=== PATIENT | male | born 1960 | race Caucasian/White ===

== ENCOUNTER 2016-11-10 | Outpatient (CLI) | END 2016-11-10 16:58 | disposition critical access hospital (66) | CPT/HCPCS: A0425; A0429 ==

== ENCOUNTER 2016-11-10 17:19 | Emergency (ER) | payer MEDICAID ==
[2016-11-10] MEDS ORDERED: IPRATROPIUM/ALBUTEROL 3 ML NEB INH STA (19:00)
[2016-11-10] MEDS ORDERED: SODIUM CHLORIDE 0.9% 1,000 ML IV ONE (19:01)
[2016-11-10] MEDS ORDERED: IPRATROPIUM/ALBUTEROL 3 ML NEB INH ONE (19:27)
[2016-11-10] MEDS ORDERED: AZITHROMYCIN 250 MG TABLET PO STA (21:32)
[2016-11-10] MEDS ORDERED: DEXAMETHASONE 10 MG/ML VIAL PO STA (21:32)
[2016-11-10] MEDS ORDERED: DEXAMETHASONE 10 MG/ML VIAL ONE (21:35)
[2016-11-10] MEDS ORDERED: AZITHROMYCIN 250 MG TABLET PO ONE (21:35)
== END 2016-11-10 21:48 | disposition home or self-care (01) ==
DX: J44.1 Chronic obstructive pulmonary disease with (acute) exacerbation (principal); J45.909 Unspecified asthma, uncomplicated; J06.9 Acute upper respiratory infection, unspecified
CPT/HCPCS: 36415; 80053; 82140; 82803; 83605; 83690; 83735; 85025; 94640; 99284; A9270; J7620

== ENCOUNTER 2016-11-11 19:55 | Emergency (ER) | payer MEDICAID | END 2016-11-11 22:10 | disposition home or self-care (01) | DX: R41.0 Disorientation, unspecified (principal); J44.9 Chronic obstructive pulmonary disease, unspecified; K21.9 Gastro-esophageal reflux disease without esophagitis; Z86.73 Personal history of transient ischemic attack (TIA), and cerebral infarction without residual deficits ==

== ENCOUNTER 2017-05-17 14:02 | Emergency (ER) | payer MEDICAID ==
--- NOTE | 2017-05-17 14:36 | ED Physician Documentation ---
PD HPI BACK INJURY - Stated complaint Stated Complaint: BACK PX - History obtained from History obtained from: Patient, Family - History of Present Illness Location: Left, Lower Type of injury: Fall Where injury occurred: Home (tripped over a stump) Timing - onset: How many days ago (several) Timing - duration: Days (several) Pain level max: 10 Pain level now: 10 Quality: Pain, Spasm, Tearing Improved by: Rest Worsened by: Moving, Palpating Associated symptoms: No: Fever, Weakness, Numbness, Incontinent of urine, Unable to urinate, Hematuria, Incontinent of stool Contributing factors: Prior back surgery (L4-S1 fusion). No: Anticoagulated Similar symptoms before: Diagnosis (chronic back pain) Recently seen: Not recently seen - Additional information Additional information: states last used methamphetamines 4 days ago Review of Systems Ten Systems: 10 systems reviewed and negative Constitutional: denies: Fever, Chills Throat: denies: Sore throat Cardiac: denies: Chest pain / pressure Respiratory: denies: Cough GI: denies: Abdominal Pain, Nausea, Vomiting, Diarrhea Skin: denies: Rash Musculoskeletal: denies: Neck pain Neurologic: denies: Focal weakness, Numbness, Headache PD PAST MEDICAL HISTORY - Past Medical History Past Medical History: Yes Respiratory: COPD, Pneumonia Neuro: CVA Endocrine/Autoimmune: None GI: GERD : None HEENT: None Psych: Depression, Anxiety, Bipolar disorder, ADD/ADHD Musculoskeletal: None Derm: None - Past Surgical History Past Surgical History: Yes General: Cholecystectomy, Appendectomy, Colonoscopy Ortho: Spine surgery - Present Medications Home Medications: Ambulatory Orders Medication Instructions Recorded Confirmed Tiotropium [place] [Spiriva] 1 cap INH DAILY 06/05/14 11/11/16 Albuterol Sulfate [Albuterol 2 puffs IH Q4HR PRN #1 hfa.aer.ad 02/04/15 11/11/16 Sulfate Hfa] Multivitamin [Multivitamins] 1 tab PO DAILY 02/04/15 11/11/16 Cholecalciferol [Vitamin D3] 6,000 units PO DAILY 06/13/16 11/11/16 Pravastatin [Pravachol] 40 mg PO DAILY 06/13/16 11/11/16 amLODIPine [Norvasc] 5 mg PO DAILY 06/13/16 11/11/16 Adalimumab [Humira] 40 mg SUBQ Q14D 09/29/16 11/11/16 Ibuprofen 800 mg PO Q6H PRN 10/30/16 11/11/16 Tamsulosin [Flomax] 0.4 mg PO DAILY 10/30/16 11/11/16 Amitriptyline [Elavil] 100 mg PO QPM #30 tablet 11/04/16 11/11/16 Amoxicillin/Potassium Clav 1 each PO BID #14 tablet 11/04/16 11/11/16 [Augmentin 875-125 Tablet] Divalproex [Benjamin Jalloh] 750 mg PO DAILY #30 tablet 11/04/16 11/11/16 Duloxetine HCl [Cymbalta] 60 mg PO DAILY #30 capsule. 11/04/16 11/11/16 LORazepam [Ativan] 1 mg PO TID #21 tablet 11/04/16 11/11/16 Lisinopril 10 mg PO DAILY #30 tablet 11/04/16 11/11/16 Nicotine 21 mg Patch [Nicoderm] 1 patch TOP DAILY #28 patch 11/04/16 11/11/16 Omeprazole 20 mg PO DAILY #30 capsule. 11/04/16 11/11/16 Pravastatin [Pravachol] 40 mg PO QPM tablet 11/04/16 11/11/16 oxyCODONE [Roxicodone] 10 mg PO Q6HR PRN #30 tablet 11/04/16 11/11/16 Albuterol Sulfate [Proair Hfa 2 puffs IH QID #1 hfa.aer.ad 11/10/16 11/11/16 Inhaler] Azithromycin [Zithromax] 250 mg PO DAILY #6 tablet 11/10/16 11/11/16 Dexamethasone [Decadron] 4 mg PO DAILY #5 tablet 11/10/16 11/11/16 Cyclobenzaprine [Flexeril] 10 mg PO TID PRN #20 tablet 05/17/17 Meloxicam [Mobic] 7.5 mg PO BID PRN #20 tablet 05/17/17 - Allergies Allergies/Adverse Reactions: Allergies Allergy/AdvReac Type Severity Reaction Status Date / Time bupropion HCl * [From Mal] Allergy Rash Verified 05/17/17 14:15 - Social History Does the pt smoke?: No Smoking Status: Never smoker Does the pt drink ETOH?: No Does the pt have substance abuse?: Yes - Immunizations Immunizations are current?: Yes - POLST Patient has POLST: No PD ED PE NORMAL - Vitals Vital signs reviewed: Yes - General General: Alert and oriented X 3, No acute distress - HEENT HEENT: Moist mucous membranes - Neck Neck: Supple, no meningeal sign - Cardiac Cardiac: RRR, Strong equal pulses - Respiratory Respiratory: No respiratory distress, Clear bilaterally - Abdomen Abdomen: Soft, Non tender, Non distended - Back Back: Other (diffuse TTP T12-L5. No midline TTP. Paraspinal spasm present.) - Derm Derm: Warm and dry - Extremities Extremities: No deformity, No tenderness to palpate, Other (normal bilateral lower extremity patellar and ankle jerk reflexes. Normal great toe extension bilaterally) - Neuro Neuro: Alert and oriented X 3, No motor deficit, No sensory deficit, Normal speech - Psych Psych: Normal mood, Normal affect Results - Vitals Vitals: Vital Signs - 24 hr 05/17/17 05/17/17 14:09 15:22 Temperature 36.5 C Heart Rate 78 77 Respiratory 18 18 Rate Blood Pressure 158/100 H 154/86 H O2 Saturation 99 97 Oxygen O2 Source Room air PD MEDICAL DECISION MAKING - ED course Complexity details: reviewed old records, considered differential (no cauda equina, no spinal epidural abscess, no fracture, no aortic dissection or evidence of aneursym rupture), d/w patient ED course: Patient is a 56-year-old gentleman who presents to the emergency department with acute on chronic back pain. No neurological deficits here. No evidence of acute fracture. No evidence of cauda equina. No evidence of epidural abscess. He does use methamphetamine, last used 4 days ago, but does not inject. Social work was also consulted and gave him resources for rehab. Pain well controlled, ambulating well with a cane. Will continue supportive care and follow-up with his doctor. Patient counseled regarding signs and symptoms for which I believe and urgent re-evaluation would be necessary. Patient with good understanding of and agreement to plan and is comfortable going home at this time This document was made in part using voice recognition software. While efforts are made to proofread this document, sound alike and grammatical errors may occur. Departure - Departure Disposition: 01 Home, Self Care Clinical Impression: Back pain Qualifiers: Back pain location: low back pain Chronicity: acute Back pain laterality: bilateral Sciatica presence: without sciatica Qualified Code(s): M54.5 - Low back pain Back strain Qualifiers: Encounter type: initial encounter Qualified Code(s): S39.012A - Strain of muscle, fascia and tendon of lower back, initial encounter Condition: Good Instructions: ED Low Back Pain Injury, ED Sprain Strain Lumbar Follow-Up: your,doctor in 1 week [Other] Prescriptions: Cyclobenzaprine [Flexeril] 10 mg PO TID PRN #20 tablet PRN Reason: Spasms Meloxicam [Mobic] 7.5 mg PO BID PRN #20 tablet PRN Reason: pain Comments: Return if you worsen. This should improve over the next few days. You should follow up with rehab as instructed by the social science manager today. Do not drive or operate heavy machinery while on flexeril. Your blood pressure was elevated today on check in to the emergency department. This does not mean that you have hypertension, it is a common phenomenon to check into the emergency department and have elevated blood pressure. I recommend that you see your primary care physician within the week to have it rechecked when you're feeling better. Discharge Date/Time: 05/17/17 15:22
[2017-05-17] MEDS ORDERED: KETOROLAC 60 MG/2 ML VIAL IM STA (14:48)
[2017-05-17] MEDS ORDERED: DEXAMETHASONE 10 MG/ML VIAL ONE (14:49)
[2017-05-17] MEDS ORDERED: CYCLOBENZAPRINE 10 MG TABLET PO ONE (14:49)
[2017-05-17] MEDS ORDERED: DEXAMETHASONE 10 MG/ML VIAL PO STA (14:49)
[2017-05-17] MEDS ORDERED: CYCLOBENZAPRINE 10 MG TABLET PO STA (14:49)
[2017-05-17] MEDS ORDERED: KETOROLAC 60 MG/2 ML VIAL ONE (14:50)
[2017-05-17] MEDS ORDERED: HYDROcod/ACETAM 5/325 MG TABLET PO STA (14:50)
[2017-05-17] MEDS ORDERED: HYDROcod/ACETAM 5/325 MG TABLET ONE (14:54)
[2017-05-17 15:22] VITALS: BP 154/86
== END 2017-05-17 15:22 | disposition home or self-care (01) ==
LOC: ED 14:02
DX: S39.012A Strain of muscle, fascia and tendon of lower back, initial encounter (principal); W18.09XA Striking against other object with subsequent fall, initial encounter; Y92.009 Unspecified place in unspecified non-institutional (private) residence as the place of occurrence of the external cause; F15.90 Other stimulant use, unspecified, uncomplicated; G89.29 Other chronic pain
CPT/HCPCS: 96372; 99283; 99284; A9270

== ENCOUNTER 2017-08-02 19:13 | Observation (INO) | payer MEDICAID ==
[2017-08-02] MEDS ORDERED: oxyCOD/ACETAMIN 5 MG/325 MG TABLET PO STA (19:46)
--- NOTE | 2017-08-02 19:48 | ED Physician Documentation ---
PD HPI FOCAL NEURO - Stated complaint Stated Complaint: STROKE SYMPTOMS - Chief complaint Chief Complaint: Neuro - History obtained from History obtained from: Patient, Family - History of Present Illness Timing - onset: Other (This is a 57-year-old gentleman with chronic back pain, history of TIAs, psoriasis, and history of drug use. 5 days ago he started to develop left-sided symptoms including slurred speech, Left arm and leg weakness. Also diffuse headache. He He is left-handed. He went to another hospital 3 days ago where a CT was done, it sounds like it was normal. They could not do an MRI over the weekend so it was recommended that he be transferred to [place], he signed out AGAINST MEDICAL ADVICE but still is having symptoms that are waxing and waning.) Review of Systems Ten Systems: 10 systems reviewed and negative Constitutional: denies: Fever, Chills Nose: denies: Rhinorrhea / runny nose, Congestion Cardiac: denies: Chest pain / pressure, Palpitations Respiratory: denies: Dyspnea, Cough GI: denies: Abdominal Pain, Nausea, Vomiting Musculoskeletal: reports: Back pain (Chronic, severe) PD PAST MEDICAL HISTORY - Past Medical History Respiratory: COPD, Pneumonia Neuro: CVA Endocrine/Autoimmune: None GI: GERD : None HEENT: None Psych: Depression, Anxiety, Bipolar disorder, ADD/ADHD Musculoskeletal: None Derm: None - Past Surgical History Past Surgical History: Yes General: Cholecystectomy, Appendectomy, Colonoscopy Ortho: Spine surgery - Present Medications Home Medications: Ambulatory Orders Medication Instructions Recorded Confirmed Tiotropium [place] [Spiriva] 1 cap INH DAILY 06/05/14 11/11/16 Albuterol Sulfate [Albuterol 2 puffs IH Q4HR PRN #1 hfa.aer.ad 02/04/15 11/11/16 Sulfate Hfa] Multivitamin [Multivitamins] 1 tab PO DAILY 02/04/15 11/11/16 Cholecalciferol [Vitamin D3] 6,000 units PO DAILY 06/13/16 11/11/16 Pravastatin [Pravachol] 40 mg PO DAILY 06/13/16 11/11/16 amLODIPine [Norvasc] 5 mg PO DAILY 06/13/16 11/11/16 Adalimumab [Humira] 40 mg SUBQ Q14D 09/29/16 11/11/16 Ibuprofen 800 mg PO Q6H PRN 10/30/16 11/11/16 Tamsulosin [Flomax] 0.4 mg PO DAILY 10/30/16 11/11/16 Amitriptyline [Elavil] 100 mg PO QPM #30 tablet 11/04/16 11/11/16 Amoxicillin/Potassium Clav 1 each PO BID #14 tablet 11/04/16 11/11/16 [Augmentin 875-125 Tablet] Divalproex [Benjamin Jalloh] 750 mg PO DAILY #30 tablet 11/04/16 11/11/16 Duloxetine HCl [Cymbalta] 60 mg PO DAILY #30 capsule. 11/04/16 11/11/16 LORazepam [Ativan] 1 mg PO TID #21 tablet 11/04/16 11/11/16 Lisinopril 10 mg PO DAILY #30 tablet 11/04/16 11/11/16 Nicotine 21 mg Patch [Nicoderm] 1 patch TOP DAILY #28 patch 11/04/16 11/11/16 Omeprazole 20 mg PO DAILY #30 capsule. 11/04/16 11/11/16 Pravastatin [Pravachol] 40 mg PO QPM tablet 11/04/16 11/11/16 oxyCODONE [Roxicodone] 10 mg PO Q6HR PRN #30 tablet 11/04/16 11/11/16 Albuterol Sulfate [Proair Hfa 2 puffs IH QID #1 hfa.aer.ad 11/10/16 11/11/16 Inhaler] Azithromycin [Zithromax] 250 mg PO DAILY #6 tablet 11/10/16 11/11/16 Dexamethasone [Decadron] 4 mg PO DAILY #5 tablet 11/10/16 11/11/16 Cyclobenzaprine [Flexeril] 10 mg PO TID PRN #20 tablet 05/17/17 Meloxicam [Mobic] 7.5 mg PO BID PRN #20 tablet 05/17/17 - Allergies Allergies/Adverse Reactions: Allergies Allergy/AdvReac Type Severity Reaction Status Date / Time bupropion HCl * [From Mal] Allergy Rash Verified 08/02/17 19:18 - Social History Does the pt smoke?: No Smoking Status: Never smoker Does the pt drink ETOH?: No Does the pt have substance abuse?: Yes - Family History Family history: reports: Non contributory - Immunizations Immunizations are current?: Yes - POLST Patient has POLST: No PD ED PE NORMAL - Vitals Vital signs reviewed: Yes - General General: Alert and oriented X 3, No acute distress - HEENT HEENT: PERRL, EOMI - Neck Neck: Supple, no meningeal sign, No bony TTP - Cardiac Cardiac: RRR, No murmur - Respiratory Respiratory: No respiratory distress, Clear bilaterally - Abdomen Abdomen: Soft, Non tender - Back Back: No CVA TTP, No spinal TTP - Derm Derm: Normal color, Warm and dry - Extremities Extremities: No edema, No calf tenderness / cord - Neuro Neuro: Alert and oriented X 3, Normal speech - Psych Psych: Normal mood, Normal affect NIHSS - Time Time: 19:40 - Level of Consciousness Level of consciousness: (0) Alert, Keenly responsive LOC Questions: (1) Answers one Q correctly (August but year right) LOC Commands: (0) Performs both correctly - Gaze Best Gaze: (0) Normal - Visual Visual: (0) No loss - Facial Palsy Facial Palsy: (0) Normal, symmetrical movement - Motor Arms (both separate) Motor Arm (right): (0) No drift Motor Arm (left): (0) No drift (but weak in house cra) - Motor Legs (both separate) Motor Leg (right): (0) No drift Motor Leg (left): (1) Drift - Limb Ataxia Limb Ataxia: (0) Absent - Sensory Sensory: (1) Stui-nr-vqxxjvtu loss - Best Language Best Language: (0) No aphasia - Dysarthria Dysarthria: (0) Normal - Extinction and Inattention (formally neg Extinction and inattention: (1) Visual,tactile,auditory,spatial, or personal inattention (extinction left leg) - Total Score/Results Total Score/Result: 4 Results - Vitals Vitals: Vital Signs - 24 hr 08/02/17 19:14 Temperature 36.7 C Heart Rate 98 Respiratory 18 Rate Blood Pressure 146/90 H O2 Saturation 96 Oxygen O2 Source Room air - EKG (time done) 2006 Rate: Rate (enter#) (90) Rhythm: NSR [place]: LAD Intervals: Normal DC, Wide QRS (IVCD QRSd 121) Ischemia: Normal ST segments Computer interpretation: Agree with computer - Labs Labs: Laboratory Tests 08/02/17 08/02/17 08/02/17 19:55 19:55 19:55 WBC 7.3 RBC 4.27 L Hgb 13.7 L Hct 40.2 L MCV 94.1 H MCH 32.1 H MCHC 34.1 RDW 13.9 Plt Count 280 MPV 7.0 L Neut # 4.6 Lymph # 2.0 [place] # 0.6 Eos # 0.1 Baso # 0.1 Absolute Nucleated RBC 0.00 Nucleated RBCs 0.0 PT 12.1 INR 1.1 Sodium 137 Potassium 3.2 L Chloride 104 Carbon Dioxide 25 Anion Gap 8.0 BUN 21 H Creatinine 0.9 Estimated GFR (MDRD) 86 L Glucose 110 H Calcium 9.0 Total Bilirubin 0.9 AST 30 ALT 24 Alkaline Phosphatase 63 Troponin I Total Protein 6.6 L Albumin 3.9 Globulin 2.7 Albumin/Globulin Ratio 1.4 Lipase 20 L Ethyl Alcohol < 5.0 08/02/17 19:55 WBC RBC Hgb Hct MCV MCH MCHC RDW Plt Count MPV Neut # Lymph # [place] # Eos # Baso # Absolute Nucleated RBC Nucleated RBCs PT INR Sodium Potassium Chloride Carbon Dioxide Anion Gap BUN Creatinine Estimated GFR (MDRD) Glucose Calcium Total Bilirubin AST ALT Alkaline Phosphatase Troponin I < 0.04 Total Protein Albumin Globulin Albumin/Globulin Ratio Lipase Ethyl Alcohol - Rads (name of study) Ct head Radiology: EMP read contemporaneously (NAD) PD MEDICAL DECISION MAKING - ED course ED course: 57-year-old gentleman presents with strokelike symptoms with dominant, left- sided symptoms. He is definitely not a TPA candidate because of the time course , [address] is without obvious insult, spoke with Dr. Rocha for admission at 9:08 PM. Departure - Departure Disposition: ED Place in Observation Clinical Impression: Cerebrovascular accident (CVA) Qualifiers: CVA mechanism: unspecified Qualified Code(s): I63.9 - Cerebral infarction, unspecified Condition: Stable
[2017-08-02] MEDS ORDERED: HYDROmorphone 1 MG/ML CARPUJECT IVP STA (19:49)
[2017-08-02] MEDS ORDERED: SODIUM CHLORIDE FLUSH 0.9% 10 ML SYRINGE IVP ONE (19:52)
[2017-08-02] MEDS ORDERED: HYDROmorphone 1 MG/ML CARPUJECT ONE (20:05)
[2017-08-02 20:06] LABS: BASOPHILS # (AUTO) 0.1 10^3/uL (0.0-0.1); BASOPHILS % (AUTO) 1.2 %; EOSINOPHILS # (AUTO) 0.1 10^3/uL (0.0-0.7); EOSINOPHILS % (AUTO) 0.9 %; HCT - HEMATOCRIT 40.2 % (42.0-52.0); HGB - HEMOGLOBIN 13.7 g/dL (14.0-18.0); LYMPHOCYTES % (AUTO) 27.2 %; MEAN CORPUSCULAR HEMOGLOBIN 32.1 pg (27.0-31.0); MEAN CORPUSCULAR HGB CONC 34.1 g/dL (32.0-36.0); MEAN CORPUSCULAR VOLUME 94.1 fL (80.0-94.0); MONOCYTES # (AUTO) 0.6 10^3/uL (0.0-1.0); MONOCYTES % (AUTO) 8.3 %; NEUTROPHILS # (AUTO) 4.6 10^3/uL (1.5-6.6); NEUTROPHILS % (AUTO) 62.4 %; RED BLOOD COUNT 4.27 10^6/uL (4.70-6.10); RED CELL DISTRIBUTION WIDTH 13.9 % (12.0-15.0); UNCORRECTED WHITE BLOOD COUNT 7.3 x10^3/uL; WHITE BLOOD COUNT 7.3 x10^3/uL (4.8-10.8)
[2017-08-02] MEDS ORDERED: SODIUM CHLORIDE 0.9% 1,000 ML IV ONE (20:13)
[2017-08-02 20:15] LABS: ALBUMIN/GLOBULIN RATIO 1.4 (1.0-2.2); BILIRUBIN,TOTAL 0.9 mg/dL (0.2-1.0); BUN - BLOOD UREA NITROGEN 21 mg/dL (6-20); CARBON DIOXIDE - CO2 25 mmol/L (21-32); CHLORIDE 104 mmol/L (101-111); CREATININE 0.9 mg/dL (0.6-1.2); GFR - MDRD 86 (>89); GLUCOSE 110 mg/dL (70-100); LIPASE 20 U/L (22-51); POTASSIUM 3.2 mmol/L (3.5-5.0); SODIUM 137 mmol/L (135-145); TOTAL PROTEIN 6.6 g/dL (6.7-8.2)
[2017-08-02 20:16] LABS: INR 1.1 (0.8-1.2); PT - PROTHROMBIN TIME 12.1 secs (9.9-12.6)
--- NOTE | 2017-08-02 20:50 | CT Preliminary Report ---
Exam: CT Head W/O IMPRESSION: Normal head CT. [facility] SITE ID: [id number]
--- NOTE | 2017-08-02 20:53 | CT Report ---
EXAM: CT HEAD EXAM DATE: 08/02/2017 08:19 PM. CLINICAL HISTORY: CVA. COMPARISON: 11/11/2016. TECHNIQUE: Multiaxial CT images were obtained from the foramen magnum to the vertex. IV contrast: Non e. Reformats: Coronal. In accordance with CT protocol optimization, one or more of the following dose reduction techniques w ere utilized for this exam: automated exposure control, adjustment of mA and/or KV based on patient s ize, or use of iterative reconstructive technique. FINDINGS: Parenchyma: No intraparenchymal hemorrhage. No evidence of mass, midline shift, or CT findings of inf arction. Krause-white differentiation is distinct. Extraaxial Spaces: Normal for age. No subdural or epidural collections identified. Ventricles: Normal in size and position. Sinuses: Imaged paranasal sinuses, orbits, and mastoids show no significant abnormality. Bones: No evidence of fracture or calvarial defect. Other: None. IMPRESSION: Normal head CT. [facility] Referring Provider Line: [phone] SITE ID: [id number]
[2017-08-02] MEDS ORDERED: ASPIRIN CHEW 81 MG TABLET PO STA (21:06)
[2017-08-02] MEDS ORDERED: ASPIRIN CHEW 81 MG TABLET ONE (21:16)
[2017-08-02] MEDS ORDERED: IBUPROFEN 800 MG TABLET PO PRN (21:18)
[2017-08-02] MEDS ORDERED: CYCLOBENZAPRINE 10 MG TABLET PO PRN (21:18)
[2017-08-02] MEDS ORDERED: PROCHLORPERAZINE 10 MG/2 ML VIAL IVP PRN (21:20)
[2017-08-02] MEDS ORDERED: SODIUM CHLORIDE FLUSH 0.9% 10 ML SYRINGE IVP PRN (21:20)
[2017-08-02] MEDS ORDERED: IPRATROPIUM/ALBUTEROL 3 ML NEB INH PRN (21:20)
[2017-08-02] MEDS ORDERED: ZOLPIDEM 5 MG TABLET PO PRN (21:20)
[2017-08-02] MEDS ORDERED: ONDANSETRON 4 MG/2 ML VIAL IVP PRN (21:20)
[2017-08-02] MEDS ORDERED: ACETAMINOPHEN 325 MG TABLET PO PRN (21:20)
[2017-08-02] MEDS: SODIUM CHLORIDE FLUSH 0.9% 10 ML SYRINGE IVP SCH (22:36)
[2017-08-02] MEDS: oxyCODONE 5 MG TABLET PO PRN (22:36)
[2017-08-02] MEDS: LORazepam 0.5 MG TABLET PO SCH (22:36)
[2017-08-02] MEDS: SODIUM CHLORIDE 0.9% 1,000 ML IV SCH (22:49)
--- NOTE | 2017-08-02 23:01 | HISTORY & PHYSICAL EXAMINATION ---
Chief Complaint - Chief Complaint Chief Complaint: Left arm and leg weakness History of Present Illness - Admitted From Admitted From:: Emergency department - History Obtained From Records Reviewed: Yes History obtained from: Patient and his girlfriend Exam Limitations: None - History of Present Illness HPI Comment/Other: Patient is a 57-year-old gentleman with a past medical history significant for hypertension, TIAs, history of DE GERD, erectile dysfunction, COPD not on home oxygen, severe psoriasis, BPH, chronic tobacco abuse, anxiety, hyperlipidemia, chronic back pain status post spinal surgery, bipolar 1 disorder with depression and a 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 According to the patient's girlfriend the patient initially had symptoms 5 days ago at home. According to the patient's the patient had slurred speech and was having a difficult time understanding her. She states that when she did a stroke test on him she noted that he had weakness in the left hand as she could not get him to tile and mottle supervisor her finger in his left hand. She also stated that he was having difficulty walking and was favoring the left side. At that time the patient refused to come into the hospital and symptoms persisted over the next 1-2 days with the patient being in and out according to the patient's girlfriend. Finally the patient went to a hospital in [place] on Wednesday and underwent a CT of his head which was negative for stroke at that time. The emergency room physician there wanted the patient to get an MRI but their facility did not have MRI available so the patient was going to be transferred to [facility] in [place] but the patient refused and left AMA. The patient's girlfriend states that over the past several days the patient has continued to have weakness on the left side. She states that he is able to walk with a cane but he definitely is weaker in his left leg and also she notes that he continues to have weakness with his tile and mottle supervisor in the left hand and weakness in the left arm. She states that she was finally able to convince him to come into the hospital today to get further evaluation. The patient states that he does take a full aspirin and statin at home. He does admit that he is not always compliant and has not taken his medications for the last several days. The patient states that he does continue to use methamphetamine but states that he is trying to quit and would like to speak with the psychosocial rehabilitation counselor. The patient otherwise states that he does have a headache and has had a bad headache for the last several days, he does complain of chronic back pain which has been worse since Wednesday when the patient had a fall, the patient also complains of the weakness in his left arm and left leg. The patient otherwise states he does not have any blurred vision, runny nose, sore throat, nasal congestion, chest pain, shortness of air, wheezing, orthopnea, PND, increased lower extremity swelling, abnormal pain, nausea, vomiting, diarrhea, constipation, he does admit to urinary incontinence which is new for him over the last several days, he denies any dysuria, he denies any muscle aches, he denies any joint swelling or joint pains, he denies any changes in his appetite or recent unintentional weight loss. On presentation to the emergency department the patient was slightly hypertensive but was otherwise hemodynamically stable. The patient underwent routine lab work including troponin which was negative electrolytes which were within normal limits aside from his potassium of 3.2. The patient urine tox screen was positive for tricyclics amphetamine and cannabinoids but negative for alcohol. The patient was found to have significant left upper extremity and lower extremity weakness. He did not have any facial droop or expressive aphasia. The patient underwent a repeat CT scan of his head which was normal and was placed in observation for neuro checks, CT angiogram of the brain and neck, echocardiogram and MRI. The patient is already on aspirin and a statin therefore Plavix was also started. History - Past Medical History Cardiovascular: reports: Hypertension, High cholesterol, DE Respiratory: reports: COPD, Pneumonia Neuro: reports: CVA, TIA, Head injury Endocrine/Autoimmune: reports: None GI: reports: GERD : reports: Benign prostate hypertrophy HEENT: reports: None Psych: reports: Depression, Anxiety, Bipolar disorder, ADD/ADHD Musculoskeletal: reports: Chronic back pain Derm: reports: Psoriasis MRSA Hx?: No Other Past Medical History: 1. History of alcohol abuse. 2. Methamphetamine abuse. 3. TIAs. 4. History of CVA. 5. Hypertension. 6. GERD. 7. Erectile dysfunction. 8. Chronic obstructive pulmonary disease not on home oxygen. 9. History of episode of syncope. 10. History of traumatic brain injury. 11. Hyperlipidemia. 12. Severe psoriasis on Humira. 13. Benign prostatic hypertrophy. 14. Chronic tobacco abuse. 15. Anxiety. 16. Adenomatous colonic polyp. 17. Chronic back pain status post spinal surgery. 18. Bipolar 1 disorder with depression - Past Surgical History General: reports: Cholecystectomy, Appendectomy, Colonoscopy Ortho: reports: Spine surgery - Family & Social History Family History: Mother: (Both parents of cancer mother had pancreatic cancer), Father: Family History Comment/Other: No family history of diabetes, heart disease, hypertension, stroke. Living arrangement: At home Living Situation: With spouse/s.o. Social History Notes: The patient lives in her apartment in [place] with his girlfriend and his girlfriend's son. He is not currently employed. He has a history of alcohol abuse but has been in remission for some time. He does still occasionally use methamphetamine. He states that he has cut down on his smoking and only smokes a few cigarettes a day. He states he would like to see a psychosocial rehabilitation counselor regarding his methamphetamine abuse. - Substance History Use: Uses substance without health or social issues: Tobacco, Amphetamine Abuse: Recurrent use of substance despite neg consequences: Amphetamine Tobacco Details: Cigarettes - POLST Patient has POLST: No POLST Status: Full Code Meds/Allgy - Home Medications Home Medications: Ambulatory Orders Medication Instructions Recorded Confirmed Tiotropium [place] [Spiriva] 1 cap INH DAILY 06/05/14 11/11/16 Albuterol Sulfate [Albuterol 2 puffs IH Q4HR PRN #1 hfa.aer.ad 02/04/15 11/11/16 Sulfate Hfa] Multivitamin [Multivitamins] 1 tab PO DAILY 02/04/15 11/11/16 Cholecalciferol [Vitamin D3] 6,000 units PO DAILY 06/13/16 11/11/16 Pravastatin [Pravachol] 40 mg PO DAILY 06/13/16 11/11/16 amLODIPine [Norvasc] 5 mg PO DAILY 06/13/16 11/11/16 Adalimumab [Humira] 40 mg SUBQ Q14D 09/29/16 11/11/16 Ibuprofen 800 mg PO Q6H PRN 10/30/16 11/11/16 Tamsulosin [Flomax] 0.4 mg PO DAILY 10/30/16 11/11/16 Amitriptyline [Elavil] 100 mg PO QPM #30 tablet 11/04/16 11/11/16 Amoxicillin/Potassium Clav 1 each PO BID #14 tablet 11/04/16 11/11/16 [Augmentin 875-125 Tablet] Divalproex [Depakomichelle Jalloh] 750 mg PO DAILY #30 tablet 11/04/16 11/11/16 Duloxetine HCl [Cymbalta] 60 mg PO DAILY #30 capsule. 11/04/16 11/11/16 LORazepam [Ativan] 1 mg PO TID #21 tablet 11/04/16 11/11/16 Lisinopril 10 mg PO DAILY #30 tablet 11/04/16 11/11/16 Nicotine 21 mg Patch [Nicoderm] 1 patch TOP DAILY #28 patch 11/04/16 11/11/16 Omeprazole 20 mg PO DAILY #30 capsule. 11/04/16 11/11/16 Pravastatin [Pravachol] 40 mg PO QPM tablet 11/04/16 11/11/16 oxyCODONE [Roxicodone] 10 mg PO Q6HR PRN #30 tablet 11/04/16 11/11/16 Albuterol Sulfate [Proair Hfa 2 puffs IH QID #1 hfa.aer.ad 11/10/16 11/11/16 Inhaler] Azithromycin [Zithromax] 250 mg PO DAILY #6 tablet 11/10/16 11/11/16 Dexamethasone [Decadron] 4 mg PO DAILY #5 tablet 11/10/16 11/11/16 Cyclobenzaprine [Flexeril] 10 mg PO TID PRN #20 tablet 05/17/17 Meloxicam [Mobic] 7.5 mg PO BID PRN #20 tablet 05/17/17 - Allergies Allergies/Adverse Reactions: Allergies Allergy/AdvReac Type Severity Reaction Status Date / Time bupropion HCl * [From Zkhalidaan] Allergy Rash Verified 08/02/17 19:18 Review of Systems - Other Findings Other Findings: A comprehensive review of systems was performed the pertinent positives and negatives are stated above in the HPI and the remainder of the review of systems is negative. Exam - Vital Signs Vital Signs: Vital Signs x48h Temp Pulse Pulse Resp BP BP Pulse Ox 08/02/17 22:00 36.4 C L 89 18 120/92 H 96 08/02/17 21:31 90 17 160/93 H 94 08/02/17 21:30 37.0 C 92 12 160/93 H 94 - Physical Exam General Appearance: positive: No acute distress, Alert, Other (The patient does have obvious psoriasis over much of his skull and skin, he is alert and able to answer questions appropriately. He does tend to get off topic and ramble.) Eyes Bilateral: positive: Normal inspection, PERRL, EOMI, No lid inflammation, Conjunctivae nml, No scleral icterus ENT: positive: ENT inspection nml, Pharynx nml, Dry mucous membranes. negative : Purulent nasal drainage, Pharyngeal erythema, Oral lesions Neck: positive: Nml inspection, Thyroid nml, No JVD, Trachea midline. negative : Thyromegaly, Lymphadenopathy (R), Lymphadenopathy (L), Stiff neck, Carotid bruit, Tracheal deviation Respiratory: positive: Chest non-tender, No respiratory distress, Wheezes (Mild diffuse). negative: Rales, Rhonchi Cardiovascular: positive: Regular rate & rhythm, No murmur, No gallop Peripheral Pulses: positive: 2+ Abdomen: positive: Non-tender, No organomegaly, Nml bowel sounds, No distention. negative: Guarding, Rebound Back: positive: Nml inspection. negative: CVA tenderness (R), CVA tenderness (L ) Skin: positive: Dry, Skin rash (Patient has psoriasis). negative: Cyanosis, Diaphoresis, Pallor Extremities: positive: Non-tender, Full ROM, Nml appearance, No pedal edema, Other (Mid to lower spinal tenderness). negative: Joint swelling Neurologic/Psychiatric: positive: Oriented x3, CN's nml (2-12), Sensation nml, Mood/affect nml, Weakness (Left hand tile and mottle supervisor 3/5, left arm strength 4/5, left leg strength 4/5. Right upper and lower extremity strength normal). negative: Facial droop, Slurred/abnml speech Conclusion/Plan - Problem List (1) Cerebrovascular accident (CVA) Conclusion/Plan: The patient has a history of CVA and is supposed to be on aspirin and pravastatin at home the patient is not always compliant. The patient also continues to use methamphetamines and does smoke. He has a history of hypertension and hyperlipidemia. The patient is not always compliant with medications. He initially had left-sided weakness 5 days ago and did get seen in the ER at [facility] where he underwent a CT head that was negative. At that time they wanted him to go to [facility] in [place] for MRI but the patient refused. Patient continues to have persistent symptoms although initially he had some slurred speech and confusion which has resolved but weakness remains. On exam patient does have left upper and lower extremity weakness. CT head here in the ER is also negative. Patient being placed in observation for full workup for CVA. Plan: Aspirin Plavix Lipitor CTA head and neck MRI brain Echo Lipid profile Tele Neurochecks PT eval Qualifiers: CVA mechanism: unspecified Qualified Code(s): I63.9 - Cerebral infarction, unspecified (2) Hypertension Conclusion/Plan: The patient is 5 days out from his initial stroke. Although patient CT head is negative he continues to have left-sided weakness. Patient's blood pressure is slightly elevated and given it is outside of the window for permissive hypertension patient will be restarted on his home blood pressure medications and we will continue to monitor his blood pressure closely. Qualifiers: Hypertension type: essential hypertension Qualified Code(s): I10 - Essential (primary) hypertension (3) Hyperlipidemia Conclusion/Plan: The patient is on pravastatin at home secondary to having had an DE and a stroke in the past. The patient is not completely compliant with medication. He will be placed on Lipitor 80 mg while he is hospitalized as he is presenting with another stroke. The patient was counseled on the need for medication and compliance (4) COPD (chronic obstructive pulmonary disease) Conclusion/Plan: The patient has history of COPD and is on Spiriva and albuterol as needed at home. The patient does have mild wheezing on examination but is not appear to be in COPD exacerbation. Plan: Patient will be continued on duo nebs as needed while he is hospitalized Patient will be given oxygen if needed. (5) Bipolar 1 disorder Conclusion/Plan: Patient has history of bipolar disorder and is on Depakote Cymbalta and amitriptyline. Patient's mood appears to be stable we will continue his home medications while he is hospitalized. (6) Methamphetamine abuse Conclusion/Plan: Patient has a history of methamphetamine abuse and was in remission for some time. The patient states that he has relapsed and does use occasionally. He would like to talk to psychosocial rehabilitation counselor regarding help. The patient was counseled on the need to stop using methamphetamine and the risks involved with its use. (7) Tobacco abuse Conclusion/Plan: The patient continues to smoke although he states he is cut down to just a few cigarettes a day. It was again explained to the patient the risks involved with continued smoking including the risk of stroke heart attack and cancer. The patient seemed to under and we will place him on a nicotine patch while he is hospitalized. He states he is trying to quit (8) Chronic back pain Conclusion/Plan: The patient has a history of chronic back pain and has undergone spinal surgery in the past. The patient uses oxycodone, ibuprofen, Flexeril and Tylenol for pain at home. We will continue these medications as needed while he is hospitalized. The patient also had a recent fall just a week ago and has have worsened pain and now has urinary incontinence. If the patient's MRI of the brain is negative we will need to consider imaging of the lumbosacral spine. Qualifiers: Back pain location: low back pain (9) DVT prophylaxis Conclusion/Plan: Given the patient's recent stroke we will place him on SCDs while he is hospitalized for DVT prophylaxis. - Lab Results Lab results reviewed: Yes Fish Bones: 08/02/17 19:55 08/02/17 19:55 Other Lab Results: Laboratory Results WBC 7.3 x10^3/uL (4.8-10.8) 08/02/17 19:55 RBC 4.27 10^6/uL (4.70-6.10) L 08/02/17 19:55 Hgb 13.7 g/dL (14.0-18.0) L 08/02/17 19:55 Hct 40.2 % (42.0-52.0) L 08/02/17 19:55 MCV 94.1 fL (80.0-94.0) H 08/02/17 19:55 MCH 32.1 pg (27.0-31.0) H 08/02/17 19:55 MCHC 34.1 g/dL (32.0-36.0) 08/02/17 19:55 RDW 13.9 % (12.0-15.0) 08/02/17 19:55 Plt Count 280 10^3/uL (130-450) 08/02/17 19:55 MPV 7.0 fL (7.4-11.4) L 08/02/17 19:55 Neut # 4.6 10^3/uL (1.5-6.6) 08/02/17 19:55 Lymph # 2.0 10^3/uL (1.5-3.5) 08/02/17 19:55 [place] # 0.6 10^3/uL (0.0-1.0) 08/02/17 19:55 Eos # 0.1 10^3/uL (0.0-0.7) 08/02/17 19:55 Baso # 0.1 10^3/uL (0.0-0.1) 08/02/17 19:55 Absolute Nucleated RBC 0.00 x10^3/uL 08/02/17 19:55 Nucleated RBCs 0.0 /100WBC 08/02/17 19:55 PT 12.1 secs (9.9-12.6) 08/02/17 19:55 INR 1.1 (0.8-1.2) 08/02/17 19:55 Sodium 137 mmol/L (135-145) 08/02/17 19:55 Potassium 3.2 mmol/L (3.5-5.0) L 08/02/17 19:55 Chloride 104 mmol/L (101-111) 08/02/17 19:55 Carbon Dioxide 25 mmol/L (21-32) 08/02/17 19:55 Anion Gap 8.0 (6-13) 08/02/17 19:55 BUN 21 mg/dL (6-20) H 08/02/17 19:55 Creatinine 0.9 mg/dL (0.6-1.2) 08/02/17 19:55 Estimated GFR (MDRD) 86 (>89) L 08/02/17 19:55 Glucose 110 mg/dL (70-100) H 08/02/17 19:55 Calcium 9.0 mg/dL (8.5-10.3) 08/02/17 19:55 Total Bilirubin 0.9 mg/dL (0.2-1.0) 08/02/17 19:55 AST 30 IU/L (10-42) 08/02/17 19:55 ALT 24 IU/L (10-60) 08/02/17 19:55 Alkaline Phosphatase 63 IU/L (42-121) 08/02/17 19:55 Troponin I < 0.04 ng/mL (<0.49) 08/02/17 19:55 Total Protein 6.6 g/dL (6.7-8.2) L 08/02/17 19:55 Albumin 3.9 g/dL (3.2-5.5) 08/02/17 19:55 Globulin 2.7 g/dL (2.1-4.2) 08/02/17 19:55 Albumin/Globulin Ratio 1.4 (1.0-2.2) 08/02/17 19:55 Lipase 20 U/L (22-51) L 08/02/17 19:55 Urine Opiates Screen NEGATIVE (NEGATIVE) 08/02/17 21:45 Ur Oxycodone Screen NEGATIVE (NEGATIVE) 08/02/17 21:45 Urine Methadone Screen NEGATIVE (NEGATIVE) 08/02/17 21:45 Ur Propoxyphene Screen NEGATIVE (NEGATIVE) 08/02/17 21:45 Ur Barbiturates Screen NEGATIVE (NEGATIVE) 08/02/17 21:45 Ur Tricyclics Screen POSITIVE (NEGATIVE) H 08/02/17 21:45 Ur Phencyclidine Scrn NEGATIVE (NEGATIVE) 08/02/17 21:45 Ur Amphetamine Screen POSITIVE (NEGATIVE) H 08/02/17 21:45 U Methamphetamines Scrn NEGATIVE (NEGATIVE) 08/02/17 21:45 U Benzodiazepines Scrn NEGATIVE (NEGATIVE) 08/02/17 21:45 Urine Cocaine Screen NEGATIVE (NEGATIVE) 08/02/17 21:45 U Cannabinoids Screen POSITIVE (NEGATIVE) H 08/02/17 21:45 Ethyl Alcohol < 5.0 mg/dL 08/02/17 19:55 - Diagnostic Imaging Results Diagnostic Imaging Results: positive: Final report reviewed Diagnostic Imaging Results Comments: CT head Impression: 1. Normal CT head - EKG Results EKG Interpreted Independently: Yes EKG Findings: Normal sinus rhythm, no ST elevations no ischemic changes, no atrial fibrillation or atrial flutter. Issues/Core Measures - Anticipated LOS Anticipated Stay Length: Less than 2 midnights - DVT/VTE - Prophylaxis VTE/DVT Prophylaxis med ordered at admit?: Yes
[2017-08-02] MEDS ORDERED: IOPAMIDOL-300 100 ML VIAL IVP ONE (23:52)
--- NOTE | 2017-08-03 03:22 | CT Preliminary Report ---
Exam: CT Neck Angio IMPRESSION: 1. Cervical CTA: No evidence of carotid or vertebral stenosis. 2. Intracranial CTA: No intracranial stenosis or aneurysm. [facility] SITE ID: [id number]
--- NOTE | 2017-08-03 03:22 | CT Report ---
EXAM: CT HEAD EXAM DATE: 08/02/2017. CLINICAL HISTORY: Slurred speech, left-sided weakness COMPARISON: None. TECHNIQUE: Multiaxial CT images were obtained from the foramen magnum to the vertex. Imaging performe d both without and with contrast. IV contrast: 80 mL Omnipaque 300. Reformats: Coronal. In accordance with CT protocol optimization, one or more of the following dose reduction techniques w ere utilized for this exam: automated exposure control, adjustment of mA and/or KV based on patient s ize, or use of iterative reconstructive technique. FINDINGS: Parenchyma: No intraparenchymal hemorrhage. No evidence of mass, midline shift, or CT findings of inf arction. Krause-white differentiation is distinct. Extraaxial Spaces: Normal for age. No subdural or epidural collections identified. Ventricles: Normal in size and position. Sinuses: Imaged paranasal sinuses, orbits, and mastoids show no significant abnormality. Bones: No evidence of fracture or calvarial defect. Other: There is no enhancing abnormality. There is normal opacification of the venous sinuses.. IMPRESSION: Normal head CT. [facility] Referring Provider Line: [phone] SITE ID: [id number]
--- NOTE | 2017-08-03 03:22 | CT Preliminary Report ---
Exam: CT Head Angio IMPRESSION: Normal head CT. [facility] SITE ID: [id number]
--- NOTE | 2017-08-03 03:22 | CT Report ---
EXAM: CT ANGIOGRAM NECK AND CT ANGIOGRAM HEAD EXAM DATE: 08/02/2017 11:56 PM. CLINICAL HISTORY: Slurred speech and left sided weakness. COMPARISON: None. TECHNIQUE: Routine axial helical imaging was performed of the head and neck. IV Contrast: Yes, 80 ML Isovue 300. Reconstructions: Routine multiplanar 3D MIP reconstructions. Evaluation of arterial steno sis is based on a NASCET method of measurement. In accordance with CT protocol optimization, one or more of the following dose reduction techniques w ere utilized for this exam: automated exposure control, adjustment of mA and/or KV based on patient s ize, or use of iterative reconstructive technique. FINDINGS: Right Carotid: The common carotid, internal carotid, and external carotid arteries are widely patent. No dissection, significant atherosclerotic plaque, or calcification identified. Left Carotid: The common carotid, internal carotid, and external carotid arteries are widely patent. No dissection, significant atherosclerotic plaque, or calcification identified. Vertebrals: The vertebrobasilar system shows no stenoses. Intracranial Circulation: Normal. 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 Right A1 RICA segment i s relatively small. No stenoses or aneurysms of the intracranial vessels. Other: There are emphysematous changes of the lung apices.. Soft tissues of neck unremarkable. There are moderate to severe degenerative changes of lower cervical spine. There are severe facet degenerat monalisa changes at C7-T1. IMPRESSION: 1. Cervical CTA: No evidence of carotid or vertebral stenosis. 2. Intracranial CTA: No intracranial stenosis or aneurysm. [facility] Referring Provider Line: [phone] SITE ID: [id number]
[2017-08-03 06:11] LABS: BASOPHILS # (AUTO) 0.1 10^3/uL (0.0-0.1); EOSINOPHILS # (AUTO) 0.4 10^3/uL (0.0-0.7); EOSINOPHILS % (AUTO) 4.8 %; HCT - HEMATOCRIT 40.4 % (42.0-52.0); HGB - HEMOGLOBIN 13.6 g/dL (14.0-18.0); MEAN CORPUSCULAR HEMOGLOBIN 31.8 pg (27.0-31.0); MEAN CORPUSCULAR HGB CONC 33.7 g/dL (32.0-36.0); MEAN CORPUSCULAR VOLUME 94.2 fL (80.0-94.0); MEAN PLATELET VOLUME 7.4 fL (7.4-11.4); MONOCYTES # (AUTO) 0.7 10^3/uL (0.0-1.0); MONOCYTES % (AUTO) 9.4 %; NEUTROPHILS # (AUTO) 3.4 10^3/uL (1.5-6.6); NEUTROPHILS % (AUTO) 44.8 %; RED BLOOD COUNT 4.29 10^6/uL (4.70-6.10); RED CELL DISTRIBUTION WIDTH 14.1 % (12.0-15.0); UNCORRECTED WHITE BLOOD COUNT 7.5 x10^3/uL; WHITE BLOOD COUNT 7.5 x10^3/uL (4.8-10.8)
[2017-08-03 06:14] LABS: PT - PROTHROMBIN TIME 11.1 secs (9.9-12.6)
[2017-08-03] MEDS: SODIUM CHLORIDE FLUSH 0.9% 10 ML SYRINGE IVP SCH ×2 (06:18→14:18)
[2017-08-03] MEDS: LORazepam 0.5 MG TABLET PO SCH ×2 (06:18→14:12)
[2017-08-03 06:22] LABS: ALBUMIN/GLOBULIN RATIO 1.5 (1.0-2.2); BILIRUBIN,TOTAL 0.7 mg/dL (0.2-1.0); CREATININE 0.6 mg/dL (0.6-1.2); POTASSIUM 3.4 mmol/L (3.5-5.0); TOTAL PROTEIN 5.9 g/dL (6.7-8.2)
[2017-08-03] MEDS ORDERED: ASPIRIN 325 MG TABLET PO SCH (08:00)
[2017-08-03] MEDS ORDERED: POTASSIUM CHLORIDE 20 MEQ/15 ML UDC PO SCH (08:00)
[2017-08-03] MEDS: SODIUM CHLORIDE 0.9% 1,000 ML IV SCH (08:19)
[2017-08-03 08:33] LABS: CHOL/HDL RATIO 2.4 (<5.0); CHOLESTEROL 132 mg/dL; HDL CHOLESTEROL 54 mg/dL; TRIGLYCERIDES 36 mg/dL
[2017-08-03 08:53] LABS: LDL CHOLESTEROL,DIRECT 66 mg/dL
[2017-08-03] MEDS ORDERED: NICOTINE 21 MG PATCH TOP SCH (09:00)
[2017-08-03] MEDS ORDERED: CLOPIDOGREL 75 MG TABLET PO SCH (09:00)
[2017-08-03] MEDS ORDERED: CHOLECALCIFEROL 1,000 UNIT TABLET PO SCH (09:00)
[2017-08-03] MEDS ORDERED: MULTIVITAMIN TABLET PO SCH (09:00)
[2017-08-03] MEDS ORDERED: DULoxetine 30 MG CAPSULE PO SCH (09:00)
[2017-08-03] MEDS ORDERED: LORazepam 2 MG/ML SYRINGE IVP SCH (09:00)
[2017-08-03] MEDS ORDERED: DIVALPROEX DR 250 MG TABLET PO SCH (09:00)
[2017-08-03] MEDS ORDERED: POTASSIUM CHLORIDE 20 MEQ TABLET PO SCH (09:00)
[2017-08-03] MEDS ORDERED: amLODIPine 5 MG TABLET PO SCH (09:00)
[2017-08-03] MEDS ORDERED: TAMSULOSIN 0.4 MG CAPSULE PO SCH (09:00)
[2017-08-03] MEDS ORDERED: FAMOTIDINE 20 MG TABLET PO SCH (09:00)
[2017-08-03] MEDS ORDERED: LISINOPRIL 5 MG TABLET PO SCH (09:00)
[2017-08-03] MEDS ORDERED: POLYETHYLENE GLYCOL 3350 17 GM PACKET PO SCH (09:00)
[2017-08-03] MEDS ORDERED: A & D OINTMENT 5 GM PACKET TOP PRN (13:20)
--- NOTE | 2017-08-03 13:51 | PROVIDER PROGRESS NOTE ---
Subjective - Prog Note Date Prog Note Date: 08/03/17 - Subjective Pt reports feeling: Improved Subjective: pt state he is feeling better. But he state he still has weakness at left upper and lower extremities. He denies chest pain, headache, or other complaints. Current Medications - Current Medications Current Medications: Active Medications Acetaminophen (Tylenol) 650 mg PO Q4HR PRN PRN Reason: Pain 1 to 4 Albuterol/Ipratropium (Duoneb) 3 ml INH Q4HR PRN PRN Reason: Wheezing Amitriptyline HCl (Elavil) 100 mg PO QPM [facility] Amlodipine Besylate (Norvasc) 5 mg PO DAILY [facility] Last Admin: 08/03/17 08:16 Dose: 5 mg Aspirin (Radha) 325 mg PO DAILYWM [facility] Last Admin: 08/03/17 08:16 Dose: 325 mg Atorvastatin Calcium (Lipitor) 80 mg PO QPM [facility] Cholecalciferol (Vitamin D3) 6,000 unit PO DAILY [facility] Last Admin: 08/03/17 08:18 Dose: 6,000 unit Clopidogrel Bisulfate (Plavix) 75 mg PO DAILY [facility] Last Admin: 08/03/17 08:18 Dose: 75 mg Cyclobenzaprine HCl (Flexeril) 10 mg PO TID PRN PRN Reason: Spasms Divalproex Sodium (Depakote Dr) 750 mg PO DAILY [facility] Last Admin: 08/03/17 08:18 Dose: 750 mg Duloxetine HCl (Cymbalta) 60 mg PO DAILY [facility] Last Admin: 08/03/17 08:18 Dose: 60 mg Famotidine (Pepcid) 20 mg PO DAILY [facility] Last Admin: 08/03/17 08:18 Dose: 20 mg Sodium Chloride (Normal Saline 0.9%) 1,000 mls @ 125 mls/hr IV .Q8H [facility] Last Admin: 08/03/17 08:19 Dose: 125 mls/hr Ibuprofen (Motrin) 800 mg PO Q6H PRN PRN Reason: PAIN Lisinopril (Zestril) 10 mg PO DAILY [facility] Last Admin: 08/03/17 08:17 Dose: 10 mg Lorazepam (Ativan) 1 mg PO TID [facility] Last Admin: 08/03/17 06:18 Dose: Not Given Lorazepam (Ativan Inj) 1 mg IVP ONCE [facility] Stop: 08/03/17 15:00 Last Admin: 08/03/17 10:23 Dose: 1 mg Multivitamins (Theragran) 1 tab PO DAILY [facility] Last Admin: 08/03/17 08:17 Dose: 1 tab Nicotine (Nicoderm) 1 patch TOP DAILY [facility] Last Admin: 08/03/17 12:53 Dose: 1 patch Ondansetron HCl (Zofran Inj) 4 mg IVP Q6HR PRN PRN Reason: Nausea / Vomiting Oxycodone HCl (Roxicodone) 10 mg PO Q6HR PRN PRN Reason: Pain 8 to 10 Last Admin: 08/02/17 22:36 Dose: 10 mg Polyethylene Glycol (Miralax) 17 gm PO DAILY [facility] Last Admin: 08/03/17 08:21 Dose: Not Given Potassium Chloride () 20 meq PO DAILYWM [facility] Last Admin: 08/03/17 08:23 Dose: 20 meq Prochlorperazine Edisylate (Compazine Inj) 10 mg IVP Q6HR PRN PRN Reason: Nausea / Vomiting Sodium Chloride (Normal Saline Flush 0.9%) 10 ml IVP PRN PRN PRN Reason: NEEDED PER PROVIDER ORDERS Sodium Chloride (Normal Saline Flush 0.9%) 10 ml IVP Q8HR [facility] Last Admin: 08/03/17 06:18 Dose: Not Given Tamsulosin HCl (Flomax) 0.4 mg PO DAILY [facility] Last Admin: 08/03/17 08:17 Dose: 0.4 mg Vitamin A/Vitamin D (Vitamin A & D Ointment) 1 applic TOP PRN PRN PRN Reason: Skin Care Last Admin: 08/03/17 13:36 Dose: 1 applic Zolpidem Tartrate (Ambien) 5 mg PO QPM PRN PRN Reason: Insomnia Last Admin: 08/02/17 23:52 Dose: 5 mg Tiotropium [place] [Spiriva] 1 cap INH DAILY 06/05/14 Multivitamin [Multivitamins] 1 tab PO DAILY 02/04/15 Cholecalciferol [Vitamin D3] 10,000 units PO DAILY 06/13/16 amLODIPine [Norvasc] 5 mg PO DAILY 06/13/16 Adalimumab [Humira] 40 mg SUBQ Q14D 09/29/16 Tamsulosin [Flomax] 0.4 mg PO DAILY 10/30/16 Amitriptyline HCl 200 mg PO DAILY PM 08/03/17 Lorazepam 1 mg PO TID PRN 08/03/17 Naproxen [Naprosyn] 250 mg PO Q12H PRN 08/03/17 Nicotine 7 mg Patch [Nicoderm] 1 each TOP Q24H 08/03/17 Objective - Vital Signs/Intake & Output Reviewed Vital Signs: Yes Vital Signs: Vital Signs x48h Temp Pulse Pulse Resp BP Pulse Ox 08/03/17 07:50 82 18 08/03/17 07:28 36.4 C L 86 16 145/77 H 97 Intake & Output: Intake & Output 07/31/17 08/01/17 08/02/17 08/03/17 23:59 23:59 23:59 23:59 Intake Total 480 560 Output Total 1050 Balance 480 -490 - Objective General Appearance: positive: No acute distress, Alert Eyes Bilateral: positive: Normal inspection, PERRL, EOMI, No lid inflammation, Conjunctivae nml ENT: positive: ENT inspection nml, Pharynx nml, No signs of dehydration. negative: Purulent nasal drainage, Pharyngeal erythema, Oral lesions Neck: positive: Nml inspection, Thyroid nml, No JVD, Trachea midline. negative : Thyromegaly, Lymphadenopathy (R), Lymphadenopathy (L), Stiff neck, Tracheal deviation Respiratory: positive: Chest non-tender, No respiratory distress, Breath sounds nml. negative: Wheezes, Rales, Rhonchi Cardiovascular: positive: Regular rate & rhythm, No murmur, No gallop. negative : Tachycardia, Bradycardia, Systolic murmur, Diastolic murmur Peripheral Pulses: 2+ Radial (R), 2+ Radial (L), 2+ Dorsalis pedis (R), 2+ Dorsalis pedis (L) Abdomen: positive: Non-tender, No organomegaly, Nml bowel sounds, No distention. negative: Tenderness, Guarding, Rebound Back: positive: Nml inspection. negative: CVA tenderness (R), CVA tenderness (L ) Skin: positive: Color nml, No rash, Warm, Dry. negative: Cyanosis, Diaphoresis , Pallor Extremities: positive: Non-tender. negative: Calf tenderness, Donte's sign/ cords Neurologic/Psychiatric: positive: Oriented x3, Mood/affect nml, Weakness. negative: Facial droop, Slurred/abnml speech, Depressed mood/affect - Lab Results Fish Bones: 08/03/17 05:56 08/03/17 05:56 Other Labs: Lab Results x24hrs 08/03/17 08/03/17 08/03/17 Range/Units 05:56 05:56 05:56 WBC (4.8-10.8) x10^3/uL RBC (4.70-6.10) 10^6/uL Hgb (14.0-18.0) g/dL Hct (42.0-52.0) % MCV (80.0-94.0) fL MCH (27.0-31.0) pg MCHC (32.0-36.0) g/dL RDW (12.0-15.0) % Plt Count (130-450) 10^3/uL MPV (7.4-11.4) fL Neut # (1.5-6.6) 10^3/uL Lymph # (1.5-3.5) 10^3/uL [place] # (0.0-1.0) 10^3/uL Eos # (0.0-0.7) 10^3/uL Baso # (0.0-0.1) 10^3/uL Absolute Nucleated RBC x10^3/uL Nucleated RBC % /100WBC PT 11.1 (9.9-12.6) secs INR 1.0 (0.8-1.2) Sodium 135 (135-145) mmol/L Potassium 3.4 L (3.5-5.0) mmol/L Chloride 104 (101-111) mmol/L Carbon Dioxide 24 (21-32) mmol/L Anion Gap 7.0 (6-13) BUN 13 (6-20) mg/dL Creatinine 0.6 (0.6-1.2) mg/dL Estimated GFR (MDRD) 138 (>89) Glucose 147 H (70-100) mg/dL Calcium 8.0 L (8.5-10.3) mg/dL Total Bilirubin 0.7 (0.2-1.0) mg/dL AST 24 (10-42) IU/L ALT 20 (10-60) IU/L Alkaline Phosphatase 58 (42-121) IU/L Total Protein 5.9 L (6.7-8.2) g/dL Albumin 3.5 (3.2-5.5) g/dL Globulin 2.4 (2.1-4.2) g/dL Albumin/Globulin Ratio 1.5 (1.0-2.2) Triglycerides 36 ( - 149) mg/dL Cholesterol 132 ( - 199) mg/dL LDL Cholesterol Direct 66 ( - 129) mg/dL LDL Cholesterol, Calc Not Reportable VLDL Cholesterol Not Reportable HDL Cholesterol 54 L (60 - ) mg/dL LDL/HDL Ratio Not Reportable dLDL/HDL Ratio 1.2 (<3.6) Cholesterol/HDL Ratio 2.4 (<5.0) Urine Opiates Screen (NEGATIVE) Ur Oxycodone Screen (NEGATIVE) Urine Methadone Screen (NEGATIVE) Ur Propoxyphene Screen (NEGATIVE) Ur Barbiturates Screen (NEGATIVE) Ur Tricyclics Screen (NEGATIVE) Ur Phencyclidine Scrn (NEGATIVE) Ur Amphetamine Screen (NEGATIVE) U Methamphetamines Scrn (NEGATIVE) U Benzodiazepines Scrn (NEGATIVE) Urine Cocaine Screen (NEGATIVE) U Cannabinoids Screen (NEGATIVE) 08/03/17 08/02/17 Range/Units 05:56 21:45 WBC 7.5 (4.8-10.8) x10^3/uL RBC 4.29 L (4.70-6.10) 10^6/uL Hgb 13.6 L (14.0-18.0) g/dL Hct 40.4 L (42.0-52.0) % MCV 94.2 H (80.0-94.0) fL MCH 31.8 H (27.0-31.0) pg MCHC 33.7 (32.0-36.0) g/dL RDW 14.1 (12.0-15.0) % Plt Count 284 (130-450) 10^3/uL MPV 7.4 (7.4-11.4) fL Neut # 3.4 (1.5-6.6) 10^3/uL Lymph # 3.0 (1.5-3.5) 10^3/uL [place] # 0.7 (0.0-1.0) 10^3/uL Eos # 0.4 (0.0-0.7) 10^3/uL Baso # 0.1 (0.0-0.1) 10^3/uL Absolute Nucleated RBC 0.00 x10^3/uL Nucleated RBC % 0.0 /100WBC PT (9.9-12.6) secs INR (0.8-1.2) Sodium (135-145) mmol/L Potassium (3.5-5.0) mmol/L Chloride (101-111) mmol/L Carbon Dioxide (21-32) mmol/L Anion Gap (6-13) BUN (6-20) mg/dL Creatinine (0.6-1.2) mg/dL Estimated GFR (MDRD) (>89) Glucose (70-100) mg/dL Calcium (8.5-10.3) mg/dL Total Bilirubin (0.2-1.0) mg/dL AST (10-42) IU/L ALT (10-60) IU/L Alkaline Phosphatase (42-121) IU/L Total Protein (6.7-8.2) g/dL Albumin (3.2-5.5) g/dL Globulin (2.1-4.2) g/dL Albumin/Globulin Ratio (1.0-2.2) Triglycerides ( - 149) mg/dL Cholesterol ( - 199) mg/dL LDL Cholesterol Direct ( - 129) mg/dL LDL Cholesterol, Calc VLDL Cholesterol HDL Cholesterol (60 - ) mg/dL LDL/HDL Ratio dLDL/HDL Ratio (<3.6) Cholesterol/HDL Ratio (<5.0) Urine Opiates Screen NEGATIVE (NEGATIVE) Ur Oxycodone Screen NEGATIVE (NEGATIVE) Urine Methadone Screen NEGATIVE (NEGATIVE) Ur Propoxyphene Screen NEGATIVE (NEGATIVE) Ur Barbiturates Screen NEGATIVE (NEGATIVE) Ur Tricyclics Screen POSITIVE H (NEGATIVE) Ur Phencyclidine Scrn NEGATIVE (NEGATIVE) Ur Amphetamine Screen POSITIVE H (NEGATIVE) U Methamphetamines Scrn NEGATIVE (NEGATIVE) U Benzodiazepines Scrn NEGATIVE (NEGATIVE) Urine Cocaine Screen NEGATIVE (NEGATIVE) U Cannabinoids Screen POSITIVE H (NEGATIVE) Assessment/Plan - Problem List (1) Cerebrovascular accident (CVA) Impression: (1) Cerebrovascular accident (CVA) Conclusion/Plan: continue:Aspirin, Plavix, Lipitor continue to monitor on Tele, Neurochecks, PT eval CTA head and neck reveals no significant stenosis, aneursyn or intracrianiel stenosis. MRI brain, Echo, Lipid profile are pending (2) Hypertension stable, hold BP meds with parameter (3) Hyperlipidemia Conclusion/Plan: continue atrostatin as home meds, lipid panel pending (4) COPD (chronic obstructive pulmonary disease) stable, continue current treatment (5) Bipolar 1 disorder stable, continue home meds of Depakote Cymbalta and amitriptyline. (6) Tobacco abuse consult with pt, pt state he is willing to quit (7) Chronic back pain he patient also had a recent fall just a week ago and has have worsened pain and now has urinary incontinence. If the patient's MRI of the brain is negative we will need to consider imaging of the lumbosacral spine. MRI is pending, will consider if image study of lumbosacral spine Qualifiers: CVA mechanism: unspecified Qualified Code(s): I63.9 - Cerebral infarction, unspecified
[2017-08-03] MEDS: oxyCODONE 5 MG TABLET PO PRN (14:12)
[2017-08-03 14:22] VITALS: BP 105/67
--- NOTE | 2017-08-03 14:46 | MRI Preliminary Report ---
Exam: MRI Brain W/O IMPRESSION: The study is markedly limited due to patient motion and inability to complete the study. Given this l imitation, no definite acute or subacute infarct is seen. [facility] SITE ID: [id number]
--- NOTE | 2017-08-03 14:49 | MRI Report ---
EXAM: MRI BRAIN WITHOUT CONTRAST EXAM DATE: 08/03/2017 11:30 AM. CLINICAL HISTORY: Slurred speech and left sided weakness. COMPARISON: CTA head and neck 08/02/2017 TECHNIQUE: Multiplanar, multisequence T1-weighted and fluid-sensitive MR sequences of the brain were performed. Sequences optimized for routine evaluation. Other: None. IV Contrast: None. FINDINGS: The study is markedly limited by patient motion. Brain Volume: Normal for age. Parenchyma/Dura: The evaluation the parenchyma is limited due to patient motion. No definite acute or subacute infarct. Evaluation for white matter disease is limited due to marked motion artifact on th e T2-weighted sequence (series 701 image 19 Ventricles/Cisterns: The ventricle size is normal. No midline shift. Sinuses: Visualized paranasal sinuses appear clear. Bones: Normal. Other: None. IMPRESSION: The study is markedly limited due to patient motion and inability to complete the study. Given this l imitation, no definite acute or subacute infarct is seen. [facility] Referring Provider Line: [phone] SITE ID: [id number]
--- NOTE | 2017-08-03 15:25 | Discharge Plan ---
Discharge Plan Disposition: 01 Home, Self Care Condition: Stable Diet: Regular Activity Restrictions: Activity as Tolerated Shower Restrictions: No Assistance Devices: Cane Weight Bearing: Full Weight Additional Instructions or Follow Up instructions: may see PCP in two weeks, and see neurologist in one month. Follow-Up Care: Outpatient Rehab - PT, Outpatient Rehab - OT, [facility] [place] Clinic - Medical No Smoking: If you smoke, Please STOP! Call for help. Follow-up with: Milka Rolle MD [Primary Care Provider] -
--- NOTE | 2017-08-03 16:52 | DISCHARGE SUMMARY ---
Discharge Summary Admit Date: 08/02/17 Discharge Date: 08/03/17 Discharging Provider: ROBERSON NP Primary Care Provider: Milka Jones Code Status: Attempt Resuscitation Condition at Discharge: Stable Discharge Disposition: 01 Home, Self Care Discharge Facility Name: home - DIAGNOSES Admission Diagnoses: (1) Cerebrovascular accident (CVA) (2) Hypertension (3) Hyperlipidemia (4) COPD (chronic obstructive pulmonary disease) (5) Bipolar 1 disorder (6) Tobacco abuse (7) Chronic back pain Discharge Diagnoses with Status of Each Condition: (1) Cerebrovascular accident (CVA) MRI reveals no acute findings ECHO unremarkable US of Carotid unremarkable (2) Hypertension stable (3) Hyperlipidemia stable, continue home meds (4) COPD (chronic obstructive pulmonary disease) stable, continue home meds (5) Bipolar 1 disorder stable (6) Tobacco abuse pt state he will quit smoking (7) Chronic back pain stable, - HPI History of Present Illness: please refer from Dr Rocha's HPI on 08/02/17 as the following Patient is a 57-year-old gentleman with a past medical history significant for hypertension, TIAs, history of [place] GERD, erectile dysfunction, COPD not on home oxygen, severe psoriasis, BPH, chronic tobacco abuse, anxiety, hyperlipidemia, chronic back pain status post spinal surgery, bipolar 1 disorder with depression and a 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 According to the patient's girlfriend the patient initially had symptoms 5 days ago at home. According to the patient's the patient had slurred speech and was having a difficult time understanding her. She states that when she did a stroke test on him she noted that he had weakness in the left hand as she could not get him to avionics repair technician her finger in his left hand. She also stated that he was having difficulty walking and was favoring the left side. At that time the patient refused to come into the hospital and symptoms persisted over the next 1-2 days with the patient being in and out according to the patient's girlfriend. Finally the patient went to a hospital in [place] on Wednesday and underwent a CT of his head which was negative for stroke at that time. The emergency room physician there wanted the patient to get an MRI but their facility did not have MRI available so the patient was going to be transferred to [facility] in [place] but the patient refused and left AMA. The patient's girlfriend states that over the past several days the patient has continued to have weakness on the left side. She states that he is able to walk with a cane but he definitely is weaker in his left leg and also she notes that he continues to have weakness with his avionics repair technician in the left hand and weakness in the left arm. She states that she was finally able to convince him to come into the hospital today to get further evaluation. The patient states that he does take a full aspirin and statin at home. He does admit that he is not always compliant and has not taken his medications for the last several days. The patient states that he does continue to use methamphetamine but states that he is trying to quit and would like to speak with the public health social worker. The patient otherwise states that he does have a headache and has had a bad headache for the last several days, he does complain of chronic back pain which has been worse since Wednesday when the patient had a fall, the patient also complains of the weakness in his left arm and left leg. The patient otherwise states he does not have any blurred vision, runny nose, sore throat, nasal congestion, chest pain, shortness of air, wheezing, orthopnea, PND, increased lower extremity swelling, abnormal pain, nausea, vomiting, diarrhea, constipation, he does admit to urinary incontinence which is new for him over the last several days, he denies any dysuria, he denies any muscle aches, he denies any joint swelling or joint pains, he denies any changes in his appetite or recent unintentional weight loss. On presentation to the emergency department the patient was slightly hypertensive but was otherwise hemodynamically stable. The patient underwent routine lab work including troponin which was negative electrolytes which were within normal limits aside from his potassium of 3.2. The patient urine tox screen was positive for tricyclics amphetamine and cannabinoids but negative for alcohol. The patient was found to have significant left upper extremity and lower extremity weakness. He did not have any facial droop or expressive aphasia. The patient underwent a repeat CT scan of his head which was normal and was placed in observation for neuro checks, CT angiogram of the brain and neck, echocardiogram and MRI. The patient is already on aspirin and a statin therefore Plavix was also started. - HOSPITAL COURSE Hospital Course: pt was admitted for possible acute CVA. pt has hx of CVA with left side weakness. MRI, ECHO and US of Cartoid unremarkable. pt denies urinary incontinence and refused to have further study. pt left hospital without telling nurse. Pt left hospital by his own - ALLERGIES Allergies/Adverse Reactions: Allergies Allergy/AdvReac Type Severity Reaction Status Date / Time bupropion HCl * [From Zyban] Allergy Rash Verified 08/02/17 19:18 - MEDICATIONS Home Medications: Ambulatory Orders Medication Instructions Recorded Confirmed Tiotropium [place] [Spiriva] 1 cap INH DAILY 06/05/14 08/03/17 Albuterol Sulfate [Albuterol 2 puffs IH Q4HR PRN #1 hfa.aer.ad 02/04/15 08/03/17 Sulfate Hfa] Multivitamin [Multivitamins] 1 tab PO DAILY 02/04/15 08/03/17 Cholecalciferol [Vitamin D3] 10,000 units PO DAILY 06/13/16 08/03/17 amLODIPine [Norvasc] 5 mg PO DAILY 06/13/16 08/03/17 Adalimumab [Humira] 40 mg SUBQ Q14D 09/29/16 08/03/17 Tamsulosin [Flomax] 0.4 mg PO DAILY 10/30/16 08/03/17 Divalproex [Benjamin Jalloh] 750 mg PO DAILY #30 tablet 11/04/16 08/03/17 Duloxetine HCl [Cymbalta] 60 mg PO DAILY #30 capsule. 11/04/16 08/03/17 Lisinopril 10 mg PO DAILY #30 tablet 11/04/16 08/03/17 Omeprazole 20 mg PO DAILY #30 capsule. 11/04/16 08/03/17 Pravastatin [Pravachol] 40 mg PO QPM tablet 11/04/16 08/03/17 Amitriptyline HCl 200 mg PO DAILY PM 08/03/17 08/03/17 Lorazepam 1 mg PO TID PRN 08/03/17 08/03/17 Naproxen [Naprosyn] 250 mg PO Q12H PRN 08/03/17 08/03/17 Nicotine 7 mg Patch [Nicoderm] 1 each TOP Q24H 08/03/17 08/03/17 - PHYSICAL EXAM AT DISCHARGE General Appearance: positive: No acute distress, Alert. negative: Lethargic Eyes Bilateral: positive: Normal inspection, PERRL, EOMI, No lid inflammation, Conjunctivae nml ENT: positive: ENT inspection nml, Pharynx nml, No signs of dehydration Neck: positive: Nml inspection, Thyroid nml, No JVD, Trachea midline. negative : Thyromegaly, Lymphadenopathy (R), Lymphadenopathy (L), Stiff neck, Tracheal deviation Respiratory: positive: Chest non-tender, No respiratory distress, Breath sounds nml. negative: Wheezes, Rales, Rhonchi Cardiovascular: positive: Regular rate & rhythm, No murmur, No gallop. negative : Tachycardia, Bradycardia, Systolic murmur, Diastolic murmur Peripheral Pulses: positive: 2+ Abdomen: positive: Non-tender, No organomegaly, Nml bowel sounds, No distention. negative: Tenderness, Guarding, Rebound Back: positive: Nml inspection. negative: CVA tenderness (R), CVA tenderness (L ) Skin: positive: Color nml, No rash, Warm, Dry. negative: Skin rash Extremities: positive: Non-tender, Full ROM, Nml appearance. negative: Calf tenderness, Donte's sign/cords Neurologic/Psychiatric: positive: Oriented x3, Motor nml, Sensation nml, Weakness. negative: Sensory loss, Facial droop, Slurred/abnml speech - LABS Result Diagrams: 08/03/17 05:56 08/03/17 05:56 - FOLLOW UP Follow Up: pt may follow PCP in two weeks and see neurologist in one month. but pt left hospital without telling nurse and me.
[2017-08-03] MEDS ORDERED: PRAVASTATIN 40 MG TABLET PO SCH (21:00)
[2017-08-03] MEDS ORDERED: AMITRIPTYLINE 25 MG TABLET PO SCH (21:00)
[2017-08-03] MEDS ORDERED: ATORVASTATIN 40 MG TABLET PO SCH (21:00)
== END 2017-08-03 16:20 | disposition home or self-care (01) ==
LOC: ED 19:13 → OBS 21:20
PROVIDERS: ADMIT Internal Medicine; ATTEND Nurse Practitioner Gerontology
DX: I63.9 Cerebral infarction, unspecified (principal); G81.94 Hemiplegia, unspecified affecting left nondominant side; R29.704 NIHSS score 4; I10 Essential (primary) hypertension; E78.5 Hyperlipidemia, unspecified; J44.9 Chronic obstructive pulmonary disease, unspecified; F31.9 Bipolar disorder, unspecified; F41.9 Anxiety disorder, unspecified; F90.9 Attention-deficit hyperactivity disorder, unspecified type; F17.210 Nicotine dependence, cigarettes, uncomplicated; G89.29 Other chronic pain; M54.9 Dorsalgia, unspecified; L40.9 Psoriasis, unspecified; N40.0 Benign prostatic hyperplasia without lower urinary tract symptoms; Z86.73 Personal history of transient ischemic attack (TIA), and cerebral infarction without residual deficits; I25.2 Old myocardial infarction; Z79.82 Long term (current) use of aspirin; Z79.02 Long term (current) use of antithrombotics/antiplatelets; Z79.51 Long term (current) use of inhaled steroids; Z79.899 Other long term (current) drug therapy; Z91.81 History of falling; Z87.820 Personal history of traumatic brain injury; Z87.898 Personal history of other specified conditions; Z91.14 Patient's other noncompliance with medication regimen
CPT/HCPCS: 36415; 70450; 70496; 70498; 70551; 80053; 80061; 80306; 80320; 83690; 83721; 84484; 85025; 85610; 93005; 93306; 96361; 96374; 96375; 99284; 99285; A9270; G0378; J1170; J2060; Q9967

== ENCOUNTER 2017-08-03 23:49 | Outpatient (CLI) | payer MEDICAID | END 2017-08-03 23:50 | disposition critical access hospital (66) | LOC: EMS 23:49 | PROVIDERS: ATTEND Surgery | DX: R51 Headache (principal); M79.605 Pain in left leg; M79.602 Pain in left arm; R47.9 Unspecified speech disturbances | CPT/HCPCS: A0425; A0429 ==

== ENCOUNTER 2017-08-04 00:08 | Emergency (ER) | payer MEDICAID ==
--- NOTE | 2017-08-04 01:44 | ED Physician Documentation ---
History of Present Illness - Stated complaint Stated Complaint: L NECK/SIDE PAIN - Chief complaint Chief Complaint: Neuro - History obtained from History obtained from: Patient, Family - History of Present Illness Timing: How many weeks ago (1) Improved by: rest Worsened by: activity - Additonal information Additional information: patient was discharged from the hospital earlier this afternoon after inpatient stay for CVA. He has only been home for several hours, returns to ED with various complaints over different time frames. 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 after further discussion, his chief complaint is headache and back pain. Review of Systems Constitutional: reports: Reviewed and negative Eyes: reports: Reviewed and negative Cardiac: reports: Reviewed and negative Respiratory: reports: Reviewed and negative GI: reports: Reviewed and negative : denies: Incontinent Neurologic: reports: Focal weakness, Headache. denies: Generalized weakness, Altered mental status PD PAST MEDICAL HISTORY - Past Medical History Cardiovascular: Hypertension, High cholesterol, [place] Respiratory: COPD, Pneumonia Neuro: CVA, TIA, Head injury Endocrine/Autoimmune: None GI: GERD : Benign prostate hypertrophy HEENT: None Psych: Depression, Anxiety, Bipolar disorder, ADD/ADHD Musculoskeletal: Chronic back pain Derm: Psoriasis - Past Surgical History Past Surgical History: Yes General: Cholecystectomy, Appendectomy, Colonoscopy Ortho: Spine surgery - Present Medications Home Medications: Ambulatory Orders Medication Instructions Recorded Confirmed Tiotropium [place] [Spiriva] 1 cap INH DAILY 06/05/14 08/03/17 Albuterol Sulfate [Albuterol 2 puffs IH Q4HR PRN #1 hfa.aer.ad 02/04/15 08/03/17 Sulfate Hfa] Multivitamin [Multivitamins] 1 tab PO DAILY 02/04/15 08/03/17 Cholecalciferol [Vitamin D3] 10,000 units PO DAILY 06/13/16 08/03/17 amLODIPine [Norvasc] 5 mg PO DAILY 06/13/16 08/03/17 Adalimumab [Humira] 40 mg SUBQ Q14D 09/29/16 08/03/17 Tamsulosin [Flomax] 0.4 mg PO DAILY 10/30/16 08/03/17 Divalproex [Benjamin Jalloh] 750 mg PO DAILY #30 tablet 11/04/16 08/03/17 Duloxetine HCl [Cymbalta] 60 mg PO DAILY #30 capsule. 11/04/16 08/03/17 Lisinopril 10 mg PO DAILY #30 tablet 11/04/16 08/03/17 Omeprazole 20 mg PO DAILY #30 capsule. 11/04/16 08/03/17 Pravastatin [Pravachol] 40 mg PO QPM tablet 11/04/16 08/03/17 Amitriptyline HCl 200 mg PO DAILY PM 08/03/17 08/03/17 Lorazepam 1 mg PO TID PRN 08/03/17 08/03/17 Naproxen [Naprosyn] 250 mg PO Q12H PRN 08/03/17 08/03/17 Nicotine 7 mg Patch [Nicoderm] 1 each TOP Q24H 08/03/17 08/03/17 Warfarin Sodium [Coumadin] 4 mg PO 08/04/17 - Allergies Allergies/Adverse Reactions: Allergies Allergy/AdvReac Type Severity Reaction Status Date / Time bupropion HCl * [From Mal] Allergy Rash Verified 08/02/17 19:18 - Social History Does the pt smoke?: No Smoking Status: Never smoker Does the pt drink ETOH?: No Does the pt have substance abuse?: Yes - Immunizations Immunizations are current?: Yes - POLST Patient has POLST: No POLST Status: Full Code PD ED PE NORMAL - Vitals Vital signs reviewed: Yes - General General: Alert and oriented X 3, No acute distress, Well developed/nourished - HEENT HEENT: PERRL, EOMI, Moist mucous membranes - Neck Neck: Supple, no meningeal sign - Cardiac Cardiac: RRR, No murmur - Respiratory Respiratory: No respiratory distress, Clear bilaterally - Abdomen Abdomen: Soft, Non tender - Derm Derm: Normal color, Warm and dry - Extremities Extremities: No tenderness to palpate, Normal ROM s pain, No edema - Neuro Neuro: Alert and oriented X 3, 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 He is able to communicate articulately and efficiently, and was able to ambulate to and back from bathroom using his cane. Emergent testing is not indicated at this time, and I am instructed patient and advise family of the importance of following up with his primary care physician Departure - Departure Disposition: 01 Home, Self Care Clinical Impression: Weakness, Chronic back pain Condition: Good Instructions: ED Neck Back Pain General Follow-Up: Milka Rolle MD [Primary Care Provider] - Discharge Date/Time: 08/04/17 02:19
[2017-08-04] MEDS ORDERED: oxyCOD/ACETAMIN 5 MG/325 MG TABLET PO STA (02:09)
[2017-08-04 02:19] VITALS: BP 144/82
[2017-08-04] MEDS ORDERED: oxyCOD/ACETAMIN 5 MG/325 MG TABLET PO ONE (02:19)
== END 2017-08-04 02:19 | disposition home or self-care (01) ==
LOC: EDUNIT# → ED 00:08 → SUPCPDRO 00:08 → ED 02:19
DX: R53.1 Weakness (principal); M54.9 Dorsalgia, unspecified; I63.8 Other cerebral infarction; G81.94 Hemiplegia, unspecified affecting left nondominant side; I10 Essential (primary) hypertension; Z86.73 Personal history of transient ischemic attack (TIA), and cerebral infarction without residual deficits; Z79.51 Long term (current) use of inhaled steroids; Z79.01 Long term (current) use of anticoagulants
CPT/HCPCS: 99283; A9270

== ENCOUNTER 2017-09-30 16:23 | Outpatient (CLI) | payer MEDICAID | END 2017-09-30 16:24 | disposition critical access hospital (66) | LOC: EMS 16:23 | PROVIDERS: ATTEND Surgery | DX: R55 Syncope and collapse (principal) | CPT/HCPCS: A0425; A0429 ==

== ENCOUNTER 2017-09-30 16:42 | Emergency (ER) | payer MEDICAID ==
--- NOTE | 2017-09-30 16:52 | ED Physician Documentation ---
PD HPI FOCAL NEURO - Stated complaint Stated Complaint: ALOC - Chief complaint Chief Complaint: Neuro - History obtained from History obtained from: Patient, EMS - History of Present Illness Timing - onset: Other (57-year-old with potential history of TIA, he was brought in by ambulance because the girlfriend called 911 because he was walking funny and slurring his speech. He feels fine now. He did pass out at the end of this. He says he also passed out yesterday. There is been no headache, chest pain, trouble breathing, or obvious head injury. Of note called prior to arrival by a family member who said that he had taken a lorazepam of his girlfriends. This is not his prescribed medication. The patient denies taking any lorazepam recently.) Review of Systems Ten Systems: 10 systems reviewed and negative Constitutional: denies: Fever, Chills Throat: denies: Dental pain / toothache, Sore throat Cardiac: denies: Chest pain / pressure, Palpitations Respiratory: denies: Dyspnea PD PAST MEDICAL HISTORY - Past Medical History Cardiovascular: Hypertension, High cholesterol, [place] Respiratory: COPD, Pneumonia Neuro: CVA, TIA, Head injury Endocrine/Autoimmune: None GI: GERD : Benign prostate hypertrophy HEENT: None Psych: Depression, Anxiety, Bipolar disorder, ADD/ADHD Musculoskeletal: Chronic back pain Derm: Psoriasis - Past Surgical History Past Surgical History: Yes General: Cholecystectomy, Appendectomy, Colonoscopy Ortho: Spine surgery - Present Medications Home Medications: Ambulatory Orders Medication Instructions Recorded Confirmed Tiotropium [place] [Spiriva] 1 cap INH DAILY 06/05/14 08/03/17 Albuterol Sulfate [Albuterol 2 puffs IH Q4HR PRN #1 hfa.aer.ad 02/04/15 08/03/17 Sulfate Hfa] Multivitamin [Multivitamins] 1 tab PO DAILY 02/04/15 08/03/17 Cholecalciferol [Vitamin D3] 10,000 units PO DAILY 06/13/16 08/03/17 amLODIPine [Norvasc] 5 mg PO DAILY 06/13/16 08/03/17 Adalimumab [Humira] 40 mg SUBQ Q14D 09/29/16 08/03/17 Tamsulosin [Flomax] 0.4 mg PO DAILY 10/30/16 08/03/17 Divalproex [Benjamin Jalloh] 750 mg PO DAILY #30 tablet 11/04/16 08/03/17 Duloxetine HCl [Cymbalta] 60 mg PO DAILY #30 capsule. 11/04/16 08/03/17 Lisinopril 10 mg PO DAILY #30 tablet 11/04/16 08/03/17 Omeprazole 20 mg PO DAILY #30 capsule. 11/04/16 08/03/17 Pravastatin [Pravachol] 40 mg PO QPM tablet 11/04/16 08/03/17 Amitriptyline HCl 200 mg PO DAILY PM 08/03/17 08/03/17 LORazepam [Lorazepam] 1 mg PO TID PRN 08/03/17 08/03/17 Naproxen [Naprosyn] 250 mg PO Q12H PRN 08/03/17 08/03/17 Nicotine 7 mg Patch [Nicoderm] 1 each TOP Q24H 08/03/17 08/03/17 Warfarin Sodium [Coumadin] 4 mg PO 08/04/17 - Allergies Allergies/Adverse Reactions: Allergies Allergy/AdvReac Type Severity Reaction Status Date / Time bupropion HCl * [From Mal] Allergy Rash Verified 08/02/17 19:18 - Social History Does the pt smoke?: No Smoking Status: Never smoker Does the pt drink ETOH?: No Does the pt have substance abuse?: Yes - Family History Family history: reports: Non contributory - Immunizations Immunizations are current?: Yes - POLST Patient has POLST: No POLST Status: Full Code PD ED PE NORMAL - Vitals Vital signs reviewed: Yes - General General: Alert and oriented X 3, No acute distress - HEENT HEENT: PERRL, EOMI, Pharynx benign - Neck Neck: Supple, no meningeal sign, No bony TTP - Cardiac Cardiac: RRR, No murmur - Respiratory Respiratory: No respiratory distress, Clear bilaterally - Abdomen Abdomen: Normal bowel sounds, Soft, Non tender - Neuro Neuro: Alert and oriented X 3, Normal speech, Other (NIHSS zero) Eye Opening: Spontaneous Motor: Obeys Commands Verbal: Oriented GCS Score: 15 - Psych Psych: Normal mood, Normal affect Results - Vitals Vitals: Vital Signs - 24 hr 09/30/17 09/30/17 09/30/17 16:43 16:47 17:35 Temperature 36 C L Heart Rate 105 H 104 H 89 Respiratory 20 14 16 Rate Blood Pressure 116/69 108/65 108/69 O2 Saturation 96 94 98 Oxygen O2 Source Room air - EKG (time done) 1648 Rate: Rate (enter#) (103) Rhythm: Sinus tachycardia [place]: LAD Intervals: Normal TN QRS: Normal Ischemia: Normal ST segments Computer interpretation: Agree with computer - Labs Labs: Laboratory Tests 09/30/17 09/30/17 09/30/17 17:00 17:00 17:00 WBC 9.3 RBC 4.46 L Hgb 14.1 Hct 42.0 MCV 94.1 H MCH 31.5 H MCHC 33.5 RDW 14.1 Plt Count 232 MPV 7.7 Neut # 5.4 Lymph # 2.9 Nicholas # 0.7 Eos # 0.2 Baso # 0.1 Absolute Nucleated RBC 0.01 Nucleated RBC % 0.1 Sodium 139 Potassium 3.7 Chloride 106 Carbon Dioxide 25 Anion Gap 8.0 BUN 15 Creatinine 0.8 Estimated GFR (MDRD) 99 Glucose 116 H Calcium 8.9 Total Bilirubin 0.4 AST 17 ALT 12 Alkaline Phosphatase 59 Total Protein 6.2 L Albumin 3.7 Globulin 2.5 Albumin/Globulin Ratio 1.5 Lipase 14 L Last Dose Date UNK Last Dose Time UNK Urine Opiates Screen Ur Oxycodone Screen Urine Methadone Screen Ur Propoxyphene Screen Ur Barbiturates Screen Valproic Acid 32.2 Ur Tricyclics Screen Ur Phencyclidine Scrn Ur Amphetamine Screen U Methamphetamines Scrn U Benzodiazepines Scrn Urine Cocaine Screen U Cannabinoids Screen Ethyl Alcohol < 5.0 09/30/17 17:45 WBC RBC Hgb Hct MCV MCH MCHC RDW Plt Count MPV Neut # Lymph # Nicholas # Eos # Baso # Absolute Nucleated RBC Nucleated RBC % Sodium Potassium Chloride Carbon Dioxide Anion Gap BUN Creatinine Estimated GFR (MDRD) Glucose Calcium Total Bilirubin AST ALT Alkaline Phosphatase Total Protein Albumin Globulin Albumin/Globulin Ratio Lipase Last Dose Date Last Dose Time Urine Opiates Screen NEGATIVE Ur Oxycodone Screen NEGATIVE Urine Methadone Screen NEGATIVE Ur Propoxyphene Screen NEGATIVE Ur Barbiturates Screen NEGATIVE Valproic Acid Ur Tricyclics Screen POSITIVE H Ur Phencyclidine Scrn NEGATIVE Ur Amphetamine Screen NEGATIVE U Methamphetamines Scrn NEGATIVE U Benzodiazepines Scrn NEGATIVE Urine Cocaine Screen NEGATIVE U Cannabinoids Screen POSITIVE H Ethyl Alcohol - Rads (name of study) CT head Radiology: EMP read contemporaneously (No acute disease, white matter changes. Same as prior.) PD MEDICAL DECISION MAKING - ED course ED course: 57-year-old gentleman presents by ambulance for slurred speech and difficulty walking really most consistent with benzodiazepine use per family report. There is no evidence of stroke on examination and no change on head CT. Departure - Departure Disposition: 01 Home, Self Care Clinical Impression: Stroke-like symptoms Condition: Good Record reviewed to determine appropriate education?: Yes Comments: Continue your current medications, avoid other medications, and continue to avoid drugs and alcohol. Follow-up with your doctor and return if worse.
[2017-09-30 17:11] LABS: BASOPHILS # (AUTO) 0.1 10^3/uL (0.0-0.1); EOSINOPHILS # (AUTO) 0.2 10^3/uL (0.0-0.7); HGB - HEMOGLOBIN 14.1 g/dL (14.0-18.0); LYMPHOCYTES # (AUTO) 2.9 10^3/uL (1.5-3.5); LYMPHOCYTES % (AUTO) 30.9 %; MEAN CORPUSCULAR HEMOGLOBIN 31.5 pg (27.0-31.0); MEAN CORPUSCULAR HGB CONC 33.5 g/dL (32.0-36.0); MEAN CORPUSCULAR VOLUME 94.1 fL (80.0-94.0); MEAN PLATELET VOLUME 7.7 fL (7.4-11.4); MONOCYTES # (AUTO) 0.7 10^3/uL (0.0-1.0); MONOCYTES % (AUTO) 7.6 %; NEUTROPHILS # (AUTO) 5.4 10^3/uL (1.5-6.6); NEUTROPHILS % (AUTO) 58.5 %; NUCLEATED RED BLOOD CELLS AUTO 0.1 /100WBC; RED BLOOD COUNT 4.46 10^6/uL (4.70-6.10); RED CELL DISTRIBUTION WIDTH 14.1 % (12.0-15.0); UNCORRECTED WHITE BLOOD COUNT 9.3 x10^3/uL; WHITE BLOOD COUNT 9.3 x10^3/uL (4.8-10.8)
[2017-09-30 17:19] LABS: ALBUMIN/GLOBULIN RATIO 1.5 (1.0-2.2); BILIRUBIN,TOTAL 0.4 mg/dL (0.2-1.0); BUN - BLOOD UREA NITROGEN 15 mg/dL (6-20); CALCIUM 8.9 mg/dL (8.5-10.3); CARBON DIOXIDE - CO2 25 mmol/L (21-32); CHLORIDE 106 mmol/L (101-111); CREATININE 0.8 mg/dL (0.6-1.2); GFR - MDRD 99 (>89); GLUCOSE 116 mg/dL (70-100); LIPASE 14 U/L (22-51); POTASSIUM 3.7 mmol/L (3.5-5.0); SODIUM 139 mmol/L (135-145); TOTAL PROTEIN 6.2 g/dL (6.7-8.2)
[2017-09-30 17:36] VITALS: BP 108/69
--- NOTE | 2017-09-30 17:40 | CT Preliminary Report ---
Exam: CT HEAD W/O IMPRESSION: 1. No definite acute infarct, intracranial hemorrhage, mass, or hydrocephalus. 2. Mild white matter changes that appear similar to CT 08/02/2017 and may represent sequela of chronic small vessel ischemic disease. [facility] SITE ID: [id number]
--- NOTE | 2017-09-30 17:43 | CT Report ---
EXAM: CT HEAD EXAM DATE: 09/30/2017 05:28 PM. CLINICAL HISTORY: Altered. COMPARISON: MR brain 08/03/2017; CTA head and neck 08/02/2017.. TECHNIQUE: Multiaxial CT images were obtained from the foramen magnum to the vertex. Reformats: Coron al. IV contrast: None. In accordance with CT protocol optimization, one or more of the following dose reduction techniques w ere utilized for this exam: automated exposure control, adjustment of mA and/or KV based on patient s ize, or use of iterative reconstructive technique. FINDINGS: Parenchyma: No acute parenchymal hemorrhage, mass or midline shift. Mild bilateral areas of white mat ter hypoattenuation seen that appear similar to CT 08/02/2017. No definite new areas of white matter h ypoattenuation seen to suggest acute infarct. Extraaxial Spaces: Normal for age. No subdural or epidural collections identified. Ventricles: Normal in size and position. Sinuses and Orbits: Imaged paranasal sinuses, orbits, and mastoids show no significant abnormality. Bones: No evidence of fracture or calvarial defect. Other: None. IMPRESSION: 1. No definite acute infarct, intracranial hemorrhage, mass, or hydrocephalus. 2. Mild white matter changes that appear similar to CT 08/02/2017 and may represent sequela of chronic small vessel ischemic disease. [facility] Referring Provider Line: [phone] SITE ID: [id number]
== END 2017-09-30 19:06 | disposition home or self-care (01) ==
LOC: EDUNIT# → ED 16:42
DX: R47.81 Slurred speech (principal); R41.82 Altered mental status, unspecified; Z86.73 Personal history of transient ischemic attack (TIA), and cerebral infarction without residual deficits; I10 Essential (primary) hypertension; E78.00 Pure hypercholesterolemia, unspecified; I25.2 Old myocardial infarction; J44.9 Chronic obstructive pulmonary disease, unspecified; K21.9 Gastro-esophageal reflux disease without esophagitis; N40.0 Benign prostatic hyperplasia without lower urinary tract symptoms
CPT/HCPCS: 36415; 70450; 80053; 80164; 80306; 80320; 83690; 85025; 93005; 99284; 99285

== ENCOUNTER 2017-12-21 19:43 | Emergency (ER) | payer MEDICAID ==
[2017-12-21 20:24] LABS: BASOPHILS # (AUTO) 0.1 10^3/uL (0.0-0.1); BASOPHILS % (AUTO) 0.7 %; EOSINOPHILS # (AUTO) 0.2 10^3/uL (0.0-0.7); EOSINOPHILS % (AUTO) 1.7 %; HGB - HEMOGLOBIN 15.3 g/dL (14.0-18.0); LYMPHOCYTES # (AUTO) 2.4 10^3/uL (1.5-3.5); LYMPHOCYTES % (AUTO) 25.4 %; MEAN CORPUSCULAR HEMOGLOBIN 31.8 pg (27.0-31.0); MEAN CORPUSCULAR HGB CONC 33.7 g/dL (32.0-36.0); MEAN CORPUSCULAR VOLUME 94.5 fL (80.0-94.0); MEAN PLATELET VOLUME 7.1 fL (7.4-11.4); MONOCYTES # (AUTO) 0.6 10^3/uL (0.0-1.0); MONOCYTES % (AUTO) 6.2 %; NEUTROPHILS # (AUTO) 6.3 10^3/uL (1.5-6.6); PLT - PLATELET COUNT 331 10^3/uL (130-450); RED BLOOD COUNT 4.79 10^6/uL (4.70-6.10); RED CELL DISTRIBUTION WIDTH 14.3 % (12.0-15.0); WHITE BLOOD COUNT 9.6 x10^3/uL (4.8-10.8)
[2017-12-21 20:27] LABS: PT - PROTHROMBIN TIME 11.3 secs (9.9-12.6)
[2017-12-21 20:40] LABS: ALBUMIN 4.2 g/dL (3.2-5.5); ALBUMIN/GLOBULIN RATIO 1.4 (1.0-2.2); BILIRUBIN,TOTAL 0.3 mg/dL (0.2-1.0); CALCIUM 9.6 mg/dL (8.5-10.3); CREATININE 0.9 mg/dL (0.6-1.2); TOTAL PROTEIN 7.2 g/dL (6.7-8.2)
--- NOTE | 2017-12-21 20:57 | CT Report ---
EXAM: CT HEAD EXAM DATE: 12/21/2017 08:37 PM. CLINICAL HISTORY: Right sided numbness head injury coumadin. Right-sided weakness for 4 days. Fell 5 days ago. COMPARISON: CT scan of the head 09/30/2017, 08/02/2017. MRI of the brain 08/03/2017. TECHNIQUE: Multiaxial CT images were obtained from the foramen magnum to the vertex. Reformats: Coron al. IV contrast: None. In accordance with CT protocol optimization, one or more of the following dose reduction techniques w ere utilized for this exam: automated exposure control, adjustment of mA and/or KV based on patient s ize, or use of iterative reconstructive technique. FINDINGS: Parenchyma: No intraparenchymal hemorrhage. No evidence of mass, midline shift, or CT findings of inf arction. Krause-white differentiation is distinct. Extraaxial Spaces: Normal for age. No subdural or epidural collections identified. Ventricles: Normal in size and position. Sinuses and Orbits: Imaged paranasal sinuses, orbits, and mastoids show no significant abnormality. Bones: No evidence of fracture or calvarial defect. There is small osseous density projecting superio rly from the coronoid process of the left mandible. It extends superiorly deep to the zygomatic arch. This is unchanged. Other: None. IMPRESSION: 1. Negative noncontrast CT scan of the head. 2. 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 [facility] Referring Provider Line: [phone] SITE ID: [id number]
--- NOTE | 2017-12-21 22:24 | ED Physician Documentation ---
PD HPI FOCAL NEURO - Stated complaint Stated Complaint: CHEST PX/RT ARM NUMBNESS - Chief complaint Chief Complaint: Cardiac - History obtained from History obtained from: Patient - History of Present Illness Timing - onset: How many days ago (4) Timing - duration: Days (4) Timing - details: Abrupt onset, Still present Severity of deficit: Moderate Weakness: No: Face, Arm, Hand, Leg, Foot, Right, Left Numbness: Hand, Leg, Left Associated symptoms: Headache, Fall, Head injury, Neck pain, Back pain. No: Nausea / vomiting, Seizure, Syncope Contributing factors: positive: Anticoagulated Baseline status: positive: A&OX3, ambulatory, indep, Cane Similar symptoms before: Diagnosis (stroke) Recently seen: Not recently seen - Additional information Additional information: 57 y/o male reports a fall and injury to his upper back and subsequent to that he has had numbness to the left arm, hand and leg. He does not seem to be affected with the motor component. He has pain in his neck and his upper back. He thinks he hit his head and he is on coumadin. He reports he is on the coumadin because he had a stroke and his primary care doctor put him on that. He relates that he has had a full stroke workup after refusing to stay in the hospital for a work up. Review of Systems Constitutional: denies: Fever, Myalgias, Fatigue Eyes: denies: Decreased vision Ears: denies: Ear pain Nose: denies: Rhinorrhea / runny nose, Congestion Throat: denies: Dental pain / toothache, Sore throat Cardiac: denies: Chest pain / pressure, Palpitations Respiratory: denies: Dyspnea, Cough GI: denies: Abdominal Pain, Nausea, Vomiting, Constipation, Diarrhea : denies: Dysuria, Frequency Skin: denies: Rash Musculoskeletal: reports: Neck pain, Back pain Neurologic: reports: Numbness, Headache, Head injury. denies: Generalized weakness, Focal weakness, Difficulty speaking, Near syncope, Syncope, Seizure, LOC PD PAST MEDICAL HISTORY - Past Medical History Past Medical History: Yes Cardiovascular: Hypertension, High cholesterol, [place] Respiratory: COPD, Pneumonia Neuro: CVA, TIA, Head injury Endocrine/Autoimmune: None GI: GERD : Benign prostate hypertrophy HEENT: None Psych: Depression, Anxiety, Bipolar disorder, ADD/ADHD Musculoskeletal: Chronic back pain Derm: Psoriasis - Past Surgical History Past Surgical History: Yes General: Cholecystectomy, Appendectomy, Colonoscopy Ortho: Spine surgery - Present Medications Home Medications: Ambulatory Orders Medication Instructions Recorded Confirmed Tiotropium [place] [Spiriva] 1 cap INH DAILY 06/05/14 08/03/17 Albuterol Sulfate [Albuterol 2 puffs IH Q4HR PRN #1 hfa.aer.ad 02/04/15 08/03/17 Sulfate Hfa] Multivitamin [Multivitamins] 1 tab PO DAILY 02/04/15 08/03/17 Cholecalciferol [Vitamin D3] 10,000 units PO DAILY 06/13/16 08/03/17 amLODIPine [Norvasc] 5 mg PO DAILY 06/13/16 08/03/17 Adalimumab [Humira] 40 mg SUBQ Q14D 09/29/16 08/03/17 Tamsulosin [Flomax] 0.4 mg PO DAILY 10/30/16 08/03/17 Divalproex [Benjamin Jalloh] 750 mg PO DAILY #30 tablet 11/04/16 08/03/17 Duloxetine HCl [Cymbalta] 60 mg PO DAILY #30 capsule. 11/04/16 08/03/17 Lisinopril 10 mg PO DAILY #30 tablet 11/04/16 08/03/17 Omeprazole 20 mg PO DAILY #30 capsule. 11/04/16 08/03/17 Pravastatin [Pravachol] 40 mg PO QPM tablet 11/04/16 08/03/17 Amitriptyline HCl 200 mg PO DAILY PM 08/03/17 08/03/17 LORazepam [Lorazepam] 1 mg PO TID PRN 08/03/17 08/03/17 Naproxen [Naprosyn] 250 mg PO Q12H PRN 08/03/17 08/03/17 Nicotine 7 mg Patch [Nicoderm] 1 each TOP Q24H 08/03/17 08/03/17 Warfarin Sodium [Coumadin] 4 mg PO 08/04/17 Dexamethasone [Decadron] 4 mg PO DAILY #5 tablet 12/22/17 HYDROcod/ACETAM 5/325 [[place] 5/325] 1 - 2 ea PO Q6H PRN #15 tablet 12/22/17 - Allergies Allergies/Adverse Reactions: Allergies Allergy/AdvReac Type Severity Reaction Status Date / Time bupropion HCl * [From aMl] Allergy Rash Verified 12/21/17 20:03 - Social History Does the pt smoke?: Yes Smoking Status: Current every day smoker Does the pt drink ETOH?: No Does the pt have substance abuse?: Yes - Immunizations Immunizations are current?: Yes - POLST Patient has POLST: No POLST Status: Full Code PD ED PE NORMAL - Vitals Vital signs reviewed: Yes (hypertensive mild ) - General General: Alert and oriented X 3, No acute distress, Well developed/nourished - HEENT HEENT: Atraumatic, PERRL, EOMI, Other (dry mucous membranes) - Neck Neck: Supple, no meningeal sign, No bony TTP, Other (There is pain in the cervical spine with axial loading and this enhances the patient's symptoms of numbness on the left side. ) - Cardiac Cardiac: RRR, No murmur - Respiratory Respiratory: No respiratory distress, Clear bilaterally, Other (There is specific point tenderness to the chest wall posteriorly at the superior portion of the left scapula. ) - Abdomen Abdomen: Soft, Non tender - Back Back: No CVA TTP, No spinal TTP - Derm Derm: Normal color, Warm and dry, No rash - Extremities Extremities: No deformity, No edema - Neuro Neuro: Alert and oriented X 3, cigar packer and sorter 2-12 intact, No motor deficit, Normal speech , Other (sensory decrease is to the left upper and lower subjectively. On objective testing the numbness is in a C7,C8,T1 distribution in the upper ext and on the foot the numbness is isolated to the dorsum of the interspace between the 1st and 2nd toes. ) Eye Opening: Spontaneous Motor: Obeys Commands Verbal: Oriented GCS Score: 15 - Psych Psych: Normal mood, Normal affect NIHSS - Level of Consciousness Level of consciousness: (0) Alert, Keenly responsive LOC Questions: (0) Answers both Q's correct LOC Commands: (0) Performs both correctly - Gaze Best Gaze: (0) Normal - Visual Visual: (0) No loss - Facial Palsy Facial Palsy: (0) Normal, symmetrical movement - Motor Arms (both separate) Motor Arm (right): (0) No drift Motor Arm (left): (0) No drift - Motor Legs (both separate) Motor Leg (right): (0) No drift Motor Leg (left): (0) No drift - Limb Ataxia Limb Ataxia: (0) Absent - Sensory Sensory: (1) [id number] loss - Best Language Best Language: (0) No aphasia - Dysarthria Dysarthria: (0) Normal - Extinction and Inattention (formally neg Extinction and inattention: (0) No abnormality - Total Score/Results Total Score/Result: 1 Results - Vitals Vitals: Vital Signs - 24 hr 12/21/17 12/21/17 12/21/17 19:45 20:37 21:04 Temperature 36.6 C Heart Rate 95 86 89 Respiratory 18 12 18 Rate Blood Pressure 131/85 H 138/87 H 130/89 H O2 Saturation 98 97 91 L 12/21/17 12/21/17 12/22/17 22:31 23:29 00:11 Temperature Heart Rate 89 89 89 Respiratory 15 22 17 Rate Blood Pressure 139/89 H 137/91 H 145/88 H O2 Saturation 93 91 L 95 12/22/17 12/22/17 12/22/17 02:12 03:14 05:43 Temperature Heart Rate 88 89 88 Respiratory 12 20 18 Rate Blood Pressure 135/92 H 140/99 H 111/90 H O2 Saturation 94 94 91 L 12/22/17 06:45 Temperature Heart Rate 88 Respiratory 12 Rate Blood Pressure 142/92 H O2 Saturation 93 Oxygen O2 Source Room air - EKG (time done) 1948 Rate: Rate (enter#) (98) Rhythm: NSR [place]: LAD Intervals: Wide QRS (IVCD) Compare to prior EKG: Unchanged from prior EKG (09-30-17) Computer interpretation: Agree with computer - Labs Labs: Laboratory Tests 12/21/17 12/21/17 12/21/17 20:11 20:11 20:11 WBC 9.6 RBC 4.79 Hgb 15.3 Hct 45.3 MCV 94.5 H MCH 31.8 H MCHC 33.7 RDW 14.3 Plt Count 331 MPV 7.1 L Neut # 6.3 Lymph # 2.4 Letcher # 0.6 Eos # 0.2 Baso # 0.1 Absolute Nucleated RBC 0.00 Nucleated RBC % 0.0 PT 11.3 INR 1.0 Sodium 140 Potassium 3.8 Chloride 102 Carbon Dioxide 27 Anion Gap 11.0 BUN 20 Creatinine 0.9 Estimated GFR (MDRD) 86 L Glucose 85 Calcium 9.6 Total Bilirubin 0.3 AST 19 ALT 16 Alkaline Phosphatase 55 Troponin I Total Protein 7.2 Albumin 4.2 Globulin 3.0 Albumin/Globulin Ratio 1.4 Lipase 12 L 12/21/17 20:11 WBC RBC Hgb Hct MCV MCH MCHC RDW Plt Count MPV Neut # Lymph # Letcher # Eos # Baso # Absolute Nucleated RBC Nucleated RBC % PT INR Sodium Potassium Chloride Carbon Dioxide Anion Gap BUN Creatinine Estimated GFR (MDRD) Glucose Calcium Total Bilirubin AST ALT Alkaline Phosphatase Troponin I < 0.04 Total Protein Albumin Globulin Albumin/Globulin Ratio Lipase - Rads (name of study) CT head without Radiology: Prelim report reviewed (Impression: 1. Negative noncontrast CT scan of the head. 2. Probable exostosis or osteochondroma projecting superiorly from the coronoid process of the left mandible.), EMP read indepedently, See rad report PD MEDICAL DECISION MAKING - ED course Complexity details: reviewed old records, reviewed results, re-evaluated patient , considered differential, d/w patient ED course: 57 y/o male with a history of methamphetamine abuse and CVA has been admitted to the hospital here twice for CVA and he has had workup. MRI of the brain has not demonstrated area of infarct. He has symptoms documented over the past 6 years. He has had visits for weakness and numbness on the left side and bilaterally and these visits have been related to minor trauma. Today he fits this picture as well and formal exam for sensory testing reveals a dermatomal distribution from the lower cervical spine C7-C8 and T1. He has also developed some urinary incontinence and I am concerned for cervical spondylotic myelopathy. He has spent the night in the ED as I did not think it appropriate to admit for stroke work up again. I do feel he needs an MRI of the neck and we are ordering this now to be done later today and results to the primary. I have discussed the findings with the patient and the expectations of some improvement with conservative treatment and the need for follow up on the study with his primary for appropriate followup. Departure - Departure Disposition: 01 Home, Self Care Clinical Impression: Cervical radiculopathy at C7 Condition: Stable Instructions: ED Cervical Radiculopathy Follow-Up: Milka Rolle MD [Primary Care Provider] - Prescriptions: Dexamethasone [Decadron] 4 mg PO DAILY #5 tablet HYDROcod/ACETAM 5/325 [[place] 5/325] 1 - 2 ea PO Q6H PRN #15 tablet PRN Reason: Pain Comments: Today it appears your symptoms are read related to a pinched nerve in your neck. This may have been a problem all along and an MRI of your neck is indicated. Follow-up here today at noon for your MRI and follow-up with your primary care doctor for the results. In the meantime take the dexamethasone as prescribed and the pain medication as needed.
[2017-12-22] MEDS ORDERED: DEXAMETHASONE 10 MG/ML VIAL IVP STA (01:17)
[2017-12-22] MEDS ORDERED: KETOROLAC 60 MG/2 ML VIAL IVP STA (06:38)
[2017-12-22 07:39] VITALS: BP 138/93
== END 2017-12-22 07:37 | disposition home or self-care (01) ==
LOC: ED 19:43
DX: M54.12 Radiculopathy, cervical region (principal); I10 Essential (primary) hypertension; I25.2 Old myocardial infarction; Z86.73 Personal history of transient ischemic attack (TIA), and cerebral infarction without residual deficits; Z79.01 Long term (current) use of anticoagulants; E78.00 Pure hypercholesterolemia, unspecified; J44.9 Chronic obstructive pulmonary disease, unspecified; K21.9 Gastro-esophageal reflux disease without esophagitis; N40.0 Benign prostatic hyperplasia without lower urinary tract symptoms; F17.200 Nicotine dependence, unspecified, uncomplicated
CPT/HCPCS: 36415; 70450; 80053; 83690; 84484; 85025; 85610; 93005; 96374; 96375; 99284; 99285

== ENCOUNTER 2018-06-12 20:00 | Emergency (ER) | payer MEDICAID ==
[2018-06-12] MEDS ORDERED: BUFFERED LIDOCAINE 10 ML SYRINGE SUBQ STA (20:26)
[2018-06-12] MEDS ORDERED: BUFFERED LIDOCAINE 10 ML SYRINGE ONE (20:27)
[2018-06-12] MEDS ORDERED: TETANUS/DIPHTHERIA/PERTUSSIS 0.5 ML SYRINGE IM ONE (20:27)
--- NOTE | 2018-06-12 20:28 | ED Physician Documentation ---
PD HPI UPPER EXT INJURY - Stated complaint Stated Complaint: LT THUMB LAC - Chief complaint Chief Complaint: Ext Problem - History obtained from History obtained from: Patient - History of Present Illness Location: Left (Right-handed gentleman with unknown tetanus status presents with a cut on the dorsal left thumb on an olive can lid that he sustained home just prior to arrival.) Review of Systems Constitutional: reports: Reviewed and negative Throat: reports: Reviewed and negative Cardiac: reports: Reviewed and negative PD PAST MEDICAL HISTORY - Past Medical History Cardiovascular: Hypertension, High cholesterol, [place] Respiratory: COPD, Pneumonia Endocrine/Autoimmune: None GI: GERD : Benign prostate hypertrophy HEENT: None Psych: Depression, Anxiety, Bipolar disorder, ADD/ADHD Musculoskeletal: Chronic back pain Derm: Psoriasis - Past Surgical History Past Surgical History: Yes General: Cholecystectomy, Appendectomy, Colonoscopy Ortho: Spine surgery - Present Medications Home Medications: Ambulatory Orders Medication Instructions Recorded Confirmed Tiotropium [place] [Spiriva] 1 cap INH DAILY 06/05/14 08/03/17 Albuterol Sulfate [Albuterol 2 puffs IH Q4HR PRN #1 hfa.aer.ad 02/04/15 08/03/17 Sulfate Hfa] Multivitamin [Multivitamins] 1 tab PO DAILY 02/04/15 08/03/17 Cholecalciferol [Vitamin D3] 10,000 units PO DAILY 06/13/16 08/03/17 amLODIPine [Norvasc] 5 mg PO DAILY 06/13/16 08/03/17 Adalimumab [Humira] 40 mg SUBQ Q14D 09/29/16 08/03/17 Tamsulosin [Flomax] 0.4 mg PO DAILY 10/30/16 08/03/17 Divalproex [Benjamin Jalloh] 750 mg PO DAILY #30 tablet 11/04/16 08/03/17 Duloxetine HCl [Cymbalta] 60 mg PO DAILY #30 capsule. 11/04/16 08/03/17 Lisinopril 10 mg PO DAILY #30 tablet 11/04/16 08/03/17 Omeprazole 20 mg PO DAILY #30 capsule. 11/04/16 08/03/17 Pravastatin [Pravachol] 40 mg PO QPM tablet 11/04/16 08/03/17 Amitriptyline HCl 200 mg PO DAILY PM 09/26/17 09/26/17 LORazepam [Lorazepam] 1 mg PO TID PRN 08/03/17 08/03/17 Naproxen [Naprosyn] 250 mg PO Q12H PRN 08/03/17 08/03/17 Nicotine 7 mg Patch [Nicoderm] 1 each TOP Q24H 08/03/17 08/03/17 Warfarin Sodium [Coumadin] 4 mg PO 08/04/17 Dexamethasone [Decadron] 4 mg PO DAILY #5 tablet 12/22/17 HYDROcod/ACETAM 5/325 [[place] 5/325] 1 - 2 ea PO Q6H PRN #15 tablet 12/22/17 - Allergies Allergies/Adverse Reactions: Allergies Allergy/AdvReac Type Severity Reaction Status Date / Time bupropion HCl * [From Zkhalidaan] Allergy Rash Verified 06/12/18 20:14 - Social History Does the pt smoke?: Yes Smoking Status: Current every day smoker Does the pt drink ETOH?: No Does the pt have substance abuse?: Yes - Immunizations Immunizations are current?: Yes - POLST Patient has POLST: No POLST Status: Full Code PD ED PE NORMAL - Vitals Vital signs reviewed: Yes - General General: Alert and oriented X 3, No acute distress - Extremities Extremities: Other (He has a 1.5 cm laceration on the dorsal surface of left thumb just proximal to the interphalangeal joint. Initially he is insensate on both sides distal to this, but he is been holding it on ice and it is completely ice cold. I will recheck it once it has warmed up. Extensor tendon function will also be assessed after anesthetic.) - Neuro Neuro: Alert and oriented X 3, Normal speech - Psych Psych: Normal mood, Normal affect Results - Vitals Vitals: Vital Signs - 24 hr 06/12/18 20:11 Temperature 36.8 C Heart Rate 110 H Respiratory 20 Rate Blood Pressure 165/134 H O2 Saturation 100 Oxygen O2 Source Room air Procedures - Laceration (location) L thumb Length in cm: 1.5 Wound type: Linear Neurovascular status: Sensory intact, Motor intact, Vascular intact Tendon involvement: Tendon intact Anesthesia: Lidocaine 1%, With bicarb Wound Preparation: Irrigated copiously NS Skin layer closure: Nylon, Size #-0 - enter number (4-0), Sutures - enter # (4) Other: Tetanus booster given Complexity: Simple PD MEDICAL DECISION MAKING - ED course ED course: Initially the thumb was as cold as ice and completely insensate because he had been holding it in ice. I flushed it with warm water and his sensation on both sides came back and extensor tendon function was normal. - Sepsis Event Vital Signs: Vital Signs - 24 hr 06/12/18 20:11 Temperature 36.8 C Heart Rate 110 H Respiratory 20 Rate Blood Pressure 165/134 H O2 Saturation 100 Oxygen O2 Source Room air Departure - Departure Disposition: 01 Home, Self Care Clinical Impression: Finger laceration Qualifiers: Encounter type: initial encounter Finger: thumb Damage to nail status: without damage Foreign body presence: without foreign body Laterality: left Qualified Code(s): S61.012A - Laceration without foreign body of left thumb without damage to nail, initial encounter Condition: Good Record reviewed to determine appropriate education?: Yes Instructions: ED Laceration Hand Comments: Come back for any signs of infection which would include: Redness, swelling, drainage, increased pain, or fevers. Follow-up with your physician in 14 days for suture removal. Your blood pressure was elevated today on check into the emergency department. This does not mean that you have hypertension, it is a common phenomenon to come to the emergency department and have elevated blood pressure. I recommend that you see your primary care physician within the week to have it rechecked when you are feeling better.
[2018-06-12 20:49] VITALS: BP 110/80
== END 2018-06-12 20:50 | disposition home or self-care (01) ==
LOC: ED 20:00
DX: S61.012A Laceration without foreign body of left thumb without damage to nail, initial encounter (principal); W26.8XXA Contact with other sharp object(s), not elsewhere classified, initial encounter; I10 Essential (primary) hypertension; E78.00 Pure hypercholesterolemia, unspecified; I25.2 Old myocardial infarction; Z79.01 Long term (current) use of anticoagulants; Z23 Encounter for immunization
CPT/HCPCS: 12001; 90471; 99282; 99283

== ENCOUNTER 2018-11-19 05:01 | Outpatient (CLI) | payer MEDICAID | END 2018-11-19 05:02 | disposition critical access hospital (66) | LOC: EMS 05:01 | PROVIDERS: ATTEND Surgery | DX: Z04.3 Encounter for examination and observation following other accident (principal); W17.2XXA Fall into hole, initial encounter; Y93.01 Activity, walking, marching and hiking; Y92.414 Local residential or business street as the place of occurrence of the external cause | CPT/HCPCS: A0425; A0429; A0999 ==

== ENCOUNTER 2018-11-19 05:27 | Emergency (ER) | payer MEDICAID ==
[2018-11-19] MEDS ORDERED: oxyCODONE 5 MG TABLET PO STA (05:39)
[2018-11-19] MEDS ORDERED: NAPROXEN 250 MG TABLET PO STA (05:39)
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
--- NOTE | 2018-11-19 07:04 | CT Report ---
Reason: fall with exac of low back pain Procedure Date: 11/19/2018 Accession Number: [id number] / [id number] Procedure: CT - Lumbar Spine W/O CPT Code: FULL RESULT: EXAM: CT LUMBAR SPINE WITHOUT CONTRAST EXAM DATE: 11/19/2018 06:42 AM. CLINICAL HISTORY: Fall with exac of low back pain. COMPARISONS: LUMBAR SPINE 2 VIEW 04/26/2015 12:24 PM. TECHNIQUE: Thin-section axial images were acquired of the lumbar spine from T12 to S1 without contrast. Post-processing: Coronal and sagittal reformats. Other: None. In accordance with CT protocol optimization, one or more of the following dose reduction techniques were utilized for this exam: automated exposure control, adjustment of mA and/or KV based on patient size, or use of iterative reconstructive technique. FINDINGS: Alignment: Anterolisthesis of L4 on L5, new. Bones: Five [id number] lumbar vertebral bodies are present. No fractures or bone lesions. Stable posterior russell and pedicle screw fusion of L5-S1, with osseous fusion of the disk space. Disk Levels/Facets: T12-L1: Unremarkable. L1-L2: Unremarkable. L2-L3: Mild broad-based disk bulge osteophyte, without spinal or foraminal narrowing. L3-L4: Disk osteophyte and facet per trophy, producing left greater than right osseous neural foraminal narrowing. No significant spinal stenosis. L4-L5: Disk osteophyte and anterolisthesis, producing bilateral foraminal narrowing. No significant spinal stenosis. L5-S1: Stable postoperative changes. Musculature: Normal. No fatty atrophy. Other: The visualized retroperitoneum is unremarkable. IMPRESSION: Stable fusion changes at L5-S1. New degenerative anterolisthesis of L4 on L5. Foraminal narrowing as noted above. No evidence of acute fracture. RADIA
[2018-11-19 08:37] VITALS: BP 133/71
== END 2018-11-19 09:06 | disposition home or self-care (01) ==
LOC: EDUNIT# → ED 05:27
DX: S00.411A Abrasion of right ear, initial encounter (principal); S39.012A Strain of muscle, fascia and tendon of lower back, initial encounter; W18.39XA Other fall on same level, initial encounter; Y93.01 Activity, walking, marching and hiking; Y92.410 Unspecified street and highway as the place of occurrence of the external cause; I10 Essential (primary) hypertension; F17.200 Nicotine dependence, unspecified, uncomplicated; Z98.1 Arthrodesis status
CPT/HCPCS: 72131; 99283; A9270

== ENCOUNTER 2018-11-29 00:45 | Outpatient (CLI) | payer MEDICAID | END 2018-11-29 00:46 | disposition critical access hospital (66) | LOC: EMS 00:45 | PROVIDERS: ATTEND Surgery | DX: S09.90XA Unspecified injury of head, initial encounter (principal); S81.821A Laceration with foreign body, right lower leg, initial encounter; R51 Headache; W06.XXXA Fall from bed, initial encounter; Y92.61 Building [any] under construction as the place of occurrence of the external cause | CPT/HCPCS: A0425; A0429; A0999 ==

== ENCOUNTER 2018-11-29 01:09 | Emergency (ER) | payer MEDICAID ==
[2018-11-29 01:46] LABS: BASOPHILS # (AUTO) 0.1 10^3/uL (0.0-0.1); BASOPHILS % (AUTO) 1.3 %; EOSINOPHILS # (AUTO) 0.3 10^3/uL (0.0-0.7); EOSINOPHILS % (AUTO) 4.9 %; HGB - HEMOGLOBIN 13.2 g/dL (14.0-18.0); LYMPHOCYTES # (AUTO) 2.2 10^3/uL (1.5-3.5); LYMPHOCYTES % (AUTO) 33.4 %; MEAN CORPUSCULAR HEMOGLOBIN 32.3 pg (27.0-31.0); MEAN CORPUSCULAR HGB CONC 33.9 g/dL (32.0-36.0); MEAN CORPUSCULAR VOLUME 95.1 fL (80.0-94.0); MEAN PLATELET VOLUME 7.6 fL (7.4-11.4); MONOCYTES # (AUTO) 0.9 10^3/uL (0.0-1.0); MONOCYTES % (AUTO) 13.5 %; NEUTROPHILS # (AUTO) 3.1 10^3/uL (1.5-6.6); NEUTROPHILS % (AUTO) 46.9 %; PLT - PLATELET COUNT 276 10^3/uL (130-450); RED BLOOD COUNT 4.08 10^6/uL (4.70-6.10); WHITE BLOOD COUNT 6.6 x10^3/uL (4.8-10.8)
[2018-11-29 01:49] LABS: PT - PROTHROMBIN TIME 11.4 secs (9.9-12.6)
[2018-11-29 01:55] LABS: ACETAMINOPHEN < 10 ug/mL (10-30); ALBUMIN 3.6 g/dL (3.2-5.5); ALBUMIN/GLOBULIN RATIO 1.3 (1.0-2.2); ALKALINE PHOSPHATASE 58 IU/L (42-121); ALT ALANINE AMINOTRANSFERASE 24 IU/L (10-60); AST ASPARTATE AMINOTRANSFERASE 26 IU/L (10-42); BILIRUBIN,TOTAL 0.6 mg/dL (0.2-1.0); BUN - BLOOD UREA NITROGEN 17 mg/dL (6-20); CALCIUM 8.6 mg/dL (8.5-10.3); CARBON DIOXIDE - CO2 24 mmol/L (21-32); CHLORIDE 104 mmol/L (101-111); CREATININE 0.7 mg/dL (0.6-1.2); GFR - MDRD 115 (>89); GLUCOSE 98 mg/dL (70-100); LIPASE 22 U/L (22-51); SALICYLATE < 6.0 mg/dL; SODIUM 137 mmol/L (135-145); TOTAL PROTEIN 6.4 g/dL (6.7-8.2)
--- NOTE | 2018-11-29 02:38 | CT Report ---
Reason: head injury On anticoagulants Procedure Date: 11/29/2018 Accession Number: [id number] / [id number] Procedure: CT - Head W/O CPT Code: FULL RESULT: EXAM: CT HEAD EXAM DATE: 11/29/2018 02:26 AM. CLINICAL HISTORY: Head injury. On anticoagulants. COMPARISON: 12/21/2017. TECHNIQUE: Multiaxial CT images were obtained from the foramen magnum to the vertex. Reformats: Sagittal and coronal. IV contrast: None. In accordance with CT protocol optimization, one or more of the following dose reduction techniques were utilized for this exam: automated exposure control, adjustment of mA and/or KV based on patient size, or use of iterative reconstructive technique. FINDINGS: Parenchyma: No intraparenchymal hemorrhage. No evidence of mass, midline shift, or CT findings of infarction. Krause-white differentiation is distinct. Extraaxial Spaces: Normal for age. No subdural or epidural collections identified. Ventricles: Normal in size and position. Sinuses and Orbits: Imaged paranasal sinuses, orbits, and mastoids show no significant abnormality. Bones: No calvarial fracture. Suspect an old, ununited fracture of the coronoid process of the left mandible, the appearance is similar. Other: None. IMPRESSION: No acute or focal intracranial abnormality. RADIA
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
--- NOTE | 2018-11-29 02:50 | XRAY Report ---
Reason: chest pain Procedure Date: 11/29/2018 Accession Number: [id number] / [id number] Procedure: XR - Chest 1 View X-Ray CPT Code: 22933 FULL RESULT: EXAM: CHEST RADIOGRAPHY EXAM DATE: 11/29/2018 02:34 AM. CLINICAL HISTORY: Chest pain. COMPARISON: CHEST 2 VIEW PA/LAT 11/03/2016 6:16 AM CHEST W/O 10/28/2016 5:18 PM. TECHNIQUE: 1 view. FINDINGS: Lungs/Pleura: No focal opacities evident. No pleural effusion. No pneumothorax. Mediastinum: Within exam limitations, the cardiomediastinal contour is normal. Other: Old right rib fracture. IMPRESSION: No acute process seen in the chest. RADIA
--- NOTE | 2018-11-29 02:57 | CT Report ---
Reason: fb Procedure Date: 11/29/2018 Accession Number: [id number] / [id number] Procedure: CT - Cervical Spine W/O CPT Code: FULL RESULT: EXAM: CT CERVICAL SPINE WITHOUT CONTRAST DATE: 11/29/2018 01:45 AM. HISTORY: Head trauma. COMPARISONS: Motion limited CT 06/18/2011. TECHNIQUE: Thin-section axial images were acquired of the cervical spine without contrast. Post-processing: Coronal and sagittal reformats. Other: None. In accordance with CT protocol optimization, one or more of the following dose reduction techniques were utilized for this exam: automated exposure control, adjustment of mA and/or KV based on patient size, or use of iterative reconstructive technique. FINDINGS: Alignment: Grade 1 anterolisthesis at C7-T1. Straightening and mild reversal of the cervical lordosis. Bones: No fracture or bone lesion. Interspace Levels/Facets: C1-C2: No significant abnormality. C2-C3: Moderate right-sided facet arthropathy. C3-C4: Moderate disk space narrowing. Endplate osteophyte mildly narrows the central canal. Severe bilateral foraminal stenosis. C4-C5: Moderate disk space narrowing. Endplate osteophyte mildly narrows the central canal. Mild left-sided foraminal stenosis. C5-C6: Severe disk space narrowing. Endplate osteophyte moderately narrows the central canal. Severe bilateral foraminal stenosis. C6-C7: Severe disk space narrowing. Endplate osteophyte moderately narrows the central canal. Severe bilateral foraminal stenosis. C7-T1: Severe bilateral facet arthropathy. Severe bilateral foraminal stenosis. Musculature: Normal. No fatty atrophy. Other: The paravertebral and prevertebral soft tissues are unremarkable. The lung apices are clear. IMPRESSION: Degenerative changes in the cervical spine. No fracture is identified. RADIA
[2018-11-29] MEDS ORDERED: BACITRACIN OINT TOP ONE (08:21)
[2018-11-29 09:11] VITALS: BP 144/90
== END 2018-11-29 08:25 | disposition home or self-care (01) ==
LOC: EDUNIT# → ED 01:09
DX: S81.822A Laceration with foreign body, left lower leg, initial encounter (principal); S09.90XA Unspecified injury of head, initial encounter; W06.XXXA Fall from bed, initial encounter; Y92.003 Bedroom of unspecified non-institutional (private) residence as the place of occurrence of the external cause; R79.1 Abnormal coagulation profile; Z79.01 Long term (current) use of anticoagulants; I10 Essential (primary) hypertension; F17.200 Nicotine dependence, unspecified, uncomplicated
CPT/HCPCS: 36415; 70450; 71045; 72125; 73590; 80053; 80307; 80320; 80329; 83690; 85025; 85610; 99282; 99284; A9270

== ENCOUNTER 2018-12-05 10:33 | Emergency (ER) | payer MEDICAID ==
--- NOTE | 2018-12-05 11:09 | XRAY Report ---
Reason: soa, cough, fever Procedure Date: 12/05/2018 Accession Number: [id number] / [id number] Procedure: XR - Chest 2 View X-Ray CPT Code: 55870 FULL RESULT: EXAM: CHEST RADIOGRAPHY EXAM DATE: 12/05/2018 10:59 AM. CLINICAL HISTORY: Shortness of air, cough, fever. COMPARISON: Chest 1 view 11/29/2018 1:34 AM. TECHNIQUE: 2 views. FINDINGS: Lungs/Pleura: There is prominence of pulmonary markings in the retrocardiac region. No pleural effusion. No pneumothorax. Normal volumes. Mediastinum: Heart and mediastinal contours are within normal limits. Other: None. IMPRESSION: Prominence of pulmonary markings in the retrocardiac region, possibly pneumonia. RADIA
--- NOTE | 2018-12-05 12:38 | ED Physician Documentation ---
PD HPI URI - Stated complaint Stated Complaint: COUGH/SOA - Chief complaint Chief Complaint: Resp - History obtained from History obtained from: Patient - History of Present Illness Timing - onset: How many weeks ago (1-2) Timing duration: Weeks (1-2 weeks of cough and congestion, worsening with fever and wheezing the past few days.) Timing details: Gradual onset, Still present Associated symptoms: Fever, Chills, Productive cough, Dyspnea. No: Hemoptysis, NVD, Bilateral edema Contributing factors: COPD / asthma. No: Sick contact Improves by: Rest, MDI/nebulizer (but has used it a lot the past several days and is almost empty.) Worsened by: Activity, Other (coughing) Similar symptoms before: Diagnosis (pneumonia in the past, and has COPD which flares just when sick. Does not usually need MDI.) Review of Systems Constitutional: reports: Fever, Myalgias Nose: reports: Congestion. denies: Rhinorrhea / runny nose Throat: denies: Sore throat Cardiac: denies: Chest pain / pressure, Palpitations Respiratory: reports: Dyspnea, Cough, Wheezing GI: reports: Nausea. denies: Abdominal Pain, Vomiting, Diarrhea : denies: Dysuria, Frequency Skin: denies: Rash, Lesions Neurologic: reports: Generalized weakness, Headache. denies: Focal weakness, Numbness, Near syncope, Altered mental status PD PAST MEDICAL HISTORY - Past Medical History Past Medical History: Yes Cardiovascular: Hypertension, High cholesterol, [place] Respiratory: Asthma, COPD, Pneumonia Neuro: CVA, TIA Endocrine/Autoimmune: None GI: GERD : Benign prostate hypertrophy HEENT: None Psych: Depression, Anxiety, Bipolar disorder, ADD/ADHD Musculoskeletal: Chronic back pain Derm: Psoriasis - Past Surgical History Past Surgical History: Yes General: Cholecystectomy, Appendectomy, Colonoscopy Ortho: Spine surgery - Present Medications Home Medications: Ambulatory Orders Medication Instructions Recorded Confirmed RX: Tiotropium [place] [Spiriva] 1 cap INH DAILY 06/05/14 08/03/17 RX: Albuterol Sulfate [Albuterol 2 puffs IH Q4HR PRN #1 hfa.aer.ad 02/04/15 08/03/17 Sulfate Hfa] RX: Multivitamin [Multivitamins] 1 tab PO DAILY 02/04/15 08/03/17 RX: Cholecalciferol [Vitamin D3] 10,000 units PO DAILY 06/13/16 08/03/17 RX: amLODIPine [Norvasc] 5 mg PO DAILY 06/13/16 08/03/17 RX: Adalimumab [Humira] 40 mg SUBQ Q14D 09/29/16 08/03/17 RX: Tamsulosin [Flomax] 0.4 mg PO DAILY 10/30/16 08/03/17 RX: Divalproex [Benjamin Jalloh] 750 mg PO DAILY #30 tablet 11/04/16 08/03/17 RX: Duloxetine HCl [Cymbalta] 60 mg PO DAILY #30 capsule. 11/04/16 08/03/17 RX: Lisinopril 10 mg PO DAILY #30 tablet 11/04/16 08/03/17 RX: Omeprazole 20 mg PO DAILY #30 capsule. 11/04/16 08/03/17 RX: Pravastatin [Pravachol] 40 mg PO QPM tablet 11/04/16 08/03/17 RX: Amitriptyline HCl 200 mg PO DAILY PM 08/03/17 08/03/17 RX: LORazepam [Lorazepam] 1 mg PO TID PRN 08/03/17 08/03/17 RX: Naproxen [Naprosyn] 250 mg PO Q12H PRN 08/03/17 08/03/17 RX: Nicotine 7 mg Patch [Nicoderm] 1 each TOP Q24H 08/03/17 08/03/17 Warfarin Sodium [Coumadin] 4 mg PO 08/04/17 Dexamethasone [Decadron] 4 mg PO DAILY #5 tablet 12/22/17 RX: HYDROcod/ACETAM 5/325 [[place] 1 - 2 ea PO Q6H PRN #15 tablet 12/22/17 5/325] RX: oxyCODONE [Roxicodone] 5 mg PO Q4-6H PRN #10 tablet 06/13/18 Hydrocodone/Acetaminophen [[place] 1 each PO Q6H PRN #15 tablet 11/19/18 5-325 Tablet] Methocarbamol [Robaxin] 500 mg PO Q6H PRN #20 tablet 11/19/18 Benzonatate [Tessalon [place]] 100 - 200 mg PO TID PRN #30 capsule 12/05/18 Dexamethasone [Decadron] 4 mg PO DAILY #5 tablet 12/05/18 Ipratropium [place] [Atrovent Hfa] 1 puffs IH BID #1 hfa.aer.ad 12/05/18 RX: Albuterol Sulf [Ventolin Hfa 2 - 3 puffs INH Q4HR PRN #1 inhaler 12/05/18 Inhaler] RX: Azithromycin [Zithromax] 0 mg PO DAILY #6 tablet 12/05/18 guaiFENesin/CODEINE [Robitussin AC] 10 ml PO Q6H #240 ml 12/05/18 - Allergies Allergies/Adverse Reactions: Allergies Allergy/AdvReac Type Severity Reaction Status Date / Time bupropion HCl * [From Zyban] Allergy Rash Verified 12/05/18 10:42 - Social History Does the pt smoke?: Yes Smoking Status: Current every day smoker Does the pt drink ETOH?: No Does the pt have substance abuse?: No - Immunizations Immunizations are current?: Yes - POLST Patient has POLST: No POLST Status: Full Code PD ED PE NORMAL - Vitals Vital signs reviewed: Yes - General General: Alert and oriented X 3, No acute distress, Well developed/nourished - HEENT HEENT: Ears normal, Moist mucous membranes, Pharynx benign - Neck Neck: Supple, no meningeal sign, No adenopathy - Cardiac Cardiac: RRR, No murmur - Respiratory Respiratory: No respiratory distress. No: Clear bilaterally (diffuse wheezing without retractions) - Abdomen Abdomen: Normal bowel sounds, Soft, Non tender, Non distended - Back Back: No CVA TTP - Derm Derm: Normal color, Warm and dry - Extremities Extremities: No deformity, No tenderness to palpate, Normal ROM s pain, No edema, No calf tenderness / cord - Neuro Neuro: Alert and oriented X 3, No motor deficit, Normal speech Results - Vitals Vitals: Vital Signs - 24 hr 12/05/18 12/05/18 12/05/18 10:39 13:09 13:26 Temperature 36.4 C L 37.3 C Heart Rate 97 94 91 Respiratory 16 20 16 Rate Blood Pressure 130/79 135/78 H O2 Saturation 95 95 12/05/18 12/05/18 14:46 15:04 Temperature 36.7 C Heart Rate 87 98 Respiratory 18 16 Rate Blood Pressure 140/75 H O2 Saturation 94 Oxygen O2 Source Room air - Rads (name of study) chest xray Radiology: Prelim report reviewed (small infiltrate right middle lobe. No effusion. ) PD MEDICAL DECISION MAKING - ED course Complexity details: reviewed results, re-evaluated patient (improved breathing with neb treatment. His sats are good. No significant infiltrates. I feel he is stable for discharge. ), considered differential, d/w patient Departure - Departure Disposition: 01 Home, Self Care Clinical Impression: COPD exacerbation, Acute pneumonia Condition: Stable Record reviewed to determine appropriate education?: Yes Instructions: ED COPD Flare, ED Pneumonia Adult Follow-Up: Milka Rolle MD [Primary Care Provider] - Prescriptions: RX: Albuterol Sulf [Ventolin Hfa Inhaler] 2 - 3 puffs INH Q4HR PRN #1 inhaler PRN Reason: Shortness Of Air/Wheezing RX: Azithromycin [Zithromax] 0 mg PO DAILY #6 tablet Benzonatate [Tessalon [place]] 100 - 200 mg PO TID PRN #30 capsule PRN Reason: Cough Dexamethasone [Decadron] 4 mg PO DAILY #5 tablet guaiFENesin/CODEINE [Robitussin AC] 10 ml PO Q6H #240 ml Ipratropium [place] [Atrovent Hfa] 1 puffs IH BID #1 hfa.aer.ad Comments: Your symptoms are worrisome for bronchitis or early pneumonia. This will flare up your COPD as well. We will treated as a bacterial infection as well as the COPD with the albuterol inhaler. You can add to that add an Atrovent inhaler 2- 3 times a day. Also Decadron steroid daily for a week. Azithromycin anti biotics for 5 more days. Use Tessalon and/or codeine cough medicine as needed for the cough. Recheck if not improving over the next several days. Discharge Date/Time: 12/05/18 15:10
[2018-12-05] MEDS ORDERED: IPRATROPIUM/ALBUTEROL 3 ML NEB INH STA (12:55)
[2018-12-05] MEDS ORDERED: DEXAMETHASONE 10 MG/ML VIAL PO STA (12:56)
[2018-12-05] MEDS ORDERED: guaiFENesin/CODEINE 5 ML UDC PO STA (12:56)
[2018-12-05] MEDS ORDERED: BENZONATATE 100 MG CAPSULE PO STA (12:56)
[2018-12-05] MEDS ORDERED: AZITHROMYCIN 250 MG TABLET PO STA (12:57)
[2018-12-05] MEDS ORDERED: CHERRY SYRUP 10 ML UDC PO ONE (13:05)
[2018-12-05] MEDS ORDERED: ALBUTEROL NEB 2.5 MG/3 ML INH STA (14:34)
[2018-12-05 15:10] VITALS: BP 140/75
== END 2018-12-05 15:10 | disposition home or self-care (01) ==
LOC: ED 10:33
DX: J44.1 Chronic obstructive pulmonary disease with (acute) exacerbation (principal); J18.9 Pneumonia, unspecified organism; I10 Essential (primary) hypertension; E78.00 Pure hypercholesterolemia, unspecified; I25.2 Old myocardial infarction; Z86.73 Personal history of transient ischemic attack (TIA), and cerebral infarction without residual deficits; F17.200 Nicotine dependence, unspecified, uncomplicated
CPT/HCPCS: 71046; 93005; 94640; 99283; A9270

== ENCOUNTER 2019-12-27 10:42 | Emergency (ER) | payer MEDICAID ==
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
[2019-12-27] MEDS ORDERED: HYDROcod/ACETAM 5/325 MG TABLET PO STA (12:29)
[2019-12-27] MEDS ORDERED: KETOROLAC 60 MG/2 ML VIAL IM STA (12:29)
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
[2019-12-27 13:56] VITALS: BP 175/95
== END 2019-12-27 13:45 | disposition home or self-care (01) ==
LOC: ED 10:42
DX: S61.242A Puncture wound with foreign body of right middle finger without damage to nail, initial encounter (principal); W34.010A Accidental discharge of airgun, initial encounter; Y93.89 Activity, other specified; Y92.009 Unspecified place in unspecified non-institutional (private) residence as the place of occurrence of the external cause; I10 Essential (primary) hypertension; F17.200 Nicotine dependence, unspecified, uncomplicated
CPT/HCPCS: 10120; 73130; 96372; 99283; A9270

== ENCOUNTER 2020-03-06 07:45 | Outpatient (CLI) | payer MEDICAID ==
[2020-03-06 08:38] LABS: BASOPHILS # (AUTO) 0.1 10^3/uL (0.0-0.1); BASOPHILS % (AUTO) 0.8 %; EOSINOPHILS # (AUTO) 0.2 10^3/uL (0.0-0.7); EOSINOPHILS % (AUTO) 2.4 %; HGB - HEMOGLOBIN 15.3 g/dL (14.0-18.0); LYMPHOCYTES # (AUTO) 3.2 10^3/uL (1.5-3.5); LYMPHOCYTES % (AUTO) 32.2 %; MEAN CORPUSCULAR HEMOGLOBIN 31.4 pg (27.0-31.0); MEAN CORPUSCULAR HGB CONC 33.2 g/dL (32.0-36.0); MEAN CORPUSCULAR VOLUME 94.7 fL (80.0-94.0); MEAN PLATELET VOLUME 9.4 fL (7.4-11.4); MONOCYTES # (AUTO) 1.1 10^3/uL (0.0-1.0); NEUTROPHILS # (AUTO) 5.2 10^3/uL (1.5-6.6); NEUTROPHILS % (AUTO) 52.2 %; PLT - PLATELET COUNT 252 10^3/uL (130-450); RED BLOOD COUNT 4.87 10^6/uL (4.70-6.10); RED CELL DISTRIBUTION WIDTH 14.6 % (12.0-15.0); WHITE BLOOD COUNT 9.9 x10^3/uL (4.8-10.8)
== END 2020-03-06 07:46 | disposition home or self-care (01) ==
LOC: LAB 07:45
PROVIDERS: ATTEND Orthopaedic Surgery Adult Reconstructive Orthopaedic Surgery
DX: M79.643 Pain in unspecified hand (principal)
CPT/HCPCS: 36415; 85025; 85651; 86140

== ENCOUNTER 2020-10-19 16:09 | Outpatient (CLI) | payer MEDICAID | END 2020-10-19 16:10 | disposition short-term general hospital (02) | LOC: EMS 16:09 | PROVIDERS: ATTEND Surgery | DX: R07.89 Other chest pain (principal); R06.02 Shortness of breath | CPT/HCPCS: A0425; A0427; A0999 ==

== ENCOUNTER 2020-10-23 23:19 | Outpatient (CLI) | payer MEDICAID | END 2020-10-23 23:20 | disposition critical access hospital (66) | LOC: EMS 23:19 | PROVIDERS: ATTEND Surgery | DX: R06.00 Dyspnea, unspecified (principal); R47.81 Slurred speech; R41.0 Disorientation, unspecified | CPT/HCPCS: A0425; A0427; A0999 ==

== ENCOUNTER 2020-10-23 23:34 | Inpatient (IN) | payer MEDICAID ==
[2020-10-23] MEDS ORDERED: VANCOMYCIN INJ 1.25 GM in SODIUM CHLORIDE 0.9% 250 ML IV STA (23:42)
[2020-10-23] MEDS ORDERED: CEFEPIME 2 GM in SODIUM CHLORIDE 0.9% MINIBAG 100 ML IV STA (23:44)
--- NOTE | 2020-10-24 | ED Physician Documentation ---
History of Present Illness - Stated complaint Stated Complaint: LEFT SIDE DEFICIT, SOA - History obtained from History obtained from: Family (see mdm), EMS - Additonal information Additional information: 60-year-old male with past medical history of COPD, TBI and multiple strokes with residual left-sided deficit, recent admission for pneumonia at [facility] 2 days ago presents with shortness of breath and weakness ongoing since discharge acutely worsening this past evening, prompting family to call EMS. On arrival patient minimally conversant and tachypneic. He does have a left facial droop and left sided weakness that family states is chronic but worsening over the past few days. further history limited by patient mental status. Review of Systems Unable to obtain: Confused PD PAST MEDICAL HISTORY - Past Medical History Cardiovascular: Hypertension, High cholesterol, [place] Respiratory: Asthma, COPD, Pneumonia Neuro: CVA, TIA Endocrine/Autoimmune: None GI: GERD : Benign prostate hypertrophy HEENT: None Psych: Depression, Anxiety, Bipolar disorder, ADD/ADHD Musculoskeletal: Chronic back pain Derm: Psoriasis - Past Surgical History Past Surgical History: Yes General: Cholecystectomy, Appendectomy, Colonoscopy Ortho: Spine surgery - Present Medications Home Medications: Ambulatory Orders Medication Instructions Recorded Confirmed Tiotropium [place] [Spiriva] 1 cap INH DAILY 06/05/14 08/03/17 Albuterol Sulfate [Albuterol 2 puffs IH Q4HR PRN #1 hfa.aer.ad 02/04/15 08/03/17 Sulfate Hfa] Multivitamin [Multivitamins] 1 tab PO DAILY 02/04/15 08/03/17 Cholecalciferol [Vitamin D3] 10,000 units PO DAILY 06/13/16 08/03/17 amLODIPine [Norvasc] 5 mg PO DAILY 06/13/16 08/03/17 Adalimumab [Humira] 40 mg SUBQ Q14D 09/29/16 08/03/17 Tamsulosin [Flomax] 0.4 mg PO DAILY 10/30/16 08/03/17 Divalproex [Benjamin Jalloh] 750 mg PO DAILY #30 tablet 11/04/16 08/03/17 Duloxetine HCl [Cymbalta] 60 mg PO DAILY #30 capsule. 11/04/16 08/03/17 Omeprazole 20 mg PO DAILY #30 capsule. 11/04/16 08/03/17 Pravastatin [Pravachol] 40 mg PO QPM tablet 11/04/16 08/03/17 lisinopriL [Lisinopril] 10 mg PO DAILY #30 tablet 11/04/16 08/03/17 Amitriptyline HCl 200 mg PO DAILY PM 08/03/17 08/03/17 LORazepam [Lorazepam] 1 mg PO TID PRN 08/03/17 08/03/17 Naproxen [Naprosyn] 250 mg PO Q12H PRN 08/03/17 08/03/17 Nicotine 7 mg Patch [Nicoderm] 1 each TOP Q24H 08/03/17 08/03/17 Warfarin Sodium [Coumadin] 4 mg PO 08/04/17 HYDROcod/ACETAM 5/325 [[place] 5/325] 1 - 2 ea PO Q6H PRN #15 tablet 12/22/17 dexAMETHasone [Decadron] 4 mg PO DAILY #5 tablet 12/22/17 oxyCODONE [Roxicodone] 5 mg PO Q4-6H PRN #10 tablet 06/13/18 Hydrocodone/Acetaminophen [[place] 1 each PO Q6H PRN #15 tablet 11/19/18 5-325 Tablet] methocarbamoL [Robaxin] 500 mg PO Q6H PRN #20 tablet 11/19/18 Albuterol Sulf [Ventolin Hfa 2 - 3 puffs INH Q4HR PRN #1 inhaler 12/05/18 Inhaler] Azithromycin [Zithromax] 0 mg PO DAILY #6 tablet 12/05/18 Benzonatate [Tessalon Perle] 100 - 200 mg PO TID PRN #30 capsule 12/05/18 Ipratropium [place] [Atrovent Hfa] 1 puffs IH BID #1 hfa.aer.ad 12/05/18 dexAMETHasone [Decadron] 4 mg PO DAILY #5 tablet 12/05/18 guaiFENesin/CODEINE [Robitussin AC] 10 ml PO Q6H #240 ml 12/05/18 Oxycodone HCl/Acetaminophen 1 each PO Q6H PRN #14 tablet 12/27/19 [Percocet 5-325 mg Tablet] - Allergies Allergies/Adverse Reactions: Allergies Allergy/AdvReac Type Severity Reaction Status Date / Time bupropion HCl * [From Mal] Allergy Rash Verified 12/27/19 10:51 - Social History Does the pt smoke?: Yes Smoking Status: Current every day smoker Does the pt drink ETOH?: No Does the pt have substance abuse?: Yes - Immunizations Immunizations are current?: Yes - POLST Patient has POLST: No POLST Status: Full Code PD ED PE NORMAL - Vitals Vital signs reviewed: Yes - General General: Other (eye opening to verbal. slurred speech, tachypneic and speaking only in short bursts) - HEENT HEENT: Atraumatic, PERRL, EOMI, Pharynx benign - Neck Neck: Supple, no meningeal sign - Cardiac Cardiac: Other (tachycardic, regular rhythm) - Respiratory Respiratory: Other (BL wheezes and dependent crackles) - Abdomen Abdomen: Non tender, Non distended - Male Male : Deferred - Rectal Rectal: Deferred - Back Back: Other (no spinal deformity) - Derm Derm: Normal color, Warm and dry, Other (nicotine patch on arm which I removed) - Extremities Extremities: No deformity - Neuro Neuro: Other (L facial droop, LUE/LLE weakness compared to right. patient moves all extremities on command. eye opening to verbal. speaking in short sentences with some dysarthria. increased wob) - Psych Psych: Normal mood, Normal affect Results - Vitals Vitals: Vital Signs - 24 hr 10/23/20 10/23/20 10/23/20 23:42 23:46 23:56 Temperature 36.8 C Heart Rate 102 H 112 H 99 Respiratory 24 22 22 Rate Blood Pressure 160/100 H 184/93 H 184/93 H O2 Saturation 97 94 96 10/24/20 10/24/20 10/24/20 00:49 00:56 01:09 Temperature Heart Rate 102 H 90 97 Respiratory 21 19 23 Rate Blood Pressure 160/107 H 156/108 H O2 Saturation 96 99 10/24/20 10/24/20 01:30 02:12 Temperature 36.8 C Heart Rate 89 102 H Respiratory 22 21 Rate Blood Pressure 164/93 H 140/81 H O2 Saturation 97 94 Oxygen O2 Source Oxymask Oxygen Flow Rate 4 - EKG (time done) 0005 Rate: Rate (enter#) (106) Rhythm: Sinus tachycardia Intervals: Normal [place] QRS: Normal Ischemia: Normal ST segments - Labs Labs: Laboratory Tests 10/23/20 10/23/20 10/23/20 00:47 23:55 23:55 WBC 11.5 H RBC 3.97 L Hgb 12.4 L Hct 39.3 L MCV 99.0 H MCH 31.2 H MCHC 31.6 L RDW 14.5 Plt Count 221 MPV 9.3 Neut # (Auto) Not Reportable Lymph # (Auto) Not Reportable Crosby # (Auto) Not Reportable Eos # (Auto) Not Reportable Baso # (Auto) Not Reportable Absolute Nucleated RBC Not Reportable Total Counted 100 Band Neuts % (Manual) 3 Abnorm Lymph % (Manual) 0 Metamyelocytes % 4 H Myelocytes % 4 H Nucleated RBC % Not Reportable Neutrophils # (Manual) 7.5 H Lymphocytes # (Manual) 1.8 Monocytes # (Manual) 1.2 H Eosinophils # (Manual) 0.0 Basophils # (Manual) 0.1 Differential Comment MANUAL DIFFERENTIAL Platelet Estimate NORMAL (130-450,000) RBC Morph Micro Appear NORMAL APPEARANCE Bld Gas Analysis Time Sample Site ABG pH ABG pCO2 ABG pO2 ABG HCO3 ABG Total CO2 ABG O2 Saturation ABG Base Excess Erik Test O2 Delivery Device FiO2 Sodium 143 Potassium 3.5 Chloride 104 Carbon Dioxide 31 Anion Gap 8.0 BUN 12 Creatinine 0.7 Estimated GFR (MDRD) 114 Glucose 122 H Lactic Acid Calcium 8.9 Magnesium 2.0 Total Bilirubin 0.6 AST 21 ALT 24 Alkaline Phosphatase 63 Troponin I High Sens B-Natriuretic Peptide Total Protein 6.4 L Albumin 2.9 L Globulin 3.5 Albumin/Globulin Ratio 0.8 L Nasal Adenovirus (PCR) NOT DETECTED Nasal B. parapertussis DNA (PCR) NOT DETECTED Nasal Coronavir 229E PCR NOT DETECTED Nasal Coronavir HKU1 PCR NOT DETECTED Nasal Coronavir NL63 PCR NOT DETECTED Nasal Coronavir OC43 PCR NOT DETECTED Nasal Enterovir/Rhinovir PCR NOT DETECTED Nasal Influenza B PCR NOT DETECTED Nasal Influenza A PCR NOT DETECTED Nasal Parainfluen 1 PCR NOT DETECTED Nasal Parainfluen 2 PCR NOT DETECTED Nasal Parainfluen 3 PCR NOT DETECTED Nasal Parainfluen 4 PCR NOT DETECTED Nasal RSV (PCR) NOT DETECTED Nasal B.pertussis DNA PCR NOT DETECTED Nasal C.pneumoniae (PCR) NOT DETECTED Froylan Human Metapneumo PCR NOT DETECTED Nasal M.pneumoniae (PCR) NOT DETECTED Nasal SARS-CoV-2 (PCR) NOT DETECTED 10/23/20 10/23/20 10/23/20 23:55 23:55 23:55 WBC RBC Hgb Hct MCV MCH MCHC RDW Plt Count MPV Neut # (Auto) Lymph # (Auto) [place]by # (Auto) Eos # (Auto) Baso # (Auto) Absolute Nucleated RBC Total Counted Band Neuts % (Manual) Abnorm Lymph % (Manual) Metamyelocytes % Myelocytes % Nucleated RBC % Neutrophils # (Manual) Lymphocytes # (Manual) Monocytes # (Manual) Eosinophils # (Manual) Basophils # (Manual) Differential Comment Platelet Estimate RBC Morph Micro Appear Bld Gas Analysis Time Sample Site ABG pH ABG pCO2 ABG pO2 ABG HCO3 ABG Total CO2 ABG O2 Saturation ABG Base Excess Erik Test O2 Delivery Device FiO2 Sodium Potassium Chloride Carbon Dioxide Anion Gap BUN Creatinine Estimated GFR (MDRD) Glucose Lactic Acid 1.1 Calcium Magnesium Total Bilirubin AST ALT Alkaline Phosphatase Troponin I High Sens 9.0 B-Natriuretic Peptide 138 H Total Protein Albumin Globulin Albumin/Globulin Ratio Nasal Adenovirus (PCR) Nasal B. parapertussis DNA (PCR) Nasal Coronavir 229E PCR Nasal Coronavir HKU1 PCR Nasal Coronavir NL63 PCR Nasal Coronavir OC43 PCR Nasal Enterovir/Rhinovir PCR Nasal Influenza B PCR Nasal Influenza A PCR Nasal Parainfluen 1 PCR Nasal Parainfluen 2 PCR Nasal Parainfluen 3 PCR Nasal Parainfluen 4 PCR Nasal RSV (PCR) Nasal B.pertussis DNA PCR Nasal C.pneumoniae (PCR) Froylan Human Metapneumo PCR Nasal M.pneumoniae (PCR) Nasal SARS-CoV-2 (PCR) 10/24/20 10/24/20 00:37 01:10 WBC RBC Hgb Hct MCV MCH MCHC RDW Plt Count MPV Neut # (Auto) Lymph # (Auto) [place] # (Auto) Eos # (Auto) Baso # (Auto) Absolute Nucleated RBC Total Counted Band Neuts % (Manual) Abnorm Lymph % (Manual) Metamyelocytes % Myelocytes % Nucleated RBC % Neutrophils # (Manual) Lymphocytes # (Manual) Monocytes # (Manual) Eosinophils # (Manual) Basophils # (Manual) Differential Comment Platelet Estimate RBC Morph Micro Appear Bld Gas Analysis Time 0040 Sample Site LEFT RADIAL ABG pH 7.33 L ABG pCO2 56 H ABG pO2 70 L ABG HCO3 28.8 H ABG Total CO2 30.5 H ABG O2 Saturation 92 L ABG Base Excess 1.8 Erik Test POSITIVE O2 Delivery Device OXYMASK FiO2 4.00 Sodium Potassium Chloride Carbon Dioxide Anion Gap BUN Creatinine Estimated GFR (MDRD) Glucose Lactic Acid 1.3 Calcium Magnesium Total Bilirubin AST ALT Alkaline Phosphatase Troponin I High Sens B-Natriuretic Peptide Total Protein Albumin Globulin Albumin/Globulin Ratio Nasal Adenovirus (PCR) Nasal B. parapertussis DNA (PCR) Nasal Coronavir 229E PCR Nasal Coronavir HKU1 PCR Nasal Coronavir NL63 PCR Nasal Coronavir OC43 PCR Nasal Enterovir/Rhinovir PCR Nasal Influenza B PCR Nasal Influenza A PCR Nasal Parainfluen 1 PCR Nasal Parainfluen 2 PCR Nasal Parainfluen 3 PCR Nasal Parainfluen 4 PCR Nasal RSV (PCR) Nasal B.pertussis DNA PCR Nasal C.pneumoniae (PCR) Froylan Human Metapneumo PCR Nasal M.pneumoniae (PCR) Nasal SARS-CoV-2 (PCR) Procedures - Intubation Provider: Emergency physician Medications: Etomidate, Rocuronium Blade: Felipe (4) Tube: Size-enter number (7.5), Cuffed, Marked at lips-enter cm (22) Route: Oral Confirmation: Direct visualization, Bilateral breath sounds, End tidal CO2, Pulse ox, Chest xray Complications: No compications PD MEDICAL DECISION MAKING - ED course ED course: 11:51 PMEMS brought patient in with report that he has history of stroke with left-sided deficit. No other deficits noted at this time. Trying to get in touch with family to determine if there are any other concerns concerning for stroke. At this time he is clearly septic and we will treat him as such. We are holding the 30cc/kg bolus given that he looks volume overloaded and is suspicious for possible covid. Reportedly he was just discharged from the hospital 2 days ago for pneumonia. Santos (son [phone]) says he was discharged a couple days from [facility]. since returning his o2 has been low. at times he's feeling well but usually in the evenings he starts to slur and starts to have difficulty breathing. He had a stroke a month ago and has a facial droop and L sided weakness from this. Rita ([phone]) is patient's healthcare decision-maker. 12am - patient has been short of breath for months. really bad the past couple days. Not on home o2 at present, but he has been on o2 in the past. Patient was discharged on amoxicillin 2 days ago from [facility]. covid test at [facility] was negative. 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 She states he has been really weak and needs assistance walking and doing ADLs. 1am- initial lactate mildly elevated. will redraw after antibiotics. patient breathing more easily on bipap with nebulizer ongoing. o2 sat in high 90s with improvement in HR. 1:30am - still with waning mental status, tachypnea. d/w Rita - plan on intubation for airway protection. 3:23 am - patient intubated without incidence. d/w Dr. Carlin - will admit icu for sepsis 2/2 pneumonia. utox ordered at his request given ams. - Critical Care Time(min): 30 Comments: I have personally performed a history, physical exam, and my own medical decision making. Upon my evaluation, this patient had a high probability of imminent or life- threatening deterioration due to sepsis, acute confusion, and respiratory failure, which required my direct attention, intervention, and personal management. I have personally provided _30_ minutes of critical care time exclusive of time spent on separately billable procedures. Time includes review of laboratory data, radiology results, discussion with consultants, and monitoring for potential decompensation. Interventions were performed as documented above. Time Includes: Direct patient care, Review records, Reassess patient, Document care, Coordinate care, Medical consult, Family consult for ga dec Data interpretation: Labs, Pulse ox, ABG, CXR Departure - Departure Disposition: 66 [facility] DC/Xfer Clinical Impression: Respiratory failure, Pneumonia, AMS (altered mental status), Weakness Condition: Stable
[2020-10-24] MEDS ORDERED: VANCOMYCIN 1 GM VIAL ONE (00:03)
[2020-10-24 00:08] LABS: BASOPHILS % (AUTO) 0.3 %; RED CELL DISTRIBUTION WIDTH 14.5 % (12.0-15.0)
[2020-10-24 00:11] LABS: EOSINOPHILS % (AUTO) 0.4 %; HGB - HEMOGLOBIN 12.4 g/dL (14.0-18.0); LYMPHOCYTES % (AUTO) 14.8 %; MEAN CORPUSCULAR HEMOGLOBIN 31.2 pg (27.0-31.0); MEAN CORPUSCULAR HGB CONC 31.6 g/dL (32.0-36.0); MEAN PLATELET VOLUME 9.3 fL (7.4-11.4); MONOCYTES % (AUTO) 12.3 %; NEUTROPHILS % (AUTO) 67.2 %; PLT - PLATELET COUNT 221 10^3/uL (130-450); RED BLOOD COUNT 3.97 10^6/uL (4.70-6.10); WHITE BLOOD COUNT 11.5 x10^3/uL (4.8-10.8)
[2020-10-24 00:17] LABS: ABNORMAL LYMPHS % (MANUAL) 0 %
[2020-10-24 00:19] LABS: ALBUMIN 2.9 g/dL (3.2-5.5); ALBUMIN/GLOBULIN RATIO 0.8 (1.0-2.2); BILIRUBIN,TOTAL 0.6 mg/dL (0.2-1.0); CALCIUM 8.9 mg/dL (8.5-10.3); CREATININE 0.7 mg/dL (0.6-1.2); TOTAL PROTEIN 6.4 g/dL (6.7-8.2)
[2020-10-24] MEDS ORDERED: DEXAMETHASONE 10 MG/ML VIAL IVP STA (00:28)
[2020-10-24] MEDS ORDERED: IPRATROPIUM/ALBUTEROL 3 ML NEB INH STA (00:30)
[2020-10-24 00:37] LABS: BAND NEUTROPHILS % (MANUAL) 3 %; BASOPHILS # (MANUAL) 0.1 10^3/uL (0-0.1); BASOPHILS % (MANUAL) 1 %; DIFFERENTIAL COMMENT MANUAL DIFFERENTIAL; LYMPHOCYTES # (MANUAL) 1.8 10^3/uL (1.5-3.5); LYMPHOCYTES % (MANUAL) 16 %; METAMYELOCYTES % (MANUAL) 4 %; MONOCYTES # (MANUAL) 1.2 10^3/uL (0.0-1.0); MYELOCYTES % (MANUAL) 4 %; PLATELET ESTIMATE, MANUAL NORMAL (130-450,000) (NORMAL); RBC MORPHOLOGY (MULTIPLE) NORMAL APPEARANCE (NORMAL)
[2020-10-24 00:45] LABS: ABG HCO3 28.8 mmol/L (22.0-26.0); ABG PCO2 56 mmHg (34-45); ABG PH 7.33 (7.35-7.45); ABG PO2 70 mmHg (80-100); ABG TCO2 30.5 MMOL/L (21.0-29.0)
[2020-10-24 00:46] LABS: ABG BASE EXCESS 1.8 mmol/L (-2.0-3.0); ABG OXYGEN SATURATION 92 % (94-98); ALLEN TEST POSITIVE
[2020-10-24] MEDS ORDERED: IOVERSOL 320 100 ML VIAL IVP ONE ×2 (00:54→03:24)
[2020-10-24] MEDS ORDERED: ROCURONIUM 50 MG/5 ML VIAL IVP STA ×2 (01:42→01:44)
[2020-10-24] MEDS ORDERED: ETOMIDATE 40 MG/20 ML VIAL IVP STA (01:42)
[2020-10-24] MEDS ORDERED: SODIUM CHLORIDE 0.9% IV STA (01:44)
[2020-10-24] MEDS ORDERED: FENTANYL IV STA (01:44)
[2020-10-24 01:46] LABS: C. PNEUMONIAE- RESP PCR PANEL NOT DETECTED
[2020-10-24] MEDS ORDERED: ETOMIDATE 40 MG/20 ML VIAL IVP ONE (01:59)
[2020-10-24] MEDS ORDERED: ONDANSETRON 4 MG/2 ML VIAL IVP PRN (03:24)
--- NOTE | 2020-10-24 03:37 | HISTORY & PHYSICAL EXAMINATION ---
Chief Complaint - Chief Complaint Chief Complaint: Dyspnea, tachypnea, altered mental status History of Present Illness - Admitted From Admitted From:: [facility] ED - History Obtained From Records Reviewed: Yes History obtained from: ED physician Exam Limitations: Sedated and intubated - History of Present Illness HPI Comment/Other: This history was obtained from the ED physician because the patient was sedated and intubated by the time of my exam. The patient is a 60-year-old male with medical history significant for hypertension, CVA, WI, GERD, erectile dysfunction, COPD, severe psoriasis, BPH, chronic tobacco abuse, anxiety, hyperlipidemia, chronic back pain status post spinal surgery, bipolar disorder with depression, alcohol abuse and methamphetamine use who presented to the ED with dyspnea. He was tachypneic with a respiratory rate as high as 30s and speaking in brief sentences. He was just discharged from [facility] days ago where he has been treated for pneumonia. Even at the time of discharge it is reported that he was tachypneic. At home it is reported that his oxygen saturations have been low. He has history of CVA 1 month ago with left-sided deficits. In the ED his mental status progressively declined to the point where intubation was warranted. After intubation work-up included CT of the head, CT angio of the thorax, CBC, CMP. Imaging was negative for a brain bleed and pulmonary embolism however showed a significant right-sided consolidation. The patient had a WBC of 11.5. He was started on vancomycin and cefepime then presented for admission History - Past Medical History Cardiovascular: reports: Hypertension, High cholesterol, WI Respiratory: reports: Asthma, COPD, Pneumonia Neuro: reports: CVA, TIA Endocrine/Autoimmune: reports: None GI: reports: GERD : reports: Benign prostate hypertrophy HEENT: reports: None Psych: reports: Depression, Anxiety, Bipolar disorder, ADD/ADHD Musculoskeletal: reports: Chronic back pain Derm: reports: Psoriasis MRSA Hx?: No - Past Surgical History General: reports: Cholecystectomy, Appendectomy, Colonoscopy Ortho: reports: Spine surgery - Family & Social History Family History Comment/Other: Cannot obtain family history because the patient is currently sedated and intubated thus unable to provide Social History Notes: According to previous records: The patient lives in her apartment in [place] with his girlfriend and his girlfriend's son. He is not currently employed. He has a history of alcohol abuse but has been in remission for some time. He does still occasionally use methamphetamine. He states that he has cut down on his smoking and only smokes a few cigarettes a day. He states he would like to see a psych social worker regarding his methamphetamine abuse. - Substance History Use: Uses substance without health or social issues: Tobacco, Amphetamine - POLST Patient has POLST: No POLST Status: Full Code Meds/Allgy - Home Medications Home Medications: Ambulatory Orders Medication Instructions Recorded Confirmed Tiotropium [place] [Spiriva] 1 cap INH DAILY 06/05/14 08/03/17 Albuterol Sulfate [Albuterol 2 puffs IH Q4HR PRN #1 hfa.aer.ad 02/04/15 08/03/17 Sulfate Hfa] Multivitamin [Multivitamins] 1 tab PO DAILY 02/04/15 08/03/17 Cholecalciferol [Vitamin D3] 10,000 units PO DAILY 06/13/16 08/03/17 amLODIPine [Norvasc] 5 mg PO DAILY 06/13/16 08/03/17 Adalimumab [Humira] 40 mg SUBQ Q14D 09/29/16 08/03/17 Tamsulosin [Flomax] 0.4 mg PO DAILY 10/30/16 08/03/17 Divalproex [Depsaqib Jalloh] 750 mg PO DAILY #30 tablet 11/04/16 08/03/17 Duloxetine HCl [Cymbalta] 60 mg PO DAILY #30 capsule. 11/04/16 08/03/17 Omeprazole 20 mg PO DAILY #30 capsule. 11/04/16 08/03/17 Pravastatin [Pravachol] 40 mg PO QPM tablet 11/04/16 08/03/17 lisinopriL [Lisinopril] 10 mg PO DAILY #30 tablet 11/04/16 08/03/17 Amitriptyline HCl 200 mg PO DAILY PM 08/03/17 08/03/17 LORazepam [Lorazepam] 1 mg PO TID PRN 08/03/17 08/03/17 Naproxen [Naprosyn] 250 mg PO Q12H PRN 08/03/17 08/03/17 Nicotine 7 mg Patch [Nicoderm] 1 each TOP Q24H 09/26/17 09/26/17 Warfarin Sodium [Coumadin] 4 mg PO 08/04/17 HYDROcod/ACETAM 5/325 [[place] 5/325] 1 - 2 ea PO Q6H PRN #15 tablet 12/22/17 dexAMETHasone [Decadron] 4 mg PO DAILY #5 tablet 12/22/17 oxyCODONE [Roxicodone] 5 mg PO Q4-6H PRN #10 tablet 06/13/18 Hydrocodone/Acetaminophen [[place] 1 each PO Q6H PRN #15 tablet 11/19/18 5-325 Tablet] methocarbamoL [Robaxin] 500 mg PO Q6H PRN #20 tablet 11/19/18 Albuterol Sulf [Ventolin Hfa 2 - 3 puffs INH Q4HR PRN #1 inhaler 12/05/18 Inhaler] Azithromycin [Zithromax] 0 mg PO DAILY #6 tablet 12/05/18 Benzonatate [Tessalon Perle] 100 - 200 mg PO TID PRN #30 capsule 12/05/18 Ipratropium [place] [Atrovent Hfa] 1 puffs IH BID #1 hfa.aer.ad 12/05/18 dexAMETHasone [Decadron] 4 mg PO DAILY #5 tablet 12/05/18 guaiFENesin/CODEINE [Robitussin AC] 10 ml PO Q6H #240 ml 12/05/18 Oxycodone HCl/Acetaminophen 1 each PO Q6H PRN #14 tablet 12/27/19 [Percocet 5-325 mg Tablet] - Allergies Allergies/Adverse Reactions: Allergies Allergy/AdvReac Type Severity Reaction Status Date / Time bupropion HCl * [From Mal] Allergy Rash Verified 12/27/19 10:51 Review of Systems - Other Findings Other Findings: Review of systems limited because the patient is currently sedated and intubated and unable to provide. Exam - Vital Signs Vital Signs: Vital Signs x48h Temp Pulse Resp BP Pulse Ox 10/24/20 02:12 102 H 21 140/81 H 94 10/24/20 01:30 36.8 C 89 22 164/93 H 97 10/24/20 01:09 97 23 156/108 H 99 10/24/20 00:56 90 19 10/24/20 00:49 102 H 21 160/107 H 96 12/16/20 23:56 99 22 184/93 H 96 10/23/20 23:46 36.8 C 112 H 22 184/93 H 94 10/23/20 23:42 102 H 24 160/100 H 97 - Physical Exam General Appearance: positive: Other (Sedated and intubated) Eyes Bilateral: positive: PERRL, EOMI ENT: positive: No signs of dehydration Neck: positive: No JVD, Trachea midline Respiratory: positive: Other (Coarse breath sounds. Decrease lung sounds on the right lower lung) Cardiovascular: positive: No murmur, Tachycardia Abdomen: positive: Non-tender, Other (Distended, soft). negative: Guarding, Rebound Skin: positive: Warm, Dry, Skin rash (Psoriatec lesions all over body), Other (Tattoos all over body) Extremities: positive: Non-tender, No pedal edema Neurologic/Psychiatric: positive: Other Conclusion/Plan - Problem List (1) Acute respiratory failure Conclusion/Plan: Secondary to pneumonia. Patient's WBC was 11.5. Blood cultures pending Patient has an extensive right lower lobe consolidation. Patient was given vancomycin and cefepime in the ED. We will continue vancomycin, discontinue cefepime and add Zosyn CT angiogram of the chest was negative for PE Patient currently sedated and intubated. Will check ABG and make adjustments to vent settings accordingly. (2) Pneumonia Conclusion/Plan: Blood cultures pending Patient has an extensive right lower lobe consolidation. Patient was given vancomycin and cefepime in the ED. We will continue vancomycin, discontinue cefepime and add Zosyn (3) Altered mental status Conclusion/Plan: Likely secondary to respiratory failure due to pneumonia. Patient currently sedated and intubated. Anticipate improvement/resolution with treatment of infection. We will attempt daily weaning trials and extubate when appropriate. Urine drug screen pending. (4) COPD (chronic obstructive pulmonary disease) Conclusion/Plan: Patient is currently intubated. We will monitor respiratory status with ABGs. DuoNeb ordered as needed. Budesonide and formoterol ordered. Patient was given a dose of dexamethasone in the ED. (5) Hyperlipidemia Conclusion/Plan: Patient is on pravastatin. Will order equivalent dose in atorvastatin once verified. (6) Hypertension Conclusion/Plan: Will hold patient's antihypertensives which consists of amlodipine and lisinopril while patient is intubated. This is for concern of becoming hypotensive while on propofol. Will resume when appropriate and order a prn medication for hypertension when indicated. Qualifiers: Hypertension type: essential hypertension Qualified Code(s): I10 - Essential (primary) hypertension (7) Bipolar 1 disorder Conclusion/Plan: Will resume Depakote once verified. - Lab Results Fish Bones: 10/23/20 23:55 10/23/20 23:55 Core Measures - Anticipated LOS I expect patient to be DC'd or transferred within 96 hours.: Yes - DVT/VTE - Prophylaxis VTE/DVT Device ordered at admit?: Yes VTE/DVT Prophylaxis med ordered at admit?: Yes
[2020-10-24 03:57] LABS: BILIRUBIN,URINE NEGATIVE (NEGATIVE); GLUCOSE, URINE (UA) NEGATIVE (NEGATIVE); KETONES,URINE (UA) NEGATIVE (NEGATIVE); LEUKOCYTE ESTERASE, URINE NEGATIVE (NEGATIVE); NITRITE,URINE NEGATIVE (NEGATIVE); OCCULT BLOOD,URINE SMALL (NEGATIVE); PROTEIN,URINE NEGATIVE (NEGATIVE); UROBILINOGEN,URINE 0.2 (NORMAL) E.U./dL (NORMAL)
[2020-10-24] MEDS ORDERED: PROPOFOL 500 MG/50 ML 500 MG/50 ML VIAL IV SCH (04:00)
[2020-10-24 04:03] LABS: CLARITY,URINE CLEAR (CLEAR)
[2020-10-24 04:04] LABS: BACTERIA,URINE None Seen /HPF (None Seen); SQUAMOUS EPITHELIAL CELL,UR NONE SEEN (<= Few)
[2020-10-24 04:13] LABS: VBG PCO2 58.3 mmHg (41-51); VBG PH 7.336 (7.31-7.41)
[2020-10-24 04:14] LABS: VBG BASE EXCESS 3.2 mmol/L (-2 - +2); VBG PO2 27.1 mmHg (25-47); VBG TOTAL CO2 32.3 mmol/L (24-29)
[2020-10-24 04:18] LABS: AMPHETAMINE SCREEN,URINE POSITIVE (NEGATIVE); BENZODIAZEPINES SCREEN, URINE NEGATIVE (NEGATIVE); COCAINE SCREEN URINE NEGATIVE (NEGATIVE); METHADONE SCREEN, URINE NEGATIVE (NEGATIVE); METHAMPHETAMINES SCREEN, URINE POSITIVE (NEGATIVE); MUDS CUTOFF CONCENTRATIONS CUTOFF CONC BELOW:; OPIATE SCREEN, URINE NEGATIVE (NEGATIVE); OXYCODONE SCREEN, URINE NEGATIVE (NEGATIVE); PROPOXYPHENE SCREEN, URINE NEGATIVE (NEGATIVE); TRICYCLIC ANTIDEPRESSANT,URINE POSITIVE (NEGATIVE)
[2020-10-24] MEDS: SODIUM CHLORIDE 0.9% 1,000 ML IV SCH ×2 (04:40→15:00)
[2020-10-24] MEDS ORDERED: SODIUM CHLORIDE 0.9% 1,000 ML IV ONE (04:44)
[2020-10-24] MEDS: PROPOFOL 500 MG/50 ML 500 MG/50 ML VIAL IV SCH ×8 (05:28→23:44)
[2020-10-24 05:31] LABS: BASOPHILS % (AUTO) 0.8 %; EOSINOPHILS % (AUTO) 0.7 %; HGB - HEMOGLOBIN 12.5 g/dL (14.0-18.0); LYMPHOCYTES % (AUTO) 5.7 %; MEAN CORPUSCULAR HEMOGLOBIN 31.4 pg (27.0-31.0); MEAN CORPUSCULAR HGB CONC 32.5 g/dL (32.0-36.0); MEAN CORPUSCULAR VOLUME 96.7 fL (80.0-94.0); MEAN PLATELET VOLUME 9.6 fL (7.4-11.4); MONOCYTES % (AUTO) 2.8 %; NEUTROPHILS % (AUTO) 84.2 %; PLT - PLATELET COUNT 226 10^3/uL (130-450); RED BLOOD COUNT 3.98 10^6/uL (4.70-6.10); RED CELL DISTRIBUTION WIDTH 14.3 % (12.0-15.0); WHITE BLOOD COUNT 10.4 x10^3/uL (4.8-10.8)
[2020-10-24 05:36] LABS: ABNORMAL LYMPHS % (MANUAL) 0 %
[2020-10-24 05:40] LABS: CALCIUM 8.6 mg/dL (8.5-10.3); CREATININE 0.7 mg/dL (0.6-1.2)
[2020-10-24 06:05] LABS: BAND NEUTROPHILS % (MANUAL) 14 %; DIFFERENTIAL COMMENT MANUAL DIFFERENTIAL; LYMPHOCYTES # (MANUAL) 0.5 10^3/uL (1.5-3.5); LYMPHOCYTES % (MANUAL) 5 %; METAMYELOCYTES % (MANUAL) 2 %; MONOCYTES # (MANUAL) 0.3 10^3/uL (0.0-1.0); MYELOCYTES % (MANUAL) 4 %; PLATELET ESTIMATE, MANUAL NORMAL (130-450,000) (NORMAL); RBC MORPHOLOGY (MULTIPLE) NORMAL APPEARANCE (NORMAL)
[2020-10-24] MEDS: PANTOPRAZOLE 40 MG VIAL IVP SCH (06:19)
[2020-10-24 06:20] LABS: ABG BASE EXCESS 5.8 mmol/L (-2.0-3.0); ABG HCO3 27.9 mmol/L (22.0-26.0); ABG OXYGEN SATURATION 91 % (94-98); ABG PCO2 33 mmHg (34-45); ABG PH 7.55 (7.35-7.45); ABG TCO2 28.9 MMOL/L (21.0-29.0); ALLEN TEST POSITIVE
[2020-10-24 06:21] LABS: ABG PO2 54 mmHg (80-100)
--- NOTE | 2020-10-24 06:56 | CT Report ---
PROCEDURE: HEAD WO INDICATIONS: L facial droop, L weakness TECHNIQUE: Noncontrast 4.5 mm thick angled axial sections acquired from the foramen magnum to the vertex. For r adiation dose reduction, the following was used: automated exposure control, adjustment of mA and/or kV according to patient size. COMPARISON: 11/29/2018. FINDINGS: Image quality: Excellent. CSF spaces: Basal cisterns are patent. No extra-axial fluid collections. Ventricles are normal in size and shape. Brain: No midline shift. No intracranial masses or hemorrhage. Krause-white matter interface is norm al. Skull and face: Calvarium and visualized facial bones are intact, without suspicious lesions. Sinuses: Scattered mucosal thickening noted in the ethmoid air cells bilaterally. The mastoids are cl ear. IMPRESSION: No acute intracranial disease process. Reviewed by: Radha Garcia MD, PhD on 10/24/2020 6:55 AM PST Approved by: Radha Garcia MD, PhD on 10/24/2020 6:55 AM [facility] Station ID: [id number]
[2020-10-24] MEDS ORDERED: PIPERACILLIN/TAZOBACTAM 3.375 GM in SODIUM CHLORIDE 0.9% MINIBAG 100 ML IV SCH ×2 (07:00→09:37)
--- NOTE | 2020-10-24 07:54 | XRAY Report ---
PROCEDURE: Chest 1 View X-Ray INDICATIONS: post intubation TECHNIQUE: One view of the chest was acquired. COMPARISON: 12/05/2018. FINDINGS: Surgical changes and devices: ET tube is 3.9 cm superior to the nuzhat.. Lungs and pleura: Small bilateral pleural fluid collections noted. Opacities noted in the lung bases bilaterally which could represent atelectasis or pneumonia. Mediastinum: Mediastinal contours appear normal. Heart size is normal. Bones and chest wall: No suspicious bony lesions. Overlying soft tissues appear unremarkable. IMPRESSION: 1. ET tube 3.9 cm. The nuzhat. 2. Small bilateral pleural effusions. 3. Bibasilar opacities which could represent atelectasis or pneumonia. Reviewed by: Radha Garcia MD, PhD on 10/24/2020 7:52 AM PST Approved by: Radha Garcia MD, PhD on 10/24/2020 7:52 AM PST Station ID: [id number]
[2020-10-24 07:55] LABS: ABG BASE EXCESS 6.4 mmol/L (-2.0-3.0); ABG HCO3 30.4 mmol/L (22.0-26.0); ABG OXYGEN SATURATION 94 % (94-98); ABG PCO2 42 mmHg (34-45); ABG PH 7.48 (7.35-7.45); ABG PO2 67 mmHg (80-100); ABG TCO2 31.7 MMOL/L (21.0-29.0); ALLEN TEST POSITIVE
[2020-10-24] MEDS: FORMOTEROL FUMARATE NEB 20 MCG/2 ML INH SCH ×2 (08:13→20:31)
[2020-10-24] MEDS: BUDESONIDE 0.5 MG/2 ML NEB INH SCH ×2 (08:13→20:31)
[2020-10-24] MEDS: ENOXAPARIN 40 MG/0.4 ML SYRINGE SUBQ SCH (08:29)
--- NOTE | 2020-10-24 08:29 | CT Report ---
PROCEDURE: ANGIO CHEST W/WO INDICATIONS: r/o PE CONTRAST: IV CONTRAST: Optiray 320 ml: 80 PO CONTRAST: *NO PO CONTRAST TECHNIQUE: After the administration of intravenous contrast, 2 mm thick sections acquired from the pulmonary api alverto to the posterior costophrenic angles. 3-dimensional maximum intensity projection (MIP) coronal a nd sagittal reformats were then acquired through the thorax. For radiation dose reduction, the follow ing was used: automated exposure control, adjustment of mA and/or kV according to patient size. COMPARISON: Chest plain film 10/24/2020 FINDINGS: Image quality: Excellent. Pulmonary arteries: Pulmonary arteries are normal in size, and demonstrate no intraluminal filling d efects to suggest central pulmonary embolism. Lungs and pleura: Lungs are abnormal with a pattern of bilateral pneumonia, right greater than left, with adjacent posterior layering water density simple appearing pleural effusions. The effusions are scant.. No pleural effusions or pneumothorax. Central and peripheral airways are patent. Mediastinum: Heart size is normal, without pericardial effusion. No mediastinal or hilar adenopathy . Thoracic aorta is normal in caliber and enhancement. Esophagus is normal in caliber, without hiat al hernia. Endotracheal tube in normal position. Bones and chest wall: No suspicious bony lesions. Ribs and thoracic spine appear intact throughout. The thyroid is normal. No axillary or supraclavicular adenopathy. Abdomen: Visualized upper abdominal solid organs appear normal in the early arterial phase of enhanc ement. IMPRESSION: Bilateral pneumonia, right greater than left, with slight associated posterior layering pleural effus ions. The heart size is not enlarged, and no definite acute congestive heart failure is found. Endotr acheal tube appears in normal position. Reviewed by: Timi Eller MD on 10/24/2020 8:28 AM PST Approved by: Timi Eller MD on 10/24/2020 8:28 AM PST Station ID: [id number]
[2020-10-24] MEDS: SODIUM CHLORIDE FLUSH 0.9% 10 ML SYRINGE IVP SCH ×2 (08:30→17:07)
[2020-10-24] MEDS ORDERED: CEFEPIME 2 GM in SODIUM CHLORIDE 0.9% MINIBAG 100 ML IV SCH (09:00)
--- NOTE | 2020-10-24 11:14 | PHARMACY PROGRESS NOTE ---
- Best Possible Medication History Admit Date and Time: 10/24/20 0324 Processed by: Pharmacy Medication History completed: Yes Patient Interview: Completed Secondary Source(s): Physician records, Pharmacy records, Insurance records (PATIENT INTUBATED AT TIME OF MEDICATION RECONCILIATION. MEDICATION BOTTLES BROUGHT INTO HOSPITAL. MEDICATION RECONCILIATION COMPLETED USING INSURANCE RECORDS AND MEDICATION BOTTLE. ) As the person ultimately responsible for medication therapy, providers are able to order a medication from an existing home medication list in [facility] via the "Reconcile Routine" prior to Confirmation of that medication by office support specialist. Such practice is discouraged except when the physician, in their clinical judgment, deems that a medical need exists for a medication without regard to previous use.
[2020-10-24] MEDS ORDERED: VANCOMYCIN INJ 2 GM in SODIUM CHLORIDE 0.9% 500 ML IV SCH (12:00)
[2020-10-24] MEDS: PIPERACILLIN/TAZOBACTAM 3.375 GM in SODIUM CHLORIDE 0.9% MINIBAG 100 ML IV SCH ×2 (12:15→20:22)
[2020-10-24] MEDS ORDERED: MIDAZOLAM DRIP 50 MG/100 ML BAG IV SCH (21:00)
[2020-10-24] MEDS: CHLORHEXIDINE GLUCONATE 15 ML UDC PO SCH (21:07)
[2020-10-24] MEDS: NICOTINE 14 MG PATCH TOP SCH (21:07)
[2020-10-24] MEDS: MORPHINE 2 MG/ML CARPUJECT IVP PRN (21:15)
[2020-10-25] MEDS: SODIUM CHLORIDE 0.9% 1,000 ML IV SCH ×3 (00:54→21:05)
[2020-10-25] MEDS: SODIUM CHLORIDE FLUSH 0.9% 10 ML SYRINGE IVP SCH ×3 (01:06→16:48)
[2020-10-25] MEDS: PROPOFOL 500 MG/50 ML 500 MG/50 ML VIAL IV SCH ×3 (02:00→06:10)
[2020-10-25] MEDS: MORPHINE 2 MG/ML CARPUJECT IVP PRN (02:58)
[2020-10-25] MEDS: PIPERACILLIN/TAZOBACTAM 3.375 GM in SODIUM CHLORIDE 0.9% MINIBAG 100 ML IV SCH ×3 (03:41→20:20)
[2020-10-25 05:11] LABS: ABG BASE EXCESS 4.6 mmol/L (-2.0-3.0); ABG HCO3 28.2 mmol/L (22.0-26.0); ABG OXYGEN SATURATION 93 % (94-98); ABG PCO2 38 mmHg (34-45); ABG PH 7.49 (7.35-7.45); ABG PO2 67 mmHg (80-100); ABG TCO2 29.3 MMOL/L (21.0-29.0); ALLEN TEST POSITIVE
[2020-10-25 05:12] LABS: BASOPHILS # (AUTO) 0.1 10^3/uL (0.0-0.1); BASOPHILS % (AUTO) 0.9 %; EOSINOPHILS # (AUTO) 0.1 10^3/uL (0.0-0.7); EOSINOPHILS % (AUTO) 0.7 %; HGB - HEMOGLOBIN 10.4 g/dL (14.0-18.0); LYMPHOCYTES # (AUTO) 2.6 10^3/uL (1.5-3.5); LYMPHOCYTES % (AUTO) 28.5 %; MEAN CORPUSCULAR HEMOGLOBIN 31.3 pg (27.0-31.0); MEAN CORPUSCULAR HGB CONC 32.5 g/dL (32.0-36.0); MEAN CORPUSCULAR VOLUME 96.4 fL (80.0-94.0); MEAN PLATELET VOLUME 9.6 fL (7.4-11.4); MONOCYTES # (AUTO) 0.7 10^3/uL (0.0-1.0); MONOCYTES % (AUTO) 7.6 %; NEUTROPHILS % (AUTO) 55.8 %; PLT - PLATELET COUNT 240 10^3/uL (130-450); RED BLOOD COUNT 3.32 10^6/uL (4.70-6.10); RED CELL DISTRIBUTION WIDTH 14.3 % (12.0-15.0); WHITE BLOOD COUNT 8.9 x10^3/uL (4.8-10.8)
[2020-10-25 05:17] LABS: VBG PH 7.483 (7.31-7.41)
[2020-10-25 05:21] LABS: PHOSPHORUS 2.6 mg/dL (2.5-4.6)
[2020-10-25 05:25] LABS: CALCIUM 7.9 mg/dL (8.5-10.3); CREATININE 0.6 mg/dL (0.6-1.2)
[2020-10-25] MEDS: PANTOPRAZOLE 40 MG VIAL IVP SCH (06:33)
[2020-10-25] MEDS: SODIUM CHLORIDE FLUSH 0.9% 10 ML SYRINGE IVP PRN (06:33)
[2020-10-25] MEDS: POTASSIUM CHLOR 10 MEQ/100 ML 10 MEQ/100 ML BAG IV SCH ×4 (06:58→11:26)
[2020-10-25] MEDS: BUDESONIDE 0.5 MG/2 ML NEB INH SCH ×2 (07:04→19:58)
[2020-10-25] MEDS: FORMOTEROL FUMARATE NEB 20 MCG/2 ML INH SCH ×2 (07:04→19:58)
--- NOTE | 2020-10-25 07:30 | XRAY Report ---
PROCEDURE: Chest for Line Placement INDICATIONS: OG Line Placement TECHNIQUE: One view of the chest was acquired. COMPARISON: 10/24/2020 FINDINGS: Surgical changes and devices: ET tube projects 4.7 cm. The nuzhat. OG tube projects across the GE marcelina ction with tip and side-port in the proximal stomach.. Lungs and pleura: Small bilateral pleural fluid collections. Increased opacification lung bases which could were represent progression of atelectasis, aspiration or pneumonia. Mediastinum: Mediastinal contours appear normal. Heart size is normal. Bones and chest wall: No suspicious bony lesions. Overlying soft tissues appear unremarkable. IMPRESSION: 1. OG tube projects across the GE junction with tip and side-port in the stomach. 2. Stable bilateral pleural effusions. 3. Increasing bibasilar opacification with progression of atelectasis, aspiration or pneumonia. Reviewed by: Radha Garcia MD, PhD on 10/25/2020 7:28 AM PST Approved by: Radha Garcia MD, PhD on 10/25/2020 7:28 AM PST Station ID: [id number]
[2020-10-25 08:55] LABS: ABG BASE EXCESS 0.6 mmol/L (-2.0-3.0); ABG HCO3 23.6 mmol/L (22.0-26.0); ABG OXYGEN SATURATION 91 % (94-98); ABG PCO2 33 mmHg (34-45); ABG PH 7.48 (7.35-7.45); ABG PO2 61 mmHg (80-100); ABG TCO2 24.6 MMOL/L (21.0-29.0); ALLEN TEST POSITIVE
[2020-10-25] MEDS: NICOTINE 14 MG PATCH TOP SCH (09:24)
[2020-10-25] MEDS: ENOXAPARIN 40 MG/0.4 ML SYRINGE SUBQ SCH (09:24)
[2020-10-25] MEDS: CHLORHEXIDINE GLUCONATE 15 ML UDC PO SCH ×2 (10:29→21:05)
[2020-10-25] MEDS: IPRATROPIUM/ALBUTEROL 3 ML NEB INH PRN ×2 (10:57→15:14)
[2020-10-25] MEDS ORDERED: SODIUM CHLORIDE INHALATION 3 ML NEB ONE (11:45)
[2020-10-25] MEDS ORDERED: TAMSULOSIN 0.4 MG CAPSULE PO ONE (12:00)
[2020-10-25] MEDS: GABAPENTIN 300 MG CAPSULE PO SCH ×2 (14:25→21:03)
--- NOTE | 2020-10-25 15:32 | PROVIDER PROGRESS NOTE ---
Assessment/Plan - Problem List (1) Respiratory failure Assessment/Plan: Patient required urgent intubation when he presented to the ER yesterday. He was on the ventilator for the last 24 hours. Weaning parameters have been done this morning and will extubate him. Continue to manage in the ICU in case of relapse needing higher supplemental oxygen. Will start a diet and advance as tolerated (2) Pneumonia Assessment/Plan: Continue antibiotics. We will add Mucinex for pulmonary toilet (3) Hypokalemia Assessment/Plan: Replace. Follow BMP daily (4) COPD (chronic obstructive pulmonary disease) Assessment/Plan: He does not appear to be in exacerbation. He received steroids starting in the ER when he was in extreme respiratory distress. We will continue with scheduled nebs and steroids since he does have underlying severe COPD (5) Hypertension Qualifiers: Hypertension type: essential hypertension Qualified Code(s): I10 - Essential (primary) hypertension Assessment/Plan: Will resume when appropriate and order a prn medication for hypertension when indicated. (6) Hyperlipidemia Assessment/Plan: Patient is on pravastatin. Will order equivalent dose in atorvastatin once verified. (7) Bipolar 1 disorder Assessment/Plan: Will resume Depakote (8) Anemia Assessment/Plan: This is likely related to being hospitalized at [facility] recently and now here and hemodilutional from IV fluids. We will check B12 and folate levels and iron stores and replace if low (9) Altered mental status Assessment/Plan: This was likely related to hypoxia and CO2 retention, he was intubated then in the ER. He at this has resolved except for beena residual confusion likely related to being on Fentanyl - Current Meds Current Meds: Current Medications Generic Name Dose Route Start Last Admin Trade Name Freq PRN Reason Stop Dose Admin Albuterol/Ipratropium 3 ml 10/24/20 05:30 10/25/20 15:14 Ipratropium/Albuterol 3 Ml Neb INH 3 ml Q4HR PRN Administration Wheezing Budesonide 0.5 mg 10/24/20 07:00 10/25/20 07:04 Budesonide 0.5 Mg/2 Ml Neb INH 0.5 mg RTBID LIZABETH Administration Chlorhexidine Gluconate 15 ml 10/24/20 21:00 10/25/20 10:29 Chlorhexidine Gluconate 15 Ml Udc PO Not Given BID LIZABETH Enoxaparin Sodium 40 mg 10/24/20 09:00 10/25/20 09:24 Enoxaparin 40 Mg/0.4 Ml Syringe SUBQ 40 mg DAILY LIZABETH Administration Formoterol Fumarate 20 mcg 10/24/20 07:00 10/25/20 07:04 Formoterol Fumarate Neb 20 Mcg/2 Ml INH 20 mcg RTBID LIZABETH Administration Gabapentin 300 mg 10/25/20 14:00 10/25/20 14:25 Gabapentin 300 Mg Capsule PO 300 mg TID LIZABETH Administration Sodium Chloride 1,000 mls @ 100 mls/hr 10/24/20 04:00 10/25/20 14:23 Normal Saline 0.9% IV 100 mls/hr .Q10H LIZABETH Infusion Piperacillin Sod/Tazobactam 100 mls @ 25 mls/hr 10/24/20 12:00 10/25/20 14:21 Sod 3.375 gm/ Sodium Chloride IV 25 mls/hr Q8H LIZABETH Infusion Nicotine 1 patch 10/24/20 20:53 10/25/20 09:24 Nicotine 14 Mg Patch TOP 1 patch DAILY LIZABETH Administration Sodium Chloride 10 ml 10/24/20 09:00 10/25/20 10:29 Sodium Chloride Flush 0.9% 10 Ml Syringe IVP 10 ml 0100,0900,1700 LIZABETH Administration Sodium Chloride 10 ml 10/24/20 03:24 10/25/20 06:33 Sodium Chloride Flush 0.9% 10 Ml Syringe IVP 10 ml PRN PRN Administration NEEDED PER PROVIDER ORDERS - Lab Result Fish Bone Diagrams: 10/25/20 04:36 10/25/20 04:36 - Additional Planning My Orders: My Active Orders 10/25/20 09:49 RT [Oxygen Therapy] [RC] .PRN 10/25/20 11:11 Incentive Spirometry - RT [RC] .tid 10/25/20 Lunch Dysphagia Puree Diet [DIET] 10/25/20 14:00 Gabapentin [Neurontin] 300 mg PO TID 10/25/20 Dinner DIET [Soft Mechanical Diet] [DIET] 10/25/20 19:00 Ipratropium/Albuterol [Duoneb] 3 ml INH RTQID 10/25/20 21:00 Amitriptyline [Elavil] 100 mg PO QPM Divalproex ER [Depakote ER] 1,000 mg PO BID 10/26/20 07:00 Pantoprazole [Protonix] 40 mg PO QDAC 10/26/20 09:00 DULoxetine [Cymbalta] 60 mg PO DAILY Multivitamin [Theragran] 1 tab PO DAILY OLANZapine ODT [ZyPREXA ODT] 5 mg TL DAILY Tamsulosin [Flomax] 0.8 mg PO DAILY Subjective - Subjective Patient Reports: Feeling Better, Resting Comfortably, No Complaints (He was just extubated about 30 minutes ago and is smiling, talking, is hungry) Objective Vital Signs: Vital Signs - 24 hr 10/24/20 10/24/20 10/24/20 16:00 16:07 17:00 Temperature 36.5 C 36.7 C Heart Rate 76 Heart Rate [ 77 67 Monitoring electrodes] Respiratory 15 15 Rate Blood Pressure [Left Brachial artery] Blood Pressure 159/92 H 156/94 H [Right Brachial artery] O2 Saturation 98 97 10/24/20 10/24/20 10/24/20 18:00 19:00 19:54 Temperature 36.7 C 36.3 C L Heart Rate 69 Heart Rate [ 69 57 L Monitoring electrodes] Respiratory 15 15 Rate Blood Pressure [Left Brachial artery] Blood Pressure 124/80 138/81 H [Right Brachial artery] O2 Saturation 93 96 10/24/20 10/24/20 10/24/20 20:00 21:00 22:00 Temperature 36.6 C 36.5 C 36.7 C Heart Rate Heart Rate [ 97 60 70 Monitoring electrodes] Respiratory 15 15 15 Rate Blood Pressure 165/93 H 151/86 H [Left Brachial artery] Blood Pressure 141/86 H [Right Brachial artery] O2 Saturation 97 99 97 10/24/20 10/24/20 10/25/20 22:19 23:00 00:00 Temperature 36.7 C Heart Rate 69 Heart Rate [ 65 66 Monitoring electrodes] Respiratory 15 15 Rate Blood Pressure 157/90 H 143/89 H [Left Brachial artery] Blood Pressure [Right Brachial artery] O2 Saturation 97 97 10/25/20 10/25/20 10/25/20 01:00 01:10 02:00 Temperature 36.6 C 36.5 C Heart Rate 63 Heart Rate [ 63 65 Monitoring electrodes] Respiratory 15 15 Rate Blood Pressure 131/74 H 136/80 H [Left Brachial artery] Blood Pressure [Right Brachial artery] O2 Saturation 94 94 10/25/20 10/25/20 10/25/20 03:00 03:32 04:00 Temperature 36.5 C 36.5 C Heart Rate 67 Heart Rate [ 65 63 Monitoring electrodes] Respiratory 15 15 Rate Blood Pressure 138/78 H 120/70 [Left Brachial artery] Blood Pressure [Right Brachial artery] O2 Saturation 94 93 10/25/20 10/25/20 10/25/20 05:00 06:00 06:09 Temperature Heart Rate 63 Heart Rate [ 59 L 62 Monitoring electrodes] Respiratory 15 15 Rate Blood Pressure 112/70 143/88 H [Left Brachial artery] Blood Pressure [Right Brachial artery] O2 Saturation 94 95 10/25/20 10/25/20 10/25/20 07:00 07:05 07:13 Temperature Heart Rate 58 L 60 Heart Rate [ 60 Monitoring electrodes] Respiratory 13 13 Rate Blood Pressure 124/77 [Left Brachial artery] Blood Pressure [Right Brachial artery] O2 Saturation 95 10/25/20 10/25/20 10/25/20 08:00 08:18 09:00 Temperature 36.2 C L Heart Rate 78 Heart Rate [ 75 82 Monitoring electrodes] Respiratory 15 14 Rate Blood Pressure 135/85 H 150/84 H [Left Brachial artery] Blood Pressure [Right Brachial artery] O2 Saturation 96 95 10/25/20 10/25/20 10/25/20 10:00 10:59 11:00 Temperature Heart Rate 79 Heart Rate [ 77 77 Monitoring electrodes] Respiratory 15 12 17 Rate Blood Pressure 149/89 H 145/96 H [Left Brachial artery] Blood Pressure [Right Brachial artery] O2 Saturation 92 91 L 10/25/20 10/25/20 10/25/20 11:03 12:00 13:00 Temperature 36.2 C L 36.7 C Heart Rate 79 Heart Rate [ 94 89 Monitoring electrodes] Respiratory 14 14 17 Rate Blood Pressure 149/103 H 147/87 H [Left Brachial artery] Blood Pressure [Right Brachial artery] O2 Saturation 95 91 L 93 10/25/20 10/25/20 14:00 15:15 Temperature Heart Rate 80 Heart Rate [ 89 Monitoring electrodes] Respiratory 16 14 Rate Blood Pressure 148/81 H [Left Brachial artery] Blood Pressure [Right Brachial artery] O2 Saturation 92 Oxygen O2 Source Nasal cannula Oxygen Flow Rate 4 I&O (Last 24 Hrs): Intake and Output Totals x24h 10/23/20 10/24/20 10/25/20 23:59 23:59 23:59 Intake Total 2848.833 2333.266 Output Total 928 1365 Balance 1920.833 968.266 General: Alert HEENT: EOMI, Mucous membr. moist/pink Neck: Supple, No JVD Neuro: Alert, Disoriented Cardiovascular: Regular rate, No murmurs Respiratory: No respiratory distress, Other (Prolonged expiratory phase but clear breath sounds anteriorly with no wheezing or rhonchi) Abdomen: Soft Extremities: No edema - Results Results: Laboratory Results WBC 8.9 x10^3/uL (4.8-10.8) 10/25/20 04:36 RBC 3.32 10^6/uL (4.70-6.10) L 10/25/20 04:36 Hgb 10.4 g/dL (14.0-18.0) L 10/25/20 04:36 Hct 32.0 % (42.0-52.0) L 10/25/20 04:36 MCV 96.4 fL (80.0-94.0) H 10/25/20 04:36 MCH 31.3 pg (27.0-31.0) H 10/25/20 04:36 MCHC 32.5 g/dL (32.0-36.0) 10/25/20 04:36 RDW 14.3 % (12.0-15.0) 10/25/20 04:36 Plt Count 240 10^3/uL (130-450) 10/25/20 04:36 MPV 9.6 fL (7.4-11.4) 10/25/20 04:36 Neut # (Auto) 5.0 10^3/uL (1.5-6.6) 10/25/20 04:36 Lymph # (Auto) 2.6 10^3/uL (1.5-3.5) 10/25/20 04:36 Lipscomb # (Auto) 0.7 10^3/uL (0.0-1.0) 10/25/20 04:36 Eos # (Auto) 0.1 10^3/uL (0.0-0.7) 10/25/20 04:36 Baso # (Auto) 0.1 10^3/uL (0.0-0.1) 10/25/20 04:36 Absolute Nucleated RBC 0.00 x10^3/uL 10/25/20 04:36 Total Counted 100 10/24/20 05:15 Band Neuts % (Manual) 14 % (0-10) H 10/24/20 05:15 Abnorm Lymph % (Manual) 0 % 10/24/20 05:15 Metamyelocytes % 2 % (-0) H 10/24/20 05:15 Myelocytes % 4 % (-0) H 10/24/20 05:15 Nucleated RBC % 0.0 /100WBC 10/25/20 04:36 Neutrophils # (Manual) 8.9 10^3/uL (1.5-6.6) H 10/24/20 05:15 Lymphocytes # (Manual) 0.5 10^3/uL (1.5-3.5) L 10/24/20 05:15 Monocytes # (Manual) 0.3 10^3/uL (0.0-1.0) 10/24/20 05:15 Eosinophils # (Manual) 0.0 10^3/uL (0-0.7) 10/24/20 05:15 Basophils # (Manual) 0.0 10^3/uL (0-0.1) 10/24/20 05:15 Differential Comment MANUAL DIFFERENTIAL 10/24/20 05:15 Platelet Estimate NORMAL (130-450,000) (NORMAL) 10/24/20 05:15 RBC Morph Micro Appear NORMAL APPEARANCE (NORMAL) 10/24/20 05:15 Bld Gas Analysis Time 0506 10/25/20 05:00 Sample Site LEFT RADIAL 10/25/20 05:00 ABG pH 7.49 (7.35-7.45) H 10/25/20 05:00 ABG pCO2 38 mmHg (34-45) 10/25/20 05:00 ABG pO2 67 mmHg (80-100) L 10/25/20 05:00 ABG HCO3 28.2 mmol/L (22.0-26.0) H 10/25/20 05:00 ABG Total CO2 29.3 MMOL/L (21.0-29.0) H 10/25/20 05:00 ABG O2 Saturation 93 % (94-98) L 10/25/20 05:00 ABG Base Excess 4.6 mmol/L (-2.0-3.0) H 10/25/20 05:00 Erik Test POSITIVE 10/25/20 05:00 VBG pH 7.483 (7.31-7.41) H 10/25/20 04:36 VBG pCO2 58.3 mmHg (41-51) H 10/24/20 04:02 VBG pO2 27.1 mmHg (25-47) 10/24/20 04:02 VBG HCO3 30.5 mmol/L (23-28) H 10/24/20 04:02 VBG Total CO2 32.3 mmol/L (24-29) H 10/24/20 04:02 VBG O2 Saturation 46.4 % (60-80) L 10/24/20 04:02 VBG Base Excess 3.2 mmol/L (-2 - +2) H 10/24/20 04:02 Ionized Calcium 1.10 mmol/L (1.15-1.33) L 10/25/20 04:36 Respiration Rate 15 b/min 10/25/20 05:00 O2 Delivery Device VENTILATOR 10/25/20 05:00 Vent Mode ASSIST/CONTROL 10/25/20 05:00 FiO2 55.00 10/25/20 05:00 Tidal Volume 500 mL 10/25/20 05:00 PEEP 5 cmH2O 10/25/20 05:00 Pressure Support Vent 12 cmH2O 10/24/20 08:46 Sodium 141 mmol/L (135-145) 10/25/20 04:36 Potassium 3.4 mmol/L (3.5-5.0) L 10/25/20 04:36 Chloride 106 mmol/L (101-111) 10/25/20 04:36 Carbon Dioxide 26 mmol/L (21-32) 10/25/20 04:36 Anion Gap 9.0 (6-13) 10/25/20 04:36 BUN 20 mg/dL (6-20) 10/25/20 04:36 Creatinine 0.6 mg/dL (0.6-1.2) 10/25/20 04:36 Estimated GFR (MDRD) 137 (>89) 10/25/20 04:36 Glucose 103 mg/dL (70-100) H 10/25/20 04:36 Lactic Acid 1.3 mmol/L (0.5-2.2) 10/24/20 01:10 Calcium 7.9 mg/dL (8.5-10.3) L 10/25/20 04:36 Phosphorus 2.6 mg/dL (2.5-4.6) 10/25/20 04:36 Magnesium 2.0 mg/dL (1.7-2.8) 10/25/20 04:36 Total Bilirubin 0.6 mg/dL (0.2-1.0) 10/23/20 23:55 AST 21 IU/L (10-42) 10/23/20 23:55 ALT 24 IU/L (10-60) 10/23/20 23:55 Alkaline Phosphatase 63 IU/L (42-121) 10/23/20 23:55 Troponin I High Sens 7.5 ng/L (2.3-19.7) 10/24/20 05:15 B-Natriuretic Peptide 138 pg/mL (5-100) H 10/23/20 23:55 Total Protein 6.4 g/dL (6.7-8.2) L 10/23/20 23:55 Albumin 2.9 g/dL (3.2-5.5) L 10/23/20 23:55 Globulin 3.5 g/dL (2.1-4.2) 10/23/20 23:55 Albumin/Globulin Ratio 0.8 (1.0-2.2) L 10/23/20 23:55 Triglycerides 161 mg/dL (-149) H 10/25/20 04:36 Urine Color YELLOW 10/24/20 03:30 Urine Clarity CLEAR (CLEAR) 10/24/20 03:30 Urine pH 6.0 PH (5.0-7.5) 10/24/20 03:30 Ur Specific Morrill 1.015 (1.002-1.030) 10/24/20 03:30 Urine Protein NEGATIVE mg/dL (NEGATIVE) 10/24/20 03:30 Urine Glucose (UA) NEGATIVE mg/dL (NEGATIVE) 10/24/20 03:30 Urine Ketones NEGATIVE mg/dL (NEGATIVE) 10/24/20 03:30 Urine Occult Blood SMALL (NEGATIVE) H 10/24/20 03:30 Urine Nitrite NEGATIVE (NEGATIVE) 10/24/20 03:30 Urine Bilirubin NEGATIVE (NEGATIVE) 10/24/20 03:30 Urine Urobilinogen 0.2 (NORMAL) E.U./dL (NORMAL) 10/24/20 03:30 Ur Leukocyte Esterase NEGATIVE (NEGATIVE) 10/24/20 03:30 Urine RBC 6-10 /HPF (0-5) H 10/24/20 03:30 Urine WBC 0-3 /HPF (0-3) 10/24/20 03:30 Ur Squamous Epith Cells NONE SEEN (<= Few) 10/24/20 03:30 Urine Bacteria None Seen /HPF (None Seen) 10/24/20 03:30 Urine Culture Comments NOT INDICATED 10/24/20 03:30 Nasal Adenovirus (PCR) NOT DETECTED 10/23/20 00:47 Nasal B. parapertussis DNA (PCR) NOT DETECTED 10/23/20 00:47 Nasal Coronavir 229E PCR NOT DETECTED 10/23/20 00:47 Nasal Coronavir HKU1 PCR NOT DETECTED 10/23/20 00:47 Nasal Coronavir NL63 PCR NOT DETECTED 10/23/20 00:47 Nasal Coronavir OC43 PCR NOT DETECTED 10/23/20 00:47 Nasal Enterovir/Rhinovir PCR NOT DETECTED 10/23/20 00:47 Nasal Influenza B PCR NOT DETECTED 10/23/20 00:47 Nasal Influenza A PCR NOT DETECTED 10/23/20 00:47 Nasal Parainfluen 1 PCR NOT DETECTED 10/23/20 00:47 Nasal Parainfluen 2 PCR NOT DETECTED 10/23/20 00:47 Nasal Parainfluen 3 PCR NOT DETECTED 10/23/20 00:47 Nasal Parainfluen 4 PCR NOT DETECTED 10/23/20 00:47 Nasal RSV (PCR) NOT DETECTED 10/23/20 00:47 Nasal Screen MRSA (PCR) NEGATIVE (NEGATIVE) 10/24/20 04:29 Nasal B.pertussis DNA PCR NOT DETECTED 10/23/20 00:47 Nasal C.pneumoniae (PCR) NOT DETECTED 10/23/20 00:47 Froylan Human Metapneumo PCR NOT DETECTED 10/23/20 00:47 Nasal M.pneumoniae (PCR) NOT DETECTED 10/23/20 00:47 Nasal SARS-CoV-2 (PCR) NOT DETECTED 10/23/20 00:47 Urine Opiates Screen NEGATIVE (NEGATIVE) 10/24/20 03:30 Ur Oxycodone Screen NEGATIVE (NEGATIVE) 10/24/20 03:30 Urine Methadone Screen NEGATIVE (NEGATIVE) 10/24/20 03:30 Ur Propoxyphene Screen NEGATIVE (NEGATIVE) 10/24/20 03:30 Ur Barbiturates Screen NEGATIVE (NEGATIVE) 10/24/20 03:30 Ur Tricyclics Screen POSITIVE (NEGATIVE) H 10/24/20 03:30 Ur Phencyclidine Scrn NEGATIVE (NEGATIVE) 10/24/20 03:30 Ur Amphetamine Screen POSITIVE (NEGATIVE) H 10/24/20 03:30 U Methamphetamines Scrn POSITIVE (NEGATIVE) H 10/24/20 03:30 U Benzodiazepines Scrn NEGATIVE (NEGATIVE) 10/24/20 03:30 Urine Cocaine Screen NEGATIVE (NEGATIVE) 10/24/20 03:30 U Cannabinoids Screen POSITIVE (NEGATIVE) H 10/24/20 03:30
[2020-10-25] MEDS: IPRATROPIUM/ALBUTEROL 3 ML NEB INH SCH (19:58)
[2020-10-25] MEDS: guaiFENesin 600 MG TABLET PO SCH (21:02)
[2020-10-25] MEDS: AMITRIPTYLINE 25 MG TABLET PO SCH (21:02)
[2020-10-25] MEDS: DIVALPROEX ER 250 MG TABLET PO SCH (21:02)
[2020-10-26] MEDS: SODIUM CHLORIDE FLUSH 0.9% 10 ML SYRINGE IVP SCH ×3 (03:02→20:43)
[2020-10-26] MEDS: PIPERACILLIN/TAZOBACTAM 3.375 GM in SODIUM CHLORIDE 0.9% MINIBAG 100 ML IV SCH ×3 (04:14→20:43)
[2020-10-26 04:27] LABS: VBG PH 7.424 (7.31-7.41)
[2020-10-26 04:28] LABS: CALCIUM 8.4 mg/dL (8.5-10.3); CREATININE 0.8 mg/dL (0.6-1.2); MAGNESIUM 2.1 mg/dL (1.7-2.8); PHOSPHORUS 4.1 mg/dL (2.5-4.6)
[2020-10-26 04:36] LABS: BASOPHILS % (AUTO) 0.6 %; EOSINOPHILS % (AUTO) 0.7 %; HGB - HEMOGLOBIN 11.6 g/dL (14.0-18.0); LYMPHOCYTES % (AUTO) 20.4 %; MEAN CORPUSCULAR HEMOGLOBIN 30.9 pg (27.0-31.0); MEAN CORPUSCULAR HGB CONC 31.9 g/dL (32.0-36.0); MEAN CORPUSCULAR VOLUME 97.1 fL (80.0-94.0); MEAN PLATELET VOLUME 9.1 fL (7.4-11.4); MONOCYTES % (AUTO) 13.3 %; NEUTROPHILS % (AUTO) 54.3 %; PLT - PLATELET COUNT 293 10^3/uL (130-450); RED BLOOD COUNT 3.75 10^6/uL (4.70-6.10); RED CELL DISTRIBUTION WIDTH 14.6 % (12.0-15.0); WHITE BLOOD COUNT 10.2 x10^3/uL (4.8-10.8)
[2020-10-26 05:10] LABS: DIFFERENTIAL COMMENT MANUAL DIFFERENTIAL; PLATELET ESTIMATE, MANUAL NORMAL (130-450,000) (NORMAL); PLATELET MORPHOLOGY NORMAL APPEARANCE (NORMAL); RBC MORPHOLOGY (MULTIPLE) NORMAL APPEARANCE (NORMAL)
[2020-10-26] MEDS ORDERED: POTASSIUM CHLORIDE 20 MEQ TABLET PO ONE (06:00)
[2020-10-26] MEDS: BUDESONIDE 0.5 MG/2 ML NEB INH SCH ×2 (06:04→19:30)
[2020-10-26] MEDS: IPRATROPIUM/ALBUTEROL 3 ML NEB INH SCH ×4 (06:04→19:30)
[2020-10-26] MEDS: FORMOTEROL FUMARATE NEB 20 MCG/2 ML INH SCH ×2 (06:04→19:30)
[2020-10-26] MEDS: GABAPENTIN 300 MG CAPSULE PO SCH ×3 (06:26→21:02)
[2020-10-26] MEDS: PANTOPRAZOLE 40 MG TABLET PO SCH (06:26)
[2020-10-26] MEDS: NICOTINE 14 MG PATCH TOP SCH (08:16)
[2020-10-26] MEDS: CHLORHEXIDINE GLUCONATE 15 ML UDC PO SCH ×2 (08:19→20:45)
[2020-10-26] MEDS: DIVALPROEX ER 250 MG TABLET PO SCH ×2 (08:22→20:44)
[2020-10-26] MEDS: TAMSULOSIN 0.4 MG CAPSULE PO SCH (08:23)
[2020-10-26] MEDS: MULTIVITAMIN TABLET PO SCH (08:23)
[2020-10-26] MEDS: guaiFENesin 600 MG TABLET PO SCH ×2 (08:23→20:44)
[2020-10-26] MEDS: DULoxetine 30 MG CAPSULE PO SCH (08:23)
[2020-10-26] MEDS: OLANZapine ODT 5 MG TABLET TL SCH (08:23)
[2020-10-26] MEDS: ENOXAPARIN 40 MG/0.4 ML SYRINGE SUBQ SCH (08:25)
--- NOTE | 2020-10-26 14:22 | PROVIDER PROGRESS NOTE ---
Assessment/Plan - Problem List (1) Respiratory failure Qualifiers: Chronicity: acute on chronic Assessment/Plan: Extubated yesterday morning. He has been out of bed to chair at least for 2 hours yesterday and today. He still feels very short of breath and very weak with any activity. He reports that he has home oxygen and a concentrator at home, has not needed it for 3 years. He will be transferred out of the ICU today. Continue with aggressive treatment for pneumonia, COPD and start PT and OT (2) Pneumonia Assessment/Plan: Continue with empiric antibiotics. Continue Mucinex for pulmonary toilet. Continue incentive spirometer (3) COPD (chronic obstructive pulmonary disease) Assessment/Plan: The patient is not visibly short of breath when he speaks but he has audible wheezing and every quadrant on exam. He describes being more short of breath than his usual still. Continue with 4 times daily scheduled DuoNeb and as needed every 3 hours, scheduled inhaled steroid. We will add Singulair. Will add IV steroids as well Continue with pulmonary toilet and treating the underlying pneumonia Continue supplemental oxygen. On day of discharge she will need walking oximetry test to assess what oxygen settings he will very likely need Start PT today. (4) Hypokalemia Assessment/Plan: Replace. Follow BMP daily (5) Hypertension Qualifiers: Hypertension type: essential hypertension Qualified Code(s): I10 - Essential (primary) hypertension Assessment/Plan: Blood pressure is no longer "soft" but is now becoming hypertensive in the 150s systolic. Plan is to resume his blood pressure meds but will not use lisinopril in case it could be adding to a cough. We will start an ARB instead, Losartan. (6) Hyperlipidemia Assessment/Plan: Resume his home med (7) Bipolar 1 disorder Assessment/Plan: His home meds have already been restarted, resumed to use here (8) Anemia Assessment/Plan: Likely hemodilutional since he needed IV fluids while intubated here and when he was hospitalized at [facility] last week. We will check B12 and folate levels and iron stores and replace if low. (9) Altered mental status Assessment/Plan: Resolved after hypoxia and hypercarbia managed with the ventilator - Current Meds Current Meds: Current Medications Generic Name Dose Route Start Last Admin Trade Name Freq PRN Reason Stop Dose Admin Albuterol/Ipratropium 3 ml 12/17/20 05:30 10/25/20 15:14 Ipratropium/Albuterol 3 Ml Neb INH 3 ml Q4HR PRN Administration Wheezing Albuterol/Ipratropium 3 ml 10/25/20 19:00 10/26/20 06:04 Ipratropium/Albuterol 3 Ml Neb INH 3 ml RTQID LIZABETH Administration Amitriptyline HCl 100 mg 10/25/20 21:00 10/25/20 21:02 Amitriptyline 25 Mg Tablet PO 100 mg QPM LIZABETH Administration Budesonide 0.5 mg 10/24/20 07:00 10/26/20 06:04 Budesonide 0.5 Mg/2 Ml Neb INH 0.5 mg RTBID LIZABETH Administration Chlorhexidine Gluconate 15 ml 10/24/20 21:00 10/26/20 08:19 Chlorhexidine Gluconate 15 Ml Udc PO 15 ml BID LIZABETH Administration Divalproex Sodium 1,000 mg 10/25/20 21:00 10/26/20 08:22 Divalproex Er 250 Mg Tablet PO 1,000 mg BID LIZABETH Administration Duloxetine HCl 60 mg 10/26/20 09:00 10/26/20 08:23 Duloxetine 30 Mg Capsule PO 60 mg DAILY LIZABETH Administration Enoxaparin Sodium 40 mg 10/24/20 09:00 10/26/20 08:25 Enoxaparin 40 Mg/0.4 Ml Syringe SUBQ 40 mg DAILY LIZABETH Administration Formoterol Fumarate 20 mcg 10/24/20 07:00 10/26/20 06:04 Formoterol Fumarate Neb 20 Mcg/2 Ml INH 20 mcg RTBID LIZABETH Administration Gabapentin 300 mg 10/25/20 14:00 10/26/20 14:07 Gabapentin 300 Mg Capsule PO 300 mg TID LIZABETH Administration Guaifenesin 600 mg 10/25/20 21:00 10/26/20 08:23 Guaifenesin 600 Mg Tablet PO 600 mg BID LIZABETH Administration Piperacillin Sod/Tazobactam 100 mls @ 25 mls/hr 10/24/20 12:00 10/26/20 12:45 Sod 3.375 gm/ Sodium Chloride IV 25 mls/hr Q8H LIZABETH Administration Multivitamins 1 tab 10/26/20 09:00 10/26/20 08:23 Multivitamin Tablet PO 1 tab DAILY LIZABETH Administration Nicotine 1 patch 10/24/20 20:53 10/26/20 08:16 Nicotine 14 Mg Patch TOP 1 patch DAILY LIZABETH Administration Olanzapine 5 mg 10/26/20 09:00 10/26/20 08:23 Olanzapine Odt 5 Mg Tablet TL 5 mg DAILY LIZABETH Administration Pantoprazole Sodium 40 mg 10/26/20 07:00 10/26/20 06:26 Pantoprazole 40 Mg Tablet PO 40 mg QDAC LIZABETH Administration Sodium Chloride 10 ml 10/24/20 09:00 10/26/20 08:23 Sodium Chloride Flush 0.9% 10 Ml Syringe IVP 10 ml 0100,0900,1700 LIZABETH Administration Sodium Chloride 10 ml 10/24/20 03:24 10/25/20 06:33 Sodium Chloride Flush 0.9% 10 Ml Syringe IVP 10 ml PRN PRN Administration NEEDED PER PROVIDER ORDERS Tamsulosin HCl 0.8 mg 10/26/20 09:00 10/26/20 08:23 Tamsulosin 0.4 Mg Capsule PO 0.8 mg DAILY LIZABETH Administration - Lab Result Fish Bone Diagrams: 10/26/20 03:49 10/26/20 03:49 - Additional Planning My Orders: My Active Orders 10/25/20 14:00 Gabapentin [Neurontin] 300 mg PO TID 10/25/20 Dinner DIET [Soft Mechanical Diet] [DIET] 10/25/20 19:00 Ipratropium/Albuterol [Duoneb] 3 ml INH RTQID 10/25/20 21:00 Amitriptyline [Elavil] 100 mg PO QPM Divalproex ER [Depakote ER] 1,000 mg PO BID guaiFENesin [Mucinex] 600 mg PO BID 10/26/20 Evaluate and Treat PT [PT] Routine 10/26/20 07:00 Pantoprazole [Protonix] 40 mg PO QDAC 10/26/20 08:43 Telemetry-Discontinue [RC] .ONCE 10/26/20 09:00 DULoxetine [Cymbalta] 60 mg PO DAILY Multivitamin [Theragran] 1 tab PO DAILY OLANZapine ODT [ZyPREXA ODT] 5 mg TL DAILY Tamsulosin [Flomax] 0.8 mg PO DAILY 10/26/20 21:00 Montelukast [Singulair] 10 mg PO QPM Subjective - Subjective Patient Reports: Resting Comfortably, Fatigue, Shortness of Breath Objective Vital Signs: Vital Signs - 24 hr 10/25/20 10/25/20 10/25/20 15:00 15:15 16:00 Temperature 36.9 C Heart Rate 80 Heart Rate [ 96 90 Monitoring electrodes] Respiratory 18 14 20 Rate Blood Pressure 144/85 H 147/86 H [Left Brachial artery] O2 Saturation 91 L 91 L 10/25/20 10/25/20 10/25/20 17:00 18:00 19:00 Temperature Heart Rate Heart Rate [ 101 H 98 93 Monitoring electrodes] Respiratory 20 19 18 Rate Blood Pressure 144/90 H 149/90 H [Left Brachial artery] O2 Saturation 91 L 96 93 10/25/20 10/25/20 10/25/20 19:45 20:00 20:42 Temperature 36.6 C Heart Rate 86 Heart Rate [ 85 Monitoring electrodes] Respiratory 18 25 H Rate Blood Pressure 157/91 H [Left Brachial artery] O2 Saturation 98 10/25/20 10/25/20 10/26/20 21:00 22:04 02:28 Temperature 36.8 C 36.9 C Heart Rate Heart Rate [ 96 87 83 Monitoring electrodes] Respiratory 19 14 25 H Rate Blood Pressure 159/94 H 145/92 H 136/90 H [Left Brachial artery] O2 Saturation 91 L 93 92 10/26/20 10/26/20 10/26/20 04:00 06:05 14:00 Temperature 36.8 C Heart Rate 75 Heart Rate [ 82 96 Monitoring electrodes] Respiratory 25 H 22 18 Rate Blood Pressure 149/92 H 153/91 H [Left Brachial artery] O2 Saturation 95 95 Oxygen O2 Source NC with humidity Oxygen Flow Rate 4 I&O (Last 24 Hrs): Intake and Output Totals x24h 10/24/20 10/25/20 10/26/20 23:59 23:59 23:59 Intake Total 2848.833 4230.517 1443.333 Output Total 928 2840 3525 Balance 1137.570 9082.517 -2081.667 General: Alert, Oriented x3 HEENT: EOMI, Mucous membr. moist/pink Neck: Supple, No JVD Neuro: Alert, Non Focal, Oriented Times 3 Cardiovascular: Regular rate, No murmurs Respiratory: Wheezes (Diffuse wheezes in all lung bearden. No respiratory distress at rest, wearing O2 by nasal cannula) Abdomen: Normal bowel sounds, Soft Extremities: No clubbing, No edema - Results Results: Laboratory Results WBC 10.2 x10^3/uL (4.8-10.8) 10/26/20 03:49 RBC 3.75 10^6/uL (4.70-6.10) L 10/26/20 03:49 Hgb 11.6 g/dL (14.0-18.0) L 10/26/20 03:49 Hct 36.4 % (42.0-52.0) L 10/26/20 03:49 MCV 97.1 fL (80.0-94.0) H 10/26/20 03:49 MCH 30.9 pg (27.0-31.0) 10/26/20 03:49 MCHC 31.9 g/dL (32.0-36.0) L 10/26/20 03:49 RDW 14.6 % (12.0-15.0) 10/26/20 03:49 Plt Count 293 10^3/uL (130-450) 10/26/20 03:49 MPV 9.1 fL (7.4-11.4) 10/26/20 03:49 Neut # (Auto) Not Reportable 10/26/20 03:49 Lymph # (Auto) Not Reportable 10/26/20 03:49 [place] # (Auto) Not Reportable 10/26/20 03:49 Eos # (Auto) Not Reportable 10/26/20 03:49 Baso # (Auto) Not Reportable 10/26/20 03:49 Absolute Nucleated RBC Not Reportable 10/26/20 03:49 Total Counted 100 10/24/20 05:15 Band Neuts % (Manual) Not Reportable 10/26/20 03:49 Abnorm Lymph % (Manual) Not Reportable 10/26/20 03:49 Metamyelocytes % 2 % (-0) H 10/24/20 05:15 Myelocytes % 4 % (-0) H 10/24/20 05:15 Nucleated RBC % Not Reportable 10/26/20 03:49 Neutrophils # (Manual) Not Reportable 10/26/20 03:49 Lymphocytes # (Manual) Not Reportable 10/26/20 03:49 Monocytes # (Manual) Not Reportable 10/26/20 03:49 Eosinophils # (Manual) Not Reportable 10/26/20 03:49 Basophils # (Manual) Not Reportable 10/26/20 03:49 Differential Comment MANUAL DIFFERENTIAL 10/26/20 03:49 WBC Morphology NORMAL APPEARANCE (NORMAL) 10/26/20 03:49 Platelet Estimate NORMAL (130-450,000) (NORMAL) 10/26/20 03:49 Platelet Morphology NORMAL APPEARANCE (NORMAL) 10/26/20 03:49 RBC Morph Micro Appear NORMAL APPEARANCE (NORMAL) 10/26/20 03:49 Bld Gas Analysis Time 0506 10/25/20 05:00 Sample Site LEFT RADIAL 10/25/20 05:00 ABG pH 7.49 (7.35-7.45) H 10/25/20 05:00 ABG pCO2 38 mmHg (34-45) 10/25/20 05:00 ABG pO2 67 mmHg (80-100) L 10/25/20 05:00 ABG HCO3 28.2 mmol/L (22.0-26.0) H 10/25/20 05:00 ABG Total CO2 29.3 MMOL/L (21.0-29.0) H 10/25/20 05:00 ABG O2 Saturation 93 % (94-98) L 10/25/20 05:00 ABG Base Excess 4.6 mmol/L (-2.0-3.0) H 10/25/20 05:00 Erik Test POSITIVE 10/25/20 05:00 VBG pH 7.424 (7.31-7.41) H 10/26/20 03:49 VBG pCO2 58.3 mmHg (41-51) H 10/24/20 04:02 VBG pO2 27.1 mmHg (25-47) 10/24/20 04:02 VBG HCO3 30.5 mmol/L (23-28) H 10/24/20 04:02 VBG Total CO2 32.3 mmol/L (24-29) H 10/24/20 04:02 VBG O2 Saturation 46.4 % (60-80) L 10/24/20 04:02 VBG Base Excess 3.2 mmol/L (-2 - +2) H 10/24/20 04:02 Ionized Calcium 1.12 mmol/L (1.15-1.33) L 10/26/20 03:49 Respiration Rate 15 b/min 10/25/20 05:00 O2 Delivery Device VENTILATOR 10/25/20 05:00 Vent Mode ASSIST/CONTROL 10/25/20 05:00 FiO2 55.00 10/25/20 05:00 Tidal Volume 500 mL 10/25/20 05:00 PEEP 5 cmH2O 10/25/20 05:00 Pressure Support Vent 12 cmH2O 10/24/20 08:46 Sodium 141 mmol/L (135-145) 10/26/20 03:49 Potassium 3.4 mmol/L (3.5-5.0) L 10/26/20 03:49 Chloride 106 mmol/L (101-111) 10/26/20 03:49 Carbon Dioxide 25 mmol/L (21-32) 10/26/20 03:49 Anion Gap 10.0 (6-13) 10/26/20 03:49 BUN 14 mg/dL (6-20) 10/26/20 03:49 Creatinine 0.8 mg/dL (0.6-1.2) 10/26/20 03:49 Estimated GFR (MDRD) 98 (>89) 10/26/20 03:49 Glucose 118 mg/dL (70-100) H 10/26/20 03:49 Lactic Acid 1.3 mmol/L (0.5-2.2) 10/24/20 01:10 Calcium 8.4 mg/dL (8.5-10.3) L 10/26/20 03:49 Phosphorus 4.1 mg/dL (2.5-4.6) 10/26/20 03:49 Magnesium 2.1 mg/dL (1.7-2.8) 10/26/20 03:49 Total Bilirubin 0.6 mg/dL (0.2-1.0) 10/23/20 23:55 AST 21 IU/L (10-42) 10/23/20 23:55 ALT 24 IU/L (10-60) 10/23/20 23:55 Alkaline Phosphatase 63 IU/L (42-121) 10/23/20 23:55 Troponin I High Sens 7.5 ng/L (2.3-19.7) 10/24/20 05:15 B-Natriuretic Peptide 138 pg/mL (5-100) H 10/23/20 23:55 Total Protein 6.4 g/dL (6.7-8.2) L 10/23/20 23:55 Albumin 2.9 g/dL (3.2-5.5) L 10/23/20 23:55 Globulin 3.5 g/dL (2.1-4.2) 10/23/20 23:55 Albumin/Globulin Ratio 0.8 (1.0-2.2) L 10/23/20 23:55 Triglycerides 161 mg/dL (-149) H 10/25/20 04:36 Urine Color YELLOW 10/24/20 03:30 Urine Clarity CLEAR (CLEAR) 10/24/20 03:30 Urine pH 6.0 PH (5.0-7.5) 10/24/20 03:30 Ur Specific [place] 1.015 (1.002-1.030) 10/24/20 03:30 Urine Protein NEGATIVE mg/dL (NEGATIVE) 10/24/20 03:30 Urine Glucose (UA) NEGATIVE mg/dL (NEGATIVE) 10/24/20 03:30 Urine Ketones NEGATIVE mg/dL (NEGATIVE) 10/24/20 03:30 Urine Occult Blood SMALL (NEGATIVE) H 10/24/20 03:30 Urine Nitrite NEGATIVE (NEGATIVE) 10/24/20 03:30 Urine Bilirubin NEGATIVE (NEGATIVE) 10/24/20 03:30 Urine Urobilinogen 0.2 (NORMAL) E.U./dL (NORMAL) 10/24/20 03:30 Ur Leukocyte Esterase NEGATIVE (NEGATIVE) 10/24/20 03:30 Urine RBC 6-10 /HPF (0-5) H 10/24/20 03:30 Urine WBC 0-3 /HPF (0-3) 10/24/20 03:30 Ur Squamous Epith Cells NONE SEEN (<= Few) 10/24/20 03:30 Urine Bacteria None Seen /HPF (None Seen) 10/24/20 03:30 Urine Culture Comments NOT INDICATED 10/24/20 03:30 Nasal Adenovirus (PCR) NOT DETECTED 10/23/20 00:47 Nasal B. parapertussis DNA (PCR) NOT DETECTED 10/23/20 00:47 Nasal Coronavir 229E PCR NOT DETECTED 10/23/20 00:47 Nasal Coronavir HKU1 PCR NOT DETECTED 10/23/20 00:47 Nasal Coronavir NL63 PCR NOT DETECTED 10/23/20 00:47 Nasal Coronavir OC43 PCR NOT DETECTED 10/23/20 00:47 Nasal Enterovir/Rhinovir PCR NOT DETECTED 10/23/20 00:47 Nasal Influenza B PCR NOT DETECTED 10/23/20 00:47 Nasal Influenza A PCR NOT DETECTED 10/23/20 00:47 Nasal Parainfluen 1 PCR NOT DETECTED 10/23/20 00:47 Nasal Parainfluen 2 PCR NOT DETECTED 10/23/20 00:47 Nasal Parainfluen 3 PCR NOT DETECTED 10/23/20 00:47 Nasal Parainfluen 4 PCR NOT DETECTED 10/23/20 00:47 Nasal RSV (PCR) NOT DETECTED 10/23/20 00:47 Nasal Screen MRSA (PCR) NEGATIVE (NEGATIVE) 10/24/20 04:29 Nasal B.pertussis DNA PCR NOT DETECTED 10/23/20 00:47 Nasal C.pneumoniae (PCR) NOT DETECTED 10/23/20 00:47 Froylan Human Metapneumo PCR NOT DETECTED 10/23/20 00:47 Nasal M.pneumoniae (PCR) NOT DETECTED 10/23/20 00:47 Nasal SARS-CoV-2 (PCR) NOT DETECTED 10/23/20 00:47 Urine Opiates Screen NEGATIVE (NEGATIVE) 10/24/20 03:30 Ur Oxycodone Screen NEGATIVE (NEGATIVE) 10/24/20 03:30 Urine Methadone Screen NEGATIVE (NEGATIVE) 10/24/20 03:30 Ur Propoxyphene Screen NEGATIVE (NEGATIVE) 10/24/20 03:30 Ur Barbiturates Screen NEGATIVE (NEGATIVE) 10/24/20 03:30 Ur Tricyclics Screen POSITIVE (NEGATIVE) H 10/24/20 03:30 Ur Phencyclidine Scrn NEGATIVE (NEGATIVE) 10/24/20 03:30 Ur Amphetamine Screen POSITIVE (NEGATIVE) H 10/24/20 03:30 U Methamphetamines Scrn POSITIVE (NEGATIVE) H 10/24/20 03:30 U Benzodiazepines Scrn NEGATIVE (NEGATIVE) 10/24/20 03:30 Urine Cocaine Screen NEGATIVE (NEGATIVE) 10/24/20 03:30 U Cannabinoids Screen POSITIVE (NEGATIVE) H 10/24/20 03:30
[2020-10-26] MEDS: methylPREDNISolone SUCCINATE 40 MG/ML VIAL IVP SCH ×2 (14:58→21:03)
[2020-10-26] MEDS ORDERED: NICOTINE 14 MG PATCH TOP SCH (15:00)
[2020-10-26] MEDS: MONTELUKAST 10 MG TABLET PO SCH (20:44)
[2020-10-26] MEDS: AMITRIPTYLINE 25 MG TABLET PO SCH (20:45)
[2020-10-26] MEDS ORDERED: NON FORMULARY MED (Rosuvastatin Calcium [Crestor] 10 MG Tablet) PO SCH (21:00)
[2020-10-27] MEDS: IPRATROPIUM/ALBUTEROL 3 ML NEB INH PRN ×2 (00:10→23:55)
[2020-10-27] MEDS: PIPERACILLIN/TAZOBACTAM 3.375 GM in SODIUM CHLORIDE 0.9% MINIBAG 100 ML IV SCH ×2 (04:01→11:49)
[2020-10-27] MEDS: SODIUM CHLORIDE FLUSH 0.9% 10 ML SYRINGE IVP PRN (04:02)
[2020-10-27 05:36] LABS: BASOPHILS % (AUTO) 0.5 %; HGB - HEMOGLOBIN 11.8 g/dL (14.0-18.0); LYMPHOCYTES % (AUTO) 9.6 %; MEAN CORPUSCULAR HEMOGLOBIN 31.2 pg (27.0-31.0); MEAN CORPUSCULAR HGB CONC 32.1 g/dL (32.0-36.0); MEAN CORPUSCULAR VOLUME 97.4 fL (80.0-94.0); MEAN PLATELET VOLUME 8.9 fL (7.4-11.4); NEUTROPHILS % (AUTO) 78.7 %; PLT - PLATELET COUNT 292 10^3/uL (130-450); RED BLOOD COUNT 3.78 10^6/uL (4.70-6.10); RED CELL DISTRIBUTION WIDTH 14.4 % (12.0-15.0); WHITE BLOOD COUNT 12.7 x10^3/uL (4.8-10.8)
[2020-10-27 05:37] LABS: VBG PH 7.462 (7.31-7.41)
[2020-10-27 05:40] LABS: ABNORMAL LYMPHS % (MANUAL) 0 %
[2020-10-27 05:55] LABS: CALCIUM 8.9 mg/dL (8.5-10.3); CREATININE 0.7 mg/dL (0.6-1.2); MAGNESIUM 2.2 mg/dL (1.7-2.8)
[2020-10-27] MEDS: GABAPENTIN 300 MG CAPSULE PO SCH ×3 (05:55→21:10)
[2020-10-27] MEDS: methylPREDNISolone SUCCINATE 40 MG/ML VIAL IVP SCH ×3 (05:56→21:10)
[2020-10-27] MEDS: PANTOPRAZOLE 40 MG TABLET PO SCH (05:56)
[2020-10-27 05:58] LABS: BAND NEUTROPHILS % (MANUAL) 1 %; DIFFERENTIAL COMMENT MANUAL DIFFERENTIAL; LYMPHOCYTES # (MANUAL) 1.1 10^3/uL (1.5-3.5); LYMPHOCYTES % (MANUAL) 9 %; MONOCYTES # (MANUAL) 0.1 10^3/uL (0.0-1.0); MYELOCYTES % (MANUAL) 2 %; PLATELET ESTIMATE, MANUAL NORMAL (130-450,000) (NORMAL); PLATELET MORPHOLOGY NORMAL APPEARANCE (NORMAL); RBC MORPHOLOGY (MULTIPLE) NORMAL APPEARANCE (NORMAL)
[2020-10-27 06:16] LABS: FOLATE 7.66 ng/mL (5.90 - >24.8)
[2020-10-27] MEDS: IPRATROPIUM/ALBUTEROL 3 ML NEB INH SCH ×4 (07:43→19:27)
[2020-10-27] MEDS: BUDESONIDE 0.5 MG/2 ML NEB INH SCH ×2 (07:43→19:25)
[2020-10-27] MEDS: FORMOTEROL FUMARATE NEB 20 MCG/2 ML INH SCH ×2 (07:44→19:25)
[2020-10-27] MEDS: DULoxetine 30 MG CAPSULE PO SCH (08:58)
[2020-10-27] MEDS: TAMSULOSIN 0.4 MG CAPSULE PO SCH (08:58)
[2020-10-27] MEDS: MULTIVITAMIN TABLET PO SCH (08:58)
[2020-10-27] MEDS: OLANZapine ODT 5 MG TABLET TL SCH (08:58)
[2020-10-27] MEDS: LOSARTAN 50 MG TABLET PO SCH (08:59)
[2020-10-27] MEDS: ENOXAPARIN 40 MG/0.4 ML SYRINGE SUBQ SCH (08:59)
[2020-10-27] MEDS: guaiFENesin 600 MG TABLET PO SCH ×2 (08:59→21:10)
[2020-10-27] MEDS: DIVALPROEX ER 250 MG TABLET PO SCH ×2 (08:59→21:10)
[2020-10-27] MEDS ORDERED: lisinopriL 5 MG TABLET PO SCH (09:00)
[2020-10-27] MEDS: NICOTINE 14 MG PATCH TOP SCH (10:06)
[2020-10-27] MEDS: CHLORHEXIDINE GLUCONATE 15 ML UDC PO SCH ×2 (10:06→21:10)
[2020-10-27] MEDS: SODIUM CHLORIDE FLUSH 0.9% 10 ML SYRINGE IVP SCH ×3 (10:07→16:53)
--- NOTE | 2020-10-27 12:07 | PROVIDER PROGRESS NOTE ---
Assessment/Plan - Problem List (1) Respiratory failure Qualifiers: Chronicity: acute on chronic Assessment/Plan: Required intubation, he was extubated after 24 hours. He is still on supplemental oxygen per nasal cannula Yesterday IV steroids were added to help with severe diffuse wheezing and it has helped. PT to start today. The patient has home O2 if it is needed to be resumed. Will probably discharge tomorrow with a course of steroids, oral antibiotics, inhalers and will need an oxygen oximetry walk test to determine what oxygen settings (2) Pneumonia Assessment/Plan: Continue treatment for pneumonia, will transition from IV to oral antibiotics. Continue Mucinex for pulmonary toilet. (3) COPD (chronic obstructive pulmonary disease) Assessment/Plan: Yesterday IV steroids were added to help with severe diffuse wheezing and it has helped. PT to start today And he said he tolerated 2 walks in his room. Tomorrow he will walk in the hallway and start stairs The patient has home O2 if it is needed to be resumed. Will probably discharge tomorrow with a course of steroids, oral antibiotics, inhalers and will need an oxygen oximetry walk test to determine what oxygen settings (4) Hypertension Qualifiers: Hypertension type: essential hypertension Qualified Code(s): I10 - Essential (primary) hypertension Assessment/Plan: Yesterday and today his blood pressure has started to be hypertensive. Lisinopril was not resumed since there could be a chance some of his cough is from [place] inhibitor cough. He is now on losartan and will be discharged on this (5) Hyperlipidemia Assessment/Plan: His home med has been resumed (6) Bipolar 1 disorder Assessment/Plan: His home meds have been resumed (7) Anemia Qualifiers: Anemia type: iron deficiency Assessment/Plan: B12 and folate levels are normal. He has borderline low iron stores. The patient is requesting a consultation from utilization review rn, will order this for tomorrow (today Wednesday). We will start oral iron replacement therapy (8) Altered mental status Assessment/Plan: Loved with intubation for hypercarbia and hypoxia (9) Hypokalemia Assessment/Plan: Resolved. - Current Meds Current Meds: Current Medications Generic Name Dose Route Start Last Admin Trade Name Freq PRN Reason Stop Dose Admin Albuterol/Ipratropium 3 ml 10/24/20 05:30 10/27/20 00:10 Ipratropium/Albuterol 3 Ml Neb INH 3 ml Q4HR PRN Administration Wheezing Albuterol/Ipratropium 3 ml 10/25/20 19:00 10/27/20 07:43 Ipratropium/Albuterol 3 Ml Neb INH 3 ml RTQID LIZABETH Administration Amitriptyline HCl 100 mg 10/25/20 21:00 10/26/20 20:45 Amitriptyline 25 Mg Tablet PO 100 mg QPM LIZABETH Administration Budesonide 0.5 mg 10/24/20 07:00 10/27/20 07:43 Budesonide 0.5 Mg/2 Ml Neb INH 0.5 mg RTBID LIZABETH Administration Chlorhexidine Gluconate 15 ml 10/24/20 21:00 10/27/20 10:06 Chlorhexidine Gluconate 15 Ml Udc PO 15 ml BID LIZABETH Administration Divalproex Sodium 1,000 mg 10/25/20 21:00 10/27/20 08:59 Divalproex Er 250 Mg Tablet PO 1,000 mg BID LIZABETH Administration Duloxetine HCl 60 mg 10/26/20 09:00 10/27/20 08:58 Duloxetine 30 Mg Capsule PO 60 mg DAILY LIZABETH Administration Enoxaparin Sodium 40 mg 10/24/20 09:00 10/27/20 08:59 Enoxaparin 40 Mg/0.4 Ml Syringe SUBQ 40 mg DAILY LIZABETH Administration Formoterol Fumarate 20 mcg 10/24/20 07:00 10/27/20 07:44 Formoterol Fumarate Neb 20 Mcg/2 Ml INH 20 mcg RTBID LIZABETH Administration Gabapentin 300 mg 10/25/20 14:00 10/27/20 05:55 Gabapentin 300 Mg Capsule PO 300 mg TID LIZABETH Administration Guaifenesin 600 mg 10/25/20 21:00 10/27/20 08:59 Guaifenesin 600 Mg Tablet PO 600 mg BID LIZABETH Administration Piperacillin Sod/Tazobactam 100 mls @ 25 mls/hr 10/24/20 12:00 10/27/20 11:49 Sod 3.375 gm/ Sodium Chloride IV 10/29/20 11:59 25 mls/hr Q8H LIZABETH Administration Losartan Potassium 50 mg 10/27/20 09:00 10/27/20 08:59 Losartan 50 Mg Tablet PO 50 mg DAILY LIZABETH Administration Methylprednisolone 40 mg 10/26/20 15:00 10/27/20 05:56 Methylprednisolone Succinate 40 Mg/Ml Vial IVP 40 mg TID LIZABETH Administration Montelukast Sodium 10 mg 10/26/20 21:00 10/26/20 20:44 Montelukast 10 Mg Tablet PO 10 mg QPM LIZABETH Administration Multivitamins 1 tab 10/26/20 09:00 10/27/20 08:58 Multivitamin Tablet PO 1 tab DAILY LIZABETH Administration Nicotine 1 patch 10/24/20 20:53 10/27/20 10:06 Nicotine 14 Mg Patch TOP 1 patch DAILY LIZABETH Administration Olanzapine 5 mg 10/26/20 09:00 10/27/20 08:58 Olanzapine Odt 5 Mg Tablet TL 5 mg DAILY LIZABETH Administration Pantoprazole Sodium 40 mg 10/26/20 07:00 10/27/20 05:56 Pantoprazole 40 Mg Tablet PO 40 mg QDAC LIZABETH Administration Sodium Chloride 10 ml 10/24/20 09:00 10/27/20 10:07 Sodium Chloride Flush 0.9% 10 Ml Syringe IVP Not Given 0100,0900,1700 LIZABETH Sodium Chloride 10 ml 10/24/20 03:24 10/27/20 04:02 Sodium Chloride Flush 0.9% 10 Ml Syringe IVP 10 ml PRN PRN Administration NEEDED PER PROVIDER ORDERS Tamsulosin HCl 0.8 mg 10/26/20 09:00 10/27/20 08:58 Tamsulosin 0.4 Mg Capsule PO 0.8 mg DAILY LIZABETH Administration - Lab Result Fish Bone Diagrams: 10/27/20 05:22 10/27/20 05:22 - Additional Planning My Orders: My Active Orders 10/26/20 15:00 methylPREDNISolone SUCCINATE [SOLU-Medrol (40MG VIAL)] 40 mg IVP TID 10/26/20 21:00 Montelukast [Singulair] 10 mg PO QPM 10/27/20 09:00 Losartan [Cozaar] 50 mg PO DAILY Subjective - Subjective Patient Reports: Feeling Better Objective Vital Signs: Vital Signs - 24 hr 10/26/20 10/26/20 10/26/20 14:00 14:20 18:47 Temperature 36.8 C 36.3 C L Heart Rate 92 Heart Rate [ 84 Brachial] Heart Rate [ 96 Monitoring electrodes] Respiratory 18 17 24 Rate Blood Pressure 153/91 H 172/87 H [Left Brachial artery] O2 Saturation 95 94 10/26/20 10/26/20 10/27/20 19:30 23:58 00:10 Temperature 37.0 C Heart Rate 79 84 Heart Rate [ 89 Brachial] Heart Rate [ Monitoring electrodes] Respiratory 18 20 18 Rate Blood Pressure 160/92 H [Left Brachial artery] O2 Saturation 94 10/27/20 10/27/20 10/27/20 04:27 07:44 08:34 Temperature 36.4 C L 37.6 C Heart Rate 78 Heart Rate [ 92 78 Brachial] Heart Rate [ Monitoring electrodes] Respiratory 18 22 16 Rate Blood Pressure 148/85 H 160/93 H [Left Brachial artery] O2 Saturation 91 L 96 Oxygen O2 Source Nasal cannula Oxygen Flow Rate 4 I&O (Last 24 Hrs): Intake and Output Totals x24h 10/25/20 10/26/20 10/27/20 23:59 23:59 23:59 Intake Total 4230.667 3373.333 1950.333 Output Total 2840 6800 1500 Balance 1390.667 -3426.667 450.333 General: Alert, Oriented x3 HEENT: Mucous membr. moist/pink, Other (edentulous) Neck: Supple, No JVD Neuro: Alert, Other (Weak L side (stroke 1 mo ago).) Cardiovascular: Regular rate Respiratory: No respiratory distress, Breath sounds nml, Other (Prolonged expiratory phase, no wheezes) Abdomen: Normal bowel sounds, Soft Extremities: No edema - Results Results: Laboratory Results WBC 12.7 x10^3/uL (4.8-10.8) H 10/27/20 05:22 RBC 3.78 10^6/uL (4.70-6.10) L 10/27/20 05:22 Hgb 11.8 g/dL (14.0-18.0) L 10/27/20 05:22 Hct 36.8 % (42.0-52.0) L 10/27/20 05:22 MCV 97.4 fL (80.0-94.0) H 10/27/20 05:22 MCH 31.2 pg (27.0-31.0) H 10/27/20 05:22 MCHC 32.1 g/dL (32.0-36.0) 10/27/20 05:22 RDW 14.4 % (12.0-15.0) 10/27/20 05:22 Plt Count 292 10^3/uL (130-450) 10/27/20 05:22 MPV 8.9 fL (7.4-11.4) 10/27/20 05:22 Neut # (Auto) Not Reportable 10/27/20 05:22 Lymph # (Auto) Not Reportable 10/27/20 05:22 [place] # (Auto) Not Reportable 10/27/20 05:22 Eos # (Auto) Not Reportable 10/27/20 05:22 Baso # (Auto) Not Reportable 10/27/20 05:22 Absolute Nucleated RBC Not Reportable 10/27/20 05:22 Total Counted 100 10/27/20 05:22 Band Neuts % (Manual) 1 % (0-10) 10/27/20 05:22 Abnorm Lymph % (Manual) 0 % 10/27/20 05:22 Metamyelocytes % 2 % (-0) H 10/24/20 05:15 Myelocytes % 2 % (-0) H 10/27/20 05:22 Nucleated RBC % Not Reportable 10/27/20 05:22 Neutrophils # (Manual) 11.2 10^3/uL (1.5-6.6) H 10/27/20 05:22 Lymphocytes # (Manual) 1.1 10^3/uL (1.5-3.5) L 10/27/20 05:22 Monocytes # (Manual) 0.1 10^3/uL (0.0-1.0) 10/27/20 05:22 Eosinophils # (Manual) 0.0 10^3/uL (0-0.7) 10/27/20 05:22 Basophils # (Manual) 0.0 10^3/uL (0-0.1) 10/27/20 05:22 Differential Comment MANUAL DIFFERENTIAL 10/27/20 05:22 WBC Morphology NORMAL APPEARANCE (NORMAL) 10/27/20 05:22 Platelet Estimate NORMAL (130-450,000) (NORMAL) 10/27/20 05:22 Platelet Morphology NORMAL APPEARANCE (NORMAL) 10/27/20 05:22 RBC Morph Micro Appear NORMAL APPEARANCE (NORMAL) 10/27/20 05:22 Bld Gas Analysis Time 0506 10/25/20 05:00 Sample Site LEFT RADIAL 10/25/20 05:00 ABG pH 7.49 (7.35-7.45) H 10/25/20 05:00 ABG pCO2 38 mmHg (34-45) 10/25/20 05:00 ABG pO2 67 mmHg (80-100) L 10/25/20 05:00 ABG HCO3 28.2 mmol/L (22.0-26.0) H 10/25/20 05:00 ABG Total CO2 29.3 MMOL/L (21.0-29.0) H 10/25/20 05:00 ABG O2 Saturation 93 % (94-98) L 10/25/20 05:00 ABG Base Excess 4.6 mmol/L (-2.0-3.0) H 10/25/20 05:00 Erik Test POSITIVE 10/25/20 05:00 VBG pH 7.462 (7.31-7.41) H 10/27/20 05:22 VBG pCO2 58.3 mmHg (41-51) H 10/24/20 04:02 VBG pO2 27.1 mmHg (25-47) 10/24/20 04:02 VBG HCO3 30.5 mmol/L (23-28) H 10/24/20 04:02 VBG Total CO2 32.3 mmol/L (24-29) H 10/24/20 04:02 VBG O2 Saturation 46.4 % (60-80) L 10/24/20 04:02 VBG Base Excess 3.2 mmol/L (-2 - +2) H 10/24/20 04:02 Ionized Calcium 1.14 mmol/L (1.15-1.33) L 10/27/20 05:22 Respiration Rate 15 b/min 10/25/20 05:00 O2 Delivery Device VENTILATOR 10/25/20 05:00 Vent Mode ASSIST/CONTROL 10/25/20 05:00 FiO2 55.00 10/25/20 05:00 Tidal Volume 500 mL 10/25/20 05:00 PEEP 5 cmH2O 10/25/20 05:00 Pressure Support Vent 12 cmH2O 10/24/20 08:46 Sodium 141 mmol/L (135-145) 10/27/20 05:22 Potassium 4.2 mmol/L (3.5-5.0) 10/27/20 05:22 Chloride 105 mmol/L (101-111) 10/27/20 05:22 Carbon Dioxide 26 mmol/L (21-32) 10/27/20 05:22 Anion Gap 10.0 (6-13) 10/27/20 05:22 BUN 15 mg/dL (6-20) 10/27/20 05:22 Creatinine 0.7 mg/dL (0.6-1.2) 10/27/20 05:22 Estimated GFR (MDRD) 114 (>89) 10/27/20 05:22 Glucose 139 mg/dL (70-100) H 10/27/20 05:22 Lactic Acid 1.3 mmol/L (0.5-2.2) 10/24/20 01:10 Calcium 8.9 mg/dL (8.5-10.3) 10/27/20 05:22 Phosphorus 4.0 mg/dL (2.5-4.6) 10/27/20 05:22 Magnesium 2.2 mg/dL (1.7-2.8) 10/27/20 05:22 Iron 32 ug/dL (45-182) L 10/27/20 05:22 TIBC 253 ug/dL (250-450) 10/27/20 05:22 % Saturation 13 % (20-50) L 10/27/20 05:22 Transferrin 181 mg/dL (180-329) 10/27/20 05:22 Total Bilirubin 0.6 mg/dL (0.2-1.0) 10/23/20 23:55 AST 21 IU/L (10-42) 10/23/20 23:55 ALT 24 IU/L (10-60) 10/23/20 23:55 Alkaline Phosphatase 63 IU/L (42-121) 10/23/20 23:55 Troponin I High Sens 7.5 ng/L (2.3-19.7) 10/24/20 05:15 B-Natriuretic Peptide 138 pg/mL (5-100) H 10/23/20 23:55 Total Protein 6.4 g/dL (6.7-8.2) L 10/23/20 23:55 Albumin 2.9 g/dL (3.2-5.5) L 10/23/20 23:55 Globulin 3.5 g/dL (2.1-4.2) 10/23/20 23:55 Albumin/Globulin Ratio 0.8 (1.0-2.2) L 10/23/20 23:55 Triglycerides 161 mg/dL (-149) H 10/25/20 04:36 Vitamin B12 669 pg/mL (180-914) 10/27/20 05:22 Folate 7.66 ng/mL (5.90 - >24.8) 10/27/20 05:22 Urine Color YELLOW 10/24/20 03:30 Urine Clarity CLEAR (CLEAR) 10/24/20 03:30 Urine pH 6.0 PH (5.0-7.5) 10/24/20 03:30 Ur Specific [place] 1.015 (1.002-1.030) 10/24/20 03:30 Urine Protein NEGATIVE mg/dL (NEGATIVE) 10/24/20 03:30 Urine Glucose (UA) NEGATIVE mg/dL (NEGATIVE) 10/24/20 03:30 Urine Ketones NEGATIVE mg/dL (NEGATIVE) 10/24/20 03:30 Urine Occult Blood SMALL (NEGATIVE) H 10/24/20 03:30 Urine Nitrite NEGATIVE (NEGATIVE) 10/24/20 03:30 Urine Bilirubin NEGATIVE (NEGATIVE) 10/24/20 03:30 Urine Urobilinogen 0.2 (NORMAL) E.U./dL (NORMAL) 10/24/20 03:30 Ur Leukocyte Esterase NEGATIVE (NEGATIVE) 10/24/20 03:30 Urine RBC 6-10 /HPF (0-5) H 10/24/20 03:30 Urine WBC 0-3 /HPF (0-3) 10/24/20 03:30 Ur Squamous Epith Cells NONE SEEN (<= Few) 10/24/20 03:30 Urine Bacteria None Seen /HPF (None Seen) 10/24/20 03:30 Urine Culture Comments NOT INDICATED 10/24/20 03:30 Nasal Adenovirus (PCR) NOT DETECTED 10/23/20 00:47 Nasal B. parapertussis DNA (PCR) NOT DETECTED 10/23/20 00:47 Nasal Coronavir 229E PCR NOT DETECTED 10/23/20 00:47 Nasal Coronavir HKU1 PCR NOT DETECTED 10/23/20 00:47 Nasal Coronavir NL63 PCR NOT DETECTED 10/23/20 00:47 Nasal Coronavir OC43 PCR NOT DETECTED 10/23/20 00:47 Nasal Enterovir/Rhinovir PCR NOT DETECTED 10/23/20 00:47 Nasal Influenza B PCR NOT DETECTED 10/23/20 00:47 Nasal Influenza A PCR NOT DETECTED 10/23/20 00:47 Nasal Parainfluen 1 PCR NOT DETECTED 10/23/20 00:47 Nasal Parainfluen 2 PCR NOT DETECTED 10/23/20 00:47 Nasal Parainfluen 3 PCR NOT DETECTED 10/23/20 00:47 Nasal Parainfluen 4 PCR NOT DETECTED 10/23/20 00:47 Nasal RSV (PCR) NOT DETECTED 10/23/20 00:47 Nasal Screen MRSA (PCR) NEGATIVE (NEGATIVE) 10/24/20 04:29 Nasal B.pertussis DNA PCR NOT DETECTED 10/23/20 00:47 Nasal C.pneumoniae (PCR) NOT DETECTED 10/23/20 00:47 Froylan Human Metapneumo PCR NOT DETECTED 10/23/20 00:47 Nasal M.pneumoniae (PCR) NOT DETECTED 10/23/20 00:47 Nasal SARS-CoV-2 (PCR) NOT DETECTED 10/23/20 00:47 Urine Opiates Screen NEGATIVE (NEGATIVE) 10/24/20 03:30 Ur Oxycodone Screen NEGATIVE (NEGATIVE) 10/24/20 03:30 Urine Methadone Screen NEGATIVE (NEGATIVE) 10/24/20 03:30 Ur Propoxyphene Screen NEGATIVE (NEGATIVE) 10/24/20 03:30 Ur Barbiturates Screen NEGATIVE (NEGATIVE) 10/24/20 03:30 Ur Tricyclics Screen POSITIVE (NEGATIVE) H 10/24/20 03:30 Ur Phencyclidine Scrn NEGATIVE (NEGATIVE) 10/24/20 03:30 Ur Amphetamine Screen POSITIVE (NEGATIVE) H 10/24/20 03:30 U Methamphetamines Scrn POSITIVE (NEGATIVE) H 10/24/20 03:30 U Benzodiazepines Scrn NEGATIVE (NEGATIVE) 10/24/20 03:30 Urine Cocaine Screen NEGATIVE (NEGATIVE) 10/24/20 03:30 U Cannabinoids Screen POSITIVE (NEGATIVE) H 10/24/20 03:30
[2020-10-27] MEDS: FERROUS GLUCONATE 324 MG TABLET PO SCH (16:53)
--- NOTE | 2020-10-27 18:31 | Discharge Plan ---
Discharge Plan Problem Reviewed?: Yes Disposition: Home, Self Care Condition: Stable Prescriptions: Losartan [Cozaar] 50 mg PO DAILY #30 tablet Ferrous Gluconate [Fergon] 324 mg PO DAILYWM #30 tablet levoFLOXacin [Levaquin] 750 mg PO DAILY #3 tablet guaiFENesin [Mucinex] 600 mg PO BID #10 tablet predniSONE [Prednisone 21-TAB dose pack] 10 mg PO UD #1 each Montelukast [Singulair] 10 mg PO QPM #30 tablet Diet: Regular Activity Restrictions: Activity as Tolerated Shower Restrictions: No Driving Restrictions: No Assistance Devices: Walker Instruction Topics: Iron tablets capsules extended-release tablets, Prednisolone tablets, Montelukast oral tablets, Levofloxacin tablets, Losartan tablets, COPD, Pneumonia, Oxygen Home Use, COVID-19 [facility], COVID-19 [facility] Department Statement, Flu and Cold: Nutrition, Prevention and Treatment Tips Health Concerns: You were admitted to the hospital in severe respiratory distress, you need to be on the ventilator and we treated your pneumonia and a COPD exacerbation. You are being discharged to take several more days of oral antibiotics to treat the pneumonia, and a course of steroids (tapering down over 21 days) for your emphysema. Please resume your inhaler treatments. A prescription for Mucinex for several more days was also prescribed to help the cough. A new prescription for Montelukast every evening for breathing, was electronically prescribed to your pharmacy as well; if this helps your breathing, your PCP should refill this for you all the time. Please stop taking the Lisinopril which may be adding to your cough. In its place you are on a new blood pressure medicine prescribed to Jorge, called Losartan. Also found you to have a significant iron deficiency. There is a new prescription for Iron replacement to take for 1 month. You were tested to check about resuming your home oxygen use and the results showed that you DO NEED TO USE OXYGEN WITH ACTIVITIES, set at 3L/min per nasal cannula. These see your PCP in the next 1 to 2 weeks for hospital follow-up. Plan of Treatment: As above. With your lung diagnosis, you qualify to attend Pulmonary Rehab classes here at the "[facility]". Your provider should order a referral. Care Goals: Improvement in symptoms and stabilization are the goals. Assessment: Patient understands and is agreeable with the plan. Additional Instructions or Follow Up instructions: If you have new or worsening symptoms, call your PCP for advice or come to the ER. Follow-Up Care: [facility] - Pulmonary No Smoking: If you smoke, Please STOP! Call for help. Follow-up with: Milka Rolle MD [Physician No Access] -
[2020-10-27] MEDS: MONTELUKAST 10 MG TABLET PO SCH (21:10)
[2020-10-27] MEDS: AMITRIPTYLINE 25 MG TABLET PO SCH (21:10)
[2020-10-28] MEDS: SODIUM CHLORIDE FLUSH 0.9% 10 ML SYRINGE IVP SCH ×2 (00:17→11:48)
[2020-10-28 05:13] LABS: BASOPHILS # (AUTO) 0.1 10^3/uL (0.0-0.1); BASOPHILS % (AUTO) 0.6 %; HGB - HEMOGLOBIN 11.8 g/dL (14.0-18.0); LYMPHOCYTES # (AUTO) 1.7 10^3/uL (1.5-3.5); LYMPHOCYTES % (AUTO) 12.5 %; MEAN CORPUSCULAR HEMOGLOBIN 31.3 pg (27.0-31.0); MEAN CORPUSCULAR HGB CONC 31.7 g/dL (32.0-36.0); MEAN CORPUSCULAR VOLUME 98.7 fL (80.0-94.0); MONOCYTES # (AUTO) 0.7 10^3/uL (0.0-1.0); NEUTROPHILS # (AUTO) 10.3 10^3/uL (1.5-6.6); NEUTROPHILS % (AUTO) 74.9 %; PLT - PLATELET COUNT 328 10^3/uL (130-450); RED BLOOD COUNT 3.77 10^6/uL (4.70-6.10); RED CELL DISTRIBUTION WIDTH 14.6 % (12.0-15.0); WHITE BLOOD COUNT 13.7 x10^3/uL (4.8-10.8)
[2020-10-28 05:16] LABS: CREATININE 0.9 mg/dL (0.6-1.2)
[2020-10-28 05:35] LABS: PLATELET ESTIMATE, MANUAL NORMAL (130-450,000) (NORMAL); PLATELET MORPHOLOGY NORMAL APPEARANCE (NORMAL); RBC MORPHOLOGY (MULTIPLE) NORMAL APPEARANCE (NORMAL)
[2020-10-28] MEDS: PANTOPRAZOLE 40 MG TABLET PO SCH (06:02)
[2020-10-28] MEDS: GABAPENTIN 300 MG CAPSULE PO SCH (06:03)
[2020-10-28] MEDS: methylPREDNISolone SUCCINATE 40 MG/ML VIAL IVP SCH (06:03)
[2020-10-28] MEDS: FORMOTEROL FUMARATE NEB 20 MCG/2 ML INH SCH (06:17)
[2020-10-28] MEDS: BUDESONIDE 0.5 MG/2 ML NEB INH SCH (06:18)
[2020-10-28] MEDS: IPRATROPIUM/ALBUTEROL 3 ML NEB INH SCH (06:18)
[2020-10-28] MEDS: FERROUS GLUCONATE 324 MG TABLET PO SCH (07:39)
[2020-10-28] MEDS: DIVALPROEX ER 250 MG TABLET PO SCH (08:34)
[2020-10-28] MEDS: LOSARTAN 50 MG TABLET PO SCH (08:34)
[2020-10-28] MEDS: guaiFENesin 600 MG TABLET PO SCH (08:35)
[2020-10-28] MEDS: NICOTINE 14 MG PATCH TOP SCH (08:35)
[2020-10-28] MEDS: ENOXAPARIN 40 MG/0.4 ML SYRINGE SUBQ SCH (08:35)
[2020-10-28] MEDS: DULoxetine 30 MG CAPSULE PO SCH (08:35)
[2020-10-28] MEDS: TAMSULOSIN 0.4 MG CAPSULE PO SCH (08:35)
[2020-10-28] MEDS: MULTIVITAMIN TABLET PO SCH (08:35)
[2020-10-28] MEDS: OLANZapine ODT 5 MG TABLET TL SCH (08:35)
[2020-10-28] MEDS: CHLORHEXIDINE GLUCONATE 15 ML UDC PO SCH (08:43)
[2020-10-28] MEDS ORDERED: levoFLOXacin 250 MG TABLET PO SCH (09:00)
--- NOTE | 2020-10-28 11:30 | DISCHARGE SUMMARY ---
Discharge Summary Admit Date: 10/24/20 Discharge Date: 10/28/20 Discharging Provider: Dr Fartun Pimentel Primary Care Provider: Dr Milka Rolle Code Status: Attempt Resuscitation Condition at Discharge: Stable Discharge Disposition: 01 Home, Self Care - [facility] History of Present Illness: The admission H&P of Dr Jozef Shiu: This history was obtained from the ED physician because the patient was sedated and intubated by the time of my exam. The patient is a 60-year-old male with medical history significant for hypertension, CVA, PR, GERD, erectile dysfunction, COPD, severe psoriasis, BPH, chronic tobacco abuse, anxiety, hyperlipidemia, chronic back pain status post spinal surgery, bipolar disorder with depression, alcohol abuse and methamphetamine use who presented to the ED with dyspnea. He was tachypneic with a respiratory rate as high as 30s and speaking in brief sentences. He was just discharged from [facility] 2 days ago where he has been treated for pneumonia. Even at the time of discharge it is reported that he was tachypneic. At home it is reported that his oxygen saturations have been low. He has history of CVA 1 month ago w ith left-sided deficits. In the ED his mental status progressively declined to the point where intubation was warranted. After intubation work-up included CT of the head, CT angio of the thorax, CBC, CMP. Imaging was negative for a brain bleed and pulmonary embolism however showed a significant right-sided consolidation. The patient had a WBC of 11.5. He was started on vancomycin and cefepime then presented for admission. - HOSPITAL COURSE Hospital Course: (1) Altered mental status At presentation, ABG was pH 7.33, pCO2 56, pO2 70, on 4L of oxygen. His obtundation was felt to be due to hypercarbia and hypoxia. He was intubated and was on Propofol in the ICU for sedation. When extubated, his mental status was entirely normal. (2) Acute respiratory failure with hypoxia He required intubation immediately and was able to be extubated after just 24 hours. He required supplemental oxygen per nasal cannula to saturate > 88%. On the day of discharge, he was tested for needing Home O2. At rest on room air, his saturation was 90%. With ambulation, on room air his sat dropped to 88%. On 2L with ambulation, sat was 89%. On 3L with ambulation, sat was 92. I am ordering Home O2, at 3L during ambulation to treat his COPD. (3) Pneumonia He was treated with iv antibiotics for his pneumonia for 3 days, then was transitioned to oral Levofloxacin and was discharged on Levo, to complete a 7- day total course of antibiotics. He was also continued on Mucinex for pulmonary toilet. (4) COPD with exacerbation After extubation, diffuse fine wheezing was present. He was managed with nebs, IV steroids, Montelukast plus O2 and antibiotics. He was dyspneic when ambulating with PT. He was discharged on a slow (21 day) [id number] schedule of Prednisone, and on oral antibiotics, inhalers, new Montelukast and needs oxygen during ambulation. He had an oxygen cylinder and concentrator at home and the oxygen order was restarted with [employer]. (5) Hypertension Initially BP was "soft" and his BP meds were on hold. When his blood pressure started to be hypertensive, Lisinopril was not resumed since there could be a chance some of his cough is from [place] inhibitor cough. He was started on Losartan 50 mg daily and was discharged on this new BP med. (6) Hyperlipidemia His home satin was continued. (7) Bipolar 1 disorder His home meds were continued. (8) Anemia, iron deficiency Hgb was 12.4 at admission and dropped to 10.4 with hydration. B12 and folate levels were normal. He has borderline low iron stores. He was started on oral iron replacement therapy, and given a 1 month prescription for this. The patient requested and was seen by a desktop support consultant from nutrition dept. (9) Hypokalemia Resolved with replacement. - ALLERGIES Allergies/Adverse Reactions: Allergies Allergy/AdvReac Type Severity Reaction Status Date / Time bupropion HCl * [From Mal] Allergy Rash Verified 12/27/19 10:51 - MEDICATIONS Home Medications: Ambulatory Orders Medication Instructions Recorded Confirmed Multivitamin [Multivitamins] 1 tab PO DAILY 02/04/15 10/24/20 Tamsulosin [Flomax] 0.8 mg PO DAILY 10/30/16 10/24/20 Duloxetine HCl [Cymbalta] 60 mg PO DAILY #30 capsule. 11/04/16 10/24/20 Albuterol Sulf [Ventolin Hfa 2 - 3 puffs INH Q4HR PRN #1 inhaler 12/05/18 10/24/20 Inhaler] Amitriptyline HCl 100 mg PO QPM 10/24/20 10/24/20 Divalproex Sodium [Depakote ER] 1,000 mg PO BID 10/24/20 10/24/20 Gabapentin [Neurontin] 300 mg PO TID 10/24/20 10/24/20 Nicotine 14 mg Patch [Nicoderm] 14 mg TOP Q24H 10/24/20 10/24/20 OLANZapine [Zyprexa] 5 mg PO DAILY 10/24/20 10/24/20 Rosuvastatin Calcium [Crestor] 10 mg PO QPM 10/24/20 10/24/20 Ferrous Gluconate [Fergon] 324 mg PO DAILYWM #30 tablet 10/27/20 Losartan [Cozaar] 50 mg PO DAILY #30 tablet 10/27/20 Montelukast [Singulair] 10 mg PO QPM #30 tablet 10/27/20 guaiFENesin [Mucinex] 600 mg PO BID #10 tablet 10/27/20 levoFLOXacin [Levaquin] 750 mg PO DAILY #3 tablet 10/27/20 predniSONE [Prednisone 21-TAB dose 10 mg PO UD #1 each 10/27/20 pack] - PHYSICAL EXAM AT DISCHARGE General Appearance: positive: No acute distress, Alert Eyes Bilateral: positive: Normal inspection, EOMI ENT: positive: ENT inspection nml, No signs of dehydration Neck: positive: Nml inspection, No JVD Respiratory: positive: No respiratory distress, Breath sounds nml Cardiovascular: positive: Regular rate & rhythm, No murmur Abdomen: positive: Non-tender, Nml bowel sounds, No distention Skin: positive: Warm, Dry Neurologic/Psychiatric: positive: Oriented x3, Motor nml - LABS Result Diagrams: 10/28/20 05:02 10/28/20 05:02 - DIAGNOSTIC IMAGING Diagnostic Imaging Results: Final report reviewed - FOLLOW UP Follow Up: See PCP in 1-2 weeks for hospital follow-up. He would benefit from Pulmonary Rehab at the [facility] here, and this was advised to be ordered by his Provider. - TIME SPENT Time Spent in Discharge (Minutes): 60
[2020-10-28 13:31] VITALS: BP 150/97
== END 2020-10-28 13:40 | disposition home or self-care (01) | DRG 208 ==
LOC: EDUNIT# → ED 23:34 → ICU 10-24 03:24 → MS2 10-26 16:03
PROVIDERS: ADMIT Internal Medicine; ATTEND Internal Medicine
PROC: 5A1945Z Respiratory Ventilation, 24-96 Consecutive Hours (ICD-10-PCS; principal; 2020-10-24)
DX: J96.22 Acute and chronic respiratory failure with hypercapnia (principal); J18.9 Pneumonia, unspecified organism; I69.954 Hemiplegia and hemiparesis following unspecified cerebrovascular disease affecting left non-dominant side; J96.21 Acute and chronic respiratory failure with hypoxia; J43.9 Emphysema, unspecified; I10 Essential (primary) hypertension; E78.5 Hyperlipidemia, unspecified; F10.10 Alcohol abuse, uncomplicated; D50.9 Iron deficiency anemia, unspecified; E87.6 Hypokalemia; F31.9 Bipolar disorder, unspecified; F41.9 Anxiety disorder, unspecified; F90.9 Attention-deficit hyperactivity disorder, unspecified type; K21.9 Gastro-esophageal reflux disease without esophagitis; L40.9 Psoriasis, unspecified; N40.0 Benign prostatic hyperplasia without lower urinary tract symptoms; F17.210 Nicotine dependence, cigarettes, uncomplicated; G89.29 Other chronic pain; M54.9 Dorsalgia, unspecified; Z78.1 Physical restraint status; Z99.81 Dependence on supplemental oxygen; I25.2 Old myocardial infarction; Z79.51 Long term (current) use of inhaled steroids; Z79.899 Other long term (current) drug therapy; Z72.89 Other problems related to lifestyle
CPT/HCPCS: 0202U; 31500; 36415; 36600; 70450; 71045; 71275; 80048; 80053; 80306; 81001; 82330; 82607; 82746; 82803; 83540; 83605; 83735; 83880; 84100; 84466; 84478; 84484; 85025; 87040; 87150; 93005; 94002; 94003; 94640; 94761; 96365; 96366; 96367; 96368; 96375; 97116; 97161; 99291; A9270; J1650; J3010; J3370; J7626; Q9967; 87086

== ENCOUNTER 2021-02-24 15:24 | Outpatient (CLI) | payer MEDICAID ==
--- NOTE | 2021-02-25 08:49 | Ultrasound Report ---
PROCEDURE: Chest INDICATIONS: CHEST WALL MASS, SOFT TISSUE MASS TECHNIQUE: Real-time scanning of left anterior chest wall was performed. COMPARISON: None. FINDINGS: Focused ultrasound examination of left anterior chest wall at patient's reported area of interest adrianne ws ill-defined heterogeneously hypoechoic structure within subcutaneous soft tissue and measures 2.15 x 1.35 x 2.19 cm in size with peripheral hyperemia and adjacent soft tissue edema. IMPRESSION: 1. Finding is likely represent focal organizing hematoma in left anterior chest wall subcutaneous sof t tissue and measures 2.15 x 1.35 x 2.19 cm in size given patient's history of prior left anterior ch est wall compression. Infected collections/abscess versus neoplastic process cannot be excluded. Clin ical correlation and sonographic follow-up isrecommended. Reviewed by: Fred Grier MD on 02/25/2021 8:48 AM PDT Approved by: Fred Grier MD on 02/25/2021 8:48 AM PDT Station ID: [id number]
== END 2021-02-24 15:25 | disposition home or self-care (01) ==
LOC: DI 15:24
PROVIDERS: ATTEND Family Medicine
DX: R22.2 Localized swelling, mass and lump, trunk (principal)

== ENCOUNTER 2021-04-06 13:35 | Emergency (ER) | payer MEDICAID ==
--- OUTSIDE RECORDS SUMMARY | 2021-04-06 13:40 | EXTERNAL MEDICAL SUMMARY RPT | Continuity of Care Document ---
:1960 Demographics Phone Unavailable Preferred Language Unknown Marital Status Unknown Moravian Affiliation Unknown Race Unknown Ethnic Group Unknown Author Organization [place] Address [address] [phone] Phone Allergies Encounters Medications Problems date description facility [id number] Cervical disc disorder with myelopathy, [facility] high cervical region [id number] Cervical disc disorder with myelopathy, [facility] high cervical region [M50.01] Results
--- NOTE | 2021-04-06 14:14 | ED Physician Documentation ---
History of Present Illness - Stated complaint Stated Complaint: LEFT ARM NUMBNESS, LUNP IN CHEST,NECK PX - Chief complaint Chief Complaint: Cardiac - History obtained from History obtained from: Patient, Family - History of Present Illness Timing: Chronic Pain level max: 5 Pain level now: 4 - Additonal information Additional information: Patient is a 60-year-old male who presents to the emergency department stating several complaints. The initial complaint is that he has had a small hematoma/abscess on the anterior chest wall. This improved with antibiotics, but when the antibiotics are stopped it started increasing in size over the past 2 days. No fevers. No chills. Nothing makes it better or worse. The second complaint is that he had surgery on his neck in November of this year. He states that since that time and even before the surgery, he has had intermittent difficulty with the left hand. He states it is not significantly worse than usual. No headaches. No trauma. He states that his doctor has a CT scheduled for Wednesday, he is unsure what type of CT scan or what body part is being imaged. Review of Systems Ten Systems: 10 systems reviewed and negative Constitutional: denies: Fever, Chills Ears: denies: Ear pain Nose: denies: Rhinorrhea / runny nose, Congestion Throat: denies: Sore throat Cardiac: denies: Chest pain / pressure Respiratory: denies: Cough GI: denies: Abdominal Swelling, Nausea, Vomiting, Diarrhea : denies: Dysuria Skin: denies: Rash Musculoskeletal: denies: Neck pain, Back pain Neurologic: denies: Headache PD PAST MEDICAL HISTORY - Past Medical History Cardiovascular: Hypertension, High cholesterol, MA Respiratory: Asthma, COPD, Pneumonia Neuro: CVA, TIA Endocrine/Autoimmune: None GI: GERD : Benign prostate hypertrophy HEENT: None Psych: Depression, Anxiety, Bipolar disorder, ADD/ADHD Musculoskeletal: Chronic back pain Derm: Psoriasis - Past Surgical History Past Surgical History: Yes General: Cholecystectomy, Appendectomy, Colonoscopy Ortho: Spine surgery - Present Medications Home Medications: Ambulatory Orders Medication Instructions Recorded Confirmed Multivitamin [Multivitamins] 1 tab PO DAILY 02/04/15 04/06/21 Tamsulosin [Flomax] 0.8 mg PO DAILY 10/30/16 04/06/21 Duloxetine HCl [Cymbalta] 60 mg PO DAILY #30 capsule. 11/04/16 04/06/21 Albuterol Sulf [Ventolin Hfa 2 - 3 puffs INH Q4HR PRN #1 inhaler 12/05/18 04/06/21 Inhaler] Divalproex Sodium [Depakote ER] 1,000 mg PO BID 10/24/20 04/06/21 Gabapentin [Neurontin] 300 mg PO TID 10/24/20 04/06/21 OLANZapine [Zyprexa] 5 mg PO DAILY 10/24/20 04/06/21 Rosuvastatin Calcium [Crestor] 10 mg PO QPM 10/24/20 04/06/21 clindamycin HCL [Cleocin HCl] 300 mg PO Q6H #40 cap 04/06/21 - Allergies Allergies/Adverse Reactions: Allergies Allergy/AdvReac Type Severity Reaction Status Date / Time bupropion HCl * [From Zyban] Allergy Rash Verified 04/06/21 13:40 - Social History Does the pt smoke?: Yes Smoking Status: Current every day smoker Does the pt drink ETOH?: No Does the pt have substance abuse?: Yes - Immunizations Immunizations are current?: Yes - POLST Patient has POLST: No POLST Status: Full Code PD ED PE NORMAL - Vitals Vital signs reviewed: Yes - General General: Alert and oriented X 3, No acute distress - HEENT HEENT: Moist mucous membranes - Neck Neck: Supple, no meningeal sign, No bony TTP, Other (well healed surgical incisions) - Cardiac Cardiac: RRR, Strong equal pulses - Respiratory Respiratory: No respiratory distress, Clear bilaterally - Back Back: No spinal TTP - Derm Derm: Warm and dry - Extremities Extremities: No edema, No calf tenderness / cord - Neuro Neuro: Alert and oriented X 3, bull float finisher 2-12 intact, No motor deficit, Other (normal sensation over the body, extremities, hands and feet. able to move his fingers sequentially across his thumbs on both hands. ) - Free text exam Free text exam: 1x2 cm erythematous, indurated area to the anterior chest wall. no drainage. no fluctuance. Results - Vitals Vitals: Vital Signs - 24 hr 04/06/21 04/06/21 04/06/21 13:42 14:16 14:32 Temperature 36.9 C Heart Rate 104 H 92 93 Respiratory 19 26 H 21 Rate Blood Pressure 155/96 H 148/94 H 164/100 H O2 Saturation 100 93 96 04/06/21 15:00 Temperature Heart Rate 90 Respiratory 22 Rate Blood Pressure 180/90 H O2 Saturation 98 Oxygen O2 Source Room air - Labs Labs: Laboratory Tests 04/06/21 04/06/21 04/06/21 14:35 14:35 14:35 WBC 7.6 RBC 4.11 L Hgb 11.2 L Hct 34.2 L MCV 83.2 MCH 27.3 MCHC 32.7 RDW 16.8 H Plt Count 352 MPV 8.3 Neut # (Auto) 4.8 Lymph # (Auto) 1.4 L Leslie # (Auto) 1.2 H Eos # (Auto) 0.1 Baso # (Auto) 0.0 Absolute Nucleated RBC 0.00 Nucleated RBC % 0.0 Sodium 135 Potassium 3.6 Chloride 97 L Carbon Dioxide 30 Anion Gap 8.0 BUN 10 Creatinine 0.5 L Estimated GFR (MDRD) 168 Glucose 94 Calcium 9.2 Total Bilirubin 0.5 AST 12 ALT 15 Alkaline Phosphatase 71 Troponin I High Sens 6.3 Total Protein 7.6 Albumin 3.1 L Globulin 4.5 H Albumin/Globulin Ratio 0.7 L Lipase 18 L - Rads (name of study) cxr Radiology: Prelim report reviewed, EMP read contemporaneously, See rad report PD MEDICAL DECISION MAKING - ED course Complexity details: reviewed results, re-evaluated patient, considered differential, d/w patient ED course: 60-year-old male with what appears to be cellulitis over a hematoma on the anterior chest wall. I told the patient that we could incise and drain this to ensure there is no abscess, patient adamantly refuses this. No new neurological deficits here. Recommend that he follow-up with his doctor on Wednesday as scheduled for the imaging that his doctor is going to order for his neck and chest. Patient is well-appearing, nontoxic. Afebrile. Patient and family counseled regarding signs and symptoms for which I believe and urgent re- evaluation would be necessary. Patient with good understanding of and agreement to plan and is comfortable going home at this time This document was made in part using voice recognition software. While efforts are made to proofread this document, sound alike and grammatical errors may occur. Mild interstitial infiltrates are seen. Differential diagnosis includes pulmonary edema and atypical infection. There is blunting of the left costophrenic angle. A small pleural effusion is suspected. Departure - Departure Disposition: 01 Home, Self Care Clinical Impression: Cellulitis Qualifiers: Site of cellulitis: trunk Site of cellulitis of trunk: chest wall Qualified Code(s): L03.313 - Cellulitis of chest wall Condition: Good Instructions: ED Infec Skin Cellulitis Follow-Up: Milka Rolle MD [Primary Care Provider] - Within 1 week Prescriptions: clindamycin HCL [Cleocin HCl] 300 mg PO Q6H #40 cap Comments: Take all antibiotics until gone. Return if you worsen. Follow up with your doctor for further care. They may need to extend your antibiotics until the hematoma is fully resolved. Discharge Date/Time: 04/06/21 15:29 NIHSS - Time Time: 14:30 - Level of Consciousness Level of consciousness: (0) Alert, Keenly responsive LOC Questions: (0) Answers both Q's correct LOC Commands: (0) Performs both correctly - Gaze Best Gaze: (0) Normal - Visual Visual: (0) No loss - Facial Palsy Facial Palsy: (0) Normal, symmetrical movement - Motor Arms (both separate) Motor Arm (right): (0) No drift Motor Arm (left): (0) No drift - Motor Legs (both separate) Motor Leg (right): (0) No drift Motor Leg (left): (0) No drift - Limb Ataxia Limb Ataxia: (0) Absent - Sensory Sensory: (0) Normal - Best Language Best Language: (0) No aphasia - Dysarthria Dysarthria: (0) Normal - Extinction and Inattention (formally neg Extinction and inattention: (0) No abnormality - Total Score/Results Total Score/Result: 0
--- OUTSIDE RECORDS SUMMARY | 2021-04-06 14:18 | EXTERNAL MEDICAL SUMMARY RPT | Continuity of Care Document ---
:1960 Demographics Phone Unavailable Preferred Language Unknown Marital Status Unknown [employer] Affiliation Unknown Race Unknown Ethnic Group Unknown Author Organization [facility] Address [address] [phone] Phone Allergies Encounters Medications Problems date description facility [id number] Cervical disc disorder with myelopathy, [facility] high cervical region [id number] Cervical disc disorder with myelopathy, [facility] high cervical region [M50.01] Results
[2021-04-06 14:40] LABS: BASOPHILS % (AUTO) 0.4 %; EOSINOPHILS # (AUTO) 0.1 10^3/uL (0.0-0.7); EOSINOPHILS % (AUTO) 0.8 %; HCT - HEMATOCRIT 34.2 % (42.0-52.0); HGB - HEMOGLOBIN 11.2 g/dL (14.0-18.0); LYMPHOCYTES # (AUTO) 1.4 10^3/uL (1.5-3.5); MEAN CORPUSCULAR HEMOGLOBIN 27.3 pg (27.0-31.0); MEAN CORPUSCULAR HGB CONC 32.7 g/dL (32.0-36.0); MEAN CORPUSCULAR VOLUME 83.2 fL (80.0-94.0); MEAN PLATELET VOLUME 8.3 fL (7.4-11.4); MONOCYTES # (AUTO) 1.2 10^3/uL (0.0-1.0); MONOCYTES % (AUTO) 16.3 %; NEUTROPHILS # (AUTO) 4.8 10^3/uL (1.5-6.6); NEUTROPHILS % (AUTO) 63.8 %; PLT - PLATELET COUNT 352 10^3/uL (130-450); RED BLOOD COUNT 4.11 10^6/uL (4.70-6.10); RED CELL DISTRIBUTION WIDTH 16.8 % (12.0-15.0); WHITE BLOOD COUNT 7.6 x10^3/uL (4.8-10.8)
[2021-04-06 15:07] LABS: ALBUMIN 3.1 g/dL (3.2-5.5); ALBUMIN/GLOBULIN RATIO 0.7 (1.0-2.2); BILIRUBIN,TOTAL 0.5 mg/dL (0.2-1.0); CALCIUM 9.2 mg/dL (8.5-10.3); CREATININE 0.5 mg/dL (0.6-1.2); POTASSIUM 3.6 mmol/L (3.5-5.0); TOTAL PROTEIN 7.6 g/dL (6.7-8.2)
--- NOTE | 2021-04-06 15:10 | XRAY Report ---
PROCEDURE: Chest 1 View X-Ray INDICATIONS: Chest pain TECHNIQUE: One view of the chest was acquired. COMPARISON: 10/24/2020, 12/05/2018. Correlation is also made with prior chest CT, 10/23/2020. FINDINGS: Surgical changes and devices: Cervicothoracic fixation hardware is partially seen. Lungs and pleura: Mild interstitial infiltrates are seen, which are most prominent involving the left lower lung. There is blunting of the left costophrenic angle. Mediastinum: Mediastinal contours appear normal. Heart size is normal. Bones and chest wall: No suspicious bony lesions. Age-appropriate degenerative changes are seen. T here is at least one remote right posterior rib fracture. Overlying soft tissues appear unremarkable. IMPRESSION: Mild interstitial infiltrates are seen. Differential diagnosis includes pulmonary edema and atypical infection. There is blunting of the left costophrenic angle. A small pleural effusion is suspected. Reviewed by: Marlon Medina MD on 04/06/2021 2:09 PM HÉCTOR Approved by: Marlon Medina MD on 04/06/2021 2:09 PM HÉCTOR Station ID: [id number]
[2021-04-06 15:36] VITALS: BP 180/90
== END 2021-04-06 15:29 | disposition home or self-care (01) ==
LOC: ED 13:35
DX: L03.313 Cellulitis of chest wall (principal); R91.8 Other nonspecific abnormal finding of lung field; R29.91 Unspecified symptoms and signs involving the musculoskeletal system; I10 Essential (primary) hypertension; F17.200 Nicotine dependence, unspecified, uncomplicated
CPT/HCPCS: 36415; 80053; 83690; 84484; 85025; 93005; 99284

== ENCOUNTER 2021-08-26 15:11 | Emergency (ER) | payer MEDICAID ==
--- NOTE | 2021-08-26 16:11 | ED Physician Documentation ---
History of Present Illness - Stated complaint Stated Complaint: GLF,CAN'T WALK - Chief complaint Chief Complaint: General - History obtained from History obtained from: Patient - Additonal information Additional information: This is a 61-year-old male who presented several days after a ground-level fall. [place] foot got caught on something and he fell backwards onto his right hip and right shoulder. He presents with right hip and shoulder pain. He states he cannot walk because his hip is uncomfortable though he had been walking the last couple of days. He does have a history of arthritis and a prior L5-S1 laminectomy. He states he is taking Aleve at nighttime but is not able to sleep due to the discomfort. No fever, chills, chest pain or dyspnea, abdominal pain, nausea vomiting or diarrhea, joint redness or swelling. He has no extremity numbness or weakness, and he denies hitting his head or neck during the fall and no loss of consciousness. Review of Systems Constitutional: reports: Reviewed and negative Eyes: reports: Reviewed and negative Ears: reports: Reviewed and negative Nose: reports: Reviewed and negative Throat: reports: Reviewed and negative Cardiac: reports: Reviewed and negative Respiratory: reports: Reviewed and negative GI: reports: Reviewed and negative : reports: Reviewed and negative Skin: reports: Reviewed and negative Musculoskeletal: reports: Extremity pain, Joint pain, Pain with weight bearing. denies: Neck pain, Back pain, Extremity swelling, Joint swelling Neurologic: reports: Reviewed and negative Psychiatric: reports: Reviewed and negative Endocrine: reports: Reviewed and negative Immunocompromised: reports: Reviewed and negative PD PAST MEDICAL HISTORY - Past Medical History Past Medical History: Yes Cardiovascular: Hypertension, High cholesterol, MA Respiratory: Asthma, COPD, Pneumonia Neuro: CVA, TIA Endocrine/Autoimmune: None GI: GERD : Benign prostate hypertrophy HEENT: None Psych: Depression, Anxiety, Bipolar disorder, ADD/ADHD Musculoskeletal: Chronic back pain Derm: Psoriasis - Past Surgical History Past Surgical History: Yes General: Cholecystectomy, Appendectomy, Colonoscopy Ortho: Spine surgery - Present Medications Home Medications: Ambulatory Orders Medication Instructions Recorded Confirmed Multivitamin [Multivitamins] 1 tab PO DAILY 02/04/15 04/06/21 Tamsulosin [Flomax] 0.8 mg PO DAILY 10/30/16 04/06/21 Duloxetine HCl [Cymbalta] 60 mg PO DAILY #30 capsule. 11/04/16 04/06/21 Albuterol Sulf [Ventolin Hfa 2 - 3 puffs INH Q4HR PRN #1 inhaler 12/05/18 04/06/21 Inhaler] Divalproex Sodium [Depakote ER] 1,000 mg PO BID 10/24/20 04/06/21 Gabapentin [Neurontin] 300 mg PO TID 10/24/20 04/06/21 OLANZapine [Zyprexa] 5 mg PO DAILY 10/24/20 04/06/21 Rosuvastatin Calcium [Crestor] 10 mg PO QPM 10/24/20 04/06/21 clindamycin HCL [Cleocin HCl] 300 mg PO Q6H #40 cap 04/06/21 Oxycodone HCl [Oxaydo] 5 mg PO DAILY #5 08/26/21 - Allergies Allergies/Adverse Reactions: Allergies Allergy/AdvReac Type Severity Reaction Status Date / Time bupropion HCl * [From Mal] Allergy Rash Verified 04/06/21 13:40 - Social History Does the pt smoke?: Yes Smoking Status: Current every day smoker Does the pt drink ETOH?: No Does the pt have substance abuse?: Yes - Immunizations Immunizations are current?: Yes - POLST Patient has POLST: No POLST Status: Full Code PD ED PE NORMAL - Vitals Vital signs reviewed: Yes - General General: Alert and oriented X 3, No acute distress, Well developed/nourished - HEENT HEENT: Atraumatic, Pharynx benign - Neck Neck: Supple, no meningeal sign, No JVD - Cardiac Cardiac: RRR, No murmur - Respiratory Respiratory: No respiratory distress, Clear bilaterally - Abdomen Abdomen: Normal bowel sounds, Soft - Back Back: No spinal TTP - Derm Derm: Normal color, Warm and dry, No rash - Extremities Extremities: No deformity, No edema, No calf tenderness / cord, Other (Right hip ttp, no swelling or erythema. Is able to weight bear and ambulate. Right shoulder normal appearance, some discomfort w/ passive ROM. no swelling/erythema/or deformity. ) - Neuro Neuro: Alert and oriented X 3 Eye Opening: Spontaneous Motor: Obeys Commands Verbal: Oriented GCS Score: 15 - Psych Psych: Normal mood, Normal affect Results - Vitals Vitals: Vital Signs - 24 hr 08/26/21 08/26/21 15:24 17:20 Temperature 36.8 C 36.6 C Heart Rate 102 H 89 Respiratory 16 12 Rate Blood Pressure 144/79 H 146/89 H O2 Saturation 99 98 Oxygen O2 Source Room air PD MEDICAL DECISION MAKING - ED course Complexity details: reviewed results, re-evaluated patient, d/w patient ED course: Patient presented after a ground-level fall as noted above. He was complaining of right hip and right shoulder pain. There is no focal injuries on physical exam, we did obtain x-rays which were reassuring. Given his physical exam I have low suspicion for an occult fracture and did not proceed with a CT scan. He does have degenerative changes in the hip and shoulder and advised that he may have some pain issues related to these. Patient was given 5 tablets of oxycodone for nighttime use and was advised to continue the ibuprofen or Aleve during the day and as needed Tylenol during the day. He has follow-up with his primary at the end of the week. Return precautions reviewed in detail with the patient if you were to develop joint redness, joint swelling, decreased range of motion or other new concerns. Departure - Departure Disposition: Home, Self Care Clinical Impression: Hip pain, right, Shoulder pain, right Condition: Good Instructions: ED Contusion Lower Ext Prescriptions: Oxycodone HCl [Oxaydo] 5 mg PO DAILY #5 Comments: You presented with right hip and right shoulder pain after a fall. We did x-ray imaging which was reassuring. You do have a number of degenerative changes that are likely contributing to your pain. Continue to use the Aleve and I have given you 5 tablets of oxycodone that he can use at night until you follow-up with your primary care provider on Wednesday as discussed. Return if you develop joint swelling or redness, fever chills or otherwise worsening symptoms. Discharge Date/Time: 08/26/21 17:20
--- NOTE | 2021-08-26 16:51 | XRAY Report ---
PROCEDURE: Shoulder 3 View RT INDICATIONS: fall TECHNIQUE: 3 views of the shoulder were acquired. COMPARISON: None. FINDINGS: Bones: No acute fractures or dislocations. Moderate-severe osteophytic changes of the right acromio clavicular and glenohumeral joints. There are mild hypertrophic osteoarthritic changes of the right a cromioclavicular joint. No suspicious bony lesions. Visualized ribs appear intact. Coracoclavicular and, critical intervals are maintained. Soft tissues: No suspicious soft tissue calcifications. IMPRESSION: Right shoulder without acute fracture or dislocation. Advanced degenerative changes of the right acromioclavicular and glenohumeral joints. If there is persistent clinical concern for a radiographically occult fracture, recommend immobilizat ion and repeat imaging in 10 to 14 days. Reviewed by: Krish Turner MD on 08/26/2021 4:50 PM PDT Approved by: Krish Turner MD on 08/26/2021 4:50 PM PDT Station ID: [id number]
--- NOTE | 2021-08-26 16:55 | XRAY Report ---
PROCEDURE: Hip w/Pelvis 2-3V RT INDICATIONS: fall TECHNIQUE: AP pelvis with lateral view(s) of the right hip(s). COMPARISON: None available for review. FINDINGS: Bones: No acute fractures or dislocations. Pelvic ring appears intact. No suspicious bony lesions. Status post fusion of the lower lumbar spine using paraspinal rods and pedicular screws at L5 and S 1. Moderate lower lumbar spondylosis. Mild degenerative changes of the bilateral hip joint. Soft tissues: The visualized bowel gas pattern is normal. No suspicious soft tissue calcifications. IMPRESSION: 1. Right hip without acute fracture or dislocation. If there is persistent clinical concern for occul t fracture given history of trauma, consider further evaluation with cross-sectional imaging. 2. Minimal degenerative changes of the bilateral hips. 3. Status post spinal fusion of L5-S1 without evidence for hardware complication. Moderate lower lumb ar spondylosis. Reviewed by: Krish Turner MD on 08/26/2021 4:53 PM PDT Approved by: Krish Turner MD on 08/26/2021 4:53 PM PDT Station ID: [id number]
[2021-08-26 17:23] VITALS: BP 146/89
== END 2021-08-26 17:20 | disposition home or self-care (01) ==
LOC: ED 15:11
DX: M25.551 Pain in right hip (principal); M25.511 Pain in right shoulder; F17.200 Nicotine dependence, unspecified, uncomplicated
CPT/HCPCS: 99283

== ENCOUNTER 2021-10-14 15:53 | Outpatient (CLI) | payer MEDICAID ==
--- NOTE | 2021-10-14 17:17 | XRAY Report ---
PROCEDURE: Chest 2 View X-Ray INDICATIONS: SOB TECHNIQUE: 2 view(s) of the chest. COMPARISON: None. FINDINGS: Surgical changes and devices: Surgical fusion hardware in lower cervical spine is seen.. Lungs and pleura: No pleural effusions or pneumothorax. There is mild hyperinflation. No focal infil trate. Mediastinum: Mediastinal contours are normal. Heart size is normal. Bones and chest wall: No suspicious bony abnormalities. Old healed fracture involving right posterio r lateral sixth rib is seen. Soft tissues appear unremarkable. IMPRESSION: Hyperinflation. No focal infiltrate, pleural effusion or pneumothorax. Reviewed by: Fred Grier MD on 10/14/2021 5:15 PM PST Approved by: Fred Grier MD on 10/14/2021 5:15 PM PST Station ID: [id number]
== END 2021-10-14 15:54 | disposition home or self-care (01) ==
LOC: DI 15:53
PROVIDERS: ATTEND Surgery
DX: R06.02 Shortness of breath (principal)

== ENCOUNTER 2021-11-06 16:58 | Emergency (ER) | payer MEDICAID ==
[2021-11-06 17:19] VITALS: BP 150/81
[2021-11-06] MEDS ORDERED: HYDROmorphone 1 MG/ML CARPUJECT IM STA (17:32)
--- NOTE | 2021-11-06 17:34 | ED Physician Documentation ---
PD HPI MAJOR TRAUMA - Stated complaint Stated Complaint: FELL DOWN STAIRS - Chief complaint Chief Complaint: Trauma Ch/Bk - History obtained from History obtained from: Patient - Additional information Additional information: He was going up his exterior stairs last night and turned around and fell onto his butt and his left side and has severe left shoulder pain, also some neck pain with history of significant fusion there. No other injuries. Review of Systems Constitutional: denies: Fever, Chills Throat: reports: Reviewed and negative Cardiac: reports: Reviewed and negative Respiratory: reports: Reviewed and negative PD PAST MEDICAL HISTORY - Past Medical History Cardiovascular: Hypertension, High cholesterol, [place] Respiratory: Asthma, COPD, Pneumonia Neuro: CVA, TIA Endocrine/Autoimmune: None GI: GERD : Benign prostate hypertrophy HEENT: None Psych: Depression, Anxiety, Bipolar disorder, ADD/ADHD Musculoskeletal: Chronic back pain Derm: Psoriasis - Past Surgical History Past Surgical History: Yes General: Cholecystectomy, Appendectomy, Colonoscopy Ortho: Spine surgery - Present Medications Home Medications: Ambulatory Orders Medication Instructions Recorded Confirmed Multivitamin [Multivitamins] 1 tab PO DAILY 02/04/15 04/06/21 Tamsulosin [Flomax] 0.8 mg PO DAILY 10/30/16 04/06/21 Duloxetine HCl [Cymbalta] 60 mg PO DAILY #30 capsule. 11/04/16 04/06/21 Albuterol Sulf [Ventolin Hfa 2 - 3 puffs INH Q4HR PRN #1 inhaler 12/05/18 04/06/21 Inhaler] Divalproex Sodium [Depakote ER] 1,000 mg PO BID 10/24/20 04/06/21 Gabapentin [Neurontin] 300 mg PO TID 10/24/20 04/06/21 OLANZapine [Zyprexa] 5 mg PO DAILY 10/24/20 04/06/21 Rosuvastatin Calcium [Crestor] 10 mg PO QPM 10/24/20 04/06/21 clindamycin HCL [Cleocin HCl] 300 mg PO Q6H #40 cap 04/06/21 Oxycodone HCl [Oxaydo] 5 mg PO DAILY #5 08/26/21 Oxycodone HCl/Acetaminophen 1 - 2 each PO Q6H PRN #14 tablet 11/06/21 [Percocet 5-325 mg Tablet] - Allergies Allergies/Adverse Reactions: Allergies Allergy/AdvReac Type Severity Reaction Status Date / Time bupropion HCl * [From Zyban] Allergy Rash Verified 11/06/21 17:19 - Social History Does the pt smoke?: Yes Smoking Status: Current every day smoker Does the pt drink ETOH?: No Does the pt have substance abuse?: Yes - Immunizations Immunizations are current?: Yes - POLST Patient has POLST: No POLST Status: Full Code PD ED PE NORMAL - Vitals Vital signs reviewed: Yes - General General: Alert and oriented X 3, No acute distress - HEENT HEENT: PERRL, EOMI - Neck Neck: Other (Mild tenderness of the mid cervical spine without deformity. Good range of motion. Extensive surgical scars on the back of the cervical spine.) - Back Back: No CVA TTP, No spinal TTP - Derm Derm: Normal color, Warm and dry - Extremities Extremities: Other (Tender over the lateral left shoulder without deformity. Limited range of motion due to pain. No clavicular or humeral tenderness. Full range of motion at the left elbow.) - Neuro Neuro: Alert and oriented X 3, Normal speech - Psych Psych: Normal mood, Normal affect Results - Vitals Vitals: Vital Signs - 24 hr 11/06/21 17:14 Temperature 36.6 C Heart Rate 104 H Respiratory 18 Rate Blood Pressure 150/81 H O2 Saturation 97 Oxygen O2 Source Room air - Rads (name of study) Three-view x-ray of the right shoulder demonstrates osteoarthritis without fracture Radiology: EMP read contemporaneously CT of the cervical spine demonstrates no trauma, see incidental findings on formal read. Also see MDM. 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 He fell today and injured his neck and left shoulder. The CT of his neck shows concern for hardware infection, that said he has not had any recent or progressive increases in neck pain nor any fevers or chills. As such I doubt the acuity of these findings. No evidence of trauma on the study. He has an appointment with his spine surgeon very soon for follow-up and he was given a copy of his CAT scan and a CD with the Images on it to take to that appointment. Departure - Departure Disposition: Home, Self Care Clinical Impression: Neck strain, Contusion of left shoulder Condition: Good Record reviewed to determine appropriate education?: Yes Instructions: ED Sprain Strain Neck Prescriptions: Oxycodone HCl/Acetaminophen [Percocet 5-325 mg Tablet] 1 - 2 each PO Q6H PRN #14 tablet PRN Reason: pain Comments: I sent prescription electronically to [facility] in [place]. As discussed, your CT today shows concern for infection around the T1 and T2 screws and misplacement of the C2 screws. This is not going to be related to the fall you had today. And given your lack of progressive neck pain recently as we discussed and lack of infectious symptoms such as fevers, I have doubts about the accuracy of the CT. That said, since you are seeing your spine surgeon in the near future, this would be appropriate to discuss with him or her at follow-up. Please take the copy of the CAT scan read as well as the CD with the actual CAT scan images on it with you to that appointment. If you develop fevers or chills, increasing neck pain, or other new or worrisome symptoms please return to the emergency department for immediate evaluation. I am prescribing a short course of narcotic pain medication for you. These are potentially dangerous and addictive medications that should be used carefully. These medications may constipate you. Take an htbx-qjh-bftovdz stool softener (docusate) twice daily with plenty of water while taking these medications. If you go 24 hours without a bowel movement, take [id number]-wpy-kmyboxo miralax, per package instructions. Do not drink or drive while taking these medications. If you received narcotic or sedating medications while in the emergency department, do not drive for 24 hours. Store this medication in a safe, secure place and out of reach of children. It is a violation of federal law to give or sell this medication to another person or to use in a manner other than prescribed. The ED will not refill narcotic prescriptions, including prescriptions lost or stolen. To dispose of unwanted medications: 1. [facility] at [address] in [place] has a medication drop box. They accept prescription medications (in pill form) Wednesday through Wednesday 9:00 a.m. to 5:00 p.m. 2. The [facility] accepts prescription medications (in pill form only) for disposal year round. Call for more information. 3. Contact the [facility] for the next [facility] sponsored prescription drug collection event. , [phone], or [phone]; Note that many narcotic pain relievers also contain Tylenol/acetaminophen. Please ensure that your total dose of acetaminophen from all sources does not exceed 3 g (3000 mg) per day.
--- NOTE | 2021-11-06 18:14 | XRAY Report ---
PROCEDURE: Shoulder 3 View LT INDICATIONS: shoulder inj TECHNIQUE: 3 views of the shoulder were acquired. COMPARISON: None. FINDINGS: Bones: No fractures or dislocations. No suspicious bony lesions. Visualized ribs appear intact. M ild periareolar osteophyte formation at the acromioclavicular and glenohumeral joints. Cervical fusio n hardware is present. Soft tissues: No suspicious soft tissue calcifications. IMPRESSION: Osteoarthritis. No acute fracture. No osseous lesion. If symptoms and/or clinical suspic ion for pathology continue, further assessment with repeat plain films, or advanced imaging (e.g., CT , MRI, or bone scan) is recommended for further assessment. Reviewed by: Celestino Cool MD on 11/06/2021 6:12 PM [facility] Approved by: Celestino Cool MD on 11/06/2021 6:12 PM [facility] Station ID: [id number]
--- NOTE | 2021-11-06 18:22 | CT Report ---
PROCEDURE: CERVICAL SPINE WO INDICATIONS: neck inj TECHNIQUE: Noncontrast 3 mm thick sections acquired from the skull base to the T4 level. Sagittal and coronal r eformats were then constructed. For radiation dose reduction, the following was used: automated exp osure control, adjustment of mA and/or kV according to patient size. COMPARISON: Plain films dated 10/14/2021. CT dated 11/29/2018 FINDINGS: Image quality: Degraded by metallic artifact. Bones: No fractures or dislocations. Posterior fusion hardware at C2-T2 is present. The C2 pedicle screws appear to be superior to the pedicles. There is mild lucency surrounding the T1 pedicle screws within the T1 vertebral body and pedicle. There is moderate lucency surrounding the T2 pedicle screw s within the T2 vertebral body and pedicles. The lucency within the T2 vertebral body extends anterio rly through the anterior T2 cortex into the prevertebral soft tissues. Visualized superior ribs are i ntact. Soft tissues: There is soft tissue swelling within the prevertebral soft tissues at C7-T2, measuring roughly 23 mm in thickness. No paravertebral hematomas. No apical pneumothoraces. IMPRESSION: 1. No acute fracture. 2. Postsurgical sequelae. 3. There is new prevertebral soft tissue swelling at T1 and T2 levels, in conjunction with lucency martínez rrounding the T1 and T2 pedicle screws. This constellation of findings is suggestive of hardware infe ction with spread into the prevertebral soft tissues. Clinical correlation and orthopedic surgical co nsultation recommended. 4. The C2 pedicle screws appear to be located superior to the C2 pedicles rather than within the C2 p edicles. Reviewed by: Celestino Cool MD on 11/06/2021 6:21 PM PST Approved by: Celestino Cool MD on 11/06/2021 6:21 PM PST Station ID: [id number]
== END 2021-11-06 19:07 | disposition home or self-care (01) ==
LOC: ED 16:58
DX: S16.1XXA Strain of muscle, fascia and tendon at neck level, initial encounter (principal); S40.012A Contusion of left shoulder, initial encounter; W00.0XXA Fall on same level due to ice and snow, initial encounter; Y93.89 Activity, other specified; Y92.89 Other specified places as the place of occurrence of the external cause; F17.200 Nicotine dependence, unspecified, uncomplicated
CPT/HCPCS: 72125; 73030; 96372; 99282; 99284; J1170

== ENCOUNTER 2021-11-07 20:34 | Emergency (ER) | payer MEDICAID ==
[2021-11-07] MEDS ORDERED: oxyCODONE/ACET 5/325 Prepack 4 PO STA (21:03)
[2021-11-07 21:12] VITALS: BP 128/88
--- NOTE | 2021-11-07 21:15 | ED Physician Documentation ---
PD HPI BACK PAIN - Stated complaint Stated Complaint: GLF ON ICE - Chief complaint Chief Complaint: Back Pain - History obtained from History obtained from: Patient - Additional information Additional information: I saw this 61-year-old gentleman with multiple comorbidities yesterday for injuries to the shoulder and cervical spine, relevant x-rays were negative. He went to the pharmacy today, When he was there, they told him he needed a paper prescription although it had been E prescribed. He noted bruises on his knees today and wanted those checked out. Also he notes that he quit smoking a few weeks ago and although he does not feel short of breath or is coughing his girlfriend heard rhonchorous breathing while he was sleeping last night. Review of Systems Constitutional: denies: Fever, Chills Respiratory: denies: Dyspnea, Cough GI: denies: Abdominal Pain, Nausea, Vomiting PD PAST MEDICAL HISTORY - Past Medical History Cardiovascular: Hypertension, High cholesterol, [place] Respiratory: Asthma, COPD, Pneumonia Neuro: CVA, TIA Endocrine/Autoimmune: None GI: GERD : Benign prostate hypertrophy HEENT: None Psych: Depression, Anxiety, Bipolar disorder, ADD/ADHD Musculoskeletal: Chronic back pain Derm: Psoriasis - Past Surgical History Past Surgical History: Yes General: Cholecystectomy, Appendectomy, Colonoscopy Ortho: Spine surgery - Present Medications Home Medications: Ambulatory Orders Medication Instructions Recorded Confirmed Multivitamin [Multivitamins] 1 tab PO DAILY 02/04/15 04/06/21 Tamsulosin [Flomax] 0.8 mg PO DAILY 10/30/16 04/06/21 Duloxetine HCl [Cymbalta] 60 mg PO DAILY #30 capsule. 11/04/16 04/06/21 Albuterol Sulf [Ventolin Hfa 2 - 3 puffs INH Q4HR PRN #1 inhaler 12/05/18 04/06/21 Inhaler] Divalproex Sodium [Depakote ER] 1,000 mg PO BID 10/24/20 04/06/21 Gabapentin [Neurontin] 300 mg PO TID 10/24/20 04/06/21 OLANZapine [Zyprexa] 5 mg PO DAILY 10/24/20 04/06/21 Rosuvastatin Calcium [Crestor] 10 mg PO QPM 10/24/20 04/06/21 clindamycin HCL [Cleocin HCl] 300 mg PO Q6H #40 cap 04/06/21 Oxycodone HCl [Oxaydo] 5 mg PO DAILY #5 08/26/21 Oxycodone HCl/Acetaminophen 1 - 2 each PO Q6H PRN #14 tablet 11/07/21 [Percocet 5-325 mg Tablet] - Allergies Allergies/Adverse Reactions: Allergies Allergy/AdvReac Type Severity Reaction Status Date / Time bupropion HCl * [From Zyban] Allergy Rash Verified 11/06/21 17:19 - Social History Does the pt smoke?: Yes Smoking Status: Current every day smoker Does the pt drink ETOH?: No Does the pt have substance abuse?: Yes - Immunizations Immunizations are current?: Yes - POLST Patient has POLST: No POLST Status: Full Code PD ED PE NORMAL - Vitals Vital signs reviewed: Yes - General General: Alert and oriented X 3, No acute distress - HEENT HEENT: PERRL, EOMI - Neck Neck: Supple, no meningeal sign, No bony TTP - Cardiac Cardiac: RRR, No murmur - Respiratory Respiratory: No respiratory distress, Clear bilaterally - Abdomen Abdomen: Non tender - Extremities Extremities: Other (L knee has a bruise anterosuperior area medial. Full range of motion and nontender. Right knee without bruising, full range of motion and nontender.) - Neuro Neuro: Alert and oriented X 3, Normal speech Results - Vitals Vitals: Vital Signs - 24 hr 11/07/21 11/07/21 20:44 21:10 Temperature 36.8 C 36.8 C Heart Rate 110 H 92 Respiratory 22 20 Rate Blood Pressure 123/67 128/88 H O2 Saturation 94 93 Oxygen O2 Source Room air PD MEDICAL DECISION MAKING - ED course ED course: 61-year-old gentleman presents for evaluation of bilateral knee bruises without evidence of serious injury on clinical examination. His lungs are relatively clear and discussed with him that it is common to have his rhonchorous breathing after quitting smoking and he has an albuterol inhaler and he is advised to use it. His prescription sent last night to [facility] was canceled and a new 1E prescribed to [facility] which is the only pharmacy open tomorrow on New 's day. Departure - Departure Disposition: 01 Home, Self Care Clinical Impression: Knee contusion Condition: Good Record reviewed to determine appropriate education?: Yes Instructions: ED Sprain Knee Collateral Ligaments Prescriptions: Oxycodone HCl/Acetaminophen [Percocet 5-325 mg Tablet] 1 - 2 each PO Q6H PRN #14 tablet PRN Reason: pain Comments: I sent your prescription to [facility] in [place] as that is the only pharmacy open tomorrow. The previous prescription sent to [facility] was cancelled. Call your doctor to arrange a follow-up appointment, make the next available appointment. In the interim, return anytime if worse or if new symptoms develop. I am prescribing a short course of narcotic pain medication for you. These are potentially dangerous and addictive medications that should be used carefully. These medications may constipate you. Take an udvn-mze-avvtkde stool softener (docusate) twice daily with plenty of water while taking these medications. If you go 24 hours without a bowel movement, take vfoz-kfr-eqjxpuq miralax, per package instructions. Do not drink or drive while taking these medications. If you received narcotic or sedating medications while in the emergency depart ment, do not drive for 24 hours. Store this medication in a safe, secure place and out of reach of children. It is a violation of federal law to give or sell this medication to another person or to use in a manner other than prescribed. The ED will not refill narcotic prescriptions, including prescriptions lost or stolen. To dispose of unwanted medications: 1. [facility] [address] in [place] has a medication drop box. They accept prescription medications (in pill form) Wednesday through Wednesday 9:00 a.m. to 5:00 p.m. 2. [facility] accepts prescription medications (in pill form only) for disposal year round. Call for more information. 3. Contact the [facility] for the next [facility] sponsored prescription drug collection event. , [phone], or [phone]; Note that many narcotic pain relievers also contain Tylenol/acetaminophen. Please ensure that your total dose of acetaminophen from all sources does not exceed 3 g (3000 mg) per day.
== END 2021-11-07 21:30 | disposition home or self-care (01) ==
LOC: ED 20:34
DX: S80.02XA Contusion of left knee, initial encounter (principal); S80.01XA Contusion of right knee, initial encounter; X58.XXXA Exposure to other specified factors, initial encounter; I10 Essential (primary) hypertension; J44.9 Chronic obstructive pulmonary disease, unspecified; Z87.891 Personal history of nicotine dependence
CPT/HCPCS: 99282; 99283

== ENCOUNTER 2021-11-12 16:43 | Outpatient (CLI) | payer MEDICAID | END 2021-11-12 16:44 | disposition critical access hospital (66) | LOC: EMS 16:43 | DX: R39.89 Other symptoms and signs involving the genitourinary system (principal); R06.09 Other forms of dyspnea; Z99.81 Dependence on supplemental oxygen | CPT/HCPCS: A0425; A0429 ==

== ENCOUNTER 2021-11-12 17:04 | Emergency (ER) | payer MEDICAID ==
--- NOTE | 2021-11-12 17:13 | ED Physician Documentation ---
History of Present Illness - Stated complaint Stated Complaint: UNABLE TO URINATE - Additonal information Additional information: 61-year-old male who has a history most significant for hypertension, oxygen dependent COPD as well as BPH presents the emergency department for evaluation of acute shortness of breath as well as urinary retention. Reports that he has been out of his to most For about 48 hours and subsequently has not been able to urinate for 48 hours. He has not had any fevers. He did not realize that he was going to run out of his prescription. He is also endorsing increasing shortness of breath over the last week. Shortness of breath is especially worse with ambulation. Denying any chest pain. No fevers. Review of Systems Constitutional: denies: Fever, Chills Eyes: reports: Reviewed and negative Nose: reports: Reviewed and negative Throat: reports: Reviewed and negative Cardiac: denies: Chest pain / pressure, Palpitations GI: denies: Abdominal Pain, Nausea, Vomiting : reports: Unable to Void. denies: Dysuria Skin: denies: Rash, Lesions Musculoskeletal: reports: Reviewed and negative Neurologic: reports: Reviewed and negative PD PAST MEDICAL HISTORY - Past Medical History Cardiovascular: Hypertension, High cholesterol, [place] Respiratory: Asthma, COPD, Pneumonia Neuro: CVA, TIA Endocrine/Autoimmune: None GI: GERD : Benign prostate hypertrophy HEENT: None Psych: Depression, Anxiety, Bipolar disorder, ADD/ADHD Musculoskeletal: Chronic back pain Derm: Psoriasis - Past Surgical History Past Surgical History: Yes General: Cholecystectomy, Appendectomy, Colonoscopy Ortho: Spine surgery - Present Medications Home Medications: Ambulatory Orders Medication Instructions Recorded Confirmed Multivitamin [Multivitamins] 1 tab PO DAILY 02/04/15 04/06/21 Tamsulosin [Flomax] 0.8 mg PO DAILY 10/30/16 04/06/21 Duloxetine HCl [Cymbalta] 60 mg PO DAILY #30 capsule. 11/04/16 04/06/21 Albuterol Sulf [Ventolin Hfa 2 - 3 puffs INH Q4HR PRN #1 inhaler 12/05/18 04/06/21 Inhaler] Divalproex Sodium [Depakote ER] 1,000 mg PO BID 10/24/20 04/06/21 Gabapentin [Neurontin] 300 mg PO TID 10/24/20 04/06/21 OLANZapine [Zyprexa] 5 mg PO DAILY 10/24/20 04/06/21 Rosuvastatin Calcium [Crestor] 10 mg PO QPM 10/24/20 04/06/21 clindamycin HCL [Cleocin HCl] 300 mg PO Q6H #40 cap 04/06/21 Oxycodone HCl [Oxaydo] 5 mg PO DAILY #5 08/26/21 Oxycodone HCl/Acetaminophen 1 - 2 each PO Q6H PRN #14 tablet 11/07/21 [Percocet 5-325 mg Tablet] Tamsulosin HCl [Flomax] 0.4 mg PO DAILY #30 cap 11/12/21 - Allergies Allergies/Adverse Reactions: Allergies Allergy/AdvReac Type Severity Reaction Status Date / Time bupropion HCl * [From Mal] Allergy Rash Verified 11/12/21 17:15 - Social History Does the pt smoke?: Yes Smoking Status: Current every day smoker Does the pt drink ETOH?: No Does the pt have substance abuse?: Yes - Immunizations Immunizations are current?: Yes - POLST Patient has POLST: No POLST Status: Full Code PD ED PE NORMAL - General General: Alert and oriented X 3, No acute distress, Well developed/nourished - HEENT HEENT: Atraumatic, Moist mucous membranes - Neck Neck: Supple, no meningeal sign, No adenopathy - Cardiac Cardiac: RRR - Respiratory Respiratory: No respiratory distress, Clear bilaterally, Other (2 L nasal pk marissa oxygen saturations are 98%) - Abdomen Abdomen: Normal bowel sounds, Soft, Other (Bladder scan reveals 900 mils of retained urine). No: Non tender (Mild suprapubic tenderness.) - Back Back: No CVA TTP, No spinal TTP - Derm Derm: Warm and dry - Extremities Extremities: No deformity, No tenderness to palpate - Neuro Neuro: Alert and oriented X 3 Eye Opening: Spontaneous Motor: Obeys Commands Results - Vitals Vitals: Vital Signs - 24 hr 11/12/21 17:12 Temperature 36.8 C Heart Rate 110 H Respiratory 19 Rate Blood Pressure 126/82 H O2 Saturation 92 Oxygen O2 Source Room air - EKG (time done) 1733 Rate: Rate (enter#) (110) Rhythm: Sinus tachycardia [place]: LAD Intervals: Normal [place]. No: Prolonged QT QRS: Normal Ischemia: Other (V5 RAMYA) Compare to prior EKG: Changed from prior EKG Computer interpretation: Agree with computer - Labs Labs: Laboratory Tests 11/12/21 11/12/21 11/12/21 17:28 17:28 17:28 WBC 13.4 H RBC 4.30 L Hgb 11.4 L Hct 35.3 L MCV 82.1 MCH 26.5 L MCHC 32.3 RDW 17.7 H Plt Count 424 MPV 8.1 Manual Slide Review Indicated Sodium 135 Potassium 3.6 Chloride 97 L Carbon Dioxide 27 Anion Gap 11.0 BUN 15 Creatinine 0.6 Estimated GFR (MDRD) 136 Glucose 155 H Calcium 8.5 Total Bilirubin 0.3 AST 17 ALT 24 Alkaline Phosphatase 106 Troponin I High Sens 6.5 B-Natriuretic Peptide Total Protein 7.6 Albumin 2.6 L Globulin 5.0 H Albumin/Globulin Ratio 0.5 L Lipase 17 L Urine Color Urine Clarity Urine pH Ur Specific [place] Urine Protein Urine Glucose (UA) Urine Ketones Urine Occult Blood Urine Nitrite Urine Bilirubin Urine Urobilinogen Ur Leukocyte Esterase Urine RBC Urine WBC Ur Squamous Epith Cells Urine Bacteria Ur Microscopic Review Urine Culture Comments 11/12/21 11/12/21 17:28 18:00 WBC RBC Hgb Hct MCV MCH MCHC RDW Plt Count MPV Manual Slide Review Sodium Potassium Chloride Carbon Dioxide Anion Gap BUN Creatinine Estimated GFR (MDRD) Glucose Calcium Total Bilirubin AST ALT Alkaline Phosphatase Troponin I High Sens B-Natriuretic Peptide 50 Total Protein Albumin Globulin Albumin/Globulin Ratio Lipase Urine Color DARK YELLOW Urine Clarity CLEAR Urine pH 6.0 Ur Specific [place] >=1.030 H Urine Protein 100 H Urine Glucose (UA) NEGATIVE Urine Ketones TRACE Urine Occult Blood MODERATE H Urine Nitrite NEGATIVE Urine Bilirubin NEGATIVE Urine Urobilinogen 0.2 (NORMAL) Ur Leukocyte Esterase NEGATIVE Urine RBC 11-25 H Urine WBC 0-3 Ur Squamous Epith Cells NONE SEEN Urine Bacteria Rare Ur Microscopic Review INDICATED Urine Culture Comments NOT INDICATED - Rads (name of study) CXR Radiology: Final report received (No acute cardiopulmonary process) PD MEDICAL DECISION MAKING - ED course Complexity details: reviewed results, re-evaluated patient, d/w patient ED course: Fevers or [id number] male who has a history of COPD dependent on 2 L nasal cannula as well as BPH presents emergency department with 2 days of acute urinary obstruction. This follows being out of his Flomax for the same amount of time. We did do an initial ED bladder scan that showed 900 mils of urine. [place] catheter was drained with resultant 1200 mils fluid return received. Urine shows no signs of infection though there is some mild hematuria. Screening labs showed no worrisome kidney issues. He had reported some worsening shortness of breath over the last few days. However there was no hypoxia no pneumonia on chest x-ray BNP and troponin were not elevated. EKG was nonischemic. Patient is feeling markedly improved after the [place] was placed. He will be discharged home with a leg bag. Prescription for Flomax was sent to the pharmacy. Patient is advised to take the Flomax for a number of days before having a [place] trial for removal. Emergent return precautions otherwise discussed. Departure - Departure Disposition: 01 Home, Self Care Clinical Impression: Acute urinary retention COPD (chronic obstructive pulmonary disease) Qualifiers: COPD type: chronic bronchitis Chronic bronchitis type: unspecified Qualified Code(s): J42 - Unspecified chronic bronchitis Condition: Stable Record reviewed to determine appropriate education?: Yes Prescriptions: Tamsulosin HCl [Flomax] 0.4 mg PO DAILY #30 cap Comments: Arnoldo you are seen in emergency department today because you have been unable to pee for about 48 hours. This occurred when you run out of your flomax. We have placed a [place] catheter in you. This should remain in place for at [address] 4 to 5 days while you refill your medications begin taking it. Recommend you follow-up closely with your primary care doctor in order to have the [place] catheter removed within the next week or so. If at any point you develop fevers, have sudden severe abdominal pain, chest pain then please return immediately to the ER for a second evaluation. Your chest x-ray was normal today there were no findings of pneumonia. Your screening labs and EKG did not show any worrisome findings. Your prescriptions have been sent electronically to the [facility]
[2021-11-12] MEDS ORDERED: TAMSULOSIN 0.4 MG CAPSULE PO STA (17:14)
[2021-11-12 17:16] VITALS: BP 126/82
[2021-11-12 17:31] LABS: BASOPHILS % (AUTO) 0.6 %; EOSINOPHILS % (AUTO) 0.1 %; HCT - HEMATOCRIT 35.3 % (42.0-52.0); HGB - HEMOGLOBIN 11.4 g/dL (14.0-18.0); MEAN CORPUSCULAR HEMOGLOBIN 26.5 pg (27.0-31.0); MEAN CORPUSCULAR HGB CONC 32.3 g/dL (32.0-36.0); MEAN CORPUSCULAR VOLUME 82.1 fL (80.0-94.0); MEAN PLATELET VOLUME 8.1 fL (7.4-11.4); MONOCYTES % (AUTO) 11.4 %; NEUTROPHILS % (AUTO) 77.3 %; PLT - PLATELET COUNT 424 10^3/uL (130-450); RED CELL DISTRIBUTION WIDTH 17.7 % (12.0-15.0); WHITE BLOOD COUNT 13.4 x10^3/uL (4.8-10.8)
[2021-11-12 17:36] LABS: ABNORMAL LYMPHS % (MANUAL) 0 %; BAND NEUTROPHILS % (MANUAL) 0 %; SLIDE REVIEW? Indicated
[2021-11-12 17:46] LABS: ALBUMIN 2.6 g/dL (3.2-5.5); ALBUMIN/GLOBULIN RATIO 0.5 (1.0-2.2); BILIRUBIN,TOTAL 0.3 mg/dL (0.2-1.0); CALCIUM 8.5 mg/dL (8.5-10.3); CREATININE 0.6 mg/dL (0.6-1.2); POTASSIUM 3.6 mmol/L (3.5-5.0); TOTAL PROTEIN 7.6 g/dL (6.7-8.2)
[2021-11-12 18:05] LABS: BILIRUBIN,URINE NEGATIVE (NEGATIVE); GLUCOSE, URINE (UA) NEGATIVE (NEGATIVE); KETONES,URINE (UA) TRACE mg/dL (NEGATIVE); LEUKOCYTE ESTERASE, URINE NEGATIVE (NEGATIVE); NITRITE,URINE NEGATIVE (NEGATIVE); OCCULT BLOOD,URINE MODERATE (NEGATIVE); PROTEIN,URINE 100 mg/dL (NEGATIVE); UROBILINOGEN,URINE 0.2 (NORMAL) E.U./dL (NORMAL)
[2021-11-12 18:09] LABS: CLARITY,URINE CLEAR (CLEAR)
--- NOTE | 2021-11-12 18:11 | XRAY Report ---
PROCEDURE: Chest 1 View X-Ray INDICATIONS: chest pain TECHNIQUE: One view of the chest was acquired. COMPARISON: 2 view chest x-ray 10/14/2021. FINDINGS: Surgical changes and devices: Partially visualized cervicothoracic fixation hardware. Lungs and pleura: No pleural effusions or pneumothorax. Lungs are clear. Lungs hyperinflated sugges ting COPD. Mediastinum: Mediastinal contours appear normal. Heart size is normal. Bones and chest wall: Chronic sixth rib fracture. No suspicious bony lesions. Overlying soft tissue s appear unremarkable. IMPRESSION: No acute cardiopulmonary disease process. Reviewed by: Radha Garcia MD, PhD on 11/12/2021 6:10 PM PST Approved by: Radha Garcia MD, PhD on 11/12/2021 6:10 PM PST Station ID: [id number]
[2021-11-12 18:26] LABS: SQUAMOUS EPITHELIAL CELL,UR NONE SEEN (<= Few); WBC,URINE 0-3 /HPF (0-3)
[2021-11-12 18:27] LABS: BACTERIA,URINE Rare /HPF (None Seen)
[2021-11-12 19:24] LABS: LYMPHOCYTES # (MANUAL) 0.9 10^3/uL (1.5-3.5); LYMPHOCYTES % (MANUAL) 7 %; MONOCYTES # (MANUAL) 2.3 10^3/uL (0.0-1.0); NEUTROPHILS # (MANUAL) 10.2 10^3/uL (1.5-6.6)
[2021-11-12 19:25] LABS: DIFFERENTIAL COMMENT MANUAL DIFFERENTIAL; PLATELET ESTIMATE, MANUAL NORMAL (130-450,000) (NORMAL); PLATELET MORPHOLOGY NORMAL APPEARANCE (NORMAL); RBC MORPHOLOGY (MULTIPLE) NORMAL APPEARANCE (NORMAL); WBC MORPHOLOGY (MULTIPLE) NORMAL APPEARANCE (NORMAL)
== END 2021-11-12 19:24 | disposition home or self-care (01) ==
LOC: EDUNIT# → ED 17:04
DX: N40.1 Benign prostatic hyperplasia with lower urinary tract symptoms (principal); R33.8 Other retention of urine; J44.9 Chronic obstructive pulmonary disease, unspecified; Z99.81 Dependence on supplemental oxygen; F17.200 Nicotine dependence, unspecified, uncomplicated
CPT/HCPCS: 36415; 51702; 71045; 80053; 81001; 83690; 83880; 84484; 85025; 93005; 99284; A9270; 81003; 87086

== ENCOUNTER 2021-11-18 17:16 | Outpatient (CLI) | payer MEDICAID | END 2021-11-18 17:17 | disposition critical access hospital (66) | LOC: EMS 17:16 | DX: R29.898 Other symptoms and signs involving the musculoskeletal system (principal) | CPT/HCPCS: A0425; A0429; A0999 ==

== ENCOUNTER 2021-11-18 17:38 | Emergency (ER) | payer MEDICAID ==
[2021-11-18] MEDS ORDERED: SODIUM CHLORIDE 0.9% 1,000 ML IV STA ×2 (18:00→21:52)
--- NOTE | 2021-11-18 18:04 | ED Physician Documentation ---
History of Present Illness - Stated complaint Stated Complaint: DECREASED MOBILITY - Chief complaint Chief Complaint: General - Additonal information Additional information: 61-year-old male presents the emergency department for evaluation of left lower leg weakness and increased paresthesias. He reports a history of lumbar spinal fusion more than 10 years ago at [facility]. About 4 days ago he was walking up his stairs with a cane turned around and fell. Since then he has had increased in what he describes a his chronic back pain but since yesterday has had increased left leg weakness as well as increased numbness especially on the lateral portion of the leg and thigh. He typically walks with a cane but will occasionally use a walker. This gentleman was seen by myself later last week for urinary obstruction and does present with a Omalley catheter in place. He has not yet have it removed. He noticed some blood in the catheter today. He denies any fevers, there is no saddle anesthesia. No loss of bowel function. Review of Systems Constitutional: denies: Fever Eyes: reports: Reviewed and negative Ears: reports: Reviewed and negative Nose: reports: Reviewed and negative Throat: reports: Reviewed and negative Cardiac: reports: Reviewed and negative Respiratory: reports: Reviewed and negative GI: reports: Reviewed and negative Musculoskeletal: reports: Back pain, Extremity pain Neurologic: reports: Focal weakness PD PAST MEDICAL HISTORY - Past Medical History Cardiovascular: Hypertension, High cholesterol, [place] Respiratory: Asthma, COPD, Pneumonia Neuro: CVA, TIA Endocrine/Autoimmune: None GI: GERD : Benign prostate hypertrophy HEENT: None Psych: Depression, Anxiety, Bipolar disorder, ADD/ADHD Musculoskeletal: Chronic back pain Derm: Psoriasis - Past Surgical History Past Surgical History: Yes General: Cholecystectomy, Appendectomy, Colonoscopy Ortho: Spine surgery - Present Medications Home Medications: Ambulatory Orders Medication Instructions Recorded Confirmed Multivitamin [Multivitamins] 1 tab PO DAILY 02/04/15 04/06/21 Tamsulosin [Flomax] 0.8 mg PO DAILY 10/30/16 04/06/21 Duloxetine HCl [Cymbalta] 60 mg PO DAILY #30 capsule. 11/04/16 04/06/21 Albuterol Sulf [Ventolin Hfa 2 - 3 puffs INH Q4HR PRN #1 inhaler 12/05/18 04/06/21 Inhaler] Divalproex Sodium [Depakote ER] 1,000 mg PO BID 10/24/20 04/06/21 Gabapentin [Neurontin] 300 mg PO TID 10/24/20 04/06/21 OLANZapine [Zyprexa] 5 mg PO DAILY 10/24/20 04/06/21 Rosuvastatin Calcium [Crestor] 10 mg PO QPM 10/24/20 04/06/21 clindamycin HCL [Cleocin HCl] 300 mg PO Q6H #40 cap 04/06/21 Oxycodone HCl [Oxaydo] 5 mg PO DAILY #5 08/26/21 Oxycodone HCl/Acetaminophen 1 - 2 each PO Q6H PRN #14 tablet 11/07/21 [Percocet 5-325 mg Tablet] Tamsulosin HCl [Flomax] 0.4 mg PO DAILY #30 cap 11/12/21 Ciprofloxacin HCl [Cipro] 500 mg PO BID #20 tablet 11/18/21 oxyCODONE [Roxicodone] 5 mg PO TID PRN #15 tablet 11/18/21 - Allergies Allergies/Adverse Reactions: Allergies Allergy/AdvReac Type Severity Reaction Status Date / Time bupropion HCl * [From Zyban] Allergy Rash Verified 11/12/21 17:15 - Social History Does the pt smoke?: Yes Smoking Status: Current every day smoker Does the pt drink ETOH?: No Does the pt have substance abuse?: Yes - Immunizations Immunizations are current?: Yes - POLST Patient has POLST: No POLST Status: Full Code PD ED PE EXPANDED - General General: Alert, No acute distress, Well developed/nourished - Cardiac Cardiac: Regular Rate, Radial strong equal, Pedal strong equal, Cap refill < 2 sec. No: Murmur Present - Respiratory Respiratory: Clear to ausultation keith. No: Distress, Labored - Abdomen Abdomen: Hyperactive BS. No: Tender to palpation - Rectal Rectal: Other (Normal rectal tone. Sphincter intact. No saddle anesthesia) - Back Back: Normal ROM. No: Vertebral tenderness, Soft tissue tenderness - Derm Derm: Normal color, Warm and dry. No: Rash - Extremities Extremities: Normal, Deformity, Other (Motor strength 5/5 right leg. Motor strength 2/5 left leg. Increased loss of sensation left lateral thigh and lateral calf. Reduced dorsi and plantar flexion.) - Neuro Neuro: Alert and Oriented X 3, Normal finger nose, Normal speech - GCS Eye Opening: Spontaneous Motor: Obeys Commands Verbal: Oriented Total: 15 Results - Vitals Vitals: Vital Signs - 24 hr 11/18/21 11/18/21 11/18/21 17:46 21:49 22:31 Temperature 36.3 C L 36.6 C Heart Rate 101 H 98 95 Respiratory 16 16 18 Rate Blood Pressure 111/74 115/72 164/99 H O2 Saturation 95 96 98 Oxygen O2 Source Room air - Labs Labs: Laboratory Tests 11/18/21 11/18/21 11/18/21 18:08 18:08 18:08 WBC 18.4 H RBC 4.24 L Hgb 11.2 L Hct 36.1 L MCV 85.1 MCH 26.4 L MCHC 31.0 L RDW 17.6 H Plt Count 662 H MPV 7.8 Neut # (Auto) 15.3 H Lymph # (Auto) 1.7 Campbell # (Auto) 0.9 Eos # (Auto) 0.1 Baso # (Auto) 0.1 Absolute Nucleated RBC 0.00 Nucleated RBC % 0.0 ESR 97 H Sodium 138 Potassium 4.4 Chloride 96 L Carbon Dioxide 32 Anion Gap 10.0 BUN 17 Creatinine 0.6 Estimated GFR (MDRD) 136 Glucose 100 Lactic Acid Calcium 8.7 Total Bilirubin 0.4 AST 13 ALT 24 Alkaline Phosphatase 93 C-Reactive Protein 9.9 H Total Protein 7.6 Albumin 2.5 L Globulin 5.1 H Albumin/Globulin Ratio 0.5 L Lipase 19 L Urine Color Urine Clarity Urine pH Ur Specific [place] Urine Protein Urine Glucose (UA) Urine Ketones Urine Occult Blood Urine Nitrite Urine Bilirubin Urine Urobilinogen Ur Leukocyte Esterase Urine RBC Urine WBC Ur Squamous Epith Cells Urine Bacteria Ur Microscopic Review Urine Culture Comments 11/18/21 11/18/21 18:40 19:02 WBC RBC Hgb Hct MCV MCH MCHC RDW Plt Count MPV Neut # (Auto) Lymph # (Auto) [place] # (Auto) Eos # (Auto) Baso # (Auto) Absolute Nucleated RBC Nucleated RBC % ESR Sodium Potassium Chloride Carbon Dioxide Anion Gap BUN Creatinine Estimated GFR (MDRD) Glucose Lactic Acid 1.0 Calcium Total Bilirubin AST ALT Alkaline Phosphatase C-Reactive Protein Total Protein Albumin Globulin Albumin/Globulin Ratio Lipase Urine Color YELLOW Urine Clarity HAZY Urine pH 7.0 Ur Specific [place] 1.015 Urine Protein 30 H Urine Glucose (UA) NEGATIVE Urine Ketones NEGATIVE Urine Occult Blood LARGE H Urine Nitrite POSITIVE H Urine Bilirubin NEGATIVE Urine Urobilinogen 1 (NORMAL) Ur Leukocyte Esterase SMALL H Urine RBC TNTC H Urine WBC 6-10 H Ur Squamous Epith Cells FEW Squamous Urine Bacteria Many H Ur Microscopic Review INDICATED Urine Culture Comments INDICATED - Rads (name of study) cxr Radiology: Final report received (Persistent mild left effusion and improved although unresolved bibasilar opacities suggestive of pneumonia.) CT abd Radiology: Final report received (Diverticulosis. Multilevel degenerative changes within the spine. Air is present within the nondependent bladder. This is overall nonspecific and could be related to iatrogenic catheterization. However it can also be seen with infection/inflammation.) CT lumbar Radiology: Final report received (Posterior fusion is present L5-S1. Multilevel degenerative changes are present including prominent spinal stenosis at L4-L5) PD MEDICAL DECISION MAKING - ED course Complexity details: reviewed results, re-evaluated patient, considered differential, d/w patient ED course: 61-year-old male presents emergency department with worsening low back pain as well as worsening left leg weakness. He does have a history of previous lumbar spinal fusion. He did have a fall about [address] shows multilevel degenerative changes as well as spinal canal stenosis. This patient initially had his pain controlled with Dilaudid following appropriate analgesia he was moving much more easily with reduced weakness. The CT scan suggest some loosening of his hardware in the L5-S1 region as there is some lucencies around the surgical screws. I did offer the patient to remain in the emergency department overnight in order for him to obtain an MRI tomorrow but at this time he declines to stay. He feels better now that his pain is controlled and would like to be discharged home. He was ambulating at the bedside with a walker. His gait is stable and safe. He does have follow-up with his primary care doctor on the at which time I have advised him that he is to have an MRI of his lumbar spine completed. We discussed emergent return precautions and the back pain red flags. He also presented with a Omalley catheter that was placed last week during an ER visit for urinary obstruction which was secondary to being out of his flomas. Catheter was placed and he was to have the omalley removed this week once he resumed the flomax. He missed f/u with his pcp yesterday. He has subsequently developed an infection in his urine. We do note modest leukocytosis with a white count of 18,000. no lactate elevation. No fevers. non tender abdomen A CT of the abdomen did not show findings suggestive of a pyelonephritis or abscess formation. His Omalley catheter was discontinued today in the emergency department following this he was able to void on his own. Patient will be started on ciprofloxacin and this prescription has been sent to the pharmacy. His initial dose of antibiotic was given tonight here in the emergency department which was ceftriaxone IV. I discussed all labs andCT imaging findings on the phone with the patient's so at his request. Departure - Departure Disposition: Home, Self Care Clinical Impression: Left leg weakness UTI (urinary tract infection) Qualifiers: Urinary tract infection type: acute cystitis Hematuria presence: with hematuria Qualified Code(s): N30.01 - Acute cystitis with hematuria Lumbar stenosis Qualifiers: Neurogenic claudication status: without neurogenic claudication Qualified Code(s): M48.061 - Spinal stenosis, lumbar region without neurogenic claudication Condition: Stable Record reviewed to determine appropriate education?: Yes Instructions: ED Infec Bladder Cystitis Male Prescriptions: Ciprofloxacin HCl [Cipro] 500 mg PO BID #20 tablet oxyCODONE [Roxicodone] 5 mg PO TID PRN #15 tablet PRN Reason: Pain Comments: Arnoldo you are seen in the emergency department today for increased low back pain as well as weakness in the left leg. The CT of your lumbar spine does show that you have moderate to severe spinal canal stenosis. When you see your doctor on the please discuss this finding. You would benefit from an outpatient MRI of your lumbar spine as well as referral to a back pain specialist/doctor. I prescribed a limited amount of oxycodone to help control your pain. You did come back to the emergency department with a Omalley catheter that we placed last week when you had urinary obstruction because you ran out of the [place] max. You have developed a urinary tract infection but we were able to take the Omalley out and you are able to pee on your own. Do not stop taking the Flomax. However you do need to fill the prescription for the ciprofloxacin and begin taking twice daily. If despite the antibiotics you begin to have fevers, abdominal pain uncontrolled vomiting then you are to return immediately to the ER. If at any point you develop numbness or tingling in your genital area or lose control of your bowel and bladder function you are also to return immediately to the ER. I am prescribing a short course of narcotic pain medication for you. These are potentially dangerous and addictive medications that should be used carefully. These medications may constipate you. Take an kxkw-ppf-cdsldes stool softener ( docusate) twice daily with plenty of water while taking these medications. If you go 24 hours without a bowel movement, take [id number] miralax, per package instructions. Do not drink or drive while taking these medications. If you received narcotic or sedating medications while in the emergency department, do not drive for 24 hours. Store this medication in a safe, secure place and out of reach of children. It is a violation of federal law to give or sell this medication to another person or to use in a manner other than prescribed. The ED will not refill narcotic prescriptions, including prescriptions lost or stolen. To dispose of unwanted medications: 1. [facility] at [address] in [place] has a medication drop box. They accept prescription medications (in pill form) Wednesday through Wednesday 9:00 a.m. to 5:00 p.m. 2. The [facility] [employer] accepts prescription medications (in pill form only) for disposal year round. Call for more information. 3. Contact the [facility] for the next [facility] sponsored prescription drug collection event. , [phone], or [phone]; Note that many narcotic pain relievers also contain Tylenol/acetaminophen. Please ensure that your total dose of acetaminophen from all sources does not exceed 3 g (3000 mg) per day. Your prescriptions have been sent electronically to the [facility]. Discharge Date/Time: 11/18/21 22:36
[2021-11-18 18:11] LABS: BASOPHILS # (AUTO) 0.1 10^3/uL (0.0-0.1); BASOPHILS % (AUTO) 0.4 %; EOSINOPHILS # (AUTO) 0.1 10^3/uL (0.0-0.7); EOSINOPHILS % (AUTO) 0.7 %; HCT - HEMATOCRIT 36.1 % (42.0-52.0); HGB - HEMOGLOBIN 11.2 g/dL (14.0-18.0); LYMPHOCYTES # (AUTO) 1.7 10^3/uL (1.5-3.5); MEAN CORPUSCULAR HEMOGLOBIN 26.4 pg (27.0-31.0); MEAN CORPUSCULAR VOLUME 85.1 fL (80.0-94.0); MEAN PLATELET VOLUME 7.8 fL (7.4-11.4); MONOCYTES # (AUTO) 0.9 10^3/uL (0.0-1.0); NEUTROPHILS # (AUTO) 15.3 10^3/uL (1.5-6.6); NEUTROPHILS % (AUTO) 82.8 %; PLT - PLATELET COUNT 662 10^3/uL (130-450); RED BLOOD COUNT 4.24 10^6/uL (4.70-6.10); RED CELL DISTRIBUTION WIDTH 17.6 % (12.0-15.0); WHITE BLOOD COUNT 18.4 x10^3/uL (4.8-10.8)
[2021-11-18 18:28] LABS: ALBUMIN 2.5 g/dL (3.2-5.5); ALBUMIN/GLOBULIN RATIO 0.5 (1.0-2.2); BILIRUBIN,TOTAL 0.4 mg/dL (0.2-1.0); CALCIUM 8.7 mg/dL (8.5-10.3); CREATININE 0.6 mg/dL (0.6-1.2); CRP - C-REACTIVE PROTEIN 9.9 mg/dL (0-1.0); POTASSIUM 4.4 mmol/L (3.5-5.0); TOTAL PROTEIN 7.6 g/dL (6.7-8.2)
[2021-11-18 19:02] LABS: BILIRUBIN,URINE NEGATIVE (NEGATIVE); GLUCOSE, URINE (UA) NEGATIVE (NEGATIVE); KETONES,URINE (UA) NEGATIVE (NEGATIVE); LEUKOCYTE ESTERASE, URINE SMALL (NEGATIVE); NITRITE,URINE POSITIVE (NEGATIVE); OCCULT BLOOD,URINE LARGE (NEGATIVE); PROTEIN,URINE 30 mg/dL (NEGATIVE); UROBILINOGEN,URINE 1 (NORMAL) E.U./dL (NORMAL)
[2021-11-18 19:11] LABS: CLARITY,URINE HAZY (CLEAR)
[2021-11-18] MEDS ORDERED: HYDROmorphone 1 MG/ML CARPUJECT IVP STA (19:16)
[2021-11-18 19:21] LABS: BACTERIA,URINE Many /HPF (None Seen); RBC,URINE TNTC /HPF (0-5); SQUAMOUS EPITHELIAL CELL,UR FEW Squamous (<= Few)
[2021-11-18] MEDS ORDERED: cefTRIAXone 1 GM VIAL IVP STA (19:29)
[2021-11-18] MEDS ORDERED: iohexoL-300 100 ML VIAL ONE ×2 (19:45→19:57)
--- NOTE | 2021-11-18 19:56 | XRAY Report ---
PROCEDURE: Chest 1 View X-Ray INDICATIONS: chest pain TECHNIQUE: One view of the chest was acquired. COMPARISON: Chest x-ray 11/12/2021 FINDINGS: Surgical changes and devices: Partially visualized cervical fixation screws are noted. Lungs and pleura: There is persistent mild left effusion. Mild interstitial prominence is present at the bases although slightly less so when compared to prior exam. Mediastinum: Mediastinal contours appear normal. Heart size is normal. Bones and chest wall: No suspicious bony lesions. Overlying soft tissues appear unremarkable. IMPRESSION: Persistent mild left effusion and improved although unresolved bibasilar opacities suggestive of pneu monia. Reviewed by: Ritu Carnes MD on 11/18/2021 7:55 PM PST Approved by: Ritu Carnes MD on 11/18/2021 7:55 PM PST Station ID: [id number]
[2021-11-18] MEDS ORDERED: iohexoL-300 100 ML VIAL IVP ONE (21:21)
--- NOTE | 2021-11-18 21:39 | CT Report ---
PROCEDURE: Abdomen/Pelvis W INDICATIONS: left leg weakness, elevated CRP CONTRAST: IV CONTRAST: Isovue 300 ml: 100 PO CONTRAST: *NO PO CONTRAST TECHNIQUE: After the administration of IV contrast, 5 mm thick sections acquired from the diaphragms to the symp hysis. 5 mm thick coronal and sagittal reformats were acquired. For radiation dose reduction, the f ollowing was used: automated exposure control, adjustment of mA and/or kV according to patient size. COMPARISON: CT lumbar spine 11/19/2018 FINDINGS: Image quality: Excellent. ABDOMEN: Lung bases: Lung bases demonstrate scattered areas of dependent change as well as atelectasis. Heart size is enlarged. Solid organs: Liver and spleen are normal in size and enhancement. Gallbladder is unremarkable Terrell iary system is non dilated. Pancreas enhances normally. No adrenal nodules. Kidneys demonstrate no rmal size and enhancement, without hydronephrosis. Peritoneum and bowel: Bowel loops demonstrate normal wall thickness and caliber. There is no obstruc tion. Colonic diverticula are present without visualized inflammatory change. Significant stool is pr esent throughout the colon most notably in the right and transverse. No free fluid or air. Nodes and vessels: No retroperitoneal or mesenteric adenopathy by size criteria. Aorta and inferior vena cava are normal in size. Miscellaneous: No ventral hernias. PELVIS: Genitourinary: Bladder wall thickness is normal. Nondependent air is present within the bladder. Miscellaneous: Bilateral fat-containing inguinal hernias are present. Bones: Focal sclerosis is present within the left sacrum, unchanged from 2019 and likely bone island. . No vertebral body compression fractures. Posterior fusion is present at L5-S1. Multilevel degenera tive changes are present including prominent spinal stenosis at L4-5. IMPRESSION: 1. Diverticulosis. 2. Multilevel degenerative changes within the spine as above. 3. Air is present within the nondependent bladder. This is overall nonspecific and could be related t o iatrogenic catheterization. However, it can also be seen with infection/inflammation or under progr am clinical circumstances fistula formation. Reviewed by: Ritu Carnes MD on 11/18/2021 9:37 PM PST Approved by: Ritu Carnes MD on 11/18/2021 9:37 PM PST Station ID: [id number]
--- NOTE | 2021-11-18 21:45 | CT Report ---
PROCEDURE: LUMBAR SPINE W INDICATIONS: Do abdpel first CONTRAST: IV CONTRAST: Isovue 300 ml: 100 PO CONTRAST: *NO PO CONTRAST TECHNIQUE: After the administration of intravenous Isovue contrast, 3 mm thick sections acquired from the T12 le jaylyn to the sacrum. Sagittal and coronal reformats were constructed. For radiation dose reduction, t he following was used: automated exposure control, adjustment of mA and/or kV according to patient s ize. COMPARISON: None. FINDINGS: Image quality: Excellent. Bones: There is mild rightward curvature of the lumbar spine with apex at L3-4. Posterior fusion is present at L5-S1. Hardware is intact. There is a minimal appearance of periprosthetic lucency within the pedicular screws. The pedicular screws at S1 extends beyond the anterior cortex margin. There are no visualized osseous fractures or dislocations. Reactive endplate changes are present at L2-3, L3-4 , L4-5. Multilevel severe disc space narrowing with vacuum disc are present throughout the lumbar spi ne. There is grade 1 anterolisthesis of L4 on L5 measuring approximately 6 mm. Multilevel anterior os teophytes are also present. Mild disc bulges are present at L2-3 including a left foraminal component, L3-4, L4-5 and potentially L5-S1 although this area is obscured by surgical hardware artifact. There is moderate spinal stenosi s at L2-3, L3-4, moderate to severe L4-5. There is mild to moderate left foraminal narrowing at L2-3, severe left and mild right L3-4, severe right, moderate to severe left L4-5, severe left and moderat e right L5-S1. Soft tissues: No retroperitoneal masses or hematomas. Visualized aorta is normal in caliber. IMPRESSION: 1. Multilevel degenerative disc space narrowing as well as fusion at L5-S1. 2. Areas of reticular lucency are noted surrounding the surgical screws at L5 and S1 suggestive of lo osening. Hardware appears intact otherwise. 3. Multilevel spinal stenosis appearing most notable at L4-5 secondary to disc bulge with contributin g effect of facet/ligamentum flavum arthropathy. 4. Multilevel spinal stenosis severe at L3-4, L4-5 and L5-S1 predominantly secondary to facet arthrop athy. Reviewed by: Ritu Carnes MD on 11/18/2021 9:44 PM PST Approved by: Ritu Carnes MD on 11/18/2021 9:44 PM [facility] Station ID: [id number]
[2021-11-18 22:33] VITALS: BP 164/99
== END 2021-11-18 22:36 | disposition home or self-care (01) ==
LOC: EDUNIT# → EDSEX → ED 17:38
DX: N30.01 Acute cystitis with hematuria (principal); M48.061 Spinal stenosis, lumbar region without neurogenic claudication; W10.9XXA Fall (on) (from) unspecified stairs and steps, initial encounter; Y93.01 Activity, walking, marching and hiking; I10 Essential (primary) hypertension; F17.200 Nicotine dependence, unspecified, uncomplicated; M54.50 Low back pain, unspecified; Z91.81 History of falling
CPT/HCPCS: 36415; 71045; 72132; 74177; 80053; 81001; 83605; 83690; 85025; 85651; 86140; 87077; 87086; 96361; 96374; 96375; 99283; 99284; J1170; Q9967; 81003

== ENCOUNTER 2021-11-24 17:55 | Outpatient (CLI) | payer MEDICAID | END 2021-11-24 17:56 | disposition critical access hospital (66) | LOC: EMS 17:55 | DX: R53.1 Weakness (principal); R29.898 Other symptoms and signs involving the musculoskeletal system; R20.8 Other disturbances of skin sensation | CPT/HCPCS: A0425; A0429; A0999 ==

== ENCOUNTER 2021-11-24 18:45 | Emergency (ER) | payer MEDICAID ==
[2021-11-24] MEDS ORDERED: DEXAMETHASONE 10 MG/ML VIAL IM STA (21:23)
[2021-11-24] MEDS ORDERED: KETOROLAC 60 MG/2 ML VIAL IM STA (21:23)
--- NOTE | 2021-11-24 21:27 | ED Physician Documentation ---
History of Present Illness - Stated complaint Stated Complaint: DECREASED MOBILITY LEFT LEG - Chief complaint Chief Complaint: Neuro - History obtained from History obtained from: Patient - Additonal information Additional information: Patient comes emergency department with chief complaint of bilateral lower extremity numbness since sustaining a ground-level fall 4 days ago. Patient has extensive history of spinal pathology, and has had multiple surgeries at all levels of his spine. This includes a fusion of his lumbar vertebrae. The patient states that he is followed monthly at [facility] for these issues. The patient states that several days ago when he fell, he had slipped in the snow and And fell into the ground. He was able to get up right away and walk into his house. However, he states over the course of the next few days, he began to notice increasing numbness in his legs and this has made it difficult to move his legs. Patient was seen by his disease education specialist at [facility] 3 days ago, and was told that he wanted to come in today, they get him set up for another spinal surgery. However, this was not felt to be emergent and patient was given the option to go home for the weekend and come back today. Patient states he opted to go home, but then did not have a ride to [facility] today and so he is come here instead. Patient denies loss of bowel or bladder control. He states that he has pain extending from his sacral area all the way up to his neck. However, a lot of this is chronic. Patient also states he has some numbness starting from his hips and extending down through his legs to his feet. The patient has some weakness at baseline, but states its been worse since the numbness started. The patient states he just does not know what to do and so he has come here. He will have a ride to [facility] in a couple of days. Patient states he already gets PT and OT for his spinal issues and chronic weakness at baseline. No other complaints at this time. Review of Systems Ten Systems: 10 systems reviewed and negative Constitutional: reports: Reviewed and negative Eyes: reports: Reviewed and negative Ears: reports: Reviewed and negative Nose: reports: Reviewed and negative Throat: reports: Reviewed and negative Cardiac: reports: Reviewed and negative Respiratory: reports: Reviewed and negative GI: reports: Reviewed and negative : reports: Reviewed and negative Skin: reports: Reviewed and negative Musculoskeletal: reports: Reviewed and negative Neurologic: reports: Numbness Psychiatric: reports: Reviewed and negative Endocrine: reports: Reviewed and negative Immunocompromised: reports: Reviewed and negative PD PAST MEDICAL HISTORY - Past Medical History Cardiovascular: Hypertension, High cholesterol, CT Respiratory: Asthma, COPD, Pneumonia Neuro: CVA, TIA Endocrine/Autoimmune: None GI: GERD : Benign prostate hypertrophy HEENT: None Psych: Depression, Anxiety, Bipolar disorder, ADD/ADHD Musculoskeletal: Chronic back pain Derm: Psoriasis - Past Surgical History Past Surgical History: Yes General: Cholecystectomy, Appendectomy, Colonoscopy Ortho: Spine surgery - Present Medications Home Medications: Ambulatory Orders Medication Instructions Recorded Confirmed Multivitamin [Multivitamins] 1 tab PO DAILY 02/04/15 04/06/21 Tamsulosin [Flomax] 0.8 mg PO DAILY 10/30/16 04/06/21 Duloxetine HCl [Cymbalta] 60 mg PO DAILY #30 capsule. 11/04/16 04/06/21 Albuterol Sulf [Ventolin Hfa 2 - 3 puffs INH Q4HR PRN #1 inhaler 12/05/18 04/06/21 Inhaler] Divalproex Sodium [Depakote ER] 1,000 mg PO BID 10/24/20 04/06/21 Gabapentin [Neurontin] 300 mg PO TID 10/24/20 04/06/21 OLANZapine [Zyprexa] 5 mg PO DAILY 10/24/20 04/06/21 Rosuvastatin Calcium [Crestor] 10 mg PO QPM 10/24/20 04/06/21 clindamycin HCL [Cleocin HCl] 300 mg PO Q6H #40 cap 04/06/21 Oxycodone HCl [Oxaydo] 5 mg PO DAILY #5 08/26/21 Oxycodone HCl/Acetaminophen 1 - 2 each PO Q6H PRN #14 tablet 11/07/21 [Percocet 5-325 mg Tablet] Tamsulosin HCl [Flomax] 0.4 mg PO DAILY #30 cap 11/12/21 Ciprofloxacin HCl [Cipro] 500 mg PO BID #20 tablet 11/18/21 oxyCODONE [Roxicodone] 5 mg PO TID PRN #15 tablet 11/18/21 Ibuprofen [Motrin] 800 mg PO Q8H PRN #30 tablet 11/24/21 predniSONE [Deltasone] 60 mg PO DAILY 5 Days #15 tablet 11/24/21 - Allergies Allergies/Adverse Reactions: Allergies Allergy/AdvReac Type Severity Reaction Status Date / Time bupropion HCl * [From Zyban] Allergy Rash Verified 11/24/21 19:13 - Social History Does the pt smoke?: Yes Smoking Status: Current every day smoker Does the pt drink ETOH?: No Does the pt have substance abuse?: Yes - Immunizations Immunizations are current?: Yes - POLST Patient has POLST: No POLST Status: Full Code PD ED PE NORMAL - Vitals Vital signs reviewed: Yes - General General: Alert and oriented X 3, No acute distress, Well developed/nourished - HEENT HEENT: Atraumatic, PERRL, EOMI, Moist mucous membranes - Neck Neck: No bony TTP - Cardiac Cardiac: RRR, No murmur, Strong equal pulses - Respiratory Respiratory: No respiratory distress, Clear bilaterally - Abdomen Abdomen: Soft, Non tender, Non distended - Derm Derm: Normal color, Warm and dry, No rash - Extremities Extremities: No deformity, No tenderness to palpate, No calf tenderness / cord, Other (Pitting edema bilaterally.) - Neuro Neuro: Alert and oriented X 3, it infrastructure consultant 2-12 intact, Normal speech, Other (Strong dorsiflexion and plantar flexion. Bilateral ankles. Strong and full range of motion of toes. Able to raise his straight leg against gravity bilaterally, though there is less strength with this. Decreased sensation bilateral lower extremities from feet all the way to thighs.) - Psych Psych: Normal mood, Normal affect Results - Vitals Vitals: Vital Signs - 24 hr 11/24/21 19:14 Temperature 36.8 C Heart Rate 102 H Respiratory 18 Rate Blood Pressure 125/84 H O2 Saturation 96 Oxygen O2 Source Room air PD MEDICAL DECISION MAKING - ED course Complexity details: considered differential, d/w patient ED course: I reviewed the patient's CT scans from his visit on the , and found that the patient does have extensive degenerative disease and stenosis. His was noted to have an intact fusion of his lumbar vertebrae without evidence of fracture. The patient did not have any incontinence of bowel or urine and I felt that he most likely had paresthesias secondary to his underlying spinal pathology as well as some inflammation and spasm related to his fall. The patient has already been seen by his specialist at [facility] in the last few days and they have evaluated him and do not feel that he needs emergent surgical intervention. However, the patient has been given the option to return to see them this week and will be able to do so in 2 days. At this point in time, I do not find an emergent cause or complication of the patient's symptoms. He has been given Toradol and Decadron in the emergency department, and will be given prescription for prednisone and ibuprofen to take at home until he can be seen at [facility]. We have discussed the usual indications for return, including loss of bowel or bladder continence. Departure - Departure Disposition: 01 Home, Self Care Clinical Impression: Paresthesias, Lumbar and sacral arthritis Radiculopathy Qualifiers: Spinal region: lumbosacral Qualified Code(s): M54.17 - Radiculopathy, lumbosacr al region Condition: Stable Instructions: Lumbar Radiculopathy, ED Paraesthesias Prescriptions: predniSONE [Deltasone] 60 mg PO DAILY 5 Days #15 tablet Ibuprofen [Motrin] 800 mg PO Q8H PRN #30 tablet PRN Reason: PAIN &/OR FEVER Comments: Your CT scans performed at the time of your fall did not show any evidence of fracture or dislocation the spinal level. Additionally, you have seen your specialist at [facility], who does not feel emergent surgery is necessary, but has offered you follow-up this week. It is highly advisable that you return to [facility] as soon as possible to revisit the plan with your specialist. You have good strength in your legs, but most likely, the numbness is making it difficult for you to sense movement, which can cause a sense of weakness and inability to move the legs well, secondary to lack of feedback. The anti- inflammatory and steroid will hopefully help with some of the inflammation that is causing pressure on the nerves and creating the numbness, and hopefully this will help you to be a little more functional until you can see your surgeon at [facility].
[2021-11-24 21:32] VITALS: BP 110/70
== END 2021-11-24 21:50 | disposition home or self-care (01) ==
LOC: ED 18:45
DX: M47.27 Other spondylosis with radiculopathy, lumbosacral region (principal); R20.2 Paresthesia of skin; Z98.1 Arthrodesis status; I10 Essential (primary) hypertension; F17.200 Nicotine dependence, unspecified, uncomplicated
CPT/HCPCS: 96372; 99283

== ENCOUNTER 2021-11-26 10:32 | Outpatient (CLI) | payer MEDICAID | END 2021-11-26 10:33 | disposition critical access hospital (66) | LOC: EMS 10:32 | DX: R53.1 Weakness (principal); R07.89 Other chest pain; Z91.81 History of falling | CPT/HCPCS: A0425; A0427; A0999 ==

== ENCOUNTER 2021-11-26 10:54 | Emergency (ER) | payer MEDICAID ==
--- NOTE | 2021-11-26 11:13 | ED Physician Documentation ---
PD HPI CHEST PAIN - Stated complaint Stated Complaint: CP - Chief complaint Chief Complaint: Cardiac - History obtained from History obtained from: Patient, EMS - History of Present Illness Timing - onset: Today Timing - onset during: Rest Timing - duration: Hours Timing - details: Abrupt onset, Still present Pain level max: 9 Pain level now: 6 Quality: Pressure, Tightness Location: Right chest, Left shoulder/arm, Right shoulder/arm, Left neck, Right neck Radiation: Neck, Back, Left upper extremity, Right upper extremity Improved by: Rest Worsened by: Inspiration Associated symptoms: Shortness of air, Feeling faint / dizzy, General Weakness Similar symptoms before: Has not had sx before Recently seen: Emergency Dept - Additional information Additional information: 61-year-old male with 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 His appointment to see the spine doctor has been changed from today until Wednesday (5days) he still was not able to use his legs adequately and today he went to get up to go have some breakfast he felt lightheaded and dizzy and made it longterm through his breakfast when he developed chest pain anterior and lateral that radiated into his neck he he describes it as a tightness. This has persisted. Review of Systems Constitutional: denies: Fever Eyes: denies: Decreased vision Ears: denies: Ear pain Nose: denies: Congestion Throat: denies: Sore throat Cardiac: reports: Chest pain / pressure PD PAST MEDICAL HISTORY - Past Medical History Cardiovascular: Hypertension, High cholesterol, [place] Respiratory: Asthma, COPD, Pneumonia Neuro: CVA, TIA Endocrine/Autoimmune: None GI: GERD : Benign prostate hypertrophy HEENT: None Psych: Depression, Anxiety, Bipolar disorder, ADD/ADHD Musculoskeletal: Chronic back pain Derm: Psoriasis - Past Surgical History Past Surgical History: Yes General: Cholecystectomy, Appendectomy, Colonoscopy Ortho: Spine surgery - Present Medications Home Medications: Ambulatory Orders Medication Instructions Recorded Confirmed Multivitamin [Multivitamins] 1 tab PO DAILY 02/04/15 04/06/21 Tamsulosin [Flomax] 0.8 mg PO DAILY 10/30/16 04/06/21 Duloxetine HCl [Cymbalta] 60 mg PO DAILY #30 capsule. 11/04/16 04/06/21 Albuterol Sulf [Ventolin Hfa 2 - 3 puffs INH Q4HR PRN #1 inhaler 12/05/18 04/06/21 Inhaler] Divalproex Sodium [Depakote ER] 1,000 mg PO BID 10/24/20 04/06/21 Gabapentin [Neurontin] 300 mg PO TID 10/24/20 04/06/21 OLANZapine [Zyprexa] 5 mg PO DAILY 10/24/20 04/06/21 Rosuvastatin Calcium [Crestor] 10 mg PO QPM 10/24/20 04/06/21 clindamycin HCL [Cleocin HCl] 300 mg PO Q6H #40 cap 04/06/21 Oxycodone HCl [Oxaydo] 5 mg PO DAILY #5 08/26/21 Oxycodone HCl/Acetaminophen 1 - 2 each PO Q6H PRN #14 tablet 11/07/21 [Percocet 5-325 mg Tablet] Tamsulosin HCl [Flomax] 0.4 mg PO DAILY #30 cap 11/12/21 Ciprofloxacin HCl [Cipro] 500 mg PO BID #20 tablet 11/18/21 oxyCODONE [Roxicodone] 5 mg PO TID PRN #15 tablet 11/18/21 Ibuprofen [Motrin] 800 mg PO Q8H PRN #30 tablet 11/24/21 predniSONE [Deltasone] 60 mg PO DAILY 5 Days #15 tablet 11/24/21 - Allergies Allergies/Adverse Reactions: Allergies Allergy/AdvReac Type Severity Reaction Status Date / Time bupropion HCl * [From Mal] Allergy Rash Verified 11/26/21 11:04 - Social History Does the pt smoke?: Yes Smoking Status: Current every day smoker Does the pt drink ETOH?: No Does the pt have substance abuse?: Yes - Immunizations Immunizations are current?: Yes - POLST Patient has POLST: No POLST Status: Full Code PD ED PE NORMAL - Vitals Vital signs reviewed: Yes (tachy and hypertensive) - General General: Alert and oriented X 3, No acute distress, Well developed/nourished, Other (thin male appears dry and anxious) - HEENT HEENT: Atraumatic, PERRL, EOMI, Other (dry mucous membranes ) - Neck Neck: Supple, no meningeal sign, No bony TTP - Cardiac Cardiac: RRR, No murmur - Respiratory Respiratory: No respiratory distress, Clear bilaterally - Abdomen Abdomen: Normal bowel sounds, Soft, Non tender, Non distended, No organomegaly - Back Back: No CVA TTP, No spinal TTP - Derm Derm: Normal color, Warm and dry, No rash - Extremities Extremities: No deformity, No edema - Neuro Neuro: Alert and oriented X 3, physician allergist immunologist 2-12 intact, Normal speech Eye Opening: Spontaneous Motor: Obeys Commands Verbal: Oriented GCS Score: 15 - Psych Psych: Normal mood, Normal affect Results - Vitals Vitals: Vital Signs - 24 hr 11/26/21 11/26/21 11/26/21 11:04 14:13 18:00 Temperature 36.4 C L 36.6 C Heart Rate 110 H 92 104 H Respiratory 20 15 16 Rate Blood Pressure 136/81 H 147/88 H 154/93 H O2 Saturation 95 99 Oxygen O2 Source Room air - EKG (time done) 1100 Rate: Rate (enter#) (109) Rhythm: Other (PVC) [place]: LAD Ischemia: ST depression (anterolateral consistent with strain. ) Computer interpretation: Agree with computer - Labs Labs: Laboratory Tests 11/26/21 11/26/21 11/26/21 11:25 11:25 11:25 WBC 20.1 H RBC 4.31 L Hgb 11.4 L Hct 36.4 L MCV 84.5 MCH 26.5 L MCHC 31.3 L RDW 17.3 H Plt Count 554 H MPV 8.4 Neut # (Auto) 16.5 H Lymph # (Auto) 1.6 Snyder # (Auto) 1.6 H Eos # (Auto) 0.0 Baso # (Auto) 0.1 Absolute Nucleated RBC 0.00 Nucleated RBC % 0.0 Manual Slide Review Indicated RBC Morph Micro Appear 3+ ANISOCYTOSIS ESR D-Dimer Sodium Potassium Chloride Carbon Dioxide Anion Gap BUN Creatinine Estimated GFR (MDRD) Glucose Lactic Acid 2.4 H Calcium Total Bilirubin AST ALT Alkaline Phosphatase Troponin I High Sens C-Reactive Protein B-Natriuretic Peptide 26 Total Protein Albumin Globulin Albumin/Globulin Ratio Lipase Urine Color Urine Clarity Urine pH Ur Specific Media Urine Protein Urine Glucose (UA) Urine Ketones Urine Occult Blood Urine Nitrite Urine Bilirubin Urine Urobilinogen Ur Leukocyte Esterase Urine RBC Urine WBC Ur Squamous Epith Cells Urine Bacteria Ur Microscopic Review Urine Culture Comments Urine Opiates Screen Ur Oxycodone Screen Urine Methadone Screen Ur Propoxyphene Screen Ur Barbiturates Screen Ur Tricyclics Screen Ur Phencyclidine Scrn Ur Amphetamine Screen U Methamphetamines Scrn U Benzodiazepines Scrn Urine Cocaine Screen U Cannabinoids Screen 11/26/21 11/26/21 11/26/21 11:25 11:25 11:58 WBC RBC Hgb Hct MCV MCH MCHC RDW Plt Count MPV Neut # (Auto) Lymph # (Auto) Snyder # (Auto) Eos # (Auto) Baso # (Auto) Absolute Nucleated RBC Nucleated RBC % Manual Slide Review RBC Morph Micro Appear ESR D-Dimer 343.6 H Sodium 136 Potassium 3.7 Chloride 97 L Carbon Dioxide 30 Anion Gap 9.0 BUN 24 H Creatinine 0.7 Estimated GFR (MDRD) 114 Glucose 100 Lactic Acid Calcium 8.7 Total Bilirubin 0.2 AST 15 ALT 18 Alkaline Phosphatase 81 Troponin I High Sens 5.1 C-Reactive Protein B-Natriuretic Peptide Total Protein 7.3 Albumin 2.4 L Globulin 4.9 H Albumin/Globulin Ratio 0.5 L Lipase 18 L Urine Color Urine Clarity Urine pH Ur Specific Media Urine Protein Urine Glucose (UA) Urine Ketones Urine Occult Blood Urine Nitrite Urine Bilirubin Urine Urobilinogen Ur Leukocyte Esterase Urine RBC Urine WBC Ur Squamous Epith Cells Urine Bacteria Ur Microscopic Review Urine Culture Comments Urine Opiates Screen Ur Oxycodone Screen Urine Methadone Screen Ur Propoxyphene Screen Ur Barbiturates Screen Ur Tricyclics Screen Ur Phencyclidine Scrn Ur Amphetamine Screen U Methamphetamines Scrn U Benzodiazepines Scrn Urine Cocaine Screen U Cannabinoids Screen 11/26/21 11/26/21 11/26/21 15:32 15:32 17:12 WBC RBC Hgb Hct MCV MCH MCHC RDW Plt Count MPV Neut # (Auto) Lymph # (Auto) Snyder # (Auto) Eos # (Auto) Baso # (Auto) Absolute Nucleated RBC Nucleated RBC % Manual Slide Review RBC Morph Micro Appear ESR 23 H D-Dimer Sodium Potassium Chloride Carbon Dioxide Anion Gap BUN Creatinine Estimated GFR (MDRD) Glucose Lactic Acid Calcium Total Bilirubin AST ALT Alkaline Phosphatase Troponin I High Sens C-Reactive Protein B-Natriuretic Peptide Total Protein Albumin Globulin Albumin/Globulin Ratio Lipase Urine Color YELLOW Urine Clarity CLEAR Urine pH 7.5 Ur Specific Media 1.010 Urine Protein NEGATIVE Urine Glucose (UA) NEGATIVE Urine Ketones NEGATIVE Urine Occult Blood SMALL H Urine Nitrite NEGATIVE Urine Bilirubin NEGATIVE Urine Urobilinogen 0.2 (NORMAL) Ur Leukocyte Esterase NEGATIVE Urine RBC None Seen Urine WBC 0-3 Ur Squamous Epith Cells RARE Squamous Urine Bacteria None Seen Ur Microscopic Review INDICATED Urine Culture Comments NOT INDICATED Urine Opiates Screen NEGATIVE Ur Oxycodone Screen NEGATIVE Urine Methadone Screen NEGATIVE Ur Propoxyphene Screen NEGATIVE Ur Barbiturates Screen NEGATIVE Ur Tricyclics Screen NEGATIVE Ur Phencyclidine Scrn NEGATIVE Ur Amphetamine Screen POSITIVE H U Methamphetamines Scrn POSITIVE H U Benzodiazepines Scrn NEGATIVE Urine Cocaine Screen NEGATIVE U Cannabinoids Screen NEGATIVE 11/26/21 17:12 WBC RBC Hgb Hct MCV MCH MCHC RDW Plt Count MPV Neut # (Auto) Lymph # (Auto) Snyder # (Auto) Eos # (Auto) Baso # (Auto) Absolute Nucleated RBC Nucleated RBC % Manual Slide Review RBC Morph Micro Appear ESR D-Dimer Sodium Potassium Chloride Carbon Dioxide Anion Gap BUN Creatinine Estimated GFR (MDRD) Glucose Lactic Acid Calcium Total Bilirubin AST ALT Alkaline Phosphatase Troponin I High Sens C-Reactive Protein 2.8 H B-Natriuretic Peptide Total Protein Albumin Globulin Albumin/Globulin Ratio Lipase Urine Color Urine Clarity Urine pH Ur Specific Media Urine Protein Urine Glucose (UA) Urine Ketones Urine Occult Blood Urine Nitrite Urine Bilirubin Urine Urobilinogen Ur Leukocyte Esterase Urine RBC Urine WBC Ur Squamous Epith Cells Urine Bacteria Ur Microscopic Review Urine Culture Comments Urine Opiates Screen Ur Oxycodone Screen Urine Methadone Screen Ur Propoxyphene Screen Ur Barbiturates Screen Ur Tricyclics Screen Ur Phencyclidine Scrn Ur Amphetamine Screen U Methamphetamines Scrn U Benzodiazepines Scrn Urine Cocaine Screen U Cannabinoids Screen - Rads (name of study) chest Radiology: Prelim report reviewed (Impression: Trace left pleural effusion. No new airspace opacity.), EMP read indepedently, See rad report CTA chest Radiology: Prelim report reviewed (Impression: Infected cervical thoracic fusion hardware, with anterior extension into the of the infection into the adjacent prevertebral space and upper mediastinum. These findings including the suspected mediastinitis were discussed with Dr. Cummins), EMP read indepedently, See rad report Procedures - IVC sono (time) 1110 Bedside IVC sono: IVC measures (cm) (0.91), IVC collapsed c insp (cm) (complete), Dehydration (est 2 liter deficit) PD MEDICAL DECISION MAKING - ED course Complexity details: reviewed results, re-evaluated patient, considered differential, d/w patient ED course: 61-year-old male with hardware in the upper and lower spine has developed acute chest pain today that was pleuritic in nature and has resolved since he has been to the emergency department. We did find that he was significantly dehydrated and have provided some intravenous saline. The patient feels much improved. His CT a was performed after an elevated D-dimer showed up in the patient's acute pleuritic chest pain was the indication. This CT scan showed infected spinal hardware with extension into mediastinitis. The patient is currently on some antibiotic for urinary tract infection. Here in the ED the patient is placed onto vancomycin and cefepime. The transfer center at [facility] is contacted and the images are pushed to [facility]. Dr. Coronel is consulted in the case and reviews the images. He does not think the hardware looks much different than previously but he has not had the mediastinitis previously. He has asked for CRP and ESR and will consult with medicine for treatment. AT shift change we are awaiting the medicine team to call us back and his care is turned over to Dr. Mac.
[2021-11-26] MEDS ORDERED: SODIUM CHLORIDE 0.9% 1,000 ML IV STA ×2 (11:18→12:13)
[2021-11-26 11:39] LABS: BASOPHILS # (AUTO) 0.1 10^3/uL (0.0-0.1); BASOPHILS % (AUTO) 0.5 %; HCT - HEMATOCRIT 36.4 % (42.0-52.0); HGB - HEMOGLOBIN 11.4 g/dL (14.0-18.0); LYMPHOCYTES # (AUTO) 1.6 10^3/uL (1.5-3.5); LYMPHOCYTES % (AUTO) 7.9 %; MEAN CORPUSCULAR HEMOGLOBIN 26.5 pg (27.0-31.0); MEAN CORPUSCULAR HGB CONC 31.3 g/dL (32.0-36.0); MEAN CORPUSCULAR VOLUME 84.5 fL (80.0-94.0); MEAN PLATELET VOLUME 8.4 fL (7.4-11.4); MONOCYTES # (AUTO) 1.6 10^3/uL (0.0-1.0); MONOCYTES % (AUTO) 7.8 %; NEUTROPHILS # (AUTO) 16.5 10^3/uL (1.5-6.6); NEUTROPHILS % (AUTO) 82.4 %; PLT - PLATELET COUNT 554 10^3/uL (130-450); RED BLOOD COUNT 4.31 10^6/uL (4.70-6.10); RED CELL DISTRIBUTION WIDTH 17.3 % (12.0-15.0); WHITE BLOOD COUNT 20.1 x10^3/uL (4.8-10.8)
[2021-11-26 11:46] LABS: SLIDE REVIEW? Indicated
--- NOTE | 2021-11-26 11:59 | XRAY Report ---
PROCEDURE: Chest 1 View X-Ray INDICATIONS: chest pain TECHNIQUE: One view of the chest was acquired. COMPARISON: CXR 11/18/2021, 11/12/2021. FINDINGS: Surgical changes and devices: None. Lungs and pleura: Blunting at the left costophrenic angle. No pneumothorax. Lungs appear clear. Mediastinum: Mediastinal contours appear unchanged. Heart size is normal. Bones and chest wall: No suspicious bony lesions. Prior right-sided rib fracture. Overlying soft tis sues appear unremarkable. IMPRESSION: Trace left pleural effusion. No new airspace opacity. Reviewed by: Elmer Salas MD on 11/26/2021 11:58 AM [facility] Approved by: Elmer Salas MD on 11/26/2021 11:58 AM PST Station ID: [id number]
[2021-11-26 12:02] LABS: RBC MORPHOLOGY (MULTIPLE) 3+ ANISOCYTOSIS (NORMAL)
[2021-11-26 12:22] LABS: ALBUMIN 2.4 g/dL (3.2-5.5); ALBUMIN/GLOBULIN RATIO 0.5 (1.0-2.2); BILIRUBIN,TOTAL 0.2 mg/dL (0.2-1.0); CALCIUM 8.7 mg/dL (8.5-10.3); CREATININE 0.7 mg/dL (0.6-1.2); POTASSIUM 3.7 mmol/L (3.5-5.0); TOTAL PROTEIN 7.3 g/dL (6.7-8.2)
[2021-11-26] MEDS ORDERED: iohexoL-300 100 ML VIAL ONE (12:54)
--- NOTE | 2021-11-26 14:10 | CT Report ---
PROCEDURE: ANGIO CHEST W/WO INDICATIONS: chest pain dyspnea elevated d-dimer TECHNIQUE: After the administration of intravenous contrast, 2 mm axial images were acquired from the pulmonary apices to the posterior costophrenic angles during the arterial phase. In addition, 1 mm lung kernel and 5 mm soft tissue kernel reconstructions were performed. 3-dimensional coronal oblique maximum int ensity projection (MIP) reformats, 8 mm axial MIP, and 5 mm coronal and sagittal MPR reformats were t hen performed through the thorax. For radiation dose reduction, the following was used: automated exp osure control, adjustment of mA and/or kV according to patient size. COMPARISON: 11/06/2021 FINDINGS: These images again demonstrate abnormal lucency surrounding the visualized inferior portions of the c ervicothoracic fusion hardware construct. Specifically, there is abnormal lucency surrounding the keith ateral T1 and T2 pedicle screws. There is abnormal sclerotic groundglass appearance of the C7, T1, an d T2 vertebral bodies and posterior elements suggesting chronic infection. Anterior to the hardware construct there is prevertebral soft tissue swelling and soft tissue attenua tion which presumably represents phlegmonous change. This extends inferiorly into the upper mediastin al fat planes. Some mild posterior dependent atelectasis present in the lungs with no definite evidence of infectiou s airspace opacity. No pulmonary embolism identified. Thoracic aorta unremarkable. Normal heart size. Mild coronary calci fication. No pericardial effusion. Borderline threshold enlarged right axillary lymph node and subpectoral lymph nodes, likely reactive in the setting of hardware infection. There is additional reactive lymphadenopathy in the neck base, left greater than right. No acute finding in the included upper abdomen. IMPRESSION: Infected cervicothoracic fusion hardware, with anterior extension of the infection into the adjacent prevertebral space and upper mediastinum. These findings including the suspected mediastinitis were d iscussed with Dr. Cummins. Reviewed by: Smith Yanes MD on 11/26/2021 2:08 PM PST Approved by: Smith Yanes MD on 11/26/2021 2:08 PM PST Station ID: [id number]
[2021-11-26 15:35] LABS: BILIRUBIN,URINE NEGATIVE (NEGATIVE); GLUCOSE, URINE (UA) NEGATIVE (NEGATIVE); KETONES,URINE (UA) NEGATIVE (NEGATIVE); LEUKOCYTE ESTERASE, URINE NEGATIVE (NEGATIVE); NITRITE,URINE NEGATIVE (NEGATIVE); OCCULT BLOOD,URINE SMALL (NEGATIVE); PH,URINE 7.5 PH (5.0-7.5); PROTEIN,URINE NEGATIVE (NEGATIVE); UROBILINOGEN,URINE 0.2 (NORMAL) E.U./dL (NORMAL)
[2021-11-26 15:51] LABS: CLARITY,URINE CLEAR (CLEAR)
[2021-11-26 15:53] LABS: BACTERIA,URINE None Seen /HPF (None Seen); RBC,URINE None Seen /HPF (0-5); SQUAMOUS EPITHELIAL CELL,UR RARE Squamous (<= Few); WBC,URINE 0-3 /HPF (0-3)
[2021-11-26] MEDS ORDERED: iohexoL-300 100 ML VIAL IVP ONE (16:26)
[2021-11-26] MEDS ORDERED: VANCOMYCIN INJ 1 GM in SODIUM CHLORIDE 0.9% 500 ML IV STA (16:50)
[2021-11-26] MEDS ORDERED: CEFEPIME 2 GM in SODIUM CHLORIDE 0.9% MINIBAG 100 ML IV STA (16:51)
[2021-11-26 17:31] LABS: MUDS CUTOFF CONCENTRATIONS CUTOFF CONC BELOW:
[2021-11-26 17:53] LABS: AMPHETAMINE SCREEN,URINE POSITIVE (NEGATIVE); BARBITURATE SCREEN,UR NEGATIVE (NEGATIVE); BENZODIAZEPINES SCREEN, URINE NEGATIVE (NEGATIVE); COCAINE SCREEN URINE NEGATIVE (NEGATIVE); METHADONE SCREEN, URINE NEGATIVE (NEGATIVE); METHAMPHETAMINES SCREEN, URINE POSITIVE (NEGATIVE); OPIATE SCREEN, URINE NEGATIVE (NEGATIVE); OXYCODONE SCREEN, URINE NEGATIVE (NEGATIVE); PROPOXYPHENE SCREEN, URINE NEGATIVE (NEGATIVE); THC CANNABINOID SCREEN, URINE NEGATIVE (NEGATIVE); TRICYCLIC ANTIDEPRESSANT,URINE NEGATIVE (NEGATIVE)
[2021-11-26 20:54] VITALS: BP 153/90
--- NOTE | 2021-11-26 20:55 | ED Physician Documentation ---
ED Addendum - Addendum Addendum: 11/26/21 20:54 [facility] connected me with the medicine team Dr. Yeh. I reviewed the ED course and labs and imaging findings with the provider. She excepted the patient in transfer. The transfer center said they would accept the patient in transfer directly to the ER. Disposition: The patient is transferred to [facility] emergency room. Diagnoses: 1. Acute mediastinitis and cervical hardware infection 2. Chest pain 3. Status post cervical spine surgery 4. Methamphetamine abuse
[2021-11-26 22:26] LABS: B. PARAPERTUSSIS- RESP PCR PAN NOT DETECTED; B. PERTUSSIS- RESP PCR PANEL NOT DETECTED; C. PNEUMONIAE- RESP PCR PANEL NOT DETECTED; CORONAVIRUS 229E-RESP PCR NOT DETECTED; CORONAVIRUS HKU1-RESP PCR NOT DETECTED; CORONAVIRUS NL63-RESP PCR NOT DETECTED; CORONAVIRUS OC43-RESP PCR NOT DETECTED; HUMAN METAPNEUMOVIRUS NOT DETECTED; INFLUENZA A- RESP PCR PANEL NOT DETECTED; INFLUENZA B - RESP PCR PANEL NOT DETECTED; M. PNEUMONIAE- RESP PCR PANEL NOT DETECTED; PARAINFLUENZA VIRUS 1 NOT DETECTED; PARAINFLUENZA VIRUS 2 NOT DETECTED; PARAINFLUENZA VIRUS 3 NOT DETECTED; PARAINFLUENZA VIRUS 4 NOT DETECTED; RHINOVIRUS/ENTEROVIRUS NOT DETECTED; RSV- RESP PCR PANEL NOT DETECTED; SARS-CoV-2 -RESP PCR PANEL NOT DETECTED
== END 2021-11-26 22:10 | disposition short-term general hospital (02) ==
LOC: EDUNIT# → ED 10:54
DX: J98.51 Mediastinitis (principal); I10 Essential (primary) hypertension; F17.200 Nicotine dependence, unspecified, uncomplicated; E86.0 Dehydration; Z20.822 Contact with and (suspected) exposure to COVID-19
CPT/HCPCS: 0202U; 36415; 71045; 71275; 80053; 80306; 81001; 83605; 83690; 83880; 84484; 85025; 85379; 85651; 86140; 87040; 93005; 96361; 96365; 96375; 99284; 99285; J3370; Q9967; 81003; 87086

== ENCOUNTER 2022-01-08 18:15 | Outpatient (CLI) | payer MEDICAID | END 2022-01-08 18:16 | disposition EMS.NT | LOC: EMS 18:15 | DX: Z03.89 Encounter for observation for other suspected diseases and conditions ruled out (principal) ==

== ENCOUNTER 2022-05-25 07:07 | Outpatient (CLI) | payer MEDICAID | END 2022-05-25 07:08 | disposition critical access hospital (66) | LOC: EMS 07:07 | DX: S01.21XA Laceration without foreign body of nose, initial encounter (principal); W05.0XXA Fall from non-moving wheelchair, initial encounter; W22.8XXA Striking against or struck by other objects, initial encounter; Y92.009 Unspecified place in unspecified non-institutional (private) residence as the place of occurrence of the external cause | CPT/HCPCS: A0425; A0429; A0999 ==

== ENCOUNTER 2022-05-25 07:26 | Emergency (ER) | payer MEDICAID ==
--- NOTE | 2022-05-25 07:31 | ED Physician Documentation ---
PD HPI HEAD INJURY - Stated complaint Stated Complaint: FELL/HEAD LAC - Chief complaint Chief Complaint: Laceration - History obtained from History obtained from: Patient - History of Present Illness Mechanism of head injury: Fell Where head injury occurred: Home Timing - onset: Today (just prior to arrival) Location of injury: Front - Additional information Additional information: 61-year-old male presents by EMS from home for head laceration that he sustained just prior to arrival. Patient is recovering from spinal surgery and is undergoing rehab. He normally gets around with a wheelchair, however can walk several steps to transfer. Patient was transferring to the bathroom when he slipped and fell forward, striking his nose against the baseboard. He denies loss of consciousness, denies use of blood thinners, his last tetanus shot was 8 months ago after he sustained an accidental laceration to his hand. EMS initially reported that the patient had worsening numbness in his feet, however the patient states that he has chronic numbness in his feet following his spinal surgery and it is no worse than usual. Patient's only complaint at this time is nose pain where he struck the baseboard during his fall. EMS states that they placed the patient in a c-collar for precautions given his history of cervical spine surgery. Review of Systems Ten Systems: 10 systems reviewed and negative Constitutional: denies: Fever, Chills Eyes: denies: Loss of vision, Discharge Ears: denies: Loss of hearing, Tinnitus/ringing Nose: reports: Other (Pain). denies: Rhinorrhea / runny nose, Congestion, Epistaxis Throat: denies: Dental pain / toothache, Oral lesions / sores, Sore throat Cardiac: denies: Chest pain / pressure, Palpitations Respiratory: denies: Dyspnea, Cough, Hemoptysis GI: denies: Abdominal Pain, Abdominal Swelling, Nausea : denies: Dysuria, Frequency Skin: reports: Laceration (s) (nose). denies: Rash, Lesions Musculoskeletal: denies: Neck pain, Back pain, Extremity pain Neurologic: reports: Numbness (Bilateral feet, chronic). denies: Generalized weakness, Focal weakness, Syncope, Seizure Psychiatric: denies: Depressed, Suicidal, Hallucinations PD PAST MEDICAL HISTORY - Past Medical History Cardiovascular: Hypertension, High cholesterol, [place] Respiratory: Asthma, COPD, Pneumonia Neuro: CVA, TIA Endocrine/Autoimmune: None GI: GERD : Benign prostate hypertrophy HEENT: None Psych: Depression, Anxiety, Bipolar disorder, ADD/ADHD Musculoskeletal: Chronic back pain Derm: Psoriasis - Past Surgical History Past Surgical History: Yes General: Cholecystectomy, Appendectomy, Colonoscopy Ortho: Spine surgery - Present Medications Home Medications: Ambulatory Orders Medication Instructions Recorded Confirmed Multivitamin [Multivitamins] 1 tab PO DAILY 02/04/15 04/06/21 Tamsulosin [Flomax] 0.8 mg PO DAILY 10/30/16 04/06/21 Duloxetine HCl [Cymbalta] 60 mg PO DAILY #30 capsule. 11/04/16 04/06/21 Albuterol Sulf [Ventolin Hfa 2 - 3 puffs INH Q4HR PRN #1 inhaler 12/05/18 04/06/21 Inhaler] Divalproex Sodium [Depakote ER] 1,000 mg PO BID 10/24/20 04/06/21 Gabapentin [Neurontin] 300 mg PO TID 10/24/20 04/06/21 OLANZapine [Zyprexa] 5 mg PO DAILY 10/24/20 04/06/21 Rosuvastatin Calcium [Crestor] 10 mg PO QPM 10/24/20 04/06/21 clindamycin HCL [Cleocin HCl] 300 mg PO Q6H #40 cap 04/06/21 Oxycodone HCl [Oxaydo] 5 mg PO DAILY #5 08/26/21 Oxycodone HCl/Acetaminophen 1 - 2 each PO Q6H PRN #14 tablet 11/07/21 [Percocet 5-325 mg Tablet] Tamsulosin HCl [Flomax] 0.4 mg PO DAILY #30 cap 11/12/21 Ciprofloxacin HCl [Cipro] 500 mg PO BID #20 tablet 11/18/21 oxyCODONE [Roxicodone] 5 mg PO TID PRN #15 tablet 11/18/21 Ibuprofen [Motrin] 800 mg PO Q8H PRN #30 tablet 11/24/21 predniSONE [Deltasone] 60 mg PO DAILY 5 Days #15 tablet 11/24/21 Amox/Clav 875/125 [Augmentin] 1 each PO Q12H #20 tablet 05/25/22 Amox/Clav 875/125 [Augmentin] 1 each PO Q12H #20 tablet 05/25/22 - Allergies Allergies/Adverse Reactions: Allergies Allergy/AdvReac Type Severity Reaction Status Date / Time bupropion HCl * [From Zyban] Allergy Rash Verified 05/25/22 07:32 - Social History Does the pt smoke?: Yes Smoking Status: Current every day smoker Does the pt drink ETOH?: No Does the pt have substance abuse?: Yes - Immunizations Immunizations are current?: Yes - POLST Patient has POLST: No POLST Status: Full Code PD ED PE NORMAL - Vitals Vital signs reviewed: Yes - HEENT HEENT: PERRL, EOMI, Ears normal, Moist mucous membranes, Pharynx benign, Dentition benign, Other (4cm vertical laceration on bridge of nose). No: Atraumatic - Neck Neck: Other (In C-collar) - Respiratory Respiratory: No respiratory distress, Clear bilaterally, Other - Abdomen Abdomen: Normal bowel sounds, Soft, Non tender, Non distended, No organomegaly, Other Results - Vitals Vitals: Vital Signs - 24 hr 05/25/22 05/25/22 07:33 08:59 Temperature 37.2 C Heart Rate 80 96 Respiratory 18 18 Rate Blood Pressure 150/88 H 147/85 H O2 Saturation 98 96 Oxygen O2 Source Room air Procedures - Laceration (location) Nose Wound type: Clean, Exposure of cartilage Neurovascular status: Sensory intact, Motor intact, Vascular intact Anesthesia: LET Wound preparation: Irrigated copiously NS, Limited undermining, Extensive tiburcio ijeoma/removal of particulate matter Skin layer closure: Interrupted, Other (Ethilon) Other: Patient tolerated well, No complications, Neurovascular intact, Dressing applied, Tetanus UTD PD MEDICAL DECISION MAKING - ED course Complexity details: reviewed old records, considered differential ED course: Ground-level fall with nose laceration. Exposure of cartilage. Patient states he is up-to-date on his tetanus shot. CT shows nasal bone fracture. No evidence of septal hematoma. Wound irrigated, closed with sutures per procedure note and antibiotic ointment applied post-procedure. We will presumptively treat as open fracture with Augmentin. Patient given extremely strict return precautions. Wound care instructions discussed with patient extensively by myself at bedside. Patient discharged home in stable condition. Departure - Departure Disposition: 01 Home, Self Care Clinical Impression: Nasal bones, open fracture Qualifiers: Encounter type: initial encounter Qualified Code(s): S02.2XXB - Fracture of nasal bones, initial encounter for open fracture Condition: Good Instructions: Sutr Care, ED Fx Nasal Conf W X Ray Prescriptions: Amox/Clav 875/125 [Augmentin] 1 each PO Q12H #20 tablet Amox/Clav 875/125 [Augmentin] 1 each PO Q12H #20 tablet Comments: Keep your nose clean and dry, you may shower, but do not rub your nose or blow your nose. Return here or to your primary care physician in 5 to 7 days for suture removal. Take all of your antibiotics as prescribed. Return immediately if you notice swelling around her eyes, redness across your face, if you experience a fever, or discharge from your nose. Discharge Date/Time: 05/25/22 10:46
[2022-05-25] MEDS ORDERED: LIDOCAINE-EPINEPH-TETRACAINE 3 ML SYRINGE TOP STA (07:32)
--- NOTE | 2022-05-25 08:15 | CT Report ---
PROCEDURE: HEAD WO INDICATIONS: GLF, HEAD INJURY TECHNIQUE: Noncontrast 4.5 mm thick angled axial sections acquired from the foramen magnum to the vertex. For r adiation dose reduction, the following was used: automated exposure control, adjustment of mA and/or kV according to patient size. COMPARISON: CT head 10/24/2020, CT cervical spine, CT maxillofacial 05/25/2022 FINDINGS: Image quality: Excellent. CSF spaces: Basal cisterns are patent. No extra-axial fluid collections. Ventricles are normal in size and shape. Brain: No midline shift. No intracranial masses or hemorrhage. Krause-white matter interface is norm al. Skull and face: Calvarium is intact, without suspicious lesions. Soft tissue edema is present overl hugo the nose with slight nasal bone irregularity. Sinuses: Visualized sinuses and mastoids are clear. IMPRESSION: 1. No acute intracranial process. 2. Nasal soft tissue edema with slight nasal bone irregularity most suspicious for fracture. Reviewed by: Ritu Carnes MD on 05/25/2022 8:13 AM PDT Approved by: Ritu Carnes MD on 05/25/2022 8:13 AM PDT Station ID: [id number]
--- NOTE | 2022-05-25 08:18 | CT Report ---
PROCEDURE: CERVICAL SPINE WO INDICATIONS: GLF, MIDLINE NECK PAIN TECHNIQUE: Noncontrast 3 mm thick sections acquired from the skull base to the T4 level. Sagittal and coronal r eformats were then constructed. For radiation dose reduction, the following was used: automated exp osure control, adjustment of mA and/or kV according to patient size. COMPARISON: CT cervical spine 11/06/2021 FINDINGS: Image quality: Excellent. Bones: No fractures or dislocations. Visualized superior ribs are intact. Posterior fusion hardwar e from C2 to T4 is present. Previously identified lucency at T1 and T2 pedicle screws appear unchange d. C2 pedicle screw appears to be slightly superior to the pedicle, unchanged. Soft tissues: Prevertebral soft tissues are normal in thickness. No paravertebral hematomas. No ap ical pneumothoraces. IMPRESSION: Multilevel posterior fusion without evidence of hardware fracture. No osseous fracture. Reviewed by: Ritu Carnes MD on 05/25/2022 8:17 AM PDT Approved by: Ritu Carnes MD on 05/25/2022 8:17 AM PDT Station ID: [id number]
--- NOTE | 2022-05-25 08:21 | CT Report ---
PROCEDURE: MAXILLOFACIAL WO INDICATIONS: GLF, NOSE INJURY TECHNIQUE: Noncontrast 1.5 mm thick axial images acquired from the mandible through the frontal sinuses, with co claudette and sagittal reformatting. For radiation dose reduction, the following was used: automated ex posure control, adjustment of mA and/or kV according to patient size. COMPARISON: None. FINDINGS: Image quality: Excellent. Bones and teeth: Orbital sewell are intact. Sinus sewell show no fracture or deformity. Soft tissue e joo is noted overlying the nasal bones with underlying bone irregularity. Visualized portions of the mandible demonstrate no fractures or subluxation. Zygomatic arches are intact. Pterygoid plates ar e intact. Visualized portions of the skull base and auditory canals are intact. Sinuses: Paranasal sinuses are aerated, without fluid levels, mucosal thickening, or mucoceles. Mas toid air cells are aerated. Soft tissues: No masses, or fluid collections. No enlarged lymph nodes. No soft tissue lacerations or debris. Vascular: Visualized vascular structures appear normal in the absence of contrast. Bony vascular fo ramina and canals are intact. IMPRESSION: Nasal soft tissue edema with underlying nasal bone irregularity most consistent with fracture. Reviewed by: Ritu Carnes MD on 05/25/2022 8:20 AM PDT Approved by: Ritu Carnes MD on 05/25/2022 8:20 AM PDT Station ID: [id number]
[2022-05-25 09:00] VITALS: BP 147/85
[2022-05-25] MEDS ORDERED: NEOMYCIN/BACITRA/POLYMYX OINT PACKET TOP SCH (09:00)
== END 2022-05-25 10:46 | disposition home or self-care (01) ==
LOC: EDUNIT# → ED 07:26
DX: S02.2XXB Fracture of nasal bones, initial encounter for open fracture (principal); W01.198A Fall on same level from slipping, tripping and stumbling with subsequent striking against other object, initial encounter; I10 Essential (primary) hypertension; F17.200 Nicotine dependence, unspecified, uncomplicated
CPT/HCPCS: 13152; 70450; 70486; 72125; 99284; A9270

== ENCOUNTER 2022-08-13 15:08 | Emergency (ER) | payer MEDICAID ==
[2022-08-13 15:19] VITALS: BP 143/105
--- NOTE | 2022-08-13 16:04 | ED Physician Documentation ---
PD HPI URI - Stated complaint Stated Complaint: SOA/CHEST PRESSURE - Chief complaint Chief Complaint: Resp - History obtained from History obtained from: Patient - Additional information Additional information: This is a very pleasant 62-year-old gentleman with history of tobacco abuse, down to 1 cigarette a day, COPD, psoriasis, hypertension, CVA, [place], GERD and chronic back pain who presents to the emergency department 3 days of nonproductive cough with chest heaviness and mild shortness of breath. 2 days prior to getting sick he was exposed to a baby who had a currently viral URI. He denies fevers. Review of Systems Ten Systems: 10 systems reviewed and negative Constitutional: denies: Fever, Chills Throat: reports: Reviewed and negative Cardiac: reports: Reviewed and negative Respiratory: reports: Reviewed and negative PD PAST MEDICAL HISTORY - Past Medical History Cardiovascular: Hypertension, High cholesterol, [place] Respiratory: Asthma, COPD, Pneumonia Neuro: CVA, TIA Endocrine/Autoimmune: None GI: GERD : Benign prostate hypertrophy HEENT: None Psych: Depression, Anxiety, Bipolar disorder, ADD/ADHD Musculoskeletal: Chronic back pain Derm: Psoriasis - Past Surgical History Past Surgical History: Yes General: Cholecystectomy, Appendectomy, Colonoscopy Ortho: Spine surgery - Present Medications Home Medications: Ambulatory Orders Medication Instructions Recorded Confirmed Multivitamin [Multivitamins] 1 tab PO DAILY 02/04/15 08/13/22 Tamsulosin [Flomax] 0.8 mg PO DAILY 10/30/16 08/13/22 Duloxetine HCl [Cymbalta] 60 mg PO DAILY #30 capsule. 11/04/16 08/13/22 Albuterol Sulf [Ventolin Hfa 2 - 3 puffs INH Q4HR PRN #1 inhaler 12/05/18 08/13/22 Inhaler] Divalproex Sodium [Depakote ER] 1,000 mg PO BID 10/24/20 08/13/22 Gabapentin [Neurontin] 300 mg PO TID 10/24/20 08/13/22 OLANZapine [Zyprexa] 5 mg PO DAILY 10/24/20 08/13/22 Rosuvastatin Calcium [Crestor] 10 mg PO QPM 10/24/20 08/13/22 Ibuprofen [Motrin] 800 mg PO Q8H PRN #30 tablet 11/24/21 08/13/22 Doxycycline Hyclate 100 mg PO BID #14 cap 08/13/22 predniSONE [Deltasone] 60 mg PO DAILY 5 Days #15 tablet 08/13/22 - Allergies Allergies/Adverse Reactions: Allergies Allergy/AdvReac Type Severity Reaction Status Date / Time bupropion HCl * [From Zyban] Allergy Rash Verified 05/25/22 07:32 - Social History Does the pt smoke?: Yes Smoking Status: Current every day smoker Does the pt drink ETOH?: No Does the pt have substance abuse?: Yes - Immunizations Immunizations are current?: Yes - POLST Patient has POLST: No POLST Status: Full Code PD ED PE NORMAL - Vitals Vital signs reviewed: Yes - General General: Alert and oriented X 3, No acute distress - Cardiac Cardiac: RRR, No murmur - Respiratory Respiratory: No respiratory distress, Other (Mildly diminished especially in the left upper lobe without other focal findings, no wheezing, nonlabored.) - Extremities Extremities: No edema, No calf tenderness / cord - Neuro Neuro: Alert and oriented X 3, Normal speech Results - Vitals Vitals: Vital Signs - 24 hr 08/13/22 15:14 Temperature 37.5 C Heart Rate 104 H Respiratory 22 Rate Blood Pressure 143/105 H O2 Saturation 100 Oxygen O2 Source Room air - Labs Labs: Laboratory Tests 08/13/22 15:37 SARS-CoV-2 (PCR) NOT DETECTED PD MEDICAL DECISION MAKING - ED course ED course: 62-year-old gentleman with COPD presents with nonproductive cough for last 3 days after exposure to a URI. His chest x-ray clear is clear and his COVID test is negative. He is not wheezing here and he declined a breathing treatment. Given his underlying COPD he is started on antibiotics and steroids pending follow-up. Departure - Departure Disposition: Home, Self Care Clinical Impression: COPD exacerbation Condition: Good Record reviewed to determine appropriate education?: Yes Instructions: ED Bronchitis Asthmatic Prescriptions: predniSONE [Deltasone] 60 mg PO DAILY 5 Days #15 tablet Doxycycline Hyclate 100 mg PO BID #14 cap Comments: I sent your prescription electronically to [facility] in [place]. Chest x-ray is clear, but I suspect you have bronchitis given your underlying lung issues. Do not go out in the sun too much while on antibiotics as the antibiotic will make you sun sensitive. Return if worse. Follow-up with your doctor around Wednesday if not better. In about a week even if better. Your chest x-ray and COVID test here today were without positive findings.
--- NOTE | 2022-08-13 16:14 | XRAY Report ---
PROCEDURE: Chest 2 View X-Ray INDICATIONS: dypsnea TECHNIQUE: 2 view(s) of the chest. COMPARISON: 11/26/2021 FINDINGS: Surgical changes and devices: Multilevel cervical thoracic fusion hardware.. Lungs and pleura: No pleural effusions or pneumothorax. Lungs are clear. Mediastinum: Mediastinal contours are normal. Heart size is normal. Bones and chest wall: No suspicious bony abnormalities. Soft tissues appear unremarkable. IMPRESSION: No evidence acute pulmonary process. Reviewed by: Julio Cesar Bills MD on 08/13/2022 4:12 PM PDT Approved by: Julio Cesar Bills MD on 08/13/2022 4:12 PM PDT Station ID: [id number]
[2022-08-13] MEDS ORDERED: DOXYCYCLINE 100 MG TABLET PO STA (16:40)
[2022-08-13] MEDS ORDERED: predniSONE 20 MG TABLET PO STA (16:40)
== END 2022-08-13 17:12 | disposition home or self-care (01) ==
LOC: ED 15:08
DX: J44.1 Chronic obstructive pulmonary disease with (acute) exacerbation (principal); I10 Essential (primary) hypertension
CPT/HCPCS: 71046; 87635; 99284; A9270; J7512

== ENCOUNTER 2022-09-08 16:22 | Emergency (ER) | payer MEDICAID ==
[2022-09-08] MEDS ORDERED: ALBUTEROL NEB 2.5 MG/3 ML INH STA ×2 (16:57→17:56)
[2022-09-08] MEDS ORDERED: IPRATROPIUM 0.2 MG/ML NEB INH STA (16:57)
[2022-09-08 16:59] LABS: BASOPHILS # (AUTO) 0.1 10^3/uL (0.0-0.1); BASOPHILS % (AUTO) 0.8 %; EOSINOPHILS # (AUTO) 0.1 10^3/uL (0.0-0.7); EOSINOPHILS % (AUTO) 1.1 %; HCT - HEMATOCRIT 46.4 % (42.0-52.0); HGB - HEMOGLOBIN 14.7 g/dL (14.0-18.0); LYMPHOCYTES # (AUTO) 0.6 10^3/uL (1.5-3.5); LYMPHOCYTES % (AUTO) 9.4 %; MEAN CORPUSCULAR HEMOGLOBIN 29.9 pg (27.0-31.0); MEAN CORPUSCULAR HGB CONC 31.7 g/dL (32.0-36.0); MEAN CORPUSCULAR VOLUME 94.3 fL (80.0-94.0); MEAN PLATELET VOLUME 9.4 fL (7.4-11.4); MONOCYTES # (AUTO) 0.5 10^3/uL (0.0-1.0); MONOCYTES % (AUTO) 7.6 %; NEUTROPHILS % (AUTO) 80.8 %; PLT - PLATELET COUNT 237 10^3/uL (130-450); RED BLOOD COUNT 4.92 10^6/uL (4.70-6.10); RED CELL DISTRIBUTION WIDTH 14.5 % (12.0-15.0); WHITE BLOOD COUNT 6.2 x10^3/uL (4.8-10.8)
--- NOTE | 2022-09-08 17:06 | ED Physician Documentation ---
History of Present Illness - Stated complaint Stated Complaint: SOA/CHEST TIGHT - Chief complaint Chief Complaint: Cardiac - Additonal information Additional information: 62-year-old male who has a history of nonoxygen dependent COPD presents emergency department for evaluation of productive cough for the last 3 days. Subjective fevers and chills. He has been using albuterol at home. Was supposed to be taking Spiriva but he does not like the way it tasted he has not taken it. He continues to smoke cigarettes though only 1-2 a day. He denies any chest pain. He is modestly short of breath with exertion. Review of Systems Constitutional: reports: Myalgias, Fatigue. denies: Fever Cardiac: reports: Palpitations. denies: Chest pain / pressure, Pedal edema Respiratory: reports: Dyspnea, Cough, Wheezing. denies: Hemoptysis GI: reports: Reviewed and negative : reports: Reviewed and negative Skin: reports: Reviewed and negative PD PAST MEDICAL HISTORY - Past Medical History Cardiovascular: Hypertension, High cholesterol, [place] Respiratory: Asthma, COPD, Pneumonia Neuro: CVA, TIA Endocrine/Autoimmune: None GI: GERD : Benign prostate hypertrophy HEENT: None Psych: Depression, Anxiety, Bipolar disorder, ADD/ADHD Musculoskeletal: Chronic back pain Derm: Psoriasis - Past Surgical History Past Surgical History: Yes General: Cholecystectomy, Appendectomy, Colonoscopy Ortho: Spine surgery - Present Medications Home Medications: Ambulatory Orders Medication Instructions Recorded Confirmed Multivitamin [Multivitamins] 1 tab PO DAILY 02/04/15 08/13/22 Tamsulosin [Flomax] 0.8 mg PO DAILY 10/30/16 08/13/22 Duloxetine HCl [Cymbalta] 60 mg PO DAILY #30 capsule. 11/04/16 08/13/22 Albuterol Sulf [Ventolin Hfa 2 - 3 puffs INH Q4HR PRN #1 inhaler 12/05/18 08/13/22 Inhaler] Divalproex Sodium [Depakote ER] 1,000 mg PO BID 10/24/20 08/13/22 Gabapentin [Neurontin] 300 mg PO TID 10/24/20 08/13/22 OLANZapine [Zyprexa] 5 mg PO DAILY 10/24/20 08/13/22 Rosuvastatin Calcium [Crestor] 10 mg PO QPM 10/24/20 08/13/22 Ibuprofen [Motrin] 800 mg PO Q8H PRN #30 tablet 11/24/21 08/13/22 Doxycycline Hyclate 100 mg PO BID #14 cap 08/13/22 predniSONE [Deltasone] 60 mg PO DAILY 5 Days #15 tablet 08/13/22 Azithromycin [Zithromax] 250 mg PO DAILY #6 tablet 09/08/22 predniSONE [Deltasone] 40 mg PO DAILY 5 Days #10 tablet 09/08/22 - Allergies Allergies/Adverse Reactions: Allergies Allergy/AdvReac Type Severity Reaction Status Date / Time bupropion HCl * [From Zyban] Allergy Rash Verified 09/08/22 16:28 - Social History Does the pt smoke?: Yes Smoking Status: Current every day smoker Does the pt drink ETOH?: No Does the pt have substance abuse?: Yes - Immunizations Immunizations are current?: Yes - POLST Patient has POLST: No POLST Status: Full Code PD ED PE NORMAL - General General: Alert and oriented X 3, No acute distress, Well developed/nourished - HEENT HEENT: Atraumatic, Moist mucous membranes - Cardiac Cardiac: RRR, No murmur, No gallop - Respiratory Respiratory: No respiratory distress. No: Clear bilaterally (Crackles in the bilateral lower lobes. Diffuse expiratory wheeze. No tachypnea. Nonlabored.) - Abdomen Abdomen: Normal bowel sounds, Soft - Back Back: No CVA TTP, No spinal TTP - Derm Derm: Normal color, Warm and dry - Extremities Extremities: No deformity, No tenderness to palpate, Normal ROM s pain - Neuro Neuro: Alert and oriented X 3, patient experience coordinator 2-12 intact Eye Opening: Spontaneous Motor: Obeys Commands Verbal: Oriented GCS Score: 15 Results - Vitals Vitals: Vital Signs - 24 hr 09/08/22 09/08/22 09/08/22 16:28 17:05 17:13 Temperature 36.6 C Heart Rate 100 95 88 Respiratory 20 20 22 Rate Blood Pressure 143/80 H 151/90 H O2 Saturation 94 95 09/08/22 09/08/22 09/08/22 17:30 18:00 18:30 Temperature 36.6 C Heart Rate 93 85 85 Respiratory 18 24 18 Rate Blood Pressure 150/97 H 162/93 H 155/88 H O2 Saturation 96 100 93 Oxygen O2 Source Room air - EKG (time done) 1638 Rate: Rate (enter#) (95) Rhythm: NSR Intervals: Other (LAFB) QRS: Normal Ischemia: Non specific changes Compare to prior EKG: Unchanged from prior EKG Computer interpretation: Agree with computer - Labs Labs: Laboratory Tests 09/08/22 09/08/22 09/08/22 16:53 16:53 16:53 WBC 6.2 RBC 4.92 Hgb 14.7 Hct 46.4 MCV 94.3 H MCH 29.9 MCHC 31.7 L RDW 14.5 Plt Count 237 MPV 9.4 Neut # (Auto) 5.0 Lymph # (Auto) 0.6 L [place] # (Auto) 0.5 Eos # (Auto) 0.1 Baso # (Auto) 0.1 Absolute Nucleated RBC 0.00 Nucleated RBC % 0.0 Sodium 140 Potassium 3.4 L Chloride 103 Carbon Dioxide 28 Anion Gap 9.0 BUN 13 Creatinine 0.6 Estimated GFR (MDRD) 136 Glucose 103 H Calcium 8.8 Total Bilirubin 0.4 AST 24 ALT 26 Alkaline Phosphatase 82 Troponin I High Sens 7.7 B-Natriuretic Peptide Total Protein 6.9 Albumin 3.7 Globulin 3.2 Albumin/Globulin Ratio 1.2 Lipase 25 Nasal Adenovirus (PCR) Nasal B. parapertussis DNA (PCR) Nasal Coronavir 229E PCR Nasal Coronavir HKU1 PCR Nasal Coronavir NL63 PCR Nasal Coronavir OC43 PCR Nasal Enterovir/Rhinovir PCR Nasal Influenza B PCR Nasal Influenza A PCR Nasal Parainfluen 1 PCR Nasal Parainfluen 2 PCR Nasal Parainfluen 3 PCR Nasal Parainfluen 4 PCR Nasal RSV (PCR) Nasal B.pertussis DNA PCR Nasal C.pneumoniae (PCR) Froylan Human Metapneumo PCR Nasal M.pneumoniae (PCR) Nasal SARS-CoV-2 (PCR) 09/08/22 09/08/22 16:53 17:05 WBC RBC Hgb Hct MCV MCH MCHC RDW Plt Count MPV Neut # (Auto) Lymph # (Auto) [place] # (Auto) Eos # (Auto) Baso # (Auto) Absolute Nucleated RBC Nucleated RBC % Sodium Potassium Chloride Carbon Dioxide Anion Gap BUN Creatinine Estimated GFR (MDRD) Glucose Calcium Total Bilirubin AST ALT Alkaline Phosphatase Troponin I High Sens B-Natriuretic Peptide 44 Total Protein Albumin Globulin Albumin/Globulin Ratio Lipase Nasal Adenovirus (PCR) NOT DETECTED Nasal B. parapertussis DNA (PCR) NOT DETECTED Nasal Coronavir 229E PCR NOT DETECTED Nasal Coronavir HKU1 PCR NOT DETECTED Nasal Coronavir NL63 PCR NOT DETECTED Nasal Coronavir OC43 PCR NOT DETECTED Nasal Enterovir/Rhinovir PCR NOT DETECTED Nasal Influenza B PCR NOT DETECTED Nasal Influenza A PCR NOT DETECTED Nasal Parainfluen 1 PCR NOT DETECTED Nasal Parainfluen 2 PCR NOT DETECTED Nasal Parainfluen 3 PCR NOT DETECTED Nasal Parainfluen 4 PCR NOT DETECTED Nasal RSV (PCR) DETECTED A Nasal B.pertussis DNA PCR NOT DETECTED Nasal C.pneumoniae (PCR) NOT DETECTED Froylan Human Metapneumo PCR NOT DETECTED Nasal M.pneumoniae (PCR) NOT DETECTED Nasal SARS-CoV-2 (PCR) NOT DETECTED - Rads (name of study) cxr Radiology: Final report received (No acute cardiopulmonary abnormality) PD MEDICAL DECISION MAKING - ED course Complexity details: reviewed results, re-evaluated patient, considered differential, d/w patient, d/w family ED course: 62-year-old male who has a history of nonoxygen dependent COPD presents to the emergency department for evaluation of cough cough with excessive phlegm that began about 3 days ago. No fevers. Some mild dyspnea and shortness of air but no focal chest pain. He continues to smoke tobacco. He uses albuterol at home only. He is not on a long-acting beta agonist or inhaled steroid. Chest x-ray was without acute focal opacities. He was not hypoxic. CBC electrolytes and troponin were all unremarkable. Screening EKG nonischemic. On presentation he was diffusely wheezy. We did give him an initial DuoNeb which markedly improved the symptoms. We followed that with a second dose of albuterol via nebulizer and patient is feeling markedly improved. Respiratory PCR resulted positive for RSV likely the cause of the COPD exacerbation. Patient was given 60 mg of prednisone here in the emergency department and will be discharged on a 5-day course. I will also prescribe azithromycin and treatment of a COPD exacerbation. Patient was notified that this is likely RSV associated. Emergent return precautions were discussed for failure symptoms to resolve. Departure - Departure Disposition: 01 Home, Self Care Clinical Impression: COPD with acute exacerbation, RSV infection Condition: Stable Record reviewed to determine appropriate education?: Yes Follow-Up: Milka Rolle MD [Primary Care Provider] - Prescriptions: predniSONE [Deltasone] 40 mg PO DAILY 5 Days #10 tablet Azithromycin [Zithromax] 250 mg PO DAILY #6 tablet Comments: Arnoldo you are seen today in the emergency department for 3 days of cough congestion and shortness of air. You do seem to have an exacerbation of your COPD. This is most likely because you have developed a viral respiratory infection called RSV. This seems to be the dominant virus in our community at this time and will make people that have COPD such as yours flare. In order to manage the flare am sending a prescription for prednisone to the [facility] in [place]. Fill this and begin taking tomorrow as directed. I have also sent a prescription for azithromycin and antibiotic to the pharmacy. With this exacerbation I would expect that you are needing to use your inhaler or nebulizer 4-6 times a day but I would expect the symptoms to be getting progressively better over the next 3 to 5 days. If you find that despite the use of the medications at home you are having worsening symptoms, develop any fevers, have severe chest pain or shortness of air then please return to the ER. I encourage you to follow-up closely with your primary care doctor to discuss if you would benefit from being on a long-term inhaled steroid or long-acting beta agonist.
[2022-09-08 17:22] LABS: ALBUMIN 3.7 g/dL (3.2-5.5); ALBUMIN/GLOBULIN RATIO 1.2 (1.0-2.2); BILIRUBIN,TOTAL 0.4 mg/dL (0.2-1.0); CALCIUM 8.8 mg/dL (8.5-10.3); CREATININE 0.6 mg/dL (0.6-1.2); POTASSIUM 3.4 mmol/L (3.5-5.0); TOTAL PROTEIN 6.9 g/dL (6.7-8.2)
--- NOTE | 2022-09-08 17:40 | XRAY Report ---
PROCEDURE: Chest 1 View X-Ray INDICATIONS: Chest Pain TECHNIQUE: One view of the chest was acquired. COMPARISON: CXR 08/13/2022, 11/26/2021. FINDINGS: Surgical changes and devices: Cervical thoracic spine hardware. Lungs and pleura: No pleural effusions or pneumothorax. Lungs are clear. Prominent lung volumes. Mediastinum: Mediastinal contours appear normal. Heart size is normal. Bones and chest wall: No suspicious bony lesions. Overlying soft tissues appear unremarkable. IMPRESSION: No acute cardiopulmonary abnormality. Reviewed by: Elmer Salas MD on 09/08/2022 4:38 PM HÉCTOR Approved by: Elmer Salas MD on 09/08/2022 4:38 PM HÉCTOR Station ID: [id number]
[2022-09-08] MEDS ORDERED: ALBUTEROL NEB 2.5 MG/3 ML INH ONE (17:56)
[2022-09-08 18:10] LABS: CORONAVIRUS 229E-RESP PCR NOT DETECTED; CORONAVIRUS HKU1-RESP PCR NOT DETECTED; CORONAVIRUS NL63-RESP PCR NOT DETECTED; CORONAVIRUS OC43-RESP PCR NOT DETECTED
[2022-09-08 18:11] LABS: B. PARAPERTUSSIS- RESP PCR PAN NOT DETECTED; B. PERTUSSIS- RESP PCR PANEL NOT DETECTED; C. PNEUMONIAE- RESP PCR PANEL NOT DETECTED; HUMAN METAPNEUMOVIRUS NOT DETECTED; INFLUENZA A- RESP PCR PANEL NOT DETECTED; INFLUENZA B - RESP PCR PANEL NOT DETECTED; M. PNEUMONIAE- RESP PCR PANEL NOT DETECTED; PARAINFLUENZA VIRUS 1 NOT DETECTED; PARAINFLUENZA VIRUS 2 NOT DETECTED; PARAINFLUENZA VIRUS 3 NOT DETECTED; PARAINFLUENZA VIRUS 4 NOT DETECTED; RHINOVIRUS/ENTEROVIRUS NOT DETECTED; RSV- RESP PCR PANEL DETECTED; SARS-CoV-2 -RESP PCR PANEL NOT DETECTED
[2022-09-08] MEDS ORDERED: predniSONE 20 MG TABLET PO STA (18:42)
[2022-09-08 19:09] VITALS: BP 153/93
== END 2022-09-08 19:18 | disposition home or self-care (01) ==
LOC: ED 16:22
DX: J44.1 Chronic obstructive pulmonary disease with (acute) exacerbation (principal); B97.4 Respiratory syncytial virus as the cause of diseases classified elsewhere; I10 Essential (primary) hypertension; F17.200 Nicotine dependence, unspecified, uncomplicated
CPT/HCPCS: 36415; 71045; 80053; 83690; 83880; 84484; 85025; 87633; 93005; 94640; 99284; A9270; J7512

== ENCOUNTER 2022-11-03 14:18 | Outpatient (CLI) | payer MEDICAID | END 2022-11-03 14:19 | disposition critical access hospital (66) | LOC: EMS 14:18 | DX: R47.81 Slurred speech (principal); R29.810 Facial weakness; R29.898 Other symptoms and signs involving the musculoskeletal system | CPT/HCPCS: A0425; A0429; A0999 ==

== ENCOUNTER 2022-11-03 14:30 | Emergency (ER) | payer MEDICAID ==
--- NOTE | 2022-11-03 14:37 | ED Physician Documentation ---
PD HPI FOCAL NEURO - Stated complaint Stated Complaint: CODE STROKE - History obtained from History obtained from: Patient - Additional information Additional information: 62-year-old gentleman brought in by EMS for "code stroke". 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 Also history of tobacco abuse and intermittent methamphetamine abuse. At 130 today he developed slurred speech and a left facial droop. There is no associated headache. The symptoms have resolved. He feels back to normal now. Of note he has chronic neurologic deficits related to his spinal cord injury but they have been improving lately. He has been walking with a walker recently. Doing aggressive physical therapy. Review of Systems Ten Systems: 10 systems reviewed and negative Constitutional: reports: Reviewed and negative Cardiac: reports: Reviewed and negative Respiratory: reports: Reviewed and negative PD PAST MEDICAL HISTORY - Past Medical History Cardiovascular: Hypertension, High cholesterol, [place] Respiratory: Asthma, COPD, Pneumonia Neuro: CVA, TIA Endocrine/Autoimmune: None GI: GERD : Benign prostate hypertrophy HEENT: None Psych: Depression, Anxiety, Bipolar disorder, ADD/ADHD Musculoskeletal: Chronic back pain Derm: Psoriasis - Past Surgical History Past Surgical History: Yes General: Cholecystectomy, Appendectomy, Colonoscopy Ortho: Spine surgery - Present Medications Home Medications: Ambulatory Orders Medication Instructions Recorded Confirmed Multivitamin [Multivitamins] 1 tab PO DAILY 02/04/15 08/13/22 Tamsulosin [Flomax] 0.8 mg PO DAILY 10/30/16 08/13/22 Duloxetine HCl [Cymbalta] 60 mg PO DAILY #30 capsule. 11/04/16 08/13/22 Albuterol Sulf [Ventolin Hfa 2 - 3 puffs INH Q4HR PRN #1 inhaler 12/05/18 08/13/22 Inhaler] Divalproex Sodium [Depakote ER] 1,000 mg PO BID 10/24/20 08/13/22 Gabapentin [Neurontin] 300 mg PO TID 10/24/20 08/13/22 OLANZapine [Zyprexa] 5 mg PO DAILY 10/24/20 08/13/22 Rosuvastatin Calcium [Crestor] 10 mg PO QPM 10/24/20 08/13/22 Ibuprofen [Motrin] 800 mg PO Q8H PRN #30 tablet 11/24/21 08/13/22 Doxycycline Hyclate 100 mg PO BID #14 cap 08/13/22 predniSONE [Deltasone] 60 mg PO DAILY 5 Days #15 tablet 08/13/22 Azithromycin [Zithromax] 250 mg PO DAILY #6 tablet 09/08/22 predniSONE [Deltasone] 40 mg PO DAILY 5 Days #10 tablet 09/08/22 - Allergies Allergies/Adverse Reactions: Allergies Allergy/AdvReac Type Severity Reaction Status Date / Time bupropion HCl * [From Zyban] Allergy Rash Verified 11/03/22 14:37 - Social History Does the pt smoke?: Yes Smoking Status: Current every day smoker Does the pt drink ETOH?: No Does the pt have substance abuse?: Yes - Immunizations Immunizations are current?: Yes - POLST Patient has POLST: No POLST Status: Full Code PD ED PE NORMAL - Vitals Vital signs reviewed: Yes - General General: Alert and oriented X 3, No acute distress - HEENT HEENT: PERRL, EOMI - Neck Neck: Supple, no meningeal sign, No bony TTP - Cardiac Cardiac: RRR, No murmur - Respiratory Respiratory: No respiratory distress, Clear bilaterally - Abdomen Abdomen: Normal bowel sounds, Soft, Non tender - Back Back: No CVA TTP, No spinal TTP - Derm Derm: Normal color, Warm and dry - Extremities Extremities: Other (He has chronic weakness and contracture of the right hand but he says nothing is different than any other day. He has no pronator drift though. 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 his contracture in the right hand that causes him trouble.) - Neuro Neuro: Alert and oriented X 3, No motor deficit, No sensory deficit, Normal speech Eye Opening: Spontaneous Motor: Obeys Commands Verbal: Oriented GCS Score: 15 NIHSS - Time Time: 14:35 - Level of Consciousness Level of consciousness: (0) Alert, Keenly responsive LOC Questions: (0) Answers both Q's correct LOC Commands: (0) Performs both correctly - Gaze Best Gaze: (0) Normal - Visual Visual: (0) No loss - Facial Palsy Facial Palsy: (0) Normal, symmetrical movement - Motor Arms (both separate) Motor Arm (right): (0) No drift Motor Arm (left): (0) No drift - Motor Legs (both separate) Motor Leg (right): (0) No drift Motor Leg (left): (0) No drift - Limb Ataxia Limb Ataxia: (0) Absent - Sensory Sensory: (0) Normal - Best Language Best Language: (0) No aphasia - Dysarthria Dysarthria: (0) Normal - Extinction and Inattention (formally neg Extinction and inattention: (0) No abnormality - Total Score/Results Total Score/Result: 0 Results - Vitals Vitals: Vital Signs - 24 hr 11/03/22 11/03/22 11/03/22 14:37 14:42 15:12 Temperature 36.5 C 36.5 C Heart Rate 88 88 81 Respiratory 12 15 15 Rate Blood Pressure 122/77 121/77 122/76 O2 Saturation 98 92 93 11/03/22 16:00 Temperature Heart Rate 87 Respiratory 14 Rate Blood Pressure 124/74 O2 Saturation 92 Oxygen O2 Source Room air - EKG (time done) 1448 Rate: Rate (enter#) (81) Rhythm: NSR, LAE [place]: Normal Intervals: Prolonged QT (borderline at 476msec), Other (lafb) Ischemia: No: ST elevation c/w ischemia, ST depression - Labs Labs: Laboratory Tests 11/03/22 11/03/22 14:46 14:46 WBC 6.8 RBC 4.57 L Hgb 13.7 L Hct 44.8 MCV 98.0 H MCH 30.0 MCHC 30.6 L RDW 15.9 H Plt Count 255 MPV 9.0 Neut # (Auto) 5.4 Lymph # (Auto) 1.0 L [place] # (Auto) 0.4 Eos # (Auto) 0.1 Baso # (Auto) 0.1 Absolute Nucleated RBC 0.00 Nucleated RBC % 0.0 Sodium 136 Potassium 3.4 L Chloride 103 Carbon Dioxide 24 Anion Gap 9.0 BUN 18 Creatinine 0.7 Estimated GFR (MDRD) 114 Glucose 123 H Calcium 9.1 Magnesium 2.1 Total Bilirubin 0.6 AST 19 ALT 17 Alkaline Phosphatase 76 Total Protein 7.0 Albumin 3.8 Globulin 3.2 Albumin/Globulin Ratio 1.2 Ethyl Alcohol < 5.0 PD Medical Decision Making - ED course ED course: 62-year-old gentleman presents with a TIA, he is not anticoagulated. On arrival his symptoms are resolved and his NIH stroke scale is 0. CT angiography of the head and neck done without occlusion or evidence of stroke, he does have some narrowing of the right A1 and P1 segments new since 5 years ago. ABCD 2 score is [address] on aspirin. His blood pressure is well controlled. Counseled to quit smoking, he is nearly quit but still smokes occasionally. Departure - Departure Disposition: Home, Self Care Clinical Impression: TIA (transient ischemic attack) Condition: Good Record reviewed to determine appropriate education?: Yes Instructions: ED Transient Ischemic Attack Comments: Take a baby aspirin a day, Call your doctor to arrange a follow-up appointment, make the next available appointment. In the interim, return anytime if worse or if new symptoms develop.
[2022-11-03 14:53] LABS: BASOPHILS # (AUTO) 0.1 10^3/uL (0.0-0.1); BASOPHILS % (AUTO) 0.9 %; EOSINOPHILS # (AUTO) 0.1 10^3/uL (0.0-0.7); EOSINOPHILS % (AUTO) 0.7 %; HCT - HEMATOCRIT 44.8 % (42.0-52.0); HGB - HEMOGLOBIN 13.7 g/dL (14.0-18.0); LYMPHOCYTES % (AUTO) 14.3 %; MEAN CORPUSCULAR HGB CONC 30.6 g/dL (32.0-36.0); MONOCYTES # (AUTO) 0.4 10^3/uL (0.0-1.0); MONOCYTES % (AUTO) 5.1 %; NEUTROPHILS # (AUTO) 5.4 10^3/uL (1.5-6.6); NEUTROPHILS % (AUTO) 78.6 %; PLT - PLATELET COUNT 255 10^3/uL (130-450); RED BLOOD COUNT 4.57 10^6/uL (4.70-6.10); RED CELL DISTRIBUTION WIDTH 15.9 % (12.0-15.0); WHITE BLOOD COUNT 6.8 x10^3/uL (4.8-10.8)
[2022-11-03 15:09] LABS: ALBUMIN 3.8 g/dL (3.2-5.5); ALBUMIN/GLOBULIN RATIO 1.2 (1.0-2.2); ALKALINE PHOSPHATASE 76 IU/L (42-121); ALT ALANINE AMINOTRANSFERASE 17 IU/L (10-60); AST ASPARTATE AMINOTRANSFERASE 19 IU/L (10-42); BILIRUBIN,TOTAL 0.6 mg/dL (0.2-1.0); BUN - BLOOD UREA NITROGEN 18 mg/dL (6-20); CALCIUM 9.1 mg/dL (8.5-10.3); CARBON DIOXIDE - CO2 24 mmol/L (21-32); CHLORIDE 103 mmol/L (101-111); CREATININE 0.7 mg/dL (0.6-1.2); ETOH - ETHANOL < 5.0 mg/dL; GFR - MDRD 114 (>89); GLUCOSE 123 mg/dL (70-100); MAGNESIUM 2.1 mg/dL (1.7-2.8); POTASSIUM 3.4 mmol/L (3.5-5.0); SODIUM 136 mmol/L (135-145)
[2022-11-03] MEDS ORDERED: iohexoL-300 100 ML VIAL ONE ×2 (15:50→17:11)
--- NOTE | 2022-11-03 16:18 | CT Report ---
PROCEDURE: ANGIO HEAD W/WO INDICATIONS: Stroke symptoms CONTRAST: 80mL Omni 300 TECHNIQUE: Precontrast 4.5 mm thick angled axial sections acquired from the foramen magnum to the vertex. Afte r the administration of intravenous contrast, 1 mm thick sections acquired through the [place] of [place] is. Postcontrast 4.5 mm thick sections then re-acquired from the foramen magnum to the vertex. 3-di mensional jsifkbw-dvfkrlliq-qfeoxnarhq (MIP) and/or volume rendering reformats were acquired of the c entral intracranial vasculature. For radiation dose reduction, the following was used: automated ex posure control, adjustment of mA and/or kV according to patient size. COMPARISON: 05/26/2022 and 08/02/2017 FINDINGS: Image quality: Excellent. Anterior circulation: Mild to moderate atherosclerotic narrowing of the right A1 segment, new from exam. Remaining anterior and middle cerebral artery branches appear widely patent. No intrac ranial carotid narrowing. Posterior circulation: Persistent origin of the right posterior cerebral artery. Both posterior to indicating arteries are patent. The right P1 segment demonstrates xwri-xa-nvjelvhb atheroscleroti c narrowing, new from 08/02/2017 exam. Distal V4 segments and basilar artery normal. CSF spaces: Ventricles are normal in size and shape. Basal cisterns are patent. No extra-axial flu id collections. Brain: No midline shift. No intracranial bleeds or masses. Krause-white matter interface appears int act. Skull and face: Calvarium and facial bones appear intact, without suspicious lesions. Sinuses: Visualized sinuses and mastoids are clear. IMPRESSION: Mild to moderate atherosclerotic narrowing of the right A1 and P1 segments, new from 08/02/2017 exam. No acute intracranial hemorrhage or other acute intracranial finding. Reviewed by: Smith Yanes MD on 11/03/2022 4:16 PM PST Approved by: Smith Yanes MD on 11/03/2022 4:16 PM PST Station ID: [id number]
--- NOTE | 2022-11-03 16:19 | CT Report ---
PROCEDURE: ANGIO NECK W INDICATIONS: Stroke symptoms CONTRAST: 80mL Omni 300 TECHNIQUE: After the administration of intravenous contrast, 1.5 mm axial sections acquired from the aortic arch to the [place] of [place]. Coronal 3-D maximum intensity projection (MIP) and/or volume rendering ref ormats were then performed. For radiation dose reduction, the following was used: automated exposur e control, adjustment of mA and/or kV according to patient size. COMPARISON: 08/02/2017 FINDINGS: Image quality: Excellent. Carotid system: The great vessels demonstrate a conventional anatomy as they arise from the aortic a rch. The origins of the common carotid arteries appear patent. The common carotid arteries demonstr ate normal calibers and courses. The bifurcation regions appear normal bilaterally. The internal ca rotid arteries demonstrate normal caliber and course. Posterior circulation: The origins of the vertebral arteries appear patent. The more superior porti ons of the vertebral arteries demonstrate normal course and caliber. They join to form a normal appe aring basilar artery. Soft tissues: Visualized neck soft tissues demonstrate no suspicious abnormalities. The thyroid is normal in size and there are no incidental findings. Bones: No suspicious bony lesions. Visualized cervical spine appears normally aligned. IMPRESSION: No hemodynamically significant stenosis or occlusion of the major cervical arterial vasculature. The estimate of stenosis included in the report of the imaging study was calculated using the NASCET method. Reviewed by: Smith Yanes MD on 11/03/2022 4:17 PM PST Approved by: Smith Yanes MD on 11/03/2022 4:17 PM PST Station ID: [id number]
[2022-11-03] MEDS ORDERED: ASPIRIN CHEW 81 MG TABLET PO STA (16:32)
[2022-11-03 17:23] VITALS: BP 122/78
[2022-11-03] MEDS ORDERED: iohexoL-300 100 ML VIAL IVP ONE (18:08)
== END 2022-11-03 17:21 | disposition home or self-care (01) ==
LOC: EDUNIT# → ED 14:30
DX: G45.9 Transient cerebral ischemic attack, unspecified (principal); F17.200 Nicotine dependence, unspecified, uncomplicated; F15.11 Other stimulant abuse, in remission; J44.9 Chronic obstructive pulmonary disease, unspecified; F32.A Depression, unspecified; F41.9 Anxiety disorder, unspecified
CPT/HCPCS: 36415; 70496; 70498; 80053; 80320; 83735; 85025; 93005; 99284; A9270; Q9967

== ENCOUNTER 2023-09-12 16:53 | Emergency (ER) | payer MEDICARE, MEDICAID ==
[2023-09-12 17:09] VITALS: BP 147/96; O2SAT 97
--- NOTE | 2023-09-12 17:21 | ED Physician Documentation ---
History of Present Illness - Stated complaint Stated Complaint: HURTADO/FEVER/WEAKNESS - Chief complaint Chief Complaint: General - History obtained from History obtained from: Patient - Additonal information Additional information: Patient is a 63-year-old male presenting for evaluation of positive home COVID test. Patient states that since yesterday he has been feeling achy, fatigued, having a nonproductive cough. He took a COVID test at home which was positive. He is concerned as he has a history of COPD and would like to be started on Paxlovid. He does have an up-to-date list of medications with him. He has never had COVID before. He denies shortness of air or chest pain. Review of Systems Constitutional: reports: Myalgias. denies: Fever Nose: denies: Congestion Cardiac: denies: Chest pain / pressure Respiratory: reports: Cough. denies: Dyspnea GI: denies: Vomiting PD PAST MEDICAL HISTORY - Past Medical History Past Medical History: Yes Cardiovascular: Hypertension, High cholesterol, [place] Respiratory: Asthma, COPD, Pneumonia Neuro: CVA, TIA Endocrine/Autoimmune: None GI: GERD : Benign prostate hypertrophy HEENT: None Psych: Depression, Anxiety, Bipolar disorder, ADD/ADHD Musculoskeletal: Chronic back pain Derm: Psoriasis - Past Surgical History Past Surgical History: Yes General: Cholecystectomy, Appendectomy, Colonoscopy Ortho: Spine surgery - Present Medications Home Medications: Ambulatory Orders Medication Instructions Recorded Confirmed Multivitamin [Multivitamins] 1 tab PO DAILY 02/04/15 09/12/23 Tamsulosin [Flomax] 0.8 mg PO DAILY 10/30/16 09/12/23 Duloxetine HCl [Cymbalta] 60 mg PO DAILY #30 capsule. 11/04/16 09/12/23 Albuterol Sulf [Ventolin Hfa 2 - 3 puffs INH Q4HR PRN #1 inhaler 12/05/18 08/13/22 Inhaler] Rosuvastatin Calcium [Crestor] 10 mg PO QPM 10/24/20 09/12/23 Budesonide/Formoterol Fumarate 2 puffs IH DAILY 09/12/23 09/12/23 [Symbicort 80-4.5 Mcg Inhaler] Triamcinolone Acetonide 0.1% 1 gm TP BID 09/12/23 09/12/23 [Triamcinolone Acetonide] - Allergies Allergies/Adverse Reactions: Allergies Allergy/AdvReac Type Severity Reaction Status Date / Time bupropion HCl * [From Zyban] Allergy Rash Verified 09/12/23 17:01 - Social History Does the pt smoke?: No Smoking Status: Never smoker Does the pt drink ETOH?: Yes ETOH Use: Beer Does the pt have substance abuse?: No - Immunizations Immunizations are current?: Yes - POLST Patient has POLST: No POLST Status: Full Code PD ED PE NORMAL - General General: Alert and oriented X 3, No acute distress, Well developed/nourished - HEENT HEENT: Atraumatic, Moist mucous membranes, Pharynx benign - Neck Neck: Supple, no meningeal sign - Cardiac Cardiac: RRR, No murmur - Respiratory Respiratory: No respiratory distress, Clear bilaterally - Derm Derm: Other (Psoriatic rash) - Extremities Extremities: No edema - Neuro Neuro: Normal speech Results - Vitals Vitals: Vital Signs - 24 hr 09/12/23 17:01 Temperature 36.5 C Heart Rate 103 H Respiratory 20 Rate Blood Pressure 147/96 H O2 Saturation 97 Oxygen O2 Source Room air PD Medical Decision Making - ED course ED course: Patient is a 63-year-old male with a history of COPD and psoriasis presenting for a home COVID test which was positive and requesting Paxlovid. His vital signs are stable he does not appear to require hospitalization for the treatment of his COVID. He does have an up-to-date list of medications and I did review these and reviewed interactions with COVID. He also understands possible side effects from Paxlovid and is agreeable to taking this medication. Patient does not have a history of renal dysfunction.Patient counseled on concerning symptoms to return for. Departure - Departure Disposition: Home, Self Care Clinical Impression: COVID-19 Condition: Stable Instructions: ED Viral Syndrome Comments: You have been started on a Paxlovid which is an antiviral treatment used when you have tested positive for COVID. This medication can interact with a number of medications. PLEASE READ THIS CAREFULLY ROSUVASTATIN (CHOLESTEROL MEDICINE) - DO NOT TAKE WHILE ON PAXLOVID TAMSULOSIN (PROSTATE MEDICINE) - DO NOT TAKE WHILE ON PAXLOVID. RESTART 3 DAYS AFTER COMPLETING PAXLOVID. Return to the emergency department with any worsening symptoms such as feeling short of air. Forms: PCP List
[2023-09-12] MEDS ORDERED: NIRMATRELVIR/RITONAVIR PREPACK PO STA (17:22)
== END 2023-09-12 17:40 | disposition home or self-care (01) ==
LOC: ED 16:53
DX: U07.1 COVID-19 (principal); J44.9 Chronic obstructive pulmonary disease, unspecified; I10 Essential (primary) hypertension; E78.00 Pure hypercholesterolemia, unspecified; Z79.899 Other long term (current) drug therapy; Z79.51 Long term (current) use of inhaled steroids
CPT/HCPCS: 99282; J3490

== ENCOUNTER 2024-01-01 15:52 | Emergency (ER) | payer MEDICARE, MEDICAID ==
--- NOTE | 2024-01-01 16:15 | ED Physician Documentation ---
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 He fell while taking down [place] lights. He was up on a ladder which he really should not have been since he has mobility issues and is at baseline in a wheelchair most of the time but does transfer and ambulate short distances. He fell and hit the ladder on his right back and it really was not too painful at first but over the last few days has become severely painful and worse with deep breathing and walking. He has not tried anything for the pain. No head or neck or other injury. PD PAST MEDICAL HISTORY - Past Medical History Cardiovascular: Hypertension, High cholesterol, [place] Respiratory: Asthma, COPD, Pneumonia Neuro: CVA, TIA Endocrine/Autoimmune: None GI: GERD : Benign prostate hypertrophy HEENT: None Psych: Depression, Anxiety, Bipolar disorder, ADD/ADHD Musculoskeletal: Chronic back pain Derm: Psoriasis - Past Surgical History Past Surgical History: Yes General: Cholecystectomy, Appendectomy, Colonoscopy Ortho: Spine surgery - Present Medications Home Medications: Ambulatory Orders Medication Instructions Recorded Confirmed Multivitamin [Multivitamins] 1 tab PO DAILY 02/04/15 01/01/24 Tamsulosin [Flomax] 0.8 mg PO DAILY 10/30/16 01/01/24 Duloxetine HCl [Cymbalta] 60 mg PO DAILY #30 capsule. 11/04/16 01/01/24 Rosuvastatin Calcium [Crestor] 10 mg PO QPM 10/24/20 01/01/24 Triamcinolone Acetonide 0.1% 1 gm TP BID 09/12/23 01/01/24 [Triamcinolone Acetonide] Oxycodone HCl/Acetaminophen 1 - 2 each PO Q6H PRN #14 tablet 01/01/24 [Percocet 5-325 mg Tablet] - Allergies Allergies/Adverse Reactions: Allergies Allergy/AdvReac Type Severity Reaction Status Date / Time bupropion HCl * [From Mal] Allergy Rash Verified 01/01/24 16:05 - Social History Does the pt smoke?: No Smoking Status: Current every day smoker Does the pt drink ETOH?: Yes ETOH Use: Beer Does the pt have substance abuse?: No - Immunizations Immunizations are current?: Yes - POLST Patient has POLST: No POLST Status: Full Code PD ED PE NORMAL - Vitals Vital signs reviewed: Yes - General General: Alert and oriented X 3, No acute distress - HEENT HEENT: PERRL, EOMI - Neck Neck: Supple, no meningeal sign, No bony TTP - Cardiac Cardiac: RRR, No murmur - Respiratory Respiratory: No respiratory distress, Clear bilaterally - Abdomen Abdomen: Non tender - Back Back: No spinal TTP, Other (Tender right low ribs laterally with mild right upper quadrant and right flank tenderness as well.) - Neuro Neuro: Alert and oriented X 3, Normal speech Results - Vitals Vitals: Vital Signs - 24 hr 01/01/24 01/01/24 01/01/24 15:56 16:05 18:02 Temperature 36.7 C Heart Rate 67 70 70 Respiratory 18 15 18 Rate Blood Pressure 146/94 H 144/90 H O2 Saturation 96 97 98 01/01/24 18:31 Temperature Heart Rate 100 Respiratory 20 Rate Blood Pressure 141/90 H O2 Saturation 98 Oxygen O2 Source Room air - Labs Labs: Laboratory Tests 01/01/24 01/01/24 16:29 16:29 WBC 11.6 H RBC 4.97 Hgb 15.2 Hct 47.5 MCV 95.6 H MCH 30.6 MCHC 32.0 RDW 14.0 Plt Count 266 MPV 9.1 Neut # (Auto) 9.3 H Lymph # (Auto) 1.2 L [place] # (Auto) 0.9 Eos # (Auto) 0.1 Baso # (Auto) 0.1 Absolute Nucleated RBC 0.00 Nucleated RBC % 0.0 Sodium 139 Potassium 4.0 Chloride 104 Carbon Dioxide 30 Anion Gap 5.0 L BUN 15 Creatinine 0.6 Estimated GFR (MDRD) 135 Glucose 101 Calcium 9.7 Total Bilirubin 0.4 AST 12 ALT 11 Alkaline Phosphatase 97 Total Protein 7.0 Albumin 4.1 Globulin 2.9 Albumin/Globulin Ratio 1.4 - Rads (name of study) CT Chest / a/p Relevant Findings:: Final report received, EMP independent interpretation of test PD Medical Decision Making - ED course ED course: He fell off a ladder and now has some right posterior chest wall pain. Differential diagnosis includes broken rib, pneumothorax, hollow or solid viscus injury. As such CTs were done with multiple incidental findings which were discussed with patient and family including emphysema and bilateral inguinal hernias which are asymptomatic. I counseled him to quit smoking. Lab review shows mild leukocytosis with unremarkable CMP. He was reassured by the negative results. The patient and family were counseled as to the diagnosis and need for follow-up. I counseled the patient with regard to signs and symptoms that would necessitate an urgent reevaluation in the emergency department. They understand they are welcome to return at any time if worse or if not improving as expected. This document was made in part using voice recognition software. While efforts are made to proofread this documents, sound alike and grammatical errors may occur. Smoking sensation was counseled Departure - Departure Disposition: 01 Home, Self Care Clinical Impression: Fall from ladder Qualifiers: Encounter type: initial encounter Qualified Code(s): W11.XXXA - Fall on and from ladder, initial encounter Chest wall contusion Qualifiers: Encounter type: initial encounter Laterality: right Qualified Code(s): S20.211A - Contusion of right front wall of thorax, initial encounter Condition: Stable Record reviewed to determine appropriate education?: Yes Instructions: ED Contusion Chest Wall Prescriptions: Oxycodone HCl/Acetaminophen [Percocet 5-325 mg Tablet] 1 - 2 each PO Q6H PRN #14 tablet PRN Reason: pain Comments: Thankfully no sign of serious injuries including spinal or rib fractures on CAT scans. Incidental findings were notable for diverticulosis, extensive problems with your spine which are chronic. Bilateral fat-containing inguinal hernias, and emphysema. I sent your prescription electronically to the [facility] in [place] since [facility] will be closed tomorrow. Call your doctor to arrange a follow-up appointment, make the next available appointment. In the interim, return anytime if worse or if new symptoms develop. I am prescribing a short course of narcotic pain medication for you. These are potentially dangerous and addictive medications that should be used carefully. These medications may constipate you. Take an depq-tmj-opwdban stool softener (docusate) twice daily with plenty of water while taking these medications. If you go 24 hours without a bowel movement, take rfhm-uvb-[id number] miralax, per package instructions. Do not drink or drive while taking these medications. If you received narcotic or sedating medications while in the emergency department, do not drive for 24 hours. Store this medication in a safe, secure place and out of reach of children. It is a violation of federal law to give or sell this medication to another person or to use in a manner other than prescribed. The ED will not refill narcotic prescriptions, including prescriptions lost or stolen. To dispose of unwanted medications: 1. [facility] provides a drop box for medication in pill form only (no liquids) 8:00 am to 4:30 p.m. Wednesday-Wednesday in the lobby of the [facility], [address] [place] [address]. Empty pills into ziplock bag before disposal. Call [phone] for information. 2.[employer] is a free service available to all [facility] residents. Go to [email or web address] Note that many narcotic pain relievers also contain Tylenol/acetaminophen. Please ensure that your total dose of acetaminophen from all sources does not exceed 3 g (3000 mg) per day. Forms: PCP List Discharge Date/Time: 01/01/24 18:31
[2024-01-01 16:37] LABS: BASOPHILS # (AUTO) 0.1 10^3/uL (0.0-0.1); BASOPHILS % (AUTO) 0.5 %; EOSINOPHILS # (AUTO) 0.1 10^3/uL (0.0-0.7); EOSINOPHILS % (AUTO) 0.8 %; HCT - HEMATOCRIT 47.5 % (42.0-52.0); HGB - HEMOGLOBIN 15.2 g/dL (14.0-18.0); LYMPHOCYTES # (AUTO) 1.2 10^3/uL (1.5-3.5); LYMPHOCYTES % (AUTO) 10.1 %; MEAN CORPUSCULAR HEMOGLOBIN 30.6 pg (27.0-31.0); MEAN CORPUSCULAR VOLUME 95.6 fL (80.0-94.0); MEAN PLATELET VOLUME 9.1 fL (7.4-11.4); MONOCYTES # (AUTO) 0.9 10^3/uL (0.0-1.0); NEUTROPHILS # (AUTO) 9.3 10^3/uL (1.5-6.6); PLT - PLATELET COUNT 266 10^3/uL (130-450); RED BLOOD COUNT 4.97 10^6/uL (4.70-6.10); WHITE BLOOD COUNT 11.6 x10^3/uL (4.8-10.8)
[2024-01-01] MEDS: HYDROmorphone 1 MG/ML CARPUJECT IVP STA (16:41)
[2024-01-01] MEDS: KETOROLAC 15 MG/ML VIAL IVP STA (16:41)
[2024-01-01 17:01] LABS: ALBUMIN 4.1 g/dL (3.2-5.5); ALBUMIN/GLOBULIN RATIO 1.4 (1.0-2.2); BILIRUBIN,TOTAL 0.4 mg/dL (0.2-1.0); CALCIUM 9.7 mg/dL (8.5-10.3); CREATININE 0.6 mg/dL (0.6-1.3)
[2024-01-01] MEDS ORDERED: iohexoL-300 100 ML VIAL ONE (17:33)
[2024-01-01 18:07] VITALS: O2SAT 98
--- NOTE | 2024-01-01 18:10 | CT Report ---
PROCEDURE: Chest W INDICATIONS: Right back/flank injury from fall CONTRAST: 100ml omni 300 TECHNIQUE: After the administration of intravenous contrast, a CT scan of the chest was performed. Images were recorded and evaluated at appropriate window settings. Reformats: axial MIP of the chest, coronal and sagittal. For radiation dose reduction, the following was used: automated exposure control, adjustme nt of mA and/or kV according to patient size. COMPARISON: 11/26/2021, 10/23/2020 Correlation is made with the accompanying imaging. FINDINGS: Image quality: There is artifact associated with the metallic hardware. Chest wall and lower neck: No thyroid nodule which requires sonographic follow up. No axillary or sup raclavicular adenopathy by size. Lungs and pleura: Mild dependent atelectasis can be seen normal-sized. No pleural effusions. No pneu mothorax. No suspicious pulmonary nodules which require follow up. Centrilobular emphysematous jensen es are seen, which are more prominent at the lung apices than at the lung bases. Mediastinum: Heart size is normal. No pericardial effusion. No large vessel abnormality. Incidental n ote is made of a common trunk off of the aorta of the right brachiocephalic artery and the left commo n carotid artery (bovine type aortic arch). This is considered to be a developmental variant of typic ally no clinical consequence. No mediastinal adenopathy by size criteria. A small hiatal hernia is incidentally noted. Bones: No aggressive osseous abnormality. Cervicothoracic fixation hardware is partially seen. Mild l evoconvex scoliotic curvature is seen. Upper Abdomen: Unremarkable. IMPRESSION: No displaced fracture can be seen. Unremarkable cervicothoracic fixation hardware partially seen. Additional findings: Bovine type aortic branching pattern Dependent atelectasis Centrilobular emphysematous change Small hiatal hernia Levoconvex scoliotic curvature Reviewed by: Marlon Medina MD on 01/01/2024 5:09 PM [facility] Approved by: Marlon Medina MD on 01/01/2024 5:09 PM [facility] Station ID: [id number]
--- NOTE | 2024-01-01 18:14 | CT Report ---
PROCEDURE: Abdomen/Pelvis W INDICATIONS: IV only, right back/flank injury from fall CONTRAST: 100ml omni 300 TECHNIQUE: After the administration of intravenous contrast, a CT scan of the abdomen and pelvis was performed. Images were recorded and evaluated at appropriate window settings. Reformats: coronal and sagittal. F or radiation dose reduction, the following was used: automated exposure control, adjustment of mA and /or kV according to patient size. COMPARISON: 11/18/2021. Correlation is also made with the accompanying imaging. FINDINGS: Image quality: There is artifact associated with the metallic hardware. Lower chest: Unremarkable. Liver: No solid mass. Gallbladder and biliary tree: Within normal limits. Spleen: No splenomegaly. Pancreas: No pancreatic ductal dilation. Adrenals: Generalized age-related thickening can be seen, yet without a focal adrenal nodule. Kidneys and ureters: No hydronephrosis. No renal cystic lesion which requires follow up. No solid mas s. Stomach, bowel and peritoneum: No bowel distension. No pathologic free fluid. Mild distal colonic div erticulosis is seen, without findings of active diverticulitis. Lymph nodes: No central or retroperitoneal adenopathy. Vessels: No infrarenal aortic aneurysm. PELVIS Reproductive organs: Unremarkable. Bladder: No abnormal wall thickening, accounting for underdistention. Pelvic lymph nodes: No pelvic adenopathy by size criteria. Bones: No aggressive osseous abnormality. Lumbosacral fixation hardware is seen. Mild dextroconvex sc oliotic curvature is seen. Minimal retrolisthesis can be seen at L2-L3 and L3-L4. Grade 1 anterolisth esis can be seen at L4-L5. Age-appropriate degenerative changes are seen. Other: Mild bilateral fat-containing inguinal hernias are seen. IMPRESSION: Negative for acute fracture. No hydronephrosis is seen. Additional findings: Diverticulosis, without findings of active diverticulitis. Lumbar spine degenerative change Dextroconvex scoliotic curvature Lumbosacral fixation hardware Bilateral fat-containing inguinal hernias Reviewed by: Marlon Medina MD on 01/01/2024 5:12 PM [place] Approved by: Marlon Medina MD on 01/01/2024 5:12 PM [facility] Station ID: [id number]
[2024-01-01] MEDS: oxyCODONE/ACET 5/325 Prepack 4 PO STA (18:26)
[2024-01-01 18:33] VITALS: BP 141/90
[2024-01-01] MEDS: iohexoL-300 100 ML VIAL IVP ONE (18:55)
== END 2024-01-01 18:31 | disposition home or self-care (01) ==
LOC: ED 15:52
DX: S20.221A Contusion of right back wall of thorax, initial encounter (principal); W11.XXXA Fall on and from ladder, initial encounter; Y93.89 Activity, other specified; K40.20 Bilateral inguinal hernia, without obstruction or gangrene, not specified as recurrent; J43.2 Centrilobular emphysema; K57.30 Diverticulosis of large intestine without perforation or abscess without bleeding; M47.816 Spondylosis without myelopathy or radiculopathy, lumbar region; Z96.89 Presence of other specified functional implants; F17.200 Nicotine dependence, unspecified, uncomplicated
CPT/HCPCS: 36415; 71260; 74177; 80053; 85025; 96374; 99284; J1170; Q9967; 83605; 87040

== ENCOUNTER 2024-05-25 16:28 | Emergency (ER) | payer MEDICARE, MEDICAID ==
[2024-05-25 16:53] VITALS: BP 140/92; O2SAT 98
--- NOTE | 2024-05-25 18:15 | ED Physician Documentation ---
PD HPI UPPER EXT INJURY - Stated complaint Stated Complaint: FALL/ LT ARM LAC - Chief complaint Chief Complaint: Trauma Ext - History obtained from History obtained from: Patient - Additonal information Additional information: The patient comes to the emergency department with chief complaint of laceration to left forearm after falling off a ladder. Patient states he was a few steps up on the ladder when he lost his balance and fell backwards. He states he was actually able to mostly land on his feet but stumbled to the ground and tore the skin on his left forearm. He did not hit his head or injure his back or neck, he states. He did fall onto his left shoulder and states its "sore" but does not feel like any bones are injured. He states he is able to move it as he normally does. No loss of consciousness. He denies any other complaints at this time. PD PAST MEDICAL HISTORY - Past Medical History Past Medical History: Yes Cardiovascular: Hypertension, High cholesterol, [place] Respiratory: Asthma, COPD, Pneumonia Neuro: CVA, TIA Endocrine/Autoimmune: None GI: GERD : Benign prostate hypertrophy HEENT: None Psych: Depression, Anxiety, Bipolar disorder, ADD/ADHD Musculoskeletal: Chronic back pain Derm: Psoriasis - Past Surgical History Past Surgical History: Yes General: Cholecystectomy, Appendectomy, Colonoscopy Ortho: Spine surgery - Present Medications Home Medications: Ambulatory Orders Medication Instructions Recorded Confirmed Multivitamin [Multivitamins] 1 tab PO DAILY 02/04/15 01/01/24 Tamsulosin [Flomax] 0.8 mg PO DAILY 10/30/16 01/01/24 Duloxetine HCl [Cymbalta] 60 mg PO DAILY #30 capsule. 11/04/16 01/01/24 Rosuvastatin Calcium [Crestor] 10 mg PO QPM 10/24/20 01/01/24 Triamcinolone Acetonide 0.1% 1 gm TP BID 09/12/23 01/01/24 [Triamcinolone Acetonide] - Allergies Allergies/Adverse Reactions: Allergies Allergy/AdvReac Type Severity Reaction Status Date / Time bupropion HCl * [From Mal] Allergy Rash Verified 05/25/24 16:49 - Social History Does the pt smoke?: No Smoking Status: Never smoker Does the pt drink ETOH?: Yes Does the pt have substance abuse?: No - Immunizations Immunizations are current?: Yes - POLST Patient has POLST: No POLST Status: Full Code PD ED PE NORMAL - Vitals Vital signs reviewed: Yes - General General: Alert and oriented X 3, No acute distress, Well developed/nourished - HEENT HEENT: Atraumatic, EOMI, Moist mucous membranes - Neck Neck: Supple, no meningeal sign, No bony TTP - Cardiac Cardiac: Strong equal pulses - Respiratory Respiratory: No respiratory distress - Derm Derm: Normal color, Warm and dry, No rash, Other (Irregular skin tear on dorsal left forearm with total length approximately 5 cm. No laceration into deeper tissue.) - Extremities Extremities: No deformity, No edema, Other (Mild tenderness palpation globally over left shoulder. Moderately limited range of motion which patient reports is slightly less than his usual.) - Neuro Neuro: Alert and oriented X 3, Other (Chronic motor deficits related to prior spinal cord injury, but no acute findings.) - Psych Psych: Normal mood, Normal affect Results - Vitals Vitals: Vital Signs - 24 hr 05/25/24 05/25/24 05/25/24 16:45 16:54 16:59 Temperature 36.5 C Heart Rate 94 Respiratory 18 18 17 Rate Blood Pressure 140/92 H O2 Saturation 98 Oxygen O2 Source Room air PD Medical Decision Making - ED course Complexity details: considered differential, d/w patient ED course: The patient's wound was cleansed and dressed. There is nothing suturable at this time. The patient did not want x-ray of his left shoulder and given that there is no deformity or edema and that his range of motion was fairly close to normal, I felt this is reasonable. We have discussed wound care at home and the usual indications for follow-up and return. Departure - Departure Disposition: 01 Home, Self Care Clinical Impression: Skin tear Shoulder contusion Qualifiers: Encounter type: initial encounter Laterality: left Qualified Code(s): S40.012A - Contusion of left shoulder, initial encounter Condition: Stable Instructions: ED Avulsion Dermal Comments: You have a skin tear that has been put back in placeAnd dressed. Most likely, given that this is just thickness of the skin, it will and dry up and fall off on its own. You may apply Neosporin or bacitracin to the wound to keep it moist and provide some antibiotic action.
[2024-05-25] MEDS ORDERED: BACITRACIN ZINC OINT 1 PACKET TOP STA (18:16)
== END 2024-05-25 18:20 | disposition home or self-care (01) ==
LOC: ED 16:28
DX: S51.812A Laceration without foreign body of left forearm, initial encounter (principal); S40.012A Contusion of left shoulder, initial encounter; W11.XXXA Fall on and from ladder, initial encounter; Y93.H2 Activity, gardening and landscaping
CPT/HCPCS: 99282; 99283